=== PATIENT | female | born 1930 | race Caucasian/White ===

== ENCOUNTER 2017-09-04 15:46 | Emergency (ER) | payer OTHER ==
[2011-06-30 11:14] VITALS: BP 177/73
--- OUTSIDE RECORDS SUMMARY | 2017-09-04 15:50 | XMS REPORT | Clinical Summary ---
:1930 Author Organization [facility] Address [address] [place] [address] Care Team Providers Name Role Phone Tara Castro MD Primary Care Provider Allergies No Known Allergies Current Medications Prescription Sig. Disp. Refills Start Date End Date Status ALPRAZolam (XANAX) 0.25 Take 0.25 mg by 1 01/09/2016 Active MG tablet mouth as needed. Take the morning of surgery amitriptyline (ELAVIL) 50 Take 50 mg by mouth 0 01/16/2016 Active MG tablet every evening. famotidine (PEPCID) 20 MG Take 20 mg by mouth 5 01/21/2016 Active tablet every morning. gabapentin (NEURONTIN) TAKE ONE CAPSULE BY 5 01/21/2016 Active 300 MG capsule MOUTH 3 TIMES A DAY NEEDED FOR PAIN- usually takes it in the morning gemfibrozil (LOPID) 600 Take 600 mg by 5 01/21/2016 Active MG tablet mouth 2 (two) times a day. levothyroxine (SYNTHROID, Take 100 mcg by 1 11/21/2015 Active LEVOTHROID) 100 MCG mouth nightly. tablet zolpidem (AMBIEN) 10 mg Take 10 mg by mouth 3 01/22/2016 Active tablet nightly. Takes 1/2 tablet of the 10mg metoprolol tartrate Take 50 mg by mouth Active (LOPRESSOR) 50 MG tablet 2 (two) times a day. Take the morning of surgery warfarin (COUMADIN) 1 MG Take 5 tablets (5 02/25/2016 Active tablet mg total) by mouth daily. Active Problems Problem Noted Date Osteoarthritis of right hip 02/21/2016 Family History Medical History Relation Name Comments Stroke Sister Relation Name Status Comments Brother Father of old age Mother of old age Sister Social History Tobacco Use Types Packs/Day Years Used Date Never Smoker Smokeless Tobacco: Never Used Alcohol Use Drinks/Week oz/Week Comments No Sex Assigned at Date Recorded Not on file Last Filed Vital Signs Not on file Plan of Treatment Health Maintenance Due Date Last Done Comments SHINGRIX VACCINE (#1) 1982 ZOSTER VACCINE 1992 PNEUMOCOCCAL POLYSACCHARIDE VACCINE AGE 65 AND OVER 1997 PNEUMOCOCCAL-13 1997 INFLUENZA VACCINE 10/21/2017 Implants Implanted Type Area Budget Director Device Expiration Model / Identifier Date Serial / Lot Screw Bone Canc 6.5x30mm - [id number] Hip Joint Right: DEPUY ORTHO [id number] / Implanted: Qty: 1 on 02/21/2016 by Holly Ferguson MD Implants Hip / Screw Bone Canc Dome 6.5x25mm Ltxf [place] - [id number] Hip Joint Right: DEPUY ORTHO [id number] / Implanted: Qty: 1 on 02/21/2016 by Holly Ferguson MD Implants Hip / Shell Actblr Sector Series W/ Gripton 54mm [place] - [id number] Hip Joint Right: [facility] 12/20/2025 [id number] / Implanted: Qty: 1 on 02/21/2016 by Holly Ferguson MD Implants Hip ORTHO- KNEES / [id number] Liner Actblr Neut Altra Linked Pe [id number] +4 Altrx - [id number] Hip Joint Right: DEPUY 06/20/2020 [id number] / Implanted: Qty: 1 on 02/21/2016 by Holly Ferguson MD Implants Hip ORTHO- KNEES / [id number] Stem Fml Bone Presrvtn Std Ofst Sz 6 107mm Tri-Lock - [id number] Hip Joint Right: [facility] 10/20/2024 [id number] / Implanted: Qty: 1 on 02/21/2016 by Holly Ferguson MD Implants Hip ORTHO- KNEES / [id number] [place] Fracture System Biolox Delta Ceramic Femoral Heads Size 36 +5.0 Mm Articul/Lamont 03/05 Taper Ceramic Femoral Heads - [id number] IPM IMPLANT Right: [facility] 11/20/2020 [id number] / Implanted: Qty: 1 on 02/21/2016 by Holly Ferguson MD DEVICES Hip ORTHOPAEDICS, [employer] [id number] Results Not on fileafter 09/03/2016 Insurance Payer Benefit Plan / Group Subscriber ID Type Phone Address MEDICARE MEDICARE PART A AND B xxxxxxxxxx Medicare [place], [place] AETNA AETNA HMO,POS,EPO, MC/EC xxxxxxxxxx HMO Home: [address] [phone] [address]
--- NOTE | 2017-09-04 16:33 | ER ---
Nurse's Notes [facility] Name: Shilpa Samaniego Age: 87 yrs Sex: Female : 1930 Arrival Date: 09/04/2017 Time: 15:49 Bed Waiting Private MD: Brant Daley E Diagnosis: ED Course: 09/04 15:49 Patient arrived in ED. kr2 15:53 Brant Daley MD is Private Physician. sb2 16:32 Eliezer Henson MD is Attending Physician. aa5 Administered Medications: No medications were administered Outcome: 16:32 Patient left the ED. aa5 Signatures: Faiza Field RN RN aa5 Rianna Godoy RN RN kr2 Zoey Alvarado sb2
== END 2017-09-04 16:32 | disposition left against medical advice (07) ==
LOC: ER 15:46
DX: Z53.21 Procedure and treatment not carried out due to patient leaving prior to being seen by health care provider (principal)

== ENCOUNTER 2017-09-05 09:40 | Emergency (ER) | payer OTHER ==
--- OUTSIDE RECORDS SUMMARY | 2017-09-05 09:43 | XMS REPORT | Clinical Summary ---
:1930 Author Organization [facility] Address [address] [place] [address] Care Team Providers Name Role Phone Tara [...] INFLUENZA VACCINE 10/21/2017 Implants Implanted Type Area Prop Attendant Device Expiration Model / Identifier Date Serial / Lot Screw Bone Canc 6.5x30mm - [id number] Hip Joint Right: DEPUY ORTHO [id number] / Implanted: Qty: 1 on 02/21/2016 by Holly Ferguson MD Implants Hip / Screw Bone Canc Dome 6.5x25mm Ltxf [place] - [id number] Hip Joint Right: DEPUY ORTHO [id number] / Implanted: Qty: 1 on 02/21/2016 by Holly Ferguson MD Implants Hip / Shell Actblr Sector Series W/ Gripton 54mm [place] - [id number] Hip Joint Right: [facility] 12/20/2025 [id number] / Implanted: Qty: 1 on 02/21/2016 by Holly Ferguson MD Implants Hip ORTHO- KNEES / [id number] Liner Actblr Neut Altra Linked Pe [id number] +4 Altrx - [id number] Hip Joint Right: DEPUY 06/20/2020 [id number] / Implanted: Qty: 1 on 02/21/2016 by Holly Ferguson MD Implants Hip ORTHO- KNEES / [id number] Stem Fml Bone Presrvtn Std Ofst Sz 6 107mm Tri-Lock - [id number] Hip Joint Right: [facility] 10/20/2024 [id number] / Implanted: Qty: 1 on 02/21/2016 by Holly Ferguson MD Implants Hip ORTHO- KNEES / [id number] [place] Fracture System Biolox Delta Ceramic Femoral Heads Size 36 +5.0 Mm Articul/Lamont 03/05 Taper Ceramic Femoral Heads - [id number] IPM IMPLANT Right: [facility] 11/20/2020 [id number] / Implanted: Qty: 1 on 02/21/2016 by Holly Ferguson MD [employer]ICES Hip ORTHOPAEDICS, [employer] [id number] Results Not on fileafter 09/04/2016 Insurance Payer Benefit Plan / Group Subscriber ID Type Phone Address MEDICARE MEDICARE PART A AND B xxxxxxxxxx Medicare [place], [place] AETNA AETNA HMO,POS,EPO, MC/EC xxxxxxxxxx HMO Home: [address] [phone] [address]
--- NOTE | 2017-09-05 11:10 | RAD REPORT ---
EXAM DESCRIPTION: Lenora Batista (2 Views)09/05/2017 10:44 am CLINICAL HISTORY: Chest pain COMPARISON: July 2016 FINDINGS: The lungs appear clear of acute infiltrate. The heart is normal size. Pacemaker leads are in place IMPRESSION: No acute abnormalities displayed
--- NOTE | 2017-09-05 11:23 | EDPHYS ---
Physician Documentation [facility] Name: Shilpa Samaniego Age: 87 yrs Sex: Female : 1930 Arrival Date: 09/05/2017 Time: 09:41 Bed 14 Private MD: Brant Daley E ED Physician Berto King HPI: 09/05 12:00 This 87 yrs old Female presents to ER via Ambulatory with complaints of Back pm1 pain. 12:00 Details of fall: The patient fell from an upright position, while standing. Onset: The pm1 symptoms/episode began/occurred 4 day(s) ago. Associated injuries: The patient sustained Bruises to right side of back. Severity of symptoms: in the emergency department the symptoms are unchanged. 12:00 The patient has not recently seen a physician. Patient was walking to the toilet and pm1 her hand slipped on the counter top as she leaning on it. Patient fell on the right side of her back. Patient reports that she hit her right rib area on the toilet. Patient is not short of breath but complains of pain to right side of her back with taking in a deep breath. Patient without headache, head injury, neck pain, or LOC. Historical: - Allergies: 10:12 Augmentin; sv 10:12 NSAIDS; sv - Home Meds: 10:12 Lasix 40 mg Oral tab [Active]; Eliquis oral oral [Active]; famotidine 20 mg Oral tab sv [Active]; Gemfibrozil 300 MG Oral [Active]; gabapentin 300 mg Oral cap [Active]; levothyroxine 100 mcg tab 1 tab once daily [Active]; amitriptyline 50 mg Oral tab 1 tab once daily [Active]; Ambien 5 mg Oral tab [Active]; - PMHx: 10:12 Anxiety; Atrial Fib; hiatal hernia; DVT; LLE; Hyperlipidemia; Hypertension; Pacemaker; sv Rheumatoid Arthritis; - PSHx: 10:12 Hysterectomy; Hernia repair; cataract; shoulder; hip; sv - Immunization history:: Adult Immunizations up to date. - Social history:: Smoking status: Patient/guardian denies using tobacco. - Ebola Screening: : No symptoms or risks identified at this time. ROS: 12:00 Constitutional: Negative for fever, chills, and weight loss, Eyes: Negative for injury, pm1 pain, redness, and discharge, ENT: Negative for injury, pain, and discharge, Neck: Negative for injury, pain, and swelling, Cardiovascular: Negative for chest pain, palpitations, and edema. 12:00 Abdomen/GI: Negative for abdominal pain, nausea, vomiting, diarrhea, and constipation. 12:00 MS/Extremity: Negative for injury and deformity. 12:00 Neuro: Negative for headache, weakness, numbness, tingling, and seizure. 12:00 Respiratory: Positive for Pain with deep inspiration to right side of back, Negative for cough, shortness of breath, sputum production. 12:00 Back: Positive for of the right subscapular area and right mid back, contusion and tenderness. 12:00 Skin: Positive for of the right subscapular area and right mid back, contusion . Exam: 12:00 Constitutional: This is a well developed, well nourished patient who is awake, alert, pm1 and in no acute distress. Head/Face: Normocephalic, atraumatic. Eyes: Pupils equal round and reactive to light, extra-ocular motions intact. Lids and lashes normal. Conjunctiva and sclera are non-icteric and not injected. Cornea within normal limits. Periorbital areas with no swelling, redness, or edema. ENT: Nares patent. No nasal discharge, no septal abnormalities noted. Tympanic membranes are normal and external auditory canals are clear. Oropharynx with no redness, swelling, or masses, exudates, or evidence of obstruction, uvula midline. Mucous membranes moist. Neck: Trachea midline, no thyromegaly or masses palpated, and no cervical lymphadenopathy. Supple, full range of motion without nuchal rigidity, or vertebral point tenderness. No Meningismus. Chest/axilla: Normal chest wall appearance and motion. Nontender with no deformity. No lesions are appreciated. Cardiovascular: Regular rate and rhythm with a normal S1 and S2. No gallops, murmurs, or rubs. Normal PMI, no JVD. No pulse deficits. Respiratory: Lungs have equal breath sounds bilaterally, clear to auscultation and percussion. No rales, rhonchi or wheezes noted. No increased work of breathing, no retractions or nasal flaring. Abdomen/GI: Soft, non-tender, with normal bowel sounds. No distension or tympany. No guarding or rebound. No evidence of tenderness throughout. 12:00 Back: ROM is intact, normal spinal alignment noted, vertebral tenderness, is not appreciated, contusion to right subscapular and right mid back. 12:00 Skin: injury, contusion(s), that are superficial, of the right mid back and right subscapular area. 12:00 Neuro: Orientation: is normal, Motor: is normal, moves all fours. Vital Signs: 10:12 BP 154 / 63; Pulse 87; Resp 18; Temp 97.9; Pulse Ox 99% ; Weight 81.65 kg; Height 5 ft. sv 10 in. (177.80 cm); Pain 8/10; 11:28 BP 150 / 62; Pulse 85; Resp 18; Pulse Ox 100% on R/A; hj 10:12 Body Mass Index 25.83 (81.65 kg, 177.80 cm) sv MDM: 10:29 Patient medically screened. pm1 11:19 Data reviewed: vital signs. Data interpreted: Pulse oximetry: on room air is 99 %. pm1 Interpretation: normal. Counseling: I had a detailed discussion with the patient and/or guardian regarding: the historical points, exam findings, and any diagnostic results supporting the discharge/admit diagnosis, radiology results. 11:19 ED course: Patient offered pain medications in the ER. Patient refused medications in pm1 ER because she drove here. Patient requested prescription to go home with. 09/05 10:17 Order name: Chest Pa And Lat (2 Views) XRAY; Complete Time: 11:11 sv 09/05 11:10 Order name: Urine Dipstick-Ancillary (obtain specimen); Complete Time: 11:10 em1 Administered Medications: No medications were administered Disposition: 19:01 Co-signature as Attending Physician, Berto King MD. Disposition: 09/05/17 11:22 Discharged to Home. Impression: Contusion of right back wall of thorax. - Condition is Stable. - Discharge Instructions: Rib Contusion. - Prescriptions for Tramadol 50 mg Oral Tablet - take 1 tablet by ORAL route every 8 hours as needed; 12 tablet. - Medication Reconciliation Form, Thank You Letter, Prescription Opioid Use form. - Follow up: Emergency Department; When: As needed; Reason: Worsening of condition. Follow up: Brant Daley MD; When: 2 - 3 days; Reason: Recheck today's complaints, Continuance of care, Re-evaluation by your physician. - Problem is new. - Symptoms have improved. - Notes: Use your incentive spirometer at home Signatures: Dispatcher [employer] EDInes Jung, RN RN Israel Parra em1 Pierce Crystal RN RN hj Jose Cruz Rainey, KLYSTROM TUBE TESTER KLYSTROM TUBE TESTER pm1 Berto King MD MD Corrections: (The following items were deleted from the chart) 11:28 11:22 09/05/2017 11:22 Discharged to Home. Impression: Contusion of right back wall of hj thorax. Condition is Stable. Forms are Medication Reconciliation Form, Thank You Letter, Antibiotic Education, Prescription Opioid Use. Follow up: Emergency Department; When: As needed; Reason: Worsening of condition. Follow up: Brant Daley; When: 2 - 3 days; Reason: Recheck today's complaints, Continuance of care, Re-evaluation by your physician. Problem is new. Symptoms have improved. pm1
--- NOTE | 2017-09-05 11:23 | ER ---
Nurse's Notes [facility] Name: Shilpa Samaniego Age: 87 yrs Sex: Female : 1930 Arrival Date: 09/05/2017 Time: 09:41 Bed 14 Private MD: Brant Daley E Diagnosis: Contusion of right back wall of thorax Presentation: 09/05 10:07 Presenting complaint: Patient states: s/p fall on 09/01/17 after getting dizzy and her sv back hit the toilet. Dyspnea with breathing. Transition of care: patient was not received from another setting of care. Onset of symptoms was September 01, 2017. 10:07 Method Of Arrival: Ambulatory sv 10:07 Acuity: LESA 3 sv 10:08 Risk Assessment: Do you want to hurt yourself or someone else? Patient reports no sv desire to harm self or others. Care prior to arrival: None. 10:45 Initial Sepsis Screen: Does the patient meet any 2 criteria? No. Patient's initial hj sepsis screen is negative. Does the patient have a suspected source of infection? No. Patient's initial sepsis screen is negative. Triage Assessment: 10:45 General: Appears in no apparent distress. uncomfortable, Behavior is calm, cooperative, hj appropriate for age. Respiratory: Reports shortness of breath Onset: The symptoms/episode began/occurred the patient has mild shortness of breath. Historical: - Allergies: 10:12 Augmentin; sv 10:12 NSAIDS; sv - Home Meds: 10:12 Lasix 40 mg Oral tab [Active]; Eliquis oral oral [Active]; famotidine 20 mg Oral tab sv [Active]; Gemfibrozil 300 MG Oral [Active]; gabapentin 300 mg Oral cap [Active]; levothyroxine 100 mcg tab 1 tab once daily [Active]; amitriptyline 50 mg Oral tab 1 tab once daily [Active]; Ambien 5 mg Oral tab [Active]; - PMHx: 10:12 Anxiety; Atrial Fib; hiatal hernia; DVT; LLE; Hyperlipidemia; Hypertension; Pacemaker; sv Rheumatoid Arthritis; - PSHx: 10:12 Hysterectomy; Hernia repair; cataract; shoulder; hip; sv - Immunization history:: Adult Immunizations up to date. - Social history:: Smoking status: Patient/guardian denies using tobacco. - Ebola Screening: : No symptoms or risks identified at this time. Screenin:44 Abuse screen: Denies threats or abuse. Denies injuries from another. Nutritional hj screening: No deficits noted. Tuberculosis screening: No symptoms or risk factors identified. Fall Risk None identified. Assessment: 10:44 Pain:. Cardiovascular: Rhythm is regular. Respiratory: Airway is patent Respiratory hj effort is even, unlabored, Breath sounds are clear. 10:44 General: Appears in no apparent distress. uncomfortable, Behavior is calm, cooperative, hj appropriate for age. Neuro: Level of Consciousness is awake, alert, obeys commands, Oriented to person, place, time, situation, Appropriate for age. GI: No signs and/or symptoms were reported involving the gastrointestinal system. : No signs and/or symptoms were reported regarding the genitourinary system. EENT: No signs and/or symptoms were reported regarding the EENT system. Derm: No signs and/or symptoms reported regarding the dermatologic system. Musculoskeletal: No signs and/or symptoms reported regarding the musculoskeletal system. 11:10 Reassessment: Patient and/or family updated on plan of care and expected duration. Pain hj level reassessed. Patient is alert, oriented x 3, equal unlabored respirations, skin warm/dry/pink. awaiting results;. Vital Signs: 10:12 BP 154 / 63; Pulse 87; Resp 18; Temp 97.9; Pulse Ox 99% ; Weight 81.65 kg; Height 5 ft. sv 10 in. (177.80 cm); Pain 8/10; 11:28 BP 150 / 62; Pulse 85; Resp 18; Pulse Ox 100% on R/A; hj 10:12 Body Mass Index 25.83 (81.65 kg, 177.80 cm) sv ED Course: 09:41 Patient arrived in ED. as 09:42 Brant Daley MD is Private Physician. as 10:09 Triage completed. sv 10:19 Jose Cruz Rainey NP is PHCP. pm1 10:19 Berto King MD is Attending Physician. pm1 10:23 Pierce Crystal RN is Primary Nurse. hj 10:42 X-ray completed. Patient tolerated procedure well. la2 10:42 Chest Pa And Lat (2 Views) XRAY In Process Unspecified. EDMS 10:45 Arm band placed on right wrist. hj 10:45 Patient has correct armband on for positive identification. Placed in gown. Bed in low hj position. Call light in reach. Side rails up X 1. 11:08 Warm blanket given. Pulse ox on. NIBP on. 5 11:08 Urine collected: clean catch specimen, clear. [facility] 11:22 Brant Daley MD is Referral Physician. pm1 11:27 No provider procedures requiring assistance completed. Patient did not have IV access hj during this emergency room visit. Administered Medications: No medications were administered Outcome: 11: Discharge ordered by . pm1 11:27 Discharged to home ambulatory, with family. 11: Condition: stable 11:27 Discharge instructions given to patient, Instructed on discharge instructions, follow up and referral plans. Demonstrated understanding of instructions, follow-up care, Prescriptions given X 1. 11:28 Patient left the ED. Signatures: Dispatcher [employer] EDInes Jung RN RN Noa Conde Henry, RN RN hj Marinas, Patrick, [employer]NER 1 Erin Conde [facility] Tori Almeida
[2017-09-05 12:15] VITALS: TEMP 97.9
[2017-09-05 12:17] VITALS: BP 150/62; O2SAT 100
== END 2017-09-05 11:28 | disposition home or self-care (01) ==
LOC: ER 09:40
DX: S20.221A Contusion of right back wall of thorax, initial encounter (principal); W18.39XA Other fall on same level, initial encounter; Y93.01 Activity, walking, marching and hiking; Y92.002 Bathroom of unspecified non-institutional (private) residence as the place of occurrence of the external cause; I10 Essential (primary) hypertension; I48.91 Unspecified atrial fibrillation; E78.5 Hyperlipidemia, unspecified; Z79.02 Long term (current) use of antithrombotics/antiplatelets; Z88.1 Allergy status to other antibiotic agents; Z88.6 Allergy status to analgesic agent; Z95.0 Presence of cardiac pacemaker; Z86.718 Personal history of other venous thrombosis and embolism
CPT/HCPCS: 71046; 99284

== ENCOUNTER 2017-10-14 13:03 | Emergency (ER) | payer OTHER ==
--- OUTSIDE RECORDS SUMMARY | 2017-10-14 13:05 | XMS REPORT | Clinical Summary ---
:1930 Author Organization [facility] Address [address] [place] [address] Care Team Providers Name Role Phone Tara [...] INFLUENZA VACCINE 10/21/2017 Implants Implanted Type Area Leases And Land Supervisor Device Expiration Model / Identifier Date Serial / Lot Screw Bone Canc 6.5x30mm - [id number] Hip Joint Right: DEPUY ORTHO [id number] / Implanted: Qty: 1 on 02/21/2016 by Holly Ferguson MD Implants Hip / Screw Bone Canc Dome 6.5x25mm Ltxf [place] - [id number] Hip Joint Right: DEPUY ORTHO [id number] / Implanted: Qty: 1 on 02/21/2016 by Holly Ferguson MD Implants Hip / Shell Actblr Sector Series W/ Gripton 54mm [place] - [id number] Hip Joint Right: [facility] 12/20/2025 [id number] / Implanted: Qty: 1 on 02/21/2016 by Holly Ferguson MD Implants Hip ORTHO- KNEES / [id number] Liner Actblr Neut Altra Linked Pe [id number] +4 Altrx - [id number] Hip Joint Right: DEPUY 06/20/2020 [id number] / Implanted: Qty: 1 on 02/21/2016 by Holly Ferguson MD Implants Hip ORTHO- KNEES / [id number] Stem Fml Bone Presrvtn Std Ofst Sz 6 107mm Tri-Lock - [id number] Hip Joint Right: [facility] 10/20/2024 [id number] / Implanted: Qty: 1 on 02/21/2016 by Holly Ferguson MD Implants Hip ORTHO- KNEES / [id number] [place] Fracture System Biolox Delta Ceramic Femoral Heads Size 36 +5.0 Mm Articul/Lamont 03/05 Taper Ceramic Femoral Heads - [id number] IMPLANT Right: [facility] 11/20/2020 [id number] 36 320 / Implanted: Qty: 1 on 02/21/2016 by Holly Ferguson MD DEVICES Hip ORTHOPAEDICS, / [id number] Results Not on fileafter 10/13/2016 Insurance Payer Benefit Plan / Group Subscriber ID Type Phone Address MEDICARE MEDICARE PART A AND B xxxxxxxxxx Medicare [place], [place] AETNA AETNA HMO,POS,EPO, MC/EC xxxxxxxxxx HMO Home: [address] [phone] [address]
[2017-10-14] MEDS ORDERED: ONDANSETRON 4 MG/2 ML VIAL ONE (13:39)
[2017-10-14 14:01] LABS: Protime INR 1.37
--- NOTE | 2017-10-14 14:05 | RAD REPORT ---
EXAM DESCRIPTION: RAD - Chest Single View - 10/14/2017 1:58 pm CLINICAL HISTORY: dizziness Chest pain. COMPARISON: Chest Pa And Lat (2 Views) dated 09/05/2017; Chest Pa And Lat (2 Views) dated 08/17/2016; Chest Single View dated 03/29/2016; Chest Single View dated 02/16/2016 FINDINGS: Portable technique limits examination quality. The lungs are grossly clear. The heart is normal in size. No displaced fractures.Dual lead pacer courtney ce in place. IMPRESSION: No acute intrathoracic process suspected.
[2017-10-14 14:15] LABS: ALT/SGPT 16 U/L (12-78); AST/SGOT 20 U/L (15-37); Albumin 3.9 g/dL (3.4-5.0); Alkaline Phosphatase 72 U/L (45-117); BUN Blood Urea Nitrogen 25 mg/dL (7-18); Bicarbonate 30 mmol/L (21-32); Bilirubin Direct < 0.1 mg/dL (0-0.2); Bilirubin Total 0.2 mg/dL (0.2-1.0); Glucose Level 144 mg/dL (74-106); NT PRO-BNP 376 pg/mL (<450); Potassium 3.8 mmol/L (3.5-5.1); Protein, Total 7.3 g/dL (6.4-8.2); Sodium Level 144 mmol/L (136-145)
--- NOTE | 2017-10-14 14:15 | EKG ---
Test Date: 2017-10-14 Test Time: 13:26:06 Cash Posting Representative: KASIA MEASUREMENT RESULTS: Intervals: Rate: 68 TN: QRSD: 84 QT: 428 QTc: 455 [place]: P: TN: QRS: 54 T: 49 INTERPRETIVE STATEMENTS: Electronic atrial pacemaker Compared to ECG 03/29/2016 20:48:08 Sinus rhythm no longer present Electronically Signed On 10-14-17 14:15:08 CDT by Ck Somers
[2017-10-14 14:23] LABS: Absolute Lymphocytes (CBC) 1.3 K/uL (0.7-4.9); Absolute Monocytes 0.4 K/uL (0.1-1.3); Absolute Neutrophil 3.4 K/uL (1.8-8.0); Basophils % 2.3 % (0-1.3); Hematocrit 30.1 % (36.0-45.0); Lymphocytes % 23.5 % (15.3-44.8); MCH 31.3 pg (27.0-35.0); MCV 93.2 fL (80-100); MPV 8.1 fL (7.6-11.3); Monocytes % 6.4 % (3.3-12.3); RBC Red Blood Cell Count 3.23 M/uL (3.86-4.86)
[2017-10-14] MEDS ORDERED: MECLIZINE HCL 12.5 MG TAB ONE (14:28)
[2017-10-14] MEDS ORDERED: DIAZEPAM 10 MG/2 ML INJ SYRINGE ONE ×2 (14:32→14:53)
[2017-10-14 14:57] LABS: Urine Blood NEGATIVE (NEG); Urine Glucose NEGATIVE (NEG); Urine Protein NEGATIVE (NEG); Urine Specific Gravity 1.015 (1.005-1.030)
--- NOTE | 2017-10-14 15:01 | RAD REPORT ---
EXAM DESCRIPTION: CT - Head Brain Wo Cont - 10/14/2017 2:48 pm CLINICAL HISTORY: DIZZINESS Visual disturbances, drowsiness. COMPARISON: Head Brain Wo Cont dated 03/29/2016; HEAD BRAIN W O CONTRAST dated 07/28/2014 TECHNIQUE: All CT scans are performed using dose optimization technique as appropriate and may inclu de automated exposure control or mA/KV adjustment according to patient size. FINDINGS: No intracranial hemorrhage, hydrocephalus or extra-axial fluid collection.Mild brain atrop hy is seen.No areas of brain edema or evidence of midline shift. The paranasal sinuses and mastoids are clear. The calvarium is intact. IMPRESSION: No acute intracranial abnormality.
--- NOTE | 2017-10-14 16:02 | ER ---
Nurse's Notes [facility] Name: Shilpa Samaniego Age: 87 yrs Sex: Female : 1930 Arrival Date: 10/14/2017 Time: 13:04 Bed 4 Private MD: Brant Daley E Diagnosis: Vertigo Presentation: 10/14 13:15 Presenting complaint: Patient states: c/o dizziness, blurry vision and nausea that sv started at 1000 today. c/o chest tightness. Transition of care: patient was not received from another setting of care. Onset of symptoms was October 14, 2017 at 10:00. Care prior to arrival: None. 13:15 Method Of Arrival: Wheelchair sv 13:15 Acuity: LESA 3 sv 13:46 Risk Assessment: Do you want to hurt yourself or someone else? Patient reports no ae1 desire to harm self or others. Initial Sepsis Screen: Does the patient meet any 2 criteria? No. Patient's initial sepsis screen is negative. Does the patient have a suspected source of infection? No. Patient's initial sepsis screen is negative. Triage Assessment: 13:46 General: Appears uncomfortable, Behavior is cooperative, anxious. Pain: Denies pain. ae1 EENT: No signs and/or symptoms were reported regarding the EENT system. Neuro: Level of Consciousness is awake, alert, obeys commands, Oriented to person, place, time, situation, Reports dizziness. Cardiovascular: Patient's skin is warm and dry. Respiratory: Airway is patent Respiratory effort is even, unlabored, Respiratory pattern is regular, symmetrical. GI: Reports nausea. : No signs and/or symptoms were reported regarding the genitourinary system. Derm: Skin is pale. Musculoskeletal: No signs and/or symptoms reported regarding the musculoskeletal system. Historical: - Allergies: 13:16 Augmentin; sv 13:16 NSAIDS; sv - Home Meds: 15:55 Ambien 5 mg Oral tab [Active]; amitriptyline 50 mg Oral tab 1 tab once daily [Active]; ae1 Eliquis Oral [Active]; famotidine 20 mg Oral tab [Active]; gabapentin 300 mg Oral cap [Active]; Gemfibrozil 300 MG Oral [Active]; Lasix 40 mg Oral tab [Active]; levothyroxine 100 mcg tab 1 tab once daily [Active]; - PMHx: 13:16 Anxiety; Atrial Fib; DVT; LLE; hiatal hernia; Hyperlipidemia; Hypertension; Pacemaker; sv Rheumatoid Arthritis; - PSHx: 13:16 Hysterectomy; Hernia repair; cataract; shoulder; hip; sv - Immunization history:: Adult Immunizations up to date. - Social history:: Smoking status: Patient/guardian denies using tobacco. - Ebola Screening: : No symptoms or risks identified at this time. Screenin:45 Abuse screen: Denies threats or abuse. Nutritional screening: No deficits noted. ae1 Tuberculosis screening: No symptoms or risk factors identified. 15:53 Fall Risk Fall in past 12 months (25 points). Secondary diagnosis (15 points) Chronic ae1 dizziness. . IV access (20 points). Ambulatory Aid- None/Bed Rest/Nurse Assist (0 pts). Gait- Normal/Bed Rest/Wheelchair (0 pts) Mental Status- Oriented to own ability (0 pts). Assessment: 15:56 Reassessment: Patient appears in no apparent distress at this time. Patient and/or ae1 family updated on plan of care and expected duration. Pain level reassessed. Patient states feeling better. Patient states symptoms have improved. Vital Signs: 13:16 BP 138 / 61; Pulse 64; Resp 18; Temp 97; Pulse Ox 97% ; Weight 86.18 kg; Height 5 ft. 9 sv in. (175.26 cm); 14:23 BP 127 / 61; Pulse 60; mb4 15:18 BP 109 / 95; Pulse 75; Resp 16; Pulse Ox 95% on 2 lpm NC; ae1 13:16 Body Mass Index 28.06 (86.18 kg, 175.26 cm) sv ED Course: 13:04 Patient arrived in ED. mr 13:04 Brant Dlaey MD is Private Physician. mr 13:15 Triage completed. sv 13:17 Arm band placed on left wrist. sv 13:18 Salvador Ventura PA is PHCP. jr8 13:18 Dio Cordon MD is Attending Physician. jr8 13:34 Eddi Carter, SABI is Primary Nurse. ae1 13:34 EKG done, reviewed by Dio Cordon MD. tc 13:45 Placed in gown. Bed in low position. Call light in reach. Side rails up X2. Adult w/ ae1 patient. monitor and storage bin tender on. Pulse ox on. NIBP on. Warm blanket given. 13:58 XRAY Chest (1 view) In Process Unspecified. EDMS 14:17 Radiology exam delayed due to patient needed to go to restroom. sj 14:22 Urine collected: clean catch specimen, clear. mb4 14:46 CT completed. Patient tolerated procedure well. Patient moved to CT via stretcher. Patient moved back from CT. 14:49 CT Head Brain wo Cont In Process Unspecified. EDMS 16:01 Rodney Stein MD is Referral Physician. jr8 16:01 Dustin Nunez MD is Referral Physician. jr8 16:22 No provider procedures requiring assistance completed. IV discontinued, intact, ae1 bleeding controlled, No redness/swelling at site. Pressure dressing applied. Administered Medications: 13:37 Drug: Zofran 4 mg Route: IVP; Site: right antecubital; ae1 15:56 Follow up: Response: Nausea is decreased ae1 14:35 Drug: Meclizine 25 mg Route: PO; ae1 15:56 Follow up: Response: Other; Dizziness decreased. ae1 14:35 Drug: Valium 2 mg Route: IVP; Site: right antecubital; ae1 15:57 Follow up: Response: Anxiety decreased ae1 Intake: Outcome: 16:01 Discharge ordered by . jr8 16:22 Discharged to home ambulatory, with family, with steady gait. ae1 16:22 Condition: stable 16:22 Discharge instructions given to patient, family, Instructed on discharge instructions, follow up and referral plans. medication usage, Demonstrated understanding of instructions, Prescriptions given X 3. 16:23 Patient left the ED. ae1 Signatures: Dispatcher [employer] EDOH Ines Vivas, RN RN Erin Dumont mr Hernadez, Christine Salvador Schmitt, PA PA jr8 Sunita Ferrari, assembly mechanic EKG Payton Torres Andrea, RN RN ae1 Paola Nicholson mb4 Corrections: (The following items were deleted from the chart) 13:17 13:15 Presenting complaint: Patient states: c/o dizziness, blurry vision and nausea sv that started at 1000 today. sv 14:55 13:50 Meclizine 25 mg PO ae1 ae1
--- NOTE | 2017-10-14 16:02 | EDPHYS ---
Physician Documentation [facility] Name: Shilpa Samaniego Age: 87 yrs Sex: Female : 1930 Arrival Date: 10/14/2017 Time: 13:04 Bed 4 Private MD: Brant Daley E ED Physician Dio Cordon HPI: 10/14 14:31 This 87 yrs old Female presents to ER via Wheelchair with complaints of jr8 Nausea, dizziness . 14:31 The patient presents with sense of spinning, vertigo. Onset: The symptoms/episode jr8 began/occurred acutely, today. Context: occurred at home, occurred while the patient was at rest. Modifying factors: The symptoms are alleviated by holding head still, lying down, the symptoms are aggravated by movement of head, changing position. Associated signs and symptoms: Pertinent positives: nausea, vomiting. Severity of symptoms: At their worst the symptoms were moderate in the emergency department the symptoms have improved. Patient's baseline: Neuro: alert and fully oriented, Motor: no deficits, Ambulation: walks without assistance, Speech: normal. The patient has experienced a previous episode. The patient has not recently seen a physician. 14:31 Patient stated that she has had dizziness before but never this long and to this extent jr8 . Historical: - Allergies: 13:16 Augmentin; sv 13:16 NSAIDS; sv - Home Meds: 15:55 Ambien 5 mg Oral tab [Active]; amitriptyline 50 mg Oral tab 1 tab once daily [Active]; ae1 Eliquis Oral [Active]; famotidine 20 mg Oral tab [Active]; gabapentin 300 mg Oral cap [Active]; Gemfibrozil 300 MG Oral [Active]; Lasix 40 mg Oral tab [Active]; levothyroxine 100 mcg tab 1 tab once daily [Active]; - PMHx: 13:16 Anxiety; Atrial Fib; DVT; LLE; hiatal hernia; Hyperlipidemia; Hypertension; Pacemaker; sv Rheumatoid Arthritis; - PSHx: 13:16 Hysterectomy; Hernia repair; cataract; shoulder; hip; sv - Immunization history:: Adult Immunizations up to date. - Social history:: Smoking status: Patient/guardian denies using tobacco. - Ebola Screening: : No symptoms or risks identified at this time. ROS: 14:31 Eyes: Negative for injury, pain, redness, and discharge, ENT: Negative for injury, jr8 pain, and discharge, Neck: Negative for injury, pain, and swelling, Cardiovascular: Negative for chest pain, palpitations, and edema, Respiratory: Negative for shortness of breath, cough, wheezing, and pleuritic chest pain, Back: Negative for injury and pain, MS/Extremity: Negative for injury and deformity, Skin: Negative for injury, rash, and discoloration. 14:31 Abdomen/GI: Positive for nausea and vomiting, Negative for abdominal pain, diarrhea, abdominal cramps, abdominal distension. 14:31 Neuro: Positive for dizziness, Negative for altered mental status, gait disturbance, headache, hearing loss, loss of consciousness, numbness, seizure activity, speech changes, syncope, near syncope, tingling, tinnitus, tremor, visual changes, weakness. Exam: 14:31 Eyes: Pupils equal round and reactive to light, extra-ocular motions intact. Lids and jr8 lashes normal. Conjunctiva and sclera are non-icteric and not injected. Cornea within normal limits. Periorbital areas with no swelling, redness, or edema. ENT: Nares patent. No nasal discharge, no septal abnormalities noted. Tympanic membranes are normal and external auditory canals are clear. Oropharynx with no redness, swelling, or masses, exudates, or evidence of obstruction, uvula midline. Mucous membranes moist. Neck: Trachea midline, no thyromegaly or masses palpated, and no cervical lymphadenopathy. Supple, full range of motion without nuchal rigidity, or vertebral point tenderness. No Meningismus. Cardiovascular: Regular rate and rhythm with a normal S1 and S2. No gallops, murmurs, or rubs. Normal PMI, no JVD. No pulse deficits. Respiratory: Lungs have equal breath sounds bilaterally, clear to auscultation and percussion. No rales, rhonchi or wheezes noted. No increased work of breathing, no retractions or nasal flaring. Abdomen/GI: Soft, non-tender, with normal bowel sounds. No distension or tympany. No guarding or rebound. No evidence of tenderness throughout. Back: No spinal tenderness. No costovertebral tenderness. Full range of motion. Skin: Warm, dry with normal turgor. Normal color with no rashes, no lesions, and no evidence of cellulitis. MS/ Extremity: Pulses equal, no cyanosis. Neurovascular intact. Full, normal range of motion. 14:31 Neuro: Orientation: to person, place \T\ time. Mentation: is normal, Memory: is normal, immediate memory is intact, recent memory is intact, remote memory is intact, Cranial nerves: CN I not tested, CN II- XII are normal as tested, visual dinero are intact. extraocular movements are intact, Facial palsy and sensory deficits are absent. no gross hearing deficit,. Rotary nystagmus in right eye. right lateral nystagmus, Speech is clear and appropriate. Tongue strength is normal, Cerebellar function: normal finger to nose testing, heel to samayoa testing is normal, Motor: moves all fours, strength is 5/5 in all extremities, Sensation: is normal. Vital Signs: 13:16 BP 138 / 61; Pulse 64; Resp 18; Temp 97; Pulse Ox 97% ; Weight 86.18 kg; Height 5 ft. 9 sv in. (175.26 cm); 14:23 BP 127 / 61; Pulse 60; mb4 15:18 BP 109 / 95; Pulse 75; Resp 16; Pulse Ox 95% on 2 lpm NC; ae1 13:16 Body Mass Index 28.06 (86.18 kg, 175.26 cm) sv MDM: 13:18 Patient medically screened. jr8 15:58 Data reviewed: vital signs, nurses notes, lab test result(s), EKG, radiologic studies, jr CT scan, and as a result, I will discharge patient. Data interpreted: Pulse oximetry: on room air is 95 %. Interpretation: normal. Counseling: I had a detailed discussion with the patient and/or guardian regarding: the historical points, exam findings, and any diagnostic results supporting the discharge/admit diagnosis, lab results, radiology results, the need for outpatient follow up, an ENT specialist, a neurologist, to return to the emergency department if symptoms worsen or persist or if there are any questions or concerns that arise at home. Response to treatment: the patient's symptoms have resolved after treatment. ED course: Patient has complete resolution of symptoms post treatment. Negative for central vertigo signs. Positive for peripheral vertigo signs. Negative CT. Patient on Eliquis. Less likely to be stroke. Recommend follow up. Patient has appointment Thursday. Will send home on meclizine and valium. If worse to come back . 10/14 13:32 Order name: Basic Metabolic Panel; Complete Time: 14:34 10/14 13:32 Order name: CBC with Diff; Complete Time: 14:10/14 13:32 Order name: LFT's; Complete Time: 14:10/14 13:32 Order name: Magnesium; Complete Time: 14:34 10/14 13:32 Order name: NT PRO-BNP; Complete Time: 14:34 10/14 13:32 Order name: PT-INR; Complete Time: 14:10/14 13:32 Order name: Troponin (emerg Dept Use Only); Complete Time: 14:10/14 13:32 Order name: XRAY Chest (1 view); Complete Time: 14:10/14 13:32 Order name: EKG; Complete Time: 13:32 10/14 13:32 Order name: CT Head Brain wo Cont; Complete Time: 15: 10/14 14:44 Order name: Urine Dipstick--Ancillary (enter results); Complete Time: 15: 10/14 13:32 Order name: Cardiac monitoring; Complete Time: 13:45 10/14 13:32 Order name: EKG - Nurse/Tech; Complete Time: 13:10/14 13:32 Order name: IV Saline Lock; Complete Time: 13:45 10/14 13:32 Order name: Labs collected and sent; Complete Time: 13:45 10/14 13:32 Order name: O2 Per Protocol; Complete Time: 13:45 10/14 13:32 Order name: O2 Sat Monitoring; Complete Time: 13:10/14 13:32 Order name: Urine Dipstick-Ancillary (obtain specimen); Complete Time: 14:23 Administered Medications: 13:37 Drug: Zofran 4 mg Route: IVP; Site: right antecubital; ae1 15:56 Follow up: Response: Nausea is decreased ae1 14:35 Drug: Meclizine 25 mg Route: PO; ae1 15:56 Follow up: Response: Other; Dizziness decreased. ae1 14:35 Drug: Valium 2 mg Route: IVP; Site: right antecubital; ae1 15:57 Follow up: Response: Anxiety decreased ae1 Disposition: 16:52 Co-signature as Attending Physician, Dio Cordon MD. rn Disposition: 10/14/17 16:01 Discharged to Home. Impression: Vertigo. - Condition is Stable. - Discharge Instructions: Benign Positional Vertigo, Vertigo. - Prescriptions for ondansetron 4 mg Oral tablet,disintegrating - take 1 tablet by ORAL route every 6 hours As needed; 12 tablet. Meclizine 25 mg Oral Tablet - take 1 tablet by ORAL route every 8 hours As needed; 30 tablet. Valium 2 mg Oral Tablet - take 1 tablet by ORAL route every 8 hours As needed; 20 tablet. - Medication Reconciliation Form, Thank You Letter, Antibiotic Education, Prescription Opioid Use form. - Follow up: Rodney Stein MD; When: 2 - 3 days; Reason: Recheck today's complaints, Continuance of care, Re-evaluation by your physician. Follow up: Dustin uNnez MD; When: 2 - 3 days; Reason: Recheck today's complaints, Continuance of care, Re-evaluation by your physician. - Problem is new. - Symptoms are resolved. Signatures: Dispatcher [employer] EDInes Jung RN RN sv Nieto, Roman, MD MD rn Roszak, Josh, PA PA jr8 Eddi Carter RN RN ae1 Corrections: (The following items were deleted from the chart) 16:23 16:01 10/14/2017 16:01 Discharged to Home. Impression: Vertigo. Condition is Stable. ae1 Forms are Medication Reconciliation Form, Thank You Letter, Antibiotic Education, Prescription Opioid Use. Follow up: Rodney Stein; When: 2 - 3 days; Reason: Recheck today's complaints, Continuance of care, Re-evaluation by your physician. Follow up: Dustin Nunez; When: 2 - 3 days; Reason: Recheck today's complaints, Continuance of care, Re-evaluation by your physician. Problem is new. Symptoms are resolved. jr8
[2017-10-14 16:35] VITALS: TEMP 97
[2017-10-14 16:37] VITALS: BP 109/95; O2SAT 95
== END 2017-10-14 16:23 | disposition home or self-care (01) ==
LOC: ER 13:03
DX: R42 Dizziness and giddiness (principal); R11.2 Nausea with vomiting, unspecified; I10 Essential (primary) hypertension; Z95.0 Presence of cardiac pacemaker; I48.91 Unspecified atrial fibrillation; Z79.01 Long term (current) use of anticoagulants; Z88.1 Allergy status to other antibiotic agents; Z88.6 Allergy status to analgesic agent; Z86.718 Personal history of other venous thrombosis and embolism
CPT/HCPCS: 36415; 70450; 71045; 80048; 80076; 81003; 83735; 83880; 84484; 85025; 85610; 93005; 96374; 96375; 99285; J2405; J3360

== ENCOUNTER 2019-01-31 12:01 | Observation (INO) | payer OTHER ==
--- OUTSIDE RECORDS SUMMARY | 2019-01-31 12:03 | XMS REPORT ---
:1930 [facility] Address [address] [place] [address] Dr. Shelley [address] [place] [id number] Care Team Providers Name Role Phone Unavailable Unavailable Unavailable Problems This patient has no known problems. Allergies, Adverse Reactions, Alerts This patient has no known allergies or adverse reactions. Medications This patient has no known medications.
[2019-01-31] MEDS ORDERED: NA CHLORIDE 0.9% 1,000 ML ONE (12:46)
[2019-01-31] MEDS ORDERED: PANTOPRAZOLE 40 MG INJ ONE (12:46)
[2019-01-31 12:53] LABS: Absolute Lymphocytes (CBC) 1.3 K/uL (0.7-4.9); Basophils % 0.6 % (0-1.3); Hematocrit 34.2 % (36.0-45.0); Lymphocytes % 18.5 % (15.3-44.8); MPV 8.3 fL (7.6-11.3); RBC Red Blood Cell Count 3.86 M/uL (3.86-4.86)
[2019-01-31 13:10] LABS: Albumin 3.7 g/dL (3.4-5.0); Bilirubin Direct 0.2 mg/dL (0-0.2); Bilirubin Total 0.7 mg/dL (0.2-1.0); Potassium 3.7 mmol/L (3.5-5.1); Protein, Total 7.9 g/dL (6.4-8.2)
[2019-01-31 13:26] LABS: Urine Blood TRACE (NEG); Urine Glucose NEGATIVE (NEG); Urine Protein NEGATIVE (NEG)
[2019-01-31 13:38] LABS: Urine Bacteria >50 /HPF (<20); Urine Culture Reflex Order REFLEXED; Urine RBC <5 /HPF (NONE SEEN)
--- NOTE | 2019-01-31 14:07 | ER ---
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 Pt reports nausea, denies vomiting, denies diarrhea. Denies abdominal pain. Pt also reports SOB. 12:10 Transition of care: patient was not received from another setting of care. Onset of aa5 symptoms was January 2019. Risk Assessment: Do you want to hurt yourself or someone else? Patient reports no desire to harm self or others. Initial Sepsis Screen: Does the patient meet any 2 criteria? No. Patient's initial sepsis screen is negative. Does the patient have a suspected source of infection? No. Patient's initial sepsis screen is negative. Care prior to arrival: None. 12:10 Acuity: LESA 3 aa5 12:10 Method Of Arrival: Ambulatory aa5 Historical: - Allergies: 12:12 Augmentin; aa5 12:12 NSAIDS; aa5 - Home Meds: 16:10 Ambien 5 mg Oral tab [Active]; amitriptyline 50 mg Oral tab 1 tab once daily [Active]; tw2 Eliquis Oral [Active]; famotidine 20 mg Oral tab [Active]; gabapentin 300 mg Oral cap [Active]; Gemfibrozil 300 MG Oral [Active]; Lasix 40 mg Oral tab [Active]; levothyroxine 100 mcg tab 1 tab once daily [Active]; - PMHx: 12:12 Anxiety; Atrial Fib; DVT; LLE; hiatal hernia; Hyperlipidemia; Hypertension; Pacemaker; aa5 Rheumatoid Arthritis; COPD; - PSHx: 12:12 Hysterectomy; Hernia repair; cataract; shoulder; hip; aa5 - Immunization history:: Adult Immunizations up to date. - Social history:: Smoking status: Patient/guardian denies using tobacco, Patient/guardian denies using alcohol, street drugs, The patient lives alone, with family. - Ebola Screening: : No symptoms or risks identified at this time. - Family history:: not pertinent. Screenin:27 Abuse screen: Denies threats or abuse. Denies injuries from another. Nutritional ca1 screening: No deficits noted. Tuberculosis screening: No symptoms or risk factors identified. Fall Risk IV access (20 points). Assessment: 12:27 General: Appears in no apparent distress. comfortable, Behavior is calm, cooperative, ca1 appropriate for age. Pain: Denies pain. Neuro: Level of Consciousness is awake, alert, obeys commands, Oriented to person, place, time, situation. Cardiovascular: Heart tones S1 S2 present Capillary refill < 3 seconds Patient's skin is warm and dry. Respiratory: Airway is patent Respiratory effort is even, unlabored, Respiratory pattern is regular, symmetrical, Breath sounds are clear bilaterally. GI: Abdomen is round non-distended, Bowel sounds present X 4 quads. Abd is soft and non tender X 4 quads. Reports rectal bleeding, since Thursday/ Rectal bleed is with clots and dark in color. GI: Reports nausea. : No deficits noted. No signs and/or symptoms were reported regarding the genitourinary system. EENT: No deficits noted. No signs and/or symptoms were reported regarding the EENT system. Derm: Skin is intact, is healthy with good turgor, Skin is pink, warm \T\ dry. Musculoskeletal: Circulation, motion, and sensation intact. Capillary refill < 3 seconds, Range of motion: intact in all extremities. 12:51 Reassessment: Pt ambulated to restroom. Pt c/o shortness of breath when back to room. ca1 Administered 02 at 2LPM. Pt reports feeling better at this time. 13:51 Reassessment: Patient appears in no apparent distress at this time. No changes from tw2 previously documented assessment. Patient and/or family updated on plan of care and expected duration. Pain level reassessed. 14:30 Reassessment: Patient appears in no apparent distress at this time. Patient is alert, ca1 oriented x 3, equal unlabored respirations, skin warm/dry/pink. 14:30 Reassessment: Dr. Coronel at bedside. ca1 15:15 Reassessment: Patient appears in no apparent distress at this time. Patient and/or ca1 family updated on plan of care and expected duration. Pain level reassessed. Patient is alert, oriented x 3, equal unlabored respirations, skin warm/dry/pink. Pending room assignment. 16:21 Reassessment: Patient appears in no apparent distress at this time. Patient is alert, ca1 oriented x 3, equal unlabored respirations, skin warm/dry/pink. Vital Signs: 12:13 BP 139 / 72; Pulse 73; Resp 16 S; Temp 98.4(O); Pulse Ox 96% on R/A; Pain 0/10; aa5 13:30 BP 122 / 64; Pulse 76; Resp 17; Pulse Ox 98% on R/A; tw2 13:50 BP 143 / 79; Pulse 74; Resp 17; Pulse Ox 100% on R/A; tw2 14:30 BP 140 / 83; Pulse 64; Resp 17 S; Pulse Ox 100% on R/A; ca1 15:16 BP 111 / 79; Pulse 72; Resp 17 S; Pulse Ox 100% on R/A; ca1 16:22 BP 153 / 80; Pulse 75; Resp 17 S; Pulse Ox 98% on 1 lpm NC; ca1 ED Course: 12:02 Patient arrived in ED. rg4 12:09 Arm band placed on Patient placed in an exam room, on a stretcher. aa5 12:12 Miranda De La Cruz, SABI is Primary Nurse. ca1 12:21 Kobi Mcnamara MD is Attending Physician. ma2 12:27 Patient has correct armband on for positive identification. Placed in gown. Bed in low ca1 position. Call light in reach. Side rails up X 1. security monitor on. Pulse ox on. NIBP on. Warm blanket given. 12:27 No provider procedures requiring assistance completed. Inserted saline lock: 20 gauge ca1 in right antecubital area, using aseptic technique. Blood collected. 12:28 Triage completed. aa5 12:47 Initial lab(s) drawn, by hi, sent to lab. ca1 14:06 Konrad Coronel DO is Hospitalizing Provider. ma2 16:09 Awaiting: unsuccessful attempt to call report at this time. tw2 16:10 Patient admitted, IV remains in place. tw2 Administered Medications: 12:48 Drug: NS 0.9% 1000 ml Route: IV; Rate: 1000 ml; Site: right antecubital; ca1 14:01 Follow up: Urine output 150 ml; Response: No adverse reaction; IV Status: Completed ca1 infusion; IV Intake: 1000ml 12:51 Drug: Pantoprazole 80 mg Route: IVP; Site: right antecubital; ca1 14:01 Follow up: Response: No adverse reaction ca1 Intake: 14:01 IV: 1000ml; Total: 1000ml. ca1 Output: 14:01 Urine: 150ml; Total: 150ml. ca1 Outcome: 14:06 Decision to Hospitalize by Provider. maReyna 16:22 Admitted to Tele accompanied by tech, via wheelchair, room 428, with chart, Report ca1 called to SABI Casanova 16:22 Condition: stable 16:22 Instructed on the need for admit. 16:34 Patient left the ED. ca1 Signatures: Faiza Field, RN RN aa5 Sakshi Hadley RN RN tw2 Chika Alvarado4 Kobi Mcnamara MD MD ma2 Miranda De La Cruz RN RN ca1
--- NOTE | 2019-01-31 14:07 | EDPHYS ---
Physician Documentation [facility] Name: Shilpa Samaniego Age: 88 yrs Sex: Female : 1930 Arrival Date: 01/31/2019 Time: 12:02 Bed 8 Private MD: ED Physician Kobi Mcnamara HPI: 01/31 14:01 This 88 yrs old Female presents to ER via Ambulatory with complaints of ma2 Rectal Bleeding. 14:01 The patient presents to the emergency department with bleeding from the rectum/anus. ma2 Onset: The symptoms/episode began/occurred gradually, 3 day(s) ago. Context: the patient has no known special context relating to the rectal area complaint(s). Associate signs and symptoms: Pertinent positives: lower GI bleeding, Pertinent negatives: abdominal pain, constipation, diarrhea, dysuria, fever, vomiting. The patient has not experienced similar symptoms in the past. Historical: - Allergies: 12:12 Augmentin; aa5 12:12 NSAIDS; aa5 - Home Meds: 16:10 Ambien 5 mg Oral tab [Active]; amitriptyline 50 mg Oral tab 1 tab once daily [Active]; tw2 Eliquis Oral [Active]; famotidine 20 mg Oral tab [Active]; gabapentin 300 mg Oral cap [Active]; Gemfibrozil 300 MG Oral [Active]; Lasix 40 mg Oral tab [Active]; levothyroxine 100 mcg tab 1 tab once daily [Active]; - PMHx: 12:12 Anxiety; Atrial Fib; DVT; LLE; hiatal hernia; Hyperlipidemia; Hypertension; Pacemaker; aa5 Rheumatoid Arthritis; COPD; - PSHx: 12:12 Hysterectomy; Hernia repair; cataract; shoulder; hip; aa5 - Immunization history:: Adult Immunizations up to date. - Social history:: Smoking status: Patient/guardian denies using tobacco, Patient/guardian denies using alcohol, street drugs, The patient lives alone, with family. - Ebola Screening: : No symptoms or risks identified at this time. - Family history:: not pertinent. ROS: 14:01 Constitutional: Negative for fever, chills, and weight loss. ma2 14:01 All other systems are negative. Exam: 14:01 Constitutional: This is a well developed, well nourished patient who is awake, alert, ma2 and in no acute distress. ENT: Nares patent. No nasal discharge, no septal abnormalities noted. Tympanic membranes are normal and external auditory canals are clear. Oropharynx with no redness, swelling, or masses, exudates, or evidence of obstruction, uvula midline. Mucous membranes moist. Neck: Trachea midline, no thyromegaly or masses palpated, and no cervical lymphadenopathy. Supple, full range of motion without nuchal rigidity, or vertebral point tenderness. No Meningismus. Chest/axilla: Normal chest wall appearance and motion. Nontender with no deformity. No lesions are appreciated. Cardiovascular: Regular rate and rhythm with a normal S1 and S2. No gallops, murmurs, or rubs. Normal PMI, no JVD. No pulse deficits. Respiratory: Lungs have equal breath sounds bilaterally, clear to auscultation and percussion. No rales, rhonchi or wheezes noted. No increased work of breathing, no retractions or nasal flaring. Abdomen/GI: Soft, non-tender, with normal bowel sounds. No distension or tympany. No guarding or rebound. No evidence of tenderness throughout. rectal exam shows external hemorroid that is not bleeding no gross blood Skin: Warm, dry with normal turgor. Normal color with no rashes, no lesions, and no evidence of cellulitis. MS/ Extremity: Pulses equal, no cyanosis. Neurovascular intact. Full, normal range of motion. Neuro: Awake and alert, GCS 15, oriented to person, place, time, and situation. Cranial nerves II-XII grossly intact. Motor strength 5/5 in all extremities. Sensory grossly intact. Cerebellar exam normal. Normal gait. Vital Signs: 12:13 BP 139 / 72; Pulse 73; Resp 16 S; Temp 98.4(O); Pulse Ox 96% on R/A; Pain 0/10; aa5 13:30 BP 122 / 64; Pulse 76; Resp 17; Pulse Ox 98% on R/A; tw2 13:50 BP 143 / 79; Pulse 74; Resp 17; Pulse Ox 100% on R/A; tw2 14:30 BP 140 / 83; Pulse 64; Resp 17 S; Pulse Ox 100% on R/A; ca1 15:16 BP 111 / 79; Pulse 72; Resp 17 S; Pulse Ox 100% on R/A; ca1 16:22 BP 153 / 80; Pulse 75; Resp 17 S; Pulse Ox 98% on 1 lpm NC; ca1 MDM: 12:21 Patient medically screened. fl2 14:01 Differential diagnosis: hemorrhoids, lower vs upper gi bleeding. Data reviewed: vital ma2 signs, nurses notes. Counseling: I had a detailed discussion with the patient and/or guardian regarding: the historical points, exam findings, and any diagnostic results supporting the discharge/admit diagnosis, the presence of at least one elevated blood pressure reading (>120/80) during this emergency department visit, the need for further work-up and treatment in the hospital. Response to treatment: the patient's symptoms have mildly improved after treatment. ED course: i called and discussed with dr. Ronal obando baking assistant, and dr. real . 01/31 12:36 Order name: BMP; Complete Time: 13:12 fl2 01/31 12:36 Order name: CBC with Diff; Complete Time: 13:12 [facility] 01/31 12:36 Order name: Creatinine for Radiology; Complete Time: 13:12 fl2 01/31 12:36 Order name: Hepatic Function; Complete Time: 13:12 fl2 01/31 12:36 Order name: Lipase; Complete Time: 13:12 fl2 01/31 12:58 Order name: Urine Microscopic Only ca1 01/31 12:36 Order name: IV Saline Lock; Complete Time: 12:43 fl2 01/31 12:36 Order name: Labs collected and sent; Complete Time: 12:43 [facility] 01/31 12:36 Order name: NPO; Complete Time: 12:43 [facility] 01/31 13:03 Order name: Urine Dipstick--Ancillary (enter results) bd 01/31 13:41 Order name: Urine Culture EDMS Administered Medications: 12:48 Drug: NS 0.9% 1000 ml Route: IV; Rate: 1000 ml; Site: right antecubital; ca1 14:01 Follow up: Urine output 150 ml; Response: No adverse reaction; IV Status: Completed ca1 infusion; IV Intake: 1000ml 12:51 Drug: Pantoprazole 80 mg Route: IVP; Site: right antecubital; ca1 14:01 Follow up: Response: No adverse reaction ca1 Disposition: 01/31/19 14:06 Hospitalization ordered by Konrad Real for Inpatient Admission. Preliminary diagnosis is Chronic or unspecified gastric ulcer with hemorrhage. - Bed requested for Telemetry/MedSurg (Inpatient). - Status is Inpatient Admission. ca1 - Condition is Stable. - Problem is new. - Symptoms are unchanged. UTI on Admission? No Signatures: Dispatcher [employer] EDMS Yolanda Fernandez Faiza Sidhu, RN RN aa5 Sakshi Hadley RN RN tw2 Kobi Mcnamara MD MD fl2 Miranda De La Cruz RN RN ca1 Corrections: (The following items were deleted from the chart) 15:56 14:06 Hospitalization Ordered by Konrad Real DO for Inpatient Admission. Preliminary bd diagnosis is Chronic or unspecified gastric ulcer with hemorrhage. Bed requested for Telemetry/MedSurg (Inpatient). Status is Inpatient Admission. Condition is Stable. Problem is new. Symptoms are unchanged. UTI on Admission? No. ma2 16:34 15:56 01/31/2019 14:06 Hospitalization Ordered by Konrad Real DO for Inpatient ca1 Admission. Preliminary diagnosis is Chronic or unspecified gastric ulcer with hemorrhage. Bed requested for Telemetry/MedSurg (Inpatient). Status is Inpatient Admission. Condition is Stable. Problem is new. Symptoms are unchanged. UTI on Admission? No. bd
[2019-01-31] MEDS ORDERED: ACETAMINOPHEN 500 MG TAB PO PRN (16:22)
[2019-01-31] MEDS ORDERED: D5 0.45 NS 1,000 ML IV SCH (16:22)
[2019-01-31] MEDS ORDERED: ONDANSETRON 4 MG/2 ML VIAL IV PRN (16:22)
[2019-01-31] MEDS ORDERED: ACETAMINOPHEN 650MG/RECT SUPP PR PRN (16:22)
[2019-01-31] MEDS ORDERED: AMITRIPTYLINE 25 MG TAB PO PRN (16:22)
[2019-01-31] MEDS ORDERED: LORAZEPAM 0.5 MG TABLET PO PRN (16:22)
[2019-01-31 16:47] VITALS: BMI 25.8
[2019-01-31] MEDS ORDERED: POTASSIUM CL SA 10 MEQ TAB PO ONE (16:59)
[2019-01-31] MEDS ORDERED: HYDRALAZINE HCL 20 MG/ML VIAL IV PRN (17:26)
[2019-01-31 17:27] LABS: Hematocrit 34.5 % (36.0-45.0)
--- NOTE | 2019-01-31 17:32 | P.HP ---
Certification for Inpatient Patient admitted to: Observation With expected LOS: <2 Midnights Patient will require the following post-hospital care: None Practitioner: I am a practitioner with admitting privileges, knowledge of patient current condition, hospital course, and medical plan of care. Services: Services provided to patient in accordance with Admission requirements found in Title 42 Section 412.3 of the Code of Federal Regulations Patient History Date of Service: 01/31/19 Primary Care Provider: Dr. Daley; Cardiology-Dr. Somers; GI-Dr. Rolon/Fransisco Reason for admission: Rectal bleeding History of Present Illness: 88-year-old female presented to the emergency room with rectal bleeding. Patient with history of GERD, atrial fibrillation on chronic anti coagulation therapy, hypertension, hypothyroidism, and chronic renal disease. Patient reported rectal bleeding over the past 3 days with melena. Patient denied any significant coughing or vomiting of blood. This all started on Thursday. Today she noted some blood clots coming from her rectum. She did report some shortness of breath last week. She denies any fever, chills. She denies any use of nonsteroidal anti-inflammatories. Patient came to the ER for further evaluation. In the ER patient evaluated. Initial lab shows a hemoglobin 11.5. Previous hemoglobin around 10 in 2018. White count 7.2, sodium 142, potassium 3.7, BUN of 19, creatinine 1.23 with a GFR 40. Glucose 107. Urinalysis showed some bacteria. She was admitted for further evaluation and treatment. When I saw the patient in the ER, she did not appear in any distress. No active rectal bleeding noted at this time. Patient reports a history of peptic ulcer in the past. Case actually discuss with GI who has seen the patient. Patient had EGD in 2018. No ulcers were noted at that time. Patient has a history of a BM. It was recommended that she get a colonoscopy but the patient declined. It was also noted that the patient likely would require pill camera and small- bowel follow-through it appears the patient has not had this done. Patient is taking chronic anti coagulation therapy-Eliquis for atrial fibrillation. Patient also takes Protonix. Patient is taking chronic antibiotics for recurrent UTI given by gynecology. Allergies amoxicillin [From Augmentin] Allergy (Verified 09/28/17 12:54) Unknown clavulanic acid [From Augmentin] Allergy (Verified 09/28/17 12:54) Unknown NSAIDS Allergy (Mild, Uncoded 01/31/19 17:11) Unknown Home medications list reviewed: Yes Home Medications: Amitriptyline [Elavil*] 50 mg PO BEDTIME 08/18/15 Levothyroxine [Synthroid*] 100 mcg PO BEDTIME 08/18/15 Metoprolol Tartrate [Lopressor*] 50 mg PO BID 08/18/15 Apixaban [Eliquis] 5 mg PO BID 02/16/16 Gabapentin 300 mg PO DAILY 02/16/16 Gemfibrozil 300 mg PO BID 02/16/16 Zolpidem Tartrate 5 mg PO BEDTIME 02/16/16 L.acidoph,Paracasei, B.lactis [Probiotic] 1 tab PO DAILY 01/31/19 Nitrofurantoin Macrocrystal [Nitrofurantoin] 100 mg PO DAILY 01/31/19 Pantoprazole [Protonix Tab*] 40 mg PO DAILY 01/31/19 - Past Medical/Surgical History Has patient received pneumonia vaccine in the past: Yes Diabetic: No -: HTN -: Hypothyroidism -: Chronic pain -: GERD with hiatal hernia -: Anxiety -: Atrial fibrillation on chronic anti coagulation therapy -: Hypothyroidism -: Insomnia -: Right Rotator surgery -: Hysterectomy -: Pacemaker -: hernia repair -: Bilateral knee surgery Psychosocial/ Personal History: Patient is a . She currently lives by herself. - Family History Sister -: Cancer Notes: Pt had another sister who had hx of CVA([place]) Brother -: Heart disease - Social History Smoking Status: Never smoker Alcohol use: No CD- Drugs: No Caffeine use: No Place of Residence: Home Review of Systems General: Weakness, As per HPI Eyes: Unremarkable ENT: Unremarkable Respiratory: Shortness of Breath, As per HPI Cardiovascular: Unremarkable Gastrointestinal: Melena, Hematochezia, As per HPI Genitourinary: As per HPI Musculoskeletal: Unremarkable Integumentary: Unremarkable Neurological: Unremarkable Lymphatics: Unremarkable Physical Examination - Vital Signs Temperature: 98.3 F Blood Pressure: 186/84 Pulse: 78 Respirations: 18 Pulse Ox (%): 97 - Physical Exam General: Alert, In no apparent distress, Oriented x3, Cooperative HEENT: Atraumatic, Normocephalic, Mucous membr. moist/pink Neck: Supple, No Thyromegaly Respiratory: Clear to auscultation bilaterally, Normal air movement Cardiovascular: Normal pulses, Regular rate/rhythm Gastrointestinal: Normal bowel sounds, Soft and benign, Non-distended, No ascites, No tenderness, No masses, No rebound, No guarding Musculoskeletal: No contractures, No erythema, No tenderness, No warmth Integumentary: No tenderness/swelling, No erythema, No warmth, No cyanosis Neurological: Normal speech, Normal strength at 5/5 x4 extr, Normal tone, Normal affect - Studies Laboratory Data (last 24 hrs) 01/31/19 12:39: Creatinine 1.23 01/31/19 12:39: WBC 7.2, Hgb 11.5 L, Hct 34.2 L, Plt Count 286 01/31/19 12:39: Sodium 142, Potassium 3.7, BUN 19 H, Creatinine 1.26, Glucose 107 H, Total Bilirubin 0.7, AST 17, ALT 22, Alkaline Phosphatase 105, Lipase 56 L Assessment and Plan - Plan Impression: Rectal bleeding, melena suspect upper versus lower GI bleed with history of AVM GERD with hiatal hernia Hypertension Atrial fibrillation on chronic anti coagulation therapy Hypothyroidism Anxiety Chronic pain Acute on chronic renal disease stage III Plan: Rectal bleeding, melena suspect upper versus lower GI bleed with history of AVM : Patient will be admitted for further evaluation and treatment. Patient currently stable at this time. Will continue to monitor for rectal bleeding. Will start IV Protonix drip. Will also start antibacterial medication-Flagyl. Case discussed with GI. Will continue to monitor hemoglobin closely. Will monitor serial hemoglobin and hematocrit. If hemoglobin drops significantly patient may require blood transfusion. Will maintain hemoglobin above 7.5. Will check iron and B12 studies. Patient with history of AVM. Will continue with clear liquids at this time. Will hold chronic anti coagulation therapy- Eliquis. Patient may require EGD as early as tomorrow. This may also be done as an outpatient if hemoglobin is stable. Will order small-bowel follow- through to further evaluate. GI reports patient will require GI pill camera as an outpatient to further evaluate. If the patient remains through Thursday GI will consider EGD at that time. Will start low-dose IV fluids. Will monitor closely. I will turn the service over to Dr. Ferguson tomorrow. I will go over the plan of care with her. Anticipate discharge as early as tomorrow or the next day considering clinical improvement and stability of hemoglobin.. GERD with hiatal hernia: Will start IV Protonix drip. Will continue to monitor closely. Hypertension: Restart home medication-metoprolol. Will provide IV medication as needed. Atrial fibrillation on chronic anti coagulation therapy: Will hold Eliquis at this time. Will consult cardiology for further recommendation. Eliquis may need to be held for the duration of this hospitalization and thereafter if hemoglobin continues to decline. Will monitor closely. Will check echocardiogram. Await further recommendations from cardiology. Will continue with rate control medication-metoprolol. Hypothyroidism: Continue with home medication levothyroxine 100 mcg daily Anxiety: Will provide medication for anxiety. Chronic pain: Will continue with gabapentin 300 mg 1 pill twice daily. Acute on chronic renal disease stage III: Will provide low-dose IV fluids. Will monitor and adjust appropriately. Electrolyte protocol in place. Discharge Plan: Home Plan to discharge in: 48 Hours - Advance Directives Does patient have a Living Will: Yes Does patient have a Durable POA for Healthcare: Yes - Code Status/Comfort Care Code Status Assessed: Yes (Patient is full code) Time Spent Managing Pts Care (In Minutes): 55
[2019-01-31] MEDS: METOPROLOL TAR 50 MG TAB PO SCH (17:46)
[2019-01-31] MEDS: METRONIDAZOLE 500mg IVPB 500 MG/100 ML BAG IV SCH (17:47)
[2019-01-31 18:04] LABS: Ferritin 42.5 ng/mL (8-388)
[2019-01-31] MEDS ORDERED: GABAPENTIN 300 MG CAP PO SCH (21:00)
[2019-01-31 21:21] LABS: Urine Appearance CLOUDY; Urine Bilirubin NEGATIVE (NEG); Urine Blood TRACE (NEG); Urine Color YELLOW; Urine Glucose NEGATIVE (NEG); Urine Protein NEGATIVE (NEG); Urine Urobilinogen 0.2 mg/dL (0.2-1.0)
[2019-01-31 21:28] LABS: Urine Microscopic Reflex ORDER UMIC
[2019-01-31 21:29] LABS: Urine Bacteria 20-50 /HPF (<20); Urine Culture Reflex Order REFLEXED; Urine Mucus 2+ /HPF (NONE SEEN)
[2019-01-31] MEDS: PANTOPRAZOLE INJ 80 MG in NA CHLORIDE 0.9% 250 ML IV SCH (21:31)
[2019-02-01] MEDS: METRONIDAZOLE 500mg IVPB 500 MG/100 ML BAG IV SCH (02:03)
[2019-02-01] MEDS: PANTOPRAZOLE INJ 80 MG in NA CHLORIDE 0.9% 250 ML IV SCH ×2 (02:22→06:02)
[2019-02-01 04:43] LABS: Basophils % 2.1 % (0-1.3); Hematocrit 31.3 % (36.0-45.0); Lymphocytes % 28.8 % (15.3-44.8); MPV 8.1 fL (7.6-11.3); RBC Red Blood Cell Count 3.53 M/uL (3.86-4.86)
[2019-02-01 04:54] LABS: Magnesium 1.6 mg/dL (1.8-2.4); Potassium 3.9 mmol/L (3.5-5.1)
[2019-02-01] MEDS: METOPROLOL TAR 50 MG TAB PO SCH (05:20)
[2019-02-01] MEDS ORDERED: MAGNESIUM SULFATE 1 gm IVPB 1 GM/100 ML BAG IV ONE (05:29)
[2019-02-01] MEDS ORDERED: LEVOTHYROXINE SOD 0.1 MG TAB PO SCH (06:30)
--- NOTE | 2019-02-01 08:28 | RAD REPORT ---
EXAM DESCRIPTION: RAD - Small Bowel Series - 02/01/2019 8:21 am CLINICAL HISTORY: GI bleed, history of AVM COMPARISON: None. FINDINGS: Lead Tank Mechanic film shows a nonspecific bowel gas pattern. No obstruction or free air. Numerous phl eboliths are seen in the pelvis. Moderate stool volume is seen in the ascending, transverse and desce nding portions of the colon. Moderate lower lumbar degenerative changes are present. Gastric size and mucosal fold pattern are normal. No delay in transit of contrast into the small bonny l. Mild prominence of the mucosa in the duodenum. This is potentially due to incomplete distension. J ejunum and ileum show normal mucosal fold pattern. No dilatation, mass or focal luminal narrowing see n. Terminal ileum has normal appearance. Transit time to the colon is normal at 40 minutes. IMPRESSION: Questionable mucosal edema of the duodenum. This is probably artifact of incomplete dist ention. This appearance is not uncommon on a small bowel examination. Jejunum and ileum show no focal abnormalities. Transit time to the colon is normal at 40 minutes.
[2019-02-01] MEDS ORDERED: POTASSIUM CL SA 10 MEQ TAB PO ONE (09:00)
[2019-02-01 10:16] VITALS: O2SAT 96
[2019-02-01] MEDS ORDERED: NITROFURAN MACRO 100 MG CAP PO SCH (12:00)
[2019-02-01 12:14] VITALS: BP 151/71; TEMP 98.6
--- NOTE | 2019-02-01 12:59 | ECHO ---
HEIGHT: 5 ft 10 in WEIGHT: 180 lb 0 oz DATE OF STUDY: 02/01/[address]: Konrad Coronel DO 2-DIMENSIONAL: YES M.MODE: YES DOPPLER: YES COLOR FLOW: YES TDS: NO PORTABLE: NO DEFINITY: NO BUBBLE STUDY: NO DIAGNOSIS: SHORTNESS OF BREATH, ATRIAL FIBRILLATION CARDIAC HISTORY: CATHERIZATION: NO SURGERY: NO PROSTHETIC VALVE: NO PACEMAKER: NO MEASUREMENTS (cm) DIASTOLIC (NORMALS) SYSTOLIC (NORMALS) IVSd 1.0 (0.6-1.2) LA Diam 3.5 (1.9-4.0) LVEF 62% LVIDd 4.5 (3.5-5.7) LVIDs 3.0 (2.0-3.5) %FS 33% LVPWd 1.0 (0.6-1.2) Ao Diam 2.7 (2.0-3.7) 2 DIMENSIONAL ASSESSMENT: RIGHT ATRIUM: NORMAL LEFT ATRIUM: NORMAL RIGHT VENTRICLE: NORMAL LEFT VENTRICLE: NORMAL TRICUSPID VALVE: NORMAL MITRAL VALVE: NORMAL PULMONIC VALVE: NORMAL AORTIC VALVE: SCLEROSIS PERICARDIAL EFFUSION: NONE AORTIC ROOT: NORMAL LEFT VENTRICULAR WALL MOTION: NORMAL DOPPLER/COLOR FLOW: MILD TRICUSPID REGURGITATION. RIGHT VENTRICULAR SYSTOLIC PRESSURE 60 mmHg. COMMENTS: MODERATE PULMONARY HYPERTENSION. RIGHT VENTRICULAR SYSTOLIC PRESSURE 60 mmHg. NORMAL LEFT VENTRICULAR SIZE AND FUNCTION. NO WALL MOTION ABNORMALITY. NO EFFUSION. NO THROMBUS. AORTIC SCLEROSIS. TECHNOLOGIST: Maryam MOORE
--- NOTE | 2019-02-01 15:17 | P.SSS ---
Patient History Date of Service: 02/01/19 Primary Care Provider: Dr. Daley; Cardiology-Dr. Somers; GI-Dr. Rolon/Fransisco Reason for admission: Rectal bleeding History of Present Illness: See HPI Allergies amoxicillin [From Augmentin] Allergy (Verified 09/28/17 12:54) Unknown clavulanic acid [From Augmentin] Allergy (Verified 09/28/17 12:54) Unknown NSAIDS Allergy (Mild, Uncoded 01/31/19 17:11) Unknown Home Medications: Amitriptyline [Elavil*] 50 mg PO BEDTIME 08/18/15 Levothyroxine [Synthroid*] 100 mcg PO BEDTIME 08/18/15 Metoprolol Tartrate [Lopressor*] 50 mg PO BID 08/18/15 Gabapentin 300 mg PO DAILY 02/16/16 Gemfibrozil 300 mg PO BID 02/16/16 Zolpidem Tartrate 5 mg PO BEDTIME 02/16/16 L.acidoph,Paracasei, B.lactis [Probiotic] 1 tab PO DAILY 01/31/19 Nitrofurantoin Macrocrystal [Nitrofurantoin] 100 mg PO DAILY 01/31/19 Pantoprazole [Protonix Tab*] 40 mg PO DAILY 01/31/19 Aspirin 81 mg PO DAILY #30 tab.chew 02/01/19 Pantoprazole [Protonix Tab] 40 mg PO DAILY #30 tab 02/01/19 - Past Medical/Surgical History Has patient received pneumonia vaccine in the past: Yes Diabetic: No -: HTN -: Hypothyroidism -: Chronic pain -: GERD with hiatal hernia -: Anxiety -: Atrial fibrillation on chronic anti coagulation therapy -: Hypothyroidism -: Insomnia -: Right Rotator surgery -: Hysterectomy -: Pacemaker -: hernia repair -: Bilateral knee surgery Psychosocial/ Personal History: Patient is a . She currently lives by herself. - Family History Sister -: Cancer Notes: Pt had another sister who had hx of CVA([place]) Brother -: Heart disease - Social History Smoking Status: Never smoker Alcohol use: No CD- Drugs: No Caffeine use: No Place of Residence: Home Review of Systems 10-point ROS is otherwise unremarkable Physical Examination - Vital Signs Temperature: 98.6 F Blood Pressure: 151/71 Pulse: 69 Respirations: 17 Pulse Ox (%): 96 - Physical Exam General: Alert, In no apparent distress HEENT: Atraumatic, PERRLA, Mucous membr. moist/pink, EOMI, Sclerae nonicteric Neck: Supple, 2+ carotid pulse no bruit, No LAD, Without JVD or thyroid abnormality Respiratory: Clear to auscultation bilaterally, Normal air movement Cardiovascular: Regular rate/rhythm, Normal S1 S2 Gastrointestinal: Normal bowel sounds, No tenderness Musculoskeletal: No tenderness Integumentary: No rashes Neurological: Normal gait, Normal speech, Normal strength at 5/5 x4 extr, Normal tone, Normal affect Lymphatics: No axilla or inguinal lymphadenopathy - Diagnosis (Problem(s)) (1) Rectal bleeding Status: Acute (2) Afib Status: Chronic Qualifiers: Atrial fibrillation type: paroxysmal Qualified Code(s): I48.0 - Paroxysmal atrial fibrillation (3) Anxiety Onset Date: 02/18/16 Status: Chronic (4) Hyperlipidemia Onset Date: 02/18/16 Status: Chronic Qualifiers: Hyperlipidemia type: mixed hyperlipidemia Qualified Code(s): E78.2 - Mixed hyperlipidemia (5) Hypertension Onset Date: 02/18/16 Status: Chronic Qualifiers: Hypertension type: essential hypertension Qualified Code(s): I10 - Essential (primary) hypertension Treatment Summary: Overall during the hospital stay patient remained stable Patient was initially admitted to the hospital for melanotic stool for past 3 days. Initial hemoglobin on admission was 11.5. Patient was monitored here in the hospital and hemoglobin remained stable. GI was consulted in the hospital and recommended patient be started on IV Protonix initially. And monitor for any further melanotic stool. Patient does have a history of AVM which is most likely the source along with patient taking anti coagulation. Cardiology was consulted to help with changing the anti coagulation given the acute GI bleeding. Cardiology recommended patient be switched on aspirin rather than Eliquis for her atrial fibrillation. Patient was to follow up with GI outpatient for further EGD and colonoscopy if hemoglobin stayed stable while here in the hospital stay includes a stable while here in hospice patient did not have any further melanotic stools and thus was discharged home under stable condition was given prescription for aspirin and Protonix and was asked to follow up with GI doctor in about 1-2 days post discharge. Patient demonstrate understanding and thus was discharged home under stable condition. - Disposition Disposition: ROUTINE DISCHARGE Condition: GOOD Diet: Regular Activity: Ad carolina
--- NOTE | 2019-02-01 20:34 | CON ---
Date of Consultation: 02/01/[address] Coronel on 01/31/2019. Reason For Consultation: Upper GI bleed and use of Eliquis. History Of Present Illness: Ms. Samaniego is 88-year-old, has a history of chronic atrial fibrillation , pacemaker therapy, rheumatoid arthritis, COPD, chronic atrial fibrillation, DVT, hypertension, dysl ipidemia, and gastroesophageal reflux disease. Came in with rectal bleed, Eliquis has been held. He moglobin is 10.1, magnesium was 1.6; otherwise, all her workup have been negative. No cardiac sympto ms reported. Allergies: SHE IS ALLERGIC TO AUGMENTIN AND NONSTEROIDAL ANTI-INFLAMMATORY AGENTS. Medications: At home include Elavil, Eliquis, Protonix, metoprolol, Synthroid, Lopid, and Neurontin. Review of Systems: Noncontributory. Social History: Noncontributory. Family History: Noncontributory. Physical Examination: Vital Signs: Stable. Atrial fibrillation, rate of 78. HEENT: Negative. Neck: Supple, no bruit. Chest: Clear. Cardiac: Atrial fibrillation. Abdomen: Benign. Extremities: Revealed no clubbing, cyanosis, or edema. Diagnostic Data: As listed earlier. Impression And Plan: Ms. Samaniego is an 88-year-old. She has chronic atrial fibrillation, asymptomat ic. Echocardiogram that was done today is fairly unremarkable with normal ejection fraction. Aortic sclerosis, normal left atrial size. No thrombus. I am comfortable with her being on aspirin instea d of Eliquis. GI workup may be indicated. Her other problems include history of pacemaker, DVT, hyp ertension, dyslipidemia, and gastroesophageal reflux disease. All of those are stable. We will see her in the office after she goes home in the next week or 2. MANUELITO/LUCRECIA Voice ID: [id number] Report ID: [id number]
== END 2019-02-01 12:14 | disposition home or self-care (01) ==
LOC: ER 12:01 → ERHOLD 15:02 → 4TH 16:24
PROVIDERS: ADMIT Family Medicine; ATTEND Family Medicine
DX: K62.5 Hemorrhage of anus and rectum (principal); I48.20 Chronic atrial fibrillation, unspecified; F41.9 Anxiety disorder, unspecified; E78.5 Hyperlipidemia, unspecified; I10 Essential (primary) hypertension; E03.9 Hypothyroidism, unspecified; K21.9 Gastro-esophageal reflux disease without esophagitis; Z79.01 Long term (current) use of anticoagulants; Z95.0 Presence of cardiac pacemaker; Z88.0 Allergy status to penicillin
CPT/HCPCS: 96361; 93306; 87088; 85025 ×2; 87086; 80048 ×2; 36415; 83735; 80076; 87077; 87186; 85018; 85014; 82728; 82607; 83690; 83540; 84466; 74250; 96374; 99285; C9113; J3475; J7799; J7030 ×2; G0378 ×3; 81003; 81015

== ENCOUNTER 2019-08-21 16:50 | Emergency (ER) | payer OTHER ==
--- OUTSIDE RECORDS SUMMARY | 2019-08-21 16:52 | XMS REPORT | Clinical Summary ---
:1930 Author Organization [facility] Address [address] [place] [address] Care Team Providers Name Role Phone Amor Castro MD Primary Care Provider Allergies No Known Allergies Medications Medication Sig Dispensed Refills Start Date End Date Status ALPRAZolam (XANAX) 0.25 Take 0.25 mg by 1 01/09/2016 Active MG tablet mouth as needed. Take the morning of surgery amitriptyline (ELAVIL) Take 50 mg by 0 01/16/2016 Active 50 MG tablet mouth every evening. famotidine (PEPCID) 20 Take 20 mg by 5 01/21/2016 Active MG tablet mouth every morning. gabapentin (NEURONTIN) TAKE ONE CAPSULE 5 01/21/2016 Active 300 MG capsule BY MOUTH 3 TIMES A DAY NEEDED FOR PAIN- usually takes it in the morning gemfibrozil (LOPID) 600 Take 600 mg by 5 01/21/2016 Active MG tablet mouth 2 (two) times a day. levothyroxine Take 100 mcg by 1 11/21/2015 Active (SYNTHROID, LEVOTHROID) mouth nightly. 100 MCG tablet zolpidem (AMBIEN) 10 mg Take 10 mg by 3 01/22/2016 Active tablet mouth nightly. Takes 1/2 tablet of the 10mg metoprolol tartrate Take 50 mg by 0 Active (LOPRESSOR) 50 MG mouth 2 (two) tablet times a day. Take the morning of surgery warfarin (COUMADIN) 1 Take 5 tablets (5 0 02/25/2016 Active MG tablet mg total) by mouth daily. Active [...] Assigned at Date Recorded Not on file Job Start Date Occupation Industry Not on file Not on file Not on file Travel History Travel Start Travel End No recent travel history available. 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 Device Shelf Model / Identifier Expiration Serial / Lot Date Screw Bone Canc 6.5x30mm - [id number] Hip Joint Right: DEPUY ORTHO [id number] / Implanted: Qty: 1 on 02/21/2016 by Holly Ferguson MD at [facility] Implants Hip / Screw Bone Canc Dome 6.5x25mm Ltxf [place] - [id number] Hip Join t Right: DEPUY ORTHO [id number] / Implanted: Qty: 1 on 02/21/2016 by Holly Ferguson MD at [facility] Implants Hip / Shell Actblr Sector Series W/ Gripton 54mm [place] - [id number] Hip Joint Right: DEPUY 12/20/2025 [id number] / Implanted: Qty: 1 on 02/21/2016 by Holly Ferguson MD at [facility] Implants Hip ORTHO-KNEES / [id number] Liner Actblr Neut Altra Linked Pe [id number] +4 Altrx - [id number] H ip Joint Right: DEPUY 06/20/2020 [id number] / Implanted: Qty: 1 on 02/21/2016 by Holly Ferguson MD at [facility] Implants Hip ORTHO-KNEES / [id number] Stem Fml Bone Presrvtn Std Ofst Sz 6 107mm Tri-Lock - [id number] Hip Joint Right: DEPUY 10/20/2024 [id number] / Implanted: Qty: 1 on 02/21/2016 by Holly Ferguson MD at [facility] Implants Hip ORTHO-KNEES / [id number] [place] Fracture System Biolox Delta Ceram ic Femoral Heads Size 36 +5.0 Mm Articul/Lamont 03/05 Taper Ceramic Femoral Heads - [id number] IPM IMPLANT Ri ght: DEPUY 11/20/2020 [id number] / Implanted: Qty: 1 on 02/21/2016 by Holly Ferguson MD at [facility] [employer] Hip [employer]THOP[id number] Results Not on fileafter 08/20/2018 Insurance Payer Benefit Plan / Subscriber ID Effective Dates Phone Addre ss Type Group MEDICARE MEDICARE PART A xxxxxxxxxx 1997-Present [place] B AETNA AETNA xxxxxxxxxx 2012-Present [place] HMO,POS,EPO, MC/EC Advance Directives For more information, please contact: [phone] Type Date Recorded 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
--- OUTSIDE RECORDS SUMMARY | 2019-08-21 16:53 | XMS REPORT | Continuity of Care Document ---
:1930 Author Organization [employer] Care Team Providers Name Role Phone [employer] Unavailable Un available Problems Problem Status Onset Classification Date Comments Sour e Date Reported Discharge 09/12/2015 [facility] Diagnosis: Lower 6 Med ical extremity pain, Cent er right BLOOD CLOT THIGH Active [address] [facility] Atrial Active Problem 01/26/2019 Medica l fibrillation Group,M H (disorder) [facility] Blood clot Active Problem 09/12/2015 [facility] (morphologic Medical abnormality) [place] Medications Medication Details Route Status Patient Ordering Order Source Instructions Provider Date Estradiol 0.1 1 gm, TOP, Active MH MG/ML Vaginal Bedtime, 019 Medical Cream [Estrace] use 3 Group times a week, # 1 tube, 5 Refill(s), Pharmacy: [id number] Estrogens, 1 appl, Active MH Conjugated (PRISON) VAG, Q-M 019 Medica l 0.625 MG/ML and Th, # Group Vaginal Cream 30 gm, 11 [Premarin] Refill(s), Pharmacy: [id number] levothyroxine 100 0 Active MH mcg (0.1 mg) oral Refill(s) 019 Medi roverto tablet Group nitrofurantoin 0 Active MH macrocrystals-mon Refill(s) 019 Medi roverto ohydrate 100 mg Group oral capsule (Macrobid) zolpidem 5 mg 0 Active MH oral tablet Refill(s) 019 Medical Group Metoprolol 0 Active MH Tartrate 50 mg Refill(s) 019 Medical oral tablet Group Furosemide 40 MG 0 Active MH Oral Tablet Refill(s) 019 Medical Group Amoxicillin 500 0 Active MH MG / Clavulanate Refill(s) 019 Medic al 125 MG Oral Group Tablet amitriptyline 25 0 Active MH mg oral tablet Refill(s) 019 Medical Group gabapentin 300 MG 0 Active Oral Capsule Refill(s) 019 Medical Group apixaban 5 MG 5 mg, PO, Active Oral Tablet Q12H, 0 019 Medical [Eliquis] Refill(s) Group Acetaminophen 325 1 tab, PO, Active [place] MG / Hydrocodone Q6H, # 20 016 Medic al Bitartrate 5 MG tab, 0 Center Oral Tablet Refill(s) [[place] 5/325] Acetaminophen 325 Notes: Inactive [place] / Hydrocodone (Same as: 016 Medic al Bitartrate 5 MG [place] Center Oral Tablet 325/5) Do not exceed 4gm/day of acetaminop hen. Allergies, Adverse Reactions, Alerts Substance Category Reaction Severity Reaction Status Date Comments S ource type Reported Augmentin Assertion Drug Active allergy Medical Group Immunizations No Data Provided for This Section Results No Data Provided for This Section Pathology Reports No Data Provided for This Section Diagnostic Reports No Data Provided for This Section Consultation Notes No Data Provided for This Section Discharge Summaries No Data Provided for This Section History and Physicals No Data Provided for This Section Vital Signs Vital Sign Value Date Comments Source Height 175.26 cm 12/22/2018 [facility] p Weight 86.364 12/22/2018 [facility] p BMI Calculated 28.12 12/22/2018 [facility] oup Heart Rate 88 09/09/2015 [facility] Systolic (mm Hg) 152 09/09/2015 [facility] Diastolic (mm Hg) 82 09/09/2015 [facility] Temperature Oral (F) 98.1 F 09/09/2015 [facility] Respitory Rate 16 09/09/2015 [facility] BMI Calculated 25.88 09/09/2015 [facility] Weight 81.818 09/09/2015 [facility] Height 177.8 cm 09/09/2015 [facility] Respitory Rate 16 09/09/2015 [facility] Heart Rate 99 09/09/2015 [facility] [place] Systolic (mm Hg) 148 09/09/2015 [facility] [place] Diastolic (mm Hg) 79 09/09/2015 [facility] Temperature Oral (F) 98.2 F 09/09/2015 [facility] Encounters Location Location Encounter Encounter Reason Attending ADM DC Stat us Source Details Type Number For Provider Date Date Visit [facility] [id number] Eli 09/08 09/08 M Chung Emma Rosalesann Emergency Reji /2015 [facility] Outpatient [id number] Rigoberto 12/15 Active [facility] Wagen Barry Outpatient [id number] [place] 12/22 Active [facility] Multi Ambulatory [id number] [place] 12/22 12/22 Specialty Pre-Reg Medica l [facility] Multi Outpatient [id number] [place] 12/22 12/23 Specialty Medical Clinic [facility] Outpatient [id number] NURSE 01/10 Active [facility] VISIT [facility] Outpatient [id number] [place] 01/10 Active [facility] Outpatient [id number] [place] 01/10 01/11 [facility] Time Share Outpatient [id number] [place] 01/24 Active [facility] Outpatient [id number] NURSE 01/24 Active [facility] VISIT [facility] Ambulatory [id number] [place] 01/24 01/24 [facility]rology [facility] Time Share [facility] Ambulatory [id number] NURSE 01/24 01/24 Urology Pre-Reg VISIT /2018 [facility] Time Share Procedures Procedure Code Date Perfomer Comments Source Complex [id number] 01/10/2019 Medical uroflowmetry (eg, Group calibrated [place] [id number] 01/10/2019 Medical post-voiding Group residual urine and/or bladder capacity by ultrasound, non-imaging Assessment and Plan No Data Provided for This Section Plan of Care No Data Provided for This Section Social History Social History Date Source Social History TypeResponse 12/22/2018 Medical Carlos Alberto nelson Smoking Status Former smoker; Exposure to Tobacco Smoke None; Cigarette Smoking Last 365 Days No; Reg Smoking Cessation Counseling No entered on: 12/22/18 Social History TypeResponse 09/09/2015 [facility] Smoking Status Former smoker; Exposure to Tobacco Smoke None; Cigarette Smoking Last 365 Days No; Reg Smoking Cessation Counseling No Family History No Data Provided for This Section Advance Directives No Data Provided for This Section Functional Status No Data Provided for This Section
--- OUTSIDE RECORDS SUMMARY | 2019-08-21 16:54 | XMS REPORT ---
:1930 Author Organization [facility] t Address [address] [place] [address] Care Team Providers Name Role Phone Gloria AWAD, Amor Primary Care Physician Doctor Unassigned, Name Attending Clinician Unavailable VISIT, [facility] Attending Clinician Unavailable Alex Hadley Attending Clinician Danilo Mendoza Attending Clinician Problems Condition Condition Condition Status Onset Resolution Last Treating Co mments Source Name Details Category Date Date Treatment Clinician Date Osteoarthr Osteoarthr Disease [facility] 2015[facility] 04-23 [facility] right hip right hip 00:00: st 00 BLOOD CLOT Diagnosis Active 2015-09-09 THIGH 09-08 14:53:00 [place] BLOOD 00:00: Medical CLOT THIGH 00 Center Active 09/09/2015 [facility] Atrial Problem Active 2019-01-26 fibrillati 22:20:48 [facility] roverto on Atrial Group, (disorder) fibrillati on [place] (disorder) Medica l Center Active Problem 01/26/2019 Medical Group,[facility] Blood clot Problem Active 2015-09-12 M H (morpholog 00:32:37 [place] Blood Medical abnormalit clot Center y) (morpholog ic abnormalit y) Active Problem 6 [facility] [place] [facility] Discharge Problem 2015-09-12 2015-09-12 Diagnosis: 09-08 00:32:37 [place]32:37 [place] 05:00: Medical extremity Discharge 00 Cent er pain, Diagnosis: right Lower extremity pain, right 09/09/2015 09/12/2015 [facility] Allergies, Adverse Reactions, Alerts Allergy Allergy Status Severity Reaction(s) Onset Inactive Treating Comm ents Source Name Type Date Date Clinician Eri Hwang Active Alexandre carrasco [facility] Family History Family Member Diagnosis Comments Start Date Stop Date Source Natural sister Stroke [facility] thodi Social History Social Habit Start Date Stop Date Quantity Comments Source Sex Assigned At [facility] ethodist Alcohol intake 2016-02-22 2016-02-[address] [facility] 00:00:00 non-drinker of alcohol (finding) Smoking Status Start Date Stop Date Source Never smoker [place] Method[facility] t Social History 2015-09-09 19:01:11 2015-09-09 19:01:11 [facility] Medications Ordered Filled Start Stop Current Ordering Indication Dosage Frequency Signature Comments Components Source Medication Medication Date Date Medication? Clinician (SIG) Name Name Estradiol 2018-03 Yes 1 gm, TOP, MH 0.1 MG/ML 0-04 Bedtime, Medica l Vaginal 16:17: use 3 Group Cream 00 times a [Estrace] week, # 1 tube, 5 Refill(s), Pharmacy: [id number] Estrogens, 2018-03 Yes 1 appl, MH Conjugated 0-02 VAG, Q-M Medic al (SHELTER) 0.625 14:52: and Th, # G roup MG/ML 00 30 gm, 11 Vaginal Refill(s), Cream Pharmacy: [Premarin] [id number] levothyroxi 2018-03 Yes 0 MH ne 100 mcg 0-02 Refill(s) Medi roverto (0.1 mg) 13:25: Group oral tablet 00 nitrofurant 2018-03 Yes 0 MH oin 0-02 Refill(s) Medical macrocrysta 13:25: Group ls-monohydr 00 ate 100 mg oral capsule (Macrobid) zolpidem 5 2018-03 Yes 0 MH mg oral 0-02 Refill(s) Medical tablet 13:25: Group 00 Metoprolol 2018-03 Yes 0 MH Tartrate 50 0-02 Refill(s) Med ical mg oral 13:25: Group tablet 00 Furosemide 2018-03 Yes 0 MH 40 MG Oral 0-02 Refill(s) Medi roverto Tablet 13:25: Group 00 Amoxicillin 2018-03 Yes 0 MH 500 MG / 0-02 Refill(s) Medica l Clavulanate 13:25: Group 125 MG Oral 00 Tablet amitriptyli 2018-03 Yes 0 MH ne 25 mg 0-02 Refill(s) Medica l oral tablet 13:25: Group 00 gabapentin 2018-03 Yes 0 MH 300 MG Oral 0-02 Refill(s) Med ical Capsule 13:25: Group 00 apixaban 5 2018-03 Yes 5 mg, PO, MH MG Oral 0-02 Q12H, 0 Medical Tablet 13:25: Refill(s) Group [Eliquis] 00 metoprolol 2015-03 Yes 50mg Q.5D Take 50 mg [place] tartrate 2-05 by mouth 2 Metho di (LOPRESSOR) 16:40: (two) st 50 MG 11 times a tablet day. Take the morning of surgery warfarin 2015-03 Yes 5mg QD Take 5 [place] (COUMADIN) 2-05 tablets (5 Met hodi 1 MG tablet 00:00: mg total) s t 00 by mouth daily. zolpidem 2015-03 Yes 10mg QD Take 10 mg Marilynn ston (AMBIEN) 10 1-01 by mouth Meth birgit mg tablet 00:00: nightly. st 00 Takes 1/2 tablet of the 10mg famotidine 2015-03 Yes 20mg QD Take 20 mg [place] (PEPCID) 20 0-31 by mouth Meth birgit MG tablet 00:00: every st 00 morning. gabapentin 2015-03 Yes TAKE ONE Marilynn ston (NEURONTIN) 0-31 CAPSULE BY [facility] 300 MG 00:00: MOUTH 3 st capsule 00 TIMES A DAY NEEDED FOR PAIN- usually takes it in the morning gemfibrozil 2015-03 Yes 600mg Q.5D Take 600 [place] (LOPID) 600 0-31 mg by Methodi MG tablet 00:00: mouth 2 st 00 (two) times a day. amitriptyli 2015-03 Yes 50mg QD Take 50 mg [place] ne (ELAVIL) 0-26 by mouth Meth birgit 50 MG 00:00: every st tablet 00 evening. ALPRAZolam 2015-03 Yes .25mg Take 0.25 [place] (XANAX) 0-19 mg by Methodi 0.25 MG 00:00: mouth as st tablet 00 needed. Take the morning of surgery levothyroxi Yes 100ug QD Take 100 [place] ne 8-31 mcg by Methodi (SYNTHROID, 00:00: mouth st LEVOTHROID) 00 nightly. 100 MCG tablet Acetaminoph Yes 1 tab, PO, MH en 325 MG / 19 Q6H, # 20 [place] as Hydrocodone 19:20: tab, 0 Medi roverto Bitartrate 00 Refill(s) Cent er 5 MG Oral Tablet [[place] 5/325] Acetaminoph No Notes: MH en 325 MG / -19 (Same as: [place] as Hydrocodone 18:29: [place] Medic al Bitartrate 00 325/5) Do Elida ter 5 MG Oral not exceed Tablet 4gm/day of acetaminop hen. Vital Signs Vital Name Observation Time Observation Value Comments Source Height 2018-12-22 13:22:00 175.26 cm Medic al Group Weight 2018-12-22 13:22:00 Medic al Group BMI Calculated 2018-12-22 13:22:00 Med ical Group Heart Rate 2015-09-09 20:21:00 [facility] Systolic (mm Hg) 2015-09-09 20:21:00 [facility] Diastolic (mm Hg) 2015-09-09 20:21:00 [facility] Temperature Oral (F) 2015-09-09 20:21:00 98.1 F [facility] Respitory Rate 2015-09-09 20:21:00 [facility] BMI Calculated 2015-09-09 17:44:00 [facility] Weight 2015-09-09 17:44:00 [facility] Height 2015-09-09 17:44:00 177.8 cm [facility] Respitory Rate 2015-09-09 17:44:00 [facility] Heart Rate 2015-09-09 17:44:00 [facility] Systolic (mm Hg) 2015-09-09 17:44:00 [facility] Diastolic (mm Hg) 2015-09-09 17:44:00 [facility] Temperature Oral (F) 2015-09-09 17:44:00 98.2 F [facility] Procedures Procedure Date / Time Performed Performing Clinician [facility] e Complex uroflowmetry (eg, 2019-01-10 17:20:00 Medical Group calibrated electronic equipment) Measurement of 2019-01-10 17:20:00 Medical G roup post-voiding residual urine and/or bladder capacity by ultrasound, non-imaging Plan of Care Planned Activity Planned Date Details Comments Source Future Scheduled 2019-10-22 INFLUENZA VACCINE [place] [facility] 00:00:00 [code = INFLUENZA VACCINE] Future Scheduled 1997 65+ PNEUMOCOCCAL [place] [facility] 00:00:00 VACCINE (1 of 2 - PCV13) [code = 65+ PNEUMOCOCCAL VACCINE (1 of 2 - PCV13)] Future Scheduled 1982 SHINGLES VACCINES (#1) [place] [facility] 00:00:00 [code = SHINGLES VACCINES (#1)] Encounters Start End Encounter Admission Attending Care Care Encounter Source Date/Time Date/Time Type Type Clinicians Facility Department ID 2019-08-16 2019-08-16 Orders Doctor BRUNO [id number] 00:00:00 00:00:00 Only Unassigned, VAZQUEZ [id number] [place] [facility] [id number] 2019-01-24 2019-01-24 Ambulatory [facility] [id number] MH 16:00:00 16:00:00 Pre-Reg Urology 05 [facility] Time Share 2019-01-24 2019-01-24 Ambulatory [facility] [id number] MH 15:40:00 15:40:00 Pre-Reg Urology 04 [facility] Time Share 2019-01-24 2019-01-24 Outpatient [facility] [id number] Memoria 10:00:00 10:00:00 05 danilo Hernandez 2019-01-24 2019-01-24 Outpatient VISIT, [facility] MG [id number] 10:00:00 10:00:00 NURSE ARTUR 2019-01-24 2019-01-24 Outpatient [facility] [id number] Memoria 09:40:00 09:40:00 04 danilo Hernandez 2019-01-24 2019-01-24 Outpatient Leonie, [facility] [id number] 09:40:00 09:40:00 [place] S 04 2019-01-10 2019-01-11 Outpatient [facility] [id number] MH 15:00:00 04:59:59 Urology 02 [facility] Time Share 2019-01-10 2019-01-10 Outpatient KELBY HadleyMG [facility] [id number] 10:00:00 23:59:59 [place] S 2019-01-10 2019-01-10 Outpatient [facility] [id number] Memoria 10:00:00 10:00:00 03 danilo Hernandez 2019-01-10 2019-01-10 Outpatient [facility] [id number] Memoria 10:00:00 10:00:00 02 danilo Hernandez 2018-12-22 2018-12-23 Outpatient [facility] Multi [id number] MH 14:45:00 04:59:59 Specialty 01 [facility] 2018-12-22 2018-12-22 Outpatient KELBY HadleyMG [facility] [id number] 09:45:00 23:59:59 [place] Johnson 2018-12-22 2018-12-22 Ambulatory [facility] Multi [id number] MH 14:00:00 14:00:00 Pre-Reg Specialty 00 [facility] 2018-12-22 2018-12-22 Outpatient [facility] [id number] Memoria 09:45:00 09:45:00 01 danilo Hernandez 2018-12-22 2018-12-22 Outpatient KELBY HadleyMG [facility] [id number] 09:00:00 09:00:00 [place] 2018-12-15 2018-12-15 Outpatient [facility] [id number] Memoria 09:00:00 09:00:00 00 danilo Hernandez 2015-09-09 2015-09-09 EC [facility] [id number] MH 17:38:00 20:23:00 Emergency [place] 00 [facility] 2015-09-09 2015-09-09 Outpatient Reji [facility] [id number] 12:38:00 15:23:00 Eli Bueno Results This patient has no known results.
--- OUTSIDE RECORDS SUMMARY | 2019-08-21 16:54 | XMS REPORT | Summary of Care ---
:1930 Author Organization [facility] - Health Address [address] [place] [address] Care Team Providers Name Role Phone Brant Daley Primary Care Provider Encounter Details Date Type Department Care Team Description 08/16/2019 Orders Only [facility] Doctor Unassigned, No [address] [facility] [place] [address] [address] [place] [address] Allergies Active Allergy Reactions Severity Noted Date Comments Amoxicillin Hives 02/15/2019 Levofloxacin Unknown - See comments 02/15/2019 Muscl e issues Sulfa (Sulfonamide Hives 02/21/2019 Antibiotics) documented as of this encounter (statuses as of 08/17/2019) Medications Medication Sig Dispensed Refills Start Date End Date Status apixaban (ELIQUIS) 5 Take 10 mg by 0 Active mg tablet mouth 2 (two) times daily. metoprolol succinate Take 50 mg by 0 Active XL 50 mg 24 hr tablet mouth daily. gabapentin 300 mg Take 300 mg by 0 Active capsule mouth 3 (three) times daily. zolpidem 5 mg tablet Take 5 mg by mouth 0 Active at bedtime as needed for Insomnia. Levothyroxine 100 mcg Take by mouth. 0 Active capsule amitriptyline 25 mg Take 25 mg by 0 Active tablet mouth at bedtime. pantoprazole 40 mg EC Take 40 mg by 0 Active tablet mouth daily. azithromycin 250 mg Take 250 mg by 0 Active tablet mouth daily. Take 500 mg day 1, then 250 mg days 2 to 5. albuterol (VENTOLIN Inhale 2 Puffs 0 Active HFA) 90 mcg/actuation every 6 (six) inhaler hours as needed for Wheezing or Shortness of Breath. benzonatate 100 mg Take 100 mg by 0 Active capsule mouth. clindamycin 300 mg Take 300 mg by 0 Active capsule mouth 4 (four) times daily. gemfibrozil 600 mg Take 600 mg by 0 Active tablet mouth 2 (two) times daily before breakfast and dinner. triamcinolone 0.025 % Apply to area(s) 0 Active ointment 2 (two) times daily. mupirocin 2 % Apply to area(s) 22 g 0 02/08/2019 Active ointmentIndications: 3 (three) times Vaginal atrophy daily. Estradiol (VAGIFEM) 10 Apply 1 to the 24 tablet 4 03/09/2019 Active mcg tabletIndications: vagina every Urinary tract Thursday and infection without in the hematuria, site evening. unspecified, Vaginal atrophy documented as of this encounter (statuses as of 08/17/2019) Active Problems No known active problemsdocumented as of this encounter (statuses as of 08/17/2019) Social History Tobacco Use Types Packs/Day Years Used Date Never Smoker Smokeless Tobacco: Never Used Alcohol Use Drinks/Week oz/Week Comments Never Alcohol Habits Answer Date Recorded How often do you have a drink containing alcohol? Never 02/08/2019 How many drinks containing alcohol do you have on a typical Not asked day when you are drinking? How often do you have six or more drinks on one occasion? No t asked Sex Assigned at Date Recorded Not on file Job Start Date Occupation Industry Not on file Not on file Not on file Travel History Travel Start Travel End No recent travel history available. documented as of this encounter Last Filed Vital Signs Not on filedocumented in this encounter Plan of Treatment Date Type Specialty Care Team Description 08/25/2019 Office Visit [place] [address] [place] [address] [id number] Health Maintenance Due Date Last Done Comments DTaP,Tdap,and Td Vaccines (1 - Tdap) 1943 Zoster Recombinant Vaccine (SHINGRIX) (1 of 2) 1982 Medicare Wellness Visit 1997 Osteoporosis Screening 1997 PNEUMOCOCCAL VACCINES 65+ (1 of 2 - PCV13) 1997 INFLUENZA VACCINE (Season Ended) 2019 documented as of this encounter Procedures Procedure Name Priority Date/Time Associated Diagnosis Comme nts REFERRAL- Routine 08/16/2019 12:01 AM CDT REQUEST/RESPONSE documented in this encounter Results Not on filedocumented in this encounter Insurance Payer Benefit Plan / Subscriber ID Effective Dates Phone Addre ss Type Group MEDICARE MEDICARE PART A xxxxxxxxxxx 1997-Aleisha [phone] & [address] t [id number] [place] [phone] A[employer]NA AETNA INDEMNITY [id number] 2013-Aleisha Indsabinoty t documented as of this encounter
[2019-08-21 18:12] LABS: Urine Blood 2+ (NEG); Urine Glucose TRACE (NEG); Urine Protein 2+ (NEG); Urine Specific Gravity 1.015 (1.005-1.030)
[2019-08-21 18:19] LABS: Urine Bacteria 20-50 /HPF (<20); Urine Culture Reflex Order REFLEXED
--- NOTE | 2019-08-21 18:53 | RAD REPORT ---
EXAM DESCRIPTION: Danie Griffiths Left08/21/2019 6:27 pm CLINICAL HISTORY: Left leg pain status post injury FINDINGS: No fracture is seen
--- NOTE | 2019-08-21 18:54 | RAD REPORT ---
EXAM DESCRIPTION: Lenora Single View08/21/2019 6:27 pm CLINICAL HISTORY: sob COMPARISON: August 16, 2019 FINDINGS: The lungs appear clear of acute infiltrate. The heart is mildly enlarged. Pacemaker leads in place IMPRESSION: No acute abnormalities displayed
[2019-08-21 19:04] LABS: Protime INR 1.76
[2019-08-21 19:13] LABS: Absolute Lymphocytes (CBC) 1.4 K/uL (0.7-4.9); Basophils % 1.3 % (0-1.3); Hematocrit 37.3 % (36.0-45.0); Lymphocytes % 15.4 % (15.3-44.8); MPV 8.1 fL (7.6-11.3); RBC Red Blood Cell Count 4.18 M/uL (3.86-4.86)
[2019-08-21 19:37] LABS: Magnesium 1.8 mg/dL (1.8-2.4); Potassium 4.3 mmol/L (3.5-5.1)
--- NOTE | 2019-08-21 20:06 | RAD REPORT ---
EXAM DESCRIPTION: USExtrem Venous W Compress Bil08/21/2019 7:48 pm CLINICAL HISTORY: Bilateral leg swelling COMPARISON: 2017 FINDINGS: The common femoral, superficial femoral, popliteal and posterior tibial veins bilaterally are compressible and demonstrate augmentation. Doppler demonstrates good flow. IMPRESSION: No evidence of deep venous thrombosis involving either lower extremity.
[2019-08-21] MEDS ORDERED: CEFTRIAXONE/SWI 1gm 1 GM/10 ML SYR ONE (20:16)
[2019-08-21 21:17] VITALS: TEMP 97.1
[2019-08-21 21:18] VITALS: O2SAT 99
[2019-08-21 21:20] VITALS: BP 118/76
--- NOTE | 2019-08-22 19:19 | ER ---
Nurse's Notes [facility] Name: Shilpa Samaniego Age: 89 yrs Sex: Female : 1930 Arrival Date: 08/21/2019 Time: 16:51 Bed 13 Private MD: Brant Daley E Diagnosis: Pain in left lower leg;Urinary tract infection, site not specified Presentation: 08/20 17:08 Chief complaint: Patient states: L ankle swelling swelling since 2 weeks. R ankle ankle ca1 and leg swelling since last night. Reports pain on both lower legs worst at night. Denies fever. Coronavirus screen: Proceed with normal triage. Patient denies a cough. Patient denies shortness of breath or difficulty breathing. Patient denies measured and/or subjective temperature greater than 100.4F prior to today's visit. Patient denies travel on a cruise ship or to a country the [facility] currently lists as an affected area. Patient denies contact with known and/or suspected case of COVID-19. Ebola Screen: Patient negative for fever greater than or equal to 101.5 degrees Fahrenheit, and additional compatible Ebola Virus Disease symptoms Patient denies exposure to infectious person. Patient denies travel to an Ebola-affected area in the 21 days before illness onset. No symptoms or risks identified at this time. Initial Sepsis Screen: Does the patient meet any 2 criteria? No. Patient's initial sepsis screen is negative. Does the patient have a suspected source of infection? No. Patient's initial sepsis screen is negative. Risk Assessment: Do you want to hurt yourself or someone else? Patient reports no desire to harm self or others. Onset of symptoms was August 21, 2019. 17:08 Method Of Arrival: Wheelchair ca1 17:08 Acuity: LESA 3 ca1 Triage Assessment: 19:06 General: Behavior is calm, cooperative. General: Appears in no apparent distress. ls4 comfortable. Neuro: No deficits noted. Cardiovascular: Capillary refill < 3 seconds Patient's skin is warm and dry. Edema is 2+ to left foot, right ankle and right foot. Respiratory: Airway is patent Respiratory effort is even, unlabored, Respiratory pattern is regular. GI: No deficits noted. No signs and/or symptoms were reported involving the gastrointestinal system. : No deficits noted. No signs and/or symptoms were reported regarding the genitourinary system. Historical: - Allergies: 17:15 Augmentin; ca1 17:15 NSAIDS; ca1 17:15 Sulfa (Sulfonamide Antibiotics); ca1 17:15 Levofloxacin; ca1 - Home Meds: 17:15 Eliquis Oral [Active]; metoprolol tartrate 50 mg Oral tab [Active]; gabapentin 300 mg ca1 Oral cap [Active]; pantoprazole 40 mg oral TbEC [Active]; levothyroxine 100 mcg tab 1 tab once daily [Active]; amitriptyline 25 mg Oral tab [Active]; zolpidem 5 mg Oral tab 1 tab once daily [Active]; amitriptyline 50 mg Oral tab 1 tab once daily [Active]; Lasix 40 mg Oral tab [Active]; - PMHx: 17:15 Anxiety; Atrial Fib; COPD; DVT; LLE; hiatal hernia; Hyperlipidemia; Hypertension; ca1 Pacemaker; Rheumatoid Arthritis; - PSHx: 17:15 Hysterectomy; Hernia repair; cataract; shoulder; hip; ca1 - Immunization history:: Adult Immunizations up to date. - Social history:: Smoking status: Patient denies any tobacco usage or history of. Screenin:21 Abuse screen: Denies threats or abuse. Denies injuries from another. Nutritional ls4 screening: No deficits noted. Tuberculosis screening: No symptoms or risk factors identified. Fall Risk None identified. Assessment: 18:15 General: Appears in no apparent distress. uncomfortable. Pain: Denies pain. Neuro: No ls4 deficits noted. Cardiovascular: Edema is 1+ to left foot and right foot. Respiratory: Airway is patent Respiratory effort is even, unlabored. GI: No deficits noted. No signs and/or symptoms were reported involving the gastrointestinal system. : No deficits noted. No signs and/or symptoms were reported regarding the genitourinary system. Derm: Skin is intact, Skin is dry, Skin is normal, Skin temperature is warm. Musculoskeletal: No deficits noted. No signs and/or symptoms reported regarding the musculoskeletal system. 20:09 Reassessment: Patient appears in no apparent distress at this time. Patient and/or ls4 family updated on plan of care and expected duration. Pain level reassessed. Patient is alert, oriented x 3, equal unlabored respirations, skin warm/dry/pink. pt refused lasix. states she already took her own, and does not want more before bed. Vital Signs: 17:08 BP 154 / 71; Pulse 77; Resp 18 S; Temp 97.1(TE); Pulse Ox 97% on R/A; Weight 86.18 kg ca1 (R); Height 5 ft. 10 in. (177.80 cm) (R); Pain 5/10; 18:00 BP 146 / 77; Pulse 70; Resp 18; Pulse Ox 99% on R/A; Pain 0/10; ls4 19:02 BP 118 / 76; Pulse 72; Resp 14; Pulse Ox 99% on R/A; Pain 0/10; ls4 20:00 BP 112 / 70; Pulse 71; Resp 16; Temp 97.2(O); Pulse Ox 99% on R/A; Pain 0/10; ls4 17:08 Body Mass Index 27.26 (86.18 kg, 177.80 cm) ca1 ED Course: 16:51 Patient arrived in ED. ag5 16:52 Brant Daley MD is Private Physician. ag5 17:11 Triage completed. ca1 17:15 Arm band placed on right wrist. ca1 17:17 Deep Arthur PA is PHCP. cp 17:17 Eliezer Henson MD is Attending Physician. cp 17:25 Sylvia Lea, SABI is Primary Nurse. ls4 18:06 Urine Microscopic Only Sent. mh5 18:07 Patient has correct armband on for positive identification. Placed in gown. Bed in low mh5 position. Call light in reach. Side rails up X 1. Warm blanket given. color television console monitor on. Pulse ox on. NIBP on. 18:27 XRAY Tib Fib LEFT In Process Unspecified. EDMS 18:27 XRAY Chest (1 view) In Process Unspecified. EDMS 18:50 No apparent distress. ls4 18:50 No provider procedures requiring assistance completed. Inserted saline lock: 18 gauge ls4 in right antecubital area, using aseptic technique. Blood collected. 18:50 Initial lab(s) drawn, by me, sent to lab. Urine collected: clean catch specimen, clear. ls4 19:38 US Extremity Venous W Compression Pedro Sent. ls4 19:49 US Extremity Venous W Compression Pedro In Process Unspecified. EDMS 19:49 Ultrasound completed. Patient tolerated well. Notified [employer]ENTICE/PA page. sg3 20:15 IV discontinued, intact, bleeding controlled, No redness/swelling at site. Pressure ls4 dressing applied. Administered Medications: 20:06 Drug: Rocephin - (cefTRIAXone) 1 grams Route: IVPB; Infused Over: 10 mins; Site: right ls4 antecubital; 20:16 Follow up: Response: No adverse reaction; IV Status: Completed infusion; IV Intake: [id number] 08/21 01:26 Not Given (Patient Refused): Lasix 20 mg IVP once ls4 Intake: 08/20 20:16 IV: 10ml; Total: 10ml. ls4 Outcome: 20:14 Discharge ordered by MD. cp 21:05 Patient left the ED. rr5 21:05 Discharged to home ambulatory. ls4 21:05 Condition: good 21:05 Discharge instructions given to patient, family, Instructed on discharge instructions, follow up and referral plans. medication usage, safety practices, Demonstrated understanding of instructions, follow-up care, medications, discharge delayed, pt awaiting ride. Signatures: Dispatcher [employer] EDMS Deep Arthur PA PA cp Martinez, Maria 5 Ileana Deras 3 Sylvia Lae RN RN ls4 Kosta Evans RN RN rr5 Miranda De La Cruz RN RN ca1 Neno, Alfonso ag5 Corrections: (The following items were deleted from the chart) 17:11 17:08 Chief complaint: Patient states: L ankle swelling swelling since 2 weeks. R ankle ca1 ankle and leg swelling since last night. Reports pain on both lower legs. Denies fever ca1
--- NOTE | 2019-08-22 19:19 | EDPHYS ---
Physician Documentation [facility] Name: Shilpa Samaniego Age: 89 yrs Sex: Female : 1930 Arrival Date: 08/21/2019 Time: 16:51 Bed 13 Private MD: Brant Daley E ED Physician Eliezer Henson HPI: 08/20 18:05 This 89 yrs old Female presents to ER via Wheelchair with complaints of Leg cp Swelling, Ankle Swelling. 18:05 The patient presents with pain, that is acute, swelling, tenderness. cp 18:05 The complaints affect the left samayoa. Onset: The symptoms/episode began/occurred 2 cp week(s) ago. Associated signs and symptoms: Pertinent negatives fever, weakness, injury, chest pain, shortness of breath. Treatment prior to arrival includes: no previous treatment. Severity of symptoms: in the emergency department the symptoms are actually worse, mildly, patient reports swelling of right lower leg since last night. Historical: - Allergies: 17:15 Augmentin; ca1 17:15 NSAIDS; ca1 17:15 Sulfa (Sulfonamide Antibiotics); ca1 17:15 Levofloxacin; ca1 - Home Meds: 17:15 Eliquis Oral [Active]; metoprolol tartrate 50 mg Oral tab [Active]; gabapentin 300 mg ca1 Oral cap [Active]; pantoprazole 40 mg oral TbEC [Active]; levothyroxine 100 mcg tab 1 tab once daily [Active]; amitriptyline 25 mg Oral tab [Active]; zolpidem 5 mg Oral tab 1 tab once daily [Active]; amitriptyline 50 mg Oral tab 1 tab once daily [Active]; Lasix 40 mg Oral tab [Active]; - PMHx: 17:15 Anxiety; Atrial Fib; COPD; DVT; LLE; hiatal hernia; Hyperlipidemia; Hypertension; ca1 Pacemaker; Rheumatoid Arthritis; - PSHx: 17:15 Hysterectomy; Hernia repair; cataract; shoulder; hip; ca1 - Immunization history:: Adult Immunizations up to date. - Social history:: Smoking status: Patient denies any tobacco usage or history of. ROS: 18:10 Eyes: Negative for injury, pain, redness, and discharge. cp 18:10 Constitutional: Negative for body aches, chills, fever, poor PO intake. 18:10 ENT: Negative for ear pain, sore throat, difficulty swallowing, difficulty handling secretions. 18:10 Cardiovascular: Negative for chest pain, palpitations. 18:10 Respiratory: Negative for cough, shortness of breath, wheezing. 18:10 Abdomen/GI: Negative for abdominal pain, nausea, vomiting, and diarrhea. 18:10 MS/extremity: Positive for pain, swelling, tenderness, of the left samayoa, Negative for injury or acute deformity, decreased range of motion, paresthesias. 18:10 Skin: Negative for rash. 18:10 Neuro: Negative for altered mental status, headache, weakness. 18:10 All other systems are negative. Exam: 18:15 Constitutional: The patient appears in no acute distress, alert, awake, cp non-diaphoretic, non-toxic, well developed, well nourished. 18:15 Head/Face: Normocephalic, atraumatic. cp 18:15 Eyes: Periorbital structures: appear normal, Conjunctiva: normal, no exudate, no injection, Lids and lashes: appear normal, bilaterally. 18:15 ENT: External ear(s): are unremarkable, Nose: is normal, Mouth: is normal, Posterior pharynx: is normal, airway is patent. 18:15 Chest/axilla: Inspection: normal, Palpation: is normal, no crepitus, no tenderness. 18:15 Cardiovascular: Rate: normal, Rhythm: regular, Edema: ankle edema, that is mild, JVD: is not appreciated. 18:15 Respiratory: the patient does not display signs of respiratory distress, Respirations: normal, no use of accessory muscles, no retractions, labored breathing, is not present, Breath sounds: are clear throughout, no decreased breath sounds. 18:15 Abdomen/GI: Exam negative for discomfort, distension, guarding, Inspection: abdomen appears normal. 18:15 Back: pain, is absent, ROM is normal. 18:15 Musculoskeletal/extremity: Pulses: noted to be 2+ in the right dorsalis pedis artery and left dorsalis pedis artery, DVT Exam: no erythema, no increased warmth, pain, that is moderate, of the left leg, swelling, that is mild, of the left leg, tenderness, that is moderate, of the left leg, positive Homans' sign noted on exam. 18:15 Skin: cellulitis, is not appreciated, no rash present. 18:40 ECG was reviewed by the Attending Physician. cp Vital Signs: 17:08 BP 154 / 71; Pulse 77; Resp 18 S; Temp 97.1(TE); Pulse Ox 97% on R/A; Weight 86.18 kg ca1 (R); Height 5 ft. 10 in. (177.80 cm) (R); Pain 5/10; 18:00 BP 146 / 77; Pulse 70; Resp 18; Pulse Ox 99% on R/A; Pain 0/10; ls4 19:02 BP 118 / 76; Pulse 72; Resp 14; Pulse Ox 99% on R/A; Pain 0/10; ls4 20:00 BP 112 / 70; Pulse 71; Resp 16; Temp 97.2(O); Pulse Ox 99% on R/A; Pain 0/10; ls4 17:08 Body Mass Index 27.26 (86.18 kg, 177.80 cm) ca1 MDM: 17:27 Patient medically screened. cp 18:30 Differential diagnosis: closed fracture, contusion, dvt. cp 20:13 Data reviewed: vital signs, nurses notes, lab test result(s), EKG, radiologic studies, cp plain films, ultrasound. 20:13 Test interpretation: by ED physician or midlevel provider: xrays of left lower leg cp negative for fracture. Counseling: I had a detailed discussion with the patient and/or guardian regarding: the historical points, exam findings, and any diagnostic results supporting the discharge/admit diagnosis, lab results, radiology results, the need for outpatient follow up, a family practitioner, to return to the emergency department if symptoms worsen or persist or if there are any questions or concerns that arise at home. Response to treatment: the patient's symptoms have mildly improved after treatment, and as a result, I will discharge patient. ED course: VSS. US negative for DVT and xrays negative. Will discharge to home for continued monitoring. 08/20 17:57 Order name: Urine Microscopic Only; Complete Time: 18:22 cp 08/20 18:22 Interpretation: Normal except: UWBC >50; URBC 10-20; UBACT 20-50. cp 08/20 18:03 Order name: Magnesium; Complete Time: 20:02 cp 08/20 18:03 Order name: Basic Metabolic Panel; Complete Time: 20:02 cp 08/20 20:02 Interpretation: Normal except: GLUC 111; BUN 20; GFR 50. 08/20 18:03 Order name: CBC with Diff; Complete Time: 20:02 08/20 20:02 Interpretation: Normal except: HGB 11.9; MCHC 31.9. 08/20 18:03 Order name: NT PRO-BNP; Complete Time: 20:02 08/20 20:02 Interpretation: Abnormal: NT PRO-BNP 2706. 08/20 18:03 Order name: PT-INR; Complete Time: 20:02 08/20 18:03 Order name: US Extremity Venous W Compression Pedro; Complete Time: 20:12 08/20 20:12 Interpretation: Report reviewed. 08/20 18:03 Order name: EKG; Complete Time: 18:05 08/20 18:03 Order name: XRAY Tib Fib LEFT; Complete Time: 20:02 08/20 18:03 Order name: XRAY Chest (1 view); Complete Time: 20:02 08/20 18:07 Order name: Urine Dipstick--Ancillary (enter results); Complete Time: 18:22 08/20 20:03 Interpretation: Normal except: UBLD 2+; UPROT 2+; U NIT POSITIVE; UESTR 3+. 08/20 18:20 Order name: Urine Culture [facility] 08/20 17:57 Order name: Urine Dipstick-Ancillary (obtain specimen); Complete Time: 18:06 08/20 18:03 Order name: Cardiac monitoring; Complete Time: 18:06 08/20 18:03 Order name: EKG - Nurse/Tech; Complete Time: 18:06 08/20 18:03 Order name: IV Saline Lock; Complete Time: 19:38 08/20 18:03 Order name: Labs collected and sent; Complete Time: 19:38 08/20 18:03 Order name: O2 Per Protocol; Complete Time: 19:38 08/20 18:03 Order name: O2 Sat Monitoring; Complete Time: 19:38 cp EC:40 Rate is 84 beats/min. Rhythm is regular, Paced. QRS interval is normal. QT interval is cp normal. Interpreted by me. Reviewed by me. Administered Medications: 20:06 Drug: Rocephin - (cefTRIAXone) 1 grams Route: IVPB; Infused Over: 10 mins; Site: right ls4 antecubital; 20:16 Follow up: Response: No adverse reaction; IV Status: Completed infusion; IV Intake: [id number] 08/21 01:26 Not Given (Patient Refused): Lasix 20 mg IVP once ls4 Disposition: 15:16 Co-signature as Attending Physician, Eliezer Henson MD I agree with the assessment and kdr plan of care. Disposition: 08/21/19 20:14 Discharged to Home. Impression: Pain in left lower leg, Urinary tract infection, site not specified. - Condition is Stable. - Discharge Instructions: Musculoskeletal Pain, Urinary Tract Infection, Adult, Varicose Veins. - Prescriptions for cefpodoxime 200 mg Oral Tablet - take 1 tablet by ORAL route every 12 hours for 10 days with food; 20 tablet. - Medication Reconciliation Form, Thank You Letter, Antibiotic Education, Prescription Opioid Use form. - Follow up: Private Physician; When: 2 - 3 days; Reason: Recheck today's complaints. - Problem is an ongoing problem. - Symptoms have improved. Signatures: Dispatcher [employer] EDEliezer Haynes MD MD kdr Deep Arthur PA PA cp Sylvia Lea RN RN ls4 Kosta Evans RN RN rr5 Miranda De La Cruz RN RN ca1 Corrections: (The following items were deleted from the chart) 08/20 20:38 20:14 08/21/2019 20:14 Discharged to Home. Impression: Pain in left lower leg. cp Condition is Stable. Forms are Medication Reconciliation Form, Thank You Letter, Antibiotic Education, Prescription Opioid Use. Follow up: Private Physician; When: 2 - 3 days; Reason: Recheck today's complaints. Problem is an ongoing problem. Symptoms have improved. cp 21:05 20:38 08/21/2019 20:14 Discharged to Home. Impression: Pain in left lower leg; Urinary rr5 tract infection, site not specified. Condition is Stable. Discharge Instructions: Musculoskeletal Pain, Varicose Veins. Forms are Medication Reconciliation Form, Thank You Letter, Antibiotic Education, Prescription Opioid Use. Follow up: Private Physician; When: 2 - 3 days; Reason: Recheck today's complaints. Problem is an ongoing problem. Symptoms have improved. cp 08/21 20:32 20:29 MS/extremity: Positive for pain, swelling, tenderness, of the left samayoa, Negative cp for injury or acute deformity, decreased range of motion, paresthesias, cp 20:32 20:29 Cardiovascular: Negative for chest pain, palpitations, cp cp 20:32 20:29 Respiratory: Negative for cough, shortness of breath, wheezing, cp cp 20:32 20:29 Abdomen/GI: Negative for abdominal pain, nausea, vomiting, and diarrhea, cp cp 20:32 20:29 Constitutional: Negative for body aches, chills, fever, poor PO intake, cp cp 20:32 20:29 Eyes: Negative for injury, pain, redness, and discharge, cp cp 20:32 20:29 ENT: Negative for ear pain, sore throat, difficulty swallowing, difficulty cp handling secretions, cp 20:32 20:29 Neuro: Negative for altered mental status, headache, weakness, cp cp 20:32 20:29 Skin: Negative for rash, cp cp 20:32 20:29 All other systems are negative, cp cp
== END 2019-08-21 21:05 | disposition home or self-care (01) ==
LOC: ER 16:50
DX: N39.0 Urinary tract infection, site not specified (principal); I10 Essential (primary) hypertension; E78.5 Hyperlipidemia, unspecified; I48.91 Unspecified atrial fibrillation; F41.9 Anxiety disorder, unspecified; Z79.01 Long term (current) use of anticoagulants; Z86.718 Personal history of other venous thrombosis and embolism; Z95.0 Presence of cardiac pacemaker
CPT/HCPCS: 93005; 87088; 85025; 87086; 80048; 36415; 83735; 85610; 83880; 71045; 73590; 93970; 96374; 99284; J0696; 81003; 81015

== ENCOUNTER 2019-11-27 01:19 | Emergency (ER) | payer OTHER ==
--- OUTSIDE RECORDS SUMMARY | 2019-11-27 01:21 | XMS REPORT | Continuity of Care Document ---
:1930 Author Organization [facility] t Address [address] [place] [address] Care Team Providers Name Role Phone Gloria AWAD, Amor Primary Care Physician Laina AWAD Attending Clinician VISIT, UATS Attending Clinician Unavailable Alex Hadley Attending Clinician Elias Mendoza Attending Clinician Problems Condition Condition Condition Status Onset Resolution Last Treating Co mments Source Name Details Category Date Date Treatment Clinician Date Osteoarthr Osteoarthr Disease Active 2015-03 [facility] of 04-23 Methodi right hip right hip 00:00: st 00 BLOOD CLOT Diagnosis Active 2015-09-09 Memoria THIGH 09-08 14:53:00 l BLOOD 00:00: David CLOT THIGH 00 Active 09/09/2015 [facility] Atrial Problem Active 2019-01-26 Memor ia fibrillati 22:20:48 l on Atrial David (disorder) fibrillati on (disorder) Active Problem 01/26/2019 [facility] Blood clot Problem Active 2015-09-12 M emma (morpholog 00:32:37 l ic Blood David abnormalit clot y) (morpholog ic abnormalit y) Active Problem 6 [facility] Discharge Problem 2015-09-12 2015-09-12 Memoria Diagnosis: 09-08 00:32:37 00:32:37 l Lower 05:00: David extremity Discharge 00 pain, Diagnosis: right Lower extremity pain, right 09/09/2015 09/12/2015 [facility] Allergies, Adverse Reactions, Alerts Allergy Allergy Status Severity Reaction(s) Onset Inactive Treating Comm ents Source Name Type Date Date Clinician Jessei Jessei Active Memori a n n l [place] Family History Family Member Diagnosis Comments Start Date Stop Date Source Natural sister Stroke [facility] thodist Social History Social Habit Start Date Stop Date Quantity Comments Source Sex Assigned At [facility] ethodist Alcohol intake 2016-02-22 2016-02-22 Current [facility] thodist 00:00:00 00:00:00 non-drinker of alcohol (finding) Smoking Status Start Date Stop Date Source Never smoker [place] [facility] Social History 2015-09-09 19:01:11 2015-09-09 19:01:11 [facility] Medications Ordered Filled Start Stop Current Ordering Indication Dosage Frequency Signature Comments Components Source Medication Medication Date Date Medication? Clinician (SIG) Name Name Estradiol 2018-03 Yes 1 gm, TOP, Me moria 0.1 MG/ML 0-04 Bedtime, l Vaginal 16:17: use 3 David Cream 00 times a [Estrace] week, # 1 tube, 5 Refill(s), Pharmacy: [id number] Estrogens, 2018-03 Yes 1 appl, Bj starla Conjugated 0-02 VAG, Q-M l (SNF) 0.625 14:52: and Th, # H ermann MG/ML 00 30 gm, 11 Vaginal Refill(s), Cream Pharmacy: [Premarin] [facility] #[id number] levothyroxi 2018-03 Yes 0 Memori a ne 100 mcg 0-02 Refill(s) l (0.1 mg) 13:25: [place] oral tablet 00 nitrofurant 2018-03 Yes 0 Memori a oin 0-02 Refill(s) l macrocrysta 13:25: [place] n ls-monohydr 00 ate 100 mg oral capsule (Macrobid) zolpidem 5 2018-03 Yes 0 Memoria mg oral 0-02 Refill(s) l tablet 13:25: [place] 00 Metoprolol 2018-03 Yes 0 Memoria Tartrate 50 0-02 Refill(s) l mg oral 13:25: [place] tablet 00 Furosemide 2018-03 Yes 0 Memoria 40 MG Oral 0-02 Refill(s) l Tablet 13:25: [place] 00 Amoxicillin 2018-03 Yes 0 Memori a 500 MG / 0-02 Refill(s) l Clavulanate 13:25: [place] n 125 MG Oral 00 Tablet amitriptyli 2018-03 Yes 0 Memori a ne 25 mg 0-02 Refill(s) l oral tablet 13:25: [place] n 00 gabapentin 2018-03 Yes 0 Memoria 300 MG Oral 0-02 Refill(s) l Capsule 13:25: David 00 apixaban 5 2018-03 Yes 5 mg, PO, Me moria MG Oral 0-02 Q12H, 0 l Tablet 13:25: Refill(s) [place] n [Eliquis] 00 metoprolol 2015-03 Yes 50mg Q.5D [...] ONE Marilynn ston (NEURONTIN) 0-31 CAPSULE BY Fl thodi 300 MG 00:00: MOUTH 3 st capsule [...] MCG tablet Acetaminoph Yes 1 tab, PO, Memoria en 325 MG / 09-08 Q6H, # 20 l Hydrocodone 19:20: tab, 0 Herm payal Bitartrate 00 Refill(s) 5 MG Oral Tablet [Casa 5/325] Acetaminoph No Notes: Bj starla en 325 MG / 09-08 (Same as: l Hydrocodone 18:29: Casa Myriam nn Bitartrate 00 325/5) Do 5 MG Oral not exceed Tablet 4gm/day of acetaminop hen. Vital Signs Vital Name Observation Time Observation Value Comments Source Height 2018-12-22 13:22:00 175.26 cm [facility] Weight 2018-12-22 13:22:00 [facility] [place] BMI Calculated 2018-12-22 13:22:00 Memori al [place] Heart Rate 2015-09-09 20:21:00 [facility] Systolic (mm Hg) 2015-09-09 20:21:00 Bj rial David Diastolic (mm Hg) 2015-09-09 20:21:00 Mem orial [place] Temperature Oral (F) 2015-09-09 20:21:00 98.1 F [facility] Respitory Rate 2015-09-09 20:21:00 Memori al [place] BMI Calculated 2015-09-09 17:44:00 Memori al [place] Weight 2015-09-09 17:44:00 [facility] Height 2015-09-09 17:44:00 177.8 cm [facility] Respitory Rate 2015-09-09 17:44:00 Memori al [facility] Heart Rate 2015-09-09 17:44:00 [facility] [place] Systolic (mm Hg) 2015-09-09 17:44:00 Bj rial [place] Diastolic (mm Hg) 2015-09-09 17:44:00 Mem orial [place] Temperature Oral (F) 2015-09-09 17:44:00 98.2 F [facility] [place] Procedures Procedure Date / Time Performed Performing Clinician Alexx e Complex uroflowmetry (eg, 2019-01-10 17:20:00 Fl blaine Hernandez calibrated electronic equipment) Measurement of 2019-01-10 17:20:00 Brittany farooq post-voiding residual urine and/or bladder capacity by ultrasound, non-imaging Plan of Care Planned Activity Planned Date Details Comments Source Future Scheduled 2019-12-22 INFLUENZA VACCINE [place] [facility] 00:00:00 [code = INFLUENZA VACCINE] Future Scheduled 1997 65+ PNEUMOCOCCAL [place] [facility] 00:00:00 VACCINE (1 of 2 - PCV13) [code = 65+ PNEUMOCOCCAL VACCINE (1 of 2 - PCV13)] Future Scheduled 1982 SHINGLES VACCINES (#1) [place] [facility] 00:00:00 [code = SHINGLES VACCINES (#1)] Encounters Start End Encounter Admission Attending Care Care Encounter Source Date/Time Date/Time Type Type Clinicians Facility Department ID 2019-10-21 2019-11-01 [facility] [id number] 10:06:35 12:32:49 Visit Liliam Rutherford [id number] Thuy [id number] Professio [id number] 2019-01-24 2019-01-24 Outpatient VISIT, [facility] [id number] 10:00:00 10:00:00 NURSE ARTUR 05 2019-01-24 2019-01-24 Outpatient Leonie [facility] [id number] 09:40:00 09:40:00 Nato S 2019-01-10 2019-01-10 Outpatient Leonie [facility] [id number] 10:00:00 23:59:59 Nato S 2018-12-22 2018-12-22 Outpatient Leonie [facility] [id number] 09:45:00 23:59:59 Nato S 2018-12-22 2018-12-22 Outpatient Leonie [facility] [id number] 09:00:00 09:00:00 Nato S 00 2015-09-09 2015-09-09 Outpatient NOMI Mendoza [facility] [id number] 12:38:00 15:23:00 Eli Griffin 00 Results This patient has no known results.
--- OUTSIDE RECORDS SUMMARY | 2019-11-27 01:21 | XMS REPORT | Clinical Summary ---
:1930 Author Organization [facility] Address [address] [place] [address] Care Team Providers Name Role Phone Amor [...] of 2 - PCV13) 1997 INFLUENZA VACCINE 12/22/2019 Implants Implanted Type Area Mycologist Device Shelf Model / Identifier Expiration Serial / Lot Date Screw Bone Canc 6.5x30mm - [id number] Hip Joint Right: DEPUY ORTHO [id number] / Implanted: Qty: 1 on 02/21/2016 by Holly Ferguson MD at [facility] Implants Hip / Screw Bone Canc Dome 6.5x25mm Ltxf Redig - [id number] Hip Join t Right: DEPUY ORTHO [id number] / Implanted: Qty: 1 on 02/21/2016 by Holly Ferguson MD at [facility] Implants Hip / Shell Actblr Sector Series W/ Gripton 54mm Redig - [id number] Hip Joint Right: DEPUY 12/20/2025 [id number] / Implanted: Qty: 1 on 02/21/2016 by Holly Ferguson MD at [facility] Implants Hip ORTHO-KNEES / [id number] Liner Actblr Neut Altra Linked Pe [id number] Altrx - [id number] H ip Joint Right: DEPUY 06/20/2020 [id number] / Implanted: Qty: 1 on 02/21/2016 by Holly Ferguson MD at [facility] Implants Hip ORTHO-KNEES / [id number] Stem Fml Bone Presrvtn Std Ofst Sz 6 107mm Tri-Lock - [id number] Hip Joint Right: DEPUY 10/20/2024 [id number] / Implanted: Qty: 1 on 02/21/2016 by Holly Ferguson MD at [facility] Implants Hip ORTHO-KNEES / [id number] [place] Fracture System Biolox Delta Ceram ic Femoral Heads Size 36 +5.0 Mm Articul/Lamont 03/05 Taper Ceramic Femoral Heads - [id number] IPM IMPLANT Ri ght: DEPUY 11/20/2020 [id number] / Implanted: Qty: 1 on 02/21/2016 by Holly Ferguson MD at [facility] [employer] Hip [id number] Results Not on fileafter 11/26/2018 Insurance Payer Benefit Plan / Subscriber ID Effective Dates Phone Addre ss Type Group MEDICARE MEDICARE PART A xxxxxxxxxx 1997-Present [place] B AETNA AETNA xxxxxxxxxx 2012-Present [place] HMO,POS,EPO, MC/EC Advance Directives For more information, please contact: [phone] Type Date 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
--- OUTSIDE RECORDS SUMMARY | 2019-11-27 01:21 | XMS REPORT | Continuity of Care Document ---
:1930 Author Organization [employer] Care Team Providers Name Role Phone [employer] Unavailable Un available Problems Problem Status Onset Classification Date Comments Sour e Date Reported Discharge 09/12/2015 [facility] Diagnosis: Lower 6 Med ical extremity pain, Cent er right BLOOD CLOT THIGH Active [address] Atrial Active Problem 01/26/2019 Medica l fibrillation Group,M H (disorder) [facility] Blood clot Active Problem 09/12/2015 [facility] (morphologic Medical abnormality) Needles Medications Medication Details Route Status Patient Ordering Order Source Instructions Provider Date Estradiol 0.1 1 gm, TOP, Active MH MG/ML Vaginal Bedtime, 019 Medical Cream [Estrace] use 3 Group times a week, # 1 tube, 5 Refill(s), Pharmacy: [facility] #[id number] Estrogens, 1 appl, Active MH Conjugated (DETENTION) VAG, Q-M 019 Medica l 0.625 MG/ML and Th, # Group Vaginal Cream 30 gm, 11 [Premarin] Refill(s), Pharmacy: [facility] #[id number] levothyroxine 100 0 Active MH mcg [...] MG tab, 0 Center Oral Tablet Refill(s) [[place] 5/325] Acetaminophen 325 Notes: Inactive [place] / Hydrocodone (Same as: 016 Medic al Bitartrate 5 MG [place] [facility] Oral Tablet 325/5) Do not exceed [...] Medical Grou p BMI Calculated 28.12 12/22/2018 [facility] oup Heart Rate 88 09/09/2015 [facility] Systolic (mm Hg) 152 09/09/2015 [facility] Diastolic (mm Hg) 82 09/09/2015 [facility] Temperature Oral (F) 98.1 F 09/09/2015 [facility] Respitory Rate 16 09/09/2015 [facility] BMI Calculated 25.88 09/09/2015 [facility] Weight 81.818 09/09/2015 [facility] Height 177.8 cm 09/09/2015 [facility] Respitory Rate 16 09/09/2015 [facility] Heart Rate 99 09/09/2015 [facility] l Needles Systolic (mm Hg) 148 09/09/2015 [facility] Diastolic (mm Hg) 79 09/09/2015 [facility] Temperature Oral (F) 98.2 F 09/09/2015 [facility] Encounters Location Location Encounter Encounter Reason Attending ADM DC Stat us Source Details Type Number For Provider Date Date Visit [facility] [id number] Eli 09/08 09/08 M Chung Emma Rosalesann Emergency Reji /2015 [facility] Outpatient [id number] Rigoberto 12/15 Active [facility] Wagen Aladdin Outpatient [id number] Nato 12/22 Active [facility] Aladdin [facility] Multi Ambulatory [id number] Nato 12/22 12/22 Specialty Pre-Reg Medica l [facility] Multi Outpatient [id number] Nato 12/22 12/23 [facility]ty [facility] Outpatient [id number] NURSE 01/10 Active [facility] VISIT Aladdin Outpatient [id number] Nato 01/10 Active [facility] Aladdin [facility] Outpatient [id number] Nato 01/10 01/11 [facility] Time Share Outpatient [id number] Nato 01/24 Active [facility] Aladdin Outpatient [id number] NURSE 01/24 Active [facility] VISIT [facility] Ambulatory [id number] Nato 01/24 01/24 [facility]rology [facility] Time Share [facility] Ambulatory [id number] NURSE 01/24 01/24 Urology Pre-Reg VISIT /2018 [facility] Time Share Procedures Procedure Code Date Perfomer Comments Source Complex [id number] 01/10/2019 Medical uroflowmetry (eg, Group [place] [id number] 01/10/2019 Medical post-voiding Group residual urine and/or [...] entered on: 12/22/18 Social History TypeResponse 09/09/2015 [facility] Smoking Status Former smoker; Exposure to Tobacco Smoke None; Cigarette Smoking Last 365 Days No; Reg Smoking Cessation Counseling No Family History No Data Provided for This Section Advance Directives No Data Provided for This Section Functional Status No Data Provided for This Section
--- OUTSIDE RECORDS SUMMARY | 2019-11-27 01:22 | XMS REPORT | Summary of Care ---
:1930 Author Organization [facility] Address [address] [place] [id number] Care Team Providers Name Role Phone Brant Daley Primary Care Provider Reason for Visit Reason Comments Wound left leg LEG SWELLING Encounter Details Date Type Department Care Team Description 10/21/[address] [facility] Vascular Liliam Marina S ymptomatic reticular Surgery- Sangeeta AWAD veins (Primary Dx) [address] [id number] [place], [place] [phone] [address] [phone] Allergies Active Allergy Reactions Severity Noted Date Comments Amoxicillin Hives 02/15/2019 Levofloxacin Unknown - See comments 02/15/2019 Muscl e issues Sulfa (Sulfonamide Hives 02/21/2019 Antibiotics) documented as of this encounter (statuses as of 11/01/2019) Medications Medication Sig Dispensed Refills Start Date [...] as of this encounter (statuses as of 11/01/2019) Active Problems No known active problemsdocumented as of this encounter (statuses as of 11/01/2019) Social History Tobacco Use Types Packs/Day Years [...] Assigned at Date Recorded Not on file COVID-19 Exposure Response Date Recorded In the last month, have you been in contact with No / Unsure 10/21/2019 11:40 AM CDT someone who was confirmed or suspected to have Coronavirus / COVID-19? 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 Berg then personally examined the patient on 10/21/2019. I agree with the note as detailed by Dr. Berg. I actively participated in the decision-making process regarding the assessment and plan of care. Please see the resident's note for additional details. Liliam Marina MD, [facility] Vascular Surgery Glenroy agarwal MD - 10/21/2019 10:30 AM CDTVASCULAR SURGERY CLINIC NOTE Progress Note Date of Service: 10/21/2019 Visit type: follow up HISTORY OF PRESENT ILLNESS: Ms. Samaniego is a 89 year old year old female patient who has a history of reticular and varicose veins and chronic venous insufficiency. She has one superficial reticular vein along the samayoa, near the foot that bled. She was able to stop the bleed with pressure and over the counter agents. It has since stopped bleeding. She has had increased swelling in her legs since she was informed to stop her diuretics because of increased cramping she was getting when she started spiranolactone. She normally takes lasix which she says she has taken for 15 years. We informed her to get in contact with her health program manager because her diuretic medication will help with the swelling as well and until she gets in contact with her doctors to take her medication as she did before the 2 weeks. Pt denies roverto pain, fever, chills, n/v, chest pain, SOB. No lightheadedness, no dizziness. REVIEW OF SYSTEMS: Constitutional: negative per HPI Neuro: negative per HPI HEENT: negative per HPI CV: negative per HPI Resp: negative per HPI GI: negative per HPI : negative per HPI MSK: negative per HPI Skin: negative per HPI Endo: negative per HPI Physical Exam: BP (!) 153/86 (BP Location: Left arm, Patient Position: Sitting, BP CUFF SIZE: Adult Large) | Pulse71 | Temp 36.6 C (97.8 F) (Temporal Artery) | Resp 18 | Wt 192 lb 12.8 oz (87.5 kg) | BMI 27.66 kg/m Constitutional: no acute distress, alert and oriented x3 Respiratory: breathing unlabored on room air Cardio: RRR Abdomen: soft, symmetrical, non-distended Sensory Function: within normal limits Neuro: NFD Extremities/MSK: small scab over L samayoa, non-pitting edema bilaterally, Skin: reticular veins bilaterally Psych/Affect:affect, insight and judgment appropriate Assessment/Plan Shilpa Samaniego is a 89 year old female with HPI as above. She was counseled that this may open up ifshe accidentally injures it but it should never cause her major problems. We recommended that she cover it with a band-aid daily or a light dressing to help avoid any accidental trauma and informed herof the procedure she can receive from dermatology to decrease the reticular veins. She can continue to wear the compression stockings to help with the swelling. She will return as needed to clinic. - RTC PRN Glenroy Berg MD PGY-1, Vascular Surgery 10/21/2019 Sunita Mena - 10/21/2019 10:30 AM Stanton Samaniego is a 89 year old female comes to clinic independent in ambulation for wound on left leg. Pt comes accompanied by family member . Pt in NAD w/ pain reported 0/10. Pt preferred language is Romanian. Pt. denies fall in last 12 months. Allergies and medications reviewed and updated. [facility]/pharmacy #[id number] - [place], [place] - [address] AT [facility] [email or web address] [place] Sunita Cardenas 10/21/2019 11:42 AM documented in this encounter Plan of Treatment Health Maintenance Due Date Last Done Comments DTaP,Tdap,and Td Vaccines (1 - Tdap) 1949 Zoster Recombinant Vaccine (SHINGRIX) (1 of 2) 1982 Medicare Wellness Visit 1997 Osteoporosis Screening 1997 PNEUMOCOCCAL VACCINES 65+ (1 of 1 - PPSV23) 1997 INFLUENZA VACCINE (#1) 2019 Depression Screening 10/20/2020 10/21/2019 documented as of this encounter Results Not on filedocumented in this encounter Visit Diagnoses Diagnosis Symptomatic reticular veins - Primary Varicose veins of lower extremities with other complications documented in this encounter Insurance Payer Benefit Plan / Subscriber ID Effective Dates Phone Addre ss Type Group MEDICARE MEDICARE PART A [id number] 1997-Aleisha [phone] & [address] [id number] [place] [phone] AETNA AETNA INDEMNITY [id number] 2013-Aleisha garcia documented as of this encounter"
--- NOTE | 2019-11-27 01:48 | ER ---
Nurse's Notes [facility] Name: Shilpa Samaniego Age: 89 yrs Sex: Female : 1930 Arrival Date: 11/27/2019 Time: 01:20 Bed 15 Private MD: Brant Daley E Diagnosis: Cellulitis of left lower limb Presentation: 11/26 01:43 Chief complaint: Patient states: Wound to left lower leg from 1 week ago after hitting lp1 leg on door; States taking Clindamycin 300 mg TID and bactroban ointment to site; some swelling to wound site; States having upcoming wound care appt on Thursday. Coronavirus screen: Client denies travel out of the [place] in the last 14 days. At this time, the client does not indicate any symptoms associated with coronavirus-19. Ebola Screen: No symptoms or risks identified at this time. Initial Sepsis Screen: Does the patient meet any 2 criteria? No. Patient's initial sepsis screen is negative. Does the patient have a suspected source of infection? No. Patient's initial sepsis screen is negative. Risk Assessment: Do you want to hurt yourself or someone else? Patient reports no desire to harm self or others. Onset of symptoms was November 27, 2019. 01:43 Method Of Arrival: Wheelchair lp1 01:43 Acuity: LESA 4 lp1 Historical: - Allergies: 01:49 Sulfa (Sulfonamide Antibiotics); lp1 01:49 Levofloxacin; lp1 01:49 Augmentin; lp1 01:49 NSAIDS; lp1 01:49 Cefpodoxime; lp1 01:49 Ciprofloxacin; lp1 01:49 Cefuroxime; lp1 01:49 PENICILLINS; lp1 - Home Meds: 01:49 Eliquis 5 mg oral tab 2 times per day [Active]; metoprolol tartrate 50 mg Oral tab 2 lp1 times per day [Active]; gabapentin 300 mg Oral cap nightly [Active]; pantoprazole 40 mg Oral TbEC once daily [Active]; levothyroxine 100 mcg tab 1 tab once daily [Active]; amitriptyline 25 mg Oral tab nightly [Active]; zolpidem 5 mg Oral tab 1 tab nightly [Active]; Lasix 40 mg Oral tab once daily [Active]; - PMHx: 01:49 Anxiety; Atrial Fib; COPD; DVT; LLE; hiatal hernia; Hyperlipidemia; Hypertension; lp1 Pacemaker; Rheumatoid Arthritis; - PSHx: 01:49 Hysterectomy; Hernia repair; cataracts; shoulder surgery; hip replacement; lp1 - Immunization history:: Adult Immunizations up to date. - Social history:: Smoking status: Patient denies any tobacco usage or history of. Screenin:51 Abuse screen: Denies threats or abuse. Denies injuries from another. Nutritional lp1 screening: No deficits noted. Tuberculosis screening: No symptoms or risk factors identified. Fall Risk None identified. Assessment: 01:49 General: Appears in no apparent distress. Behavior is calm, cooperative. Pain: lp1 Complains of pain in left samayoa. Neuro: No deficits noted. Cardiovascular: No deficits noted. Respiratory: No deficits noted. GI: No deficits noted. : No deficits noted. No signs and/or symptoms were reported regarding the genitourinary system. EENT: No signs and/or symptoms were reported regarding the EENT system. Derm: Skin is pink, warm \T\ dry. Wound noted left samayoa Wound is black to bed of wound, slight redness around site. Musculoskeletal: No deficits noted. Vital Signs: 01:43 BP 158 / 84; Pulse 90; Resp 18; Temp 98.7(TE); Pulse Ox 97% on R/A; Weight 81.65 kg (R);lp1 ED Course: 01:20 Patient arrived in ED. am2 01:20 Brant Daley MD is Private Physician. am2 01:27 Dre Hardy MD is Attending Physician. tw4 01:42 Brooklynn Richards, SABI is Primary Nurse. lp1 01:45 Triage completed. lp1 01:45 Arm band placed on right wrist. lp1 01:46 Brant Daley MD is Referral Physician. tw4 01:49 No provider procedures requiring assistance completed. Patient did not have IV access lp1 during this emergency room visit. Wound care: to abrasion, located on left samayoa was dressed with non-adherent pad and DILLON Wrap. 01:51 Patient has correct armband on for positive identification. lp1 Administered Medications: No medications were administered Outcome: 01:47 Discharge ordered by . tw4 01:53 Discharged to home ambulatory. lp1 01:53 Condition: good 01:53 Discharge instructions given to patient, Instructed on discharge instructions, follow up and referral plans. wound care, Demonstrated understanding of instructions, follow-up care, wound care. 01:53 Patient left the ED. lp1 Signatures: Brooklynn Richards RN RN lp1 June Hall am2 Dre Hardy MD MD tw4
--- NOTE | 2019-11-28 01:56 | EDPHYS ---
Physician Documentation [facility] Name: Shilpa Samaniego Age: 89 yrs Sex: Female : 1930 Arrival Date: 11/27/2019 Time: :20 Bed 15 Private MD: Brnat Daley E ED Physician Dre Hardy HPI: 11/26 01:52 This 89 yrs old Female presents to ER via Wheelchair with complaints of Skin tw4 Sore(s). 01:52 The patient presents with cellulitis of the left samayoa. Description: The affected area tw4 is moderate sized, erythematous. Onset: The symptoms/episode began/occurred 1 week(s) ago. Possible cause(s): unknown. Associated signs and symptoms: The patient has no apparent associated signs or symptoms. Severity of symptoms: At their worst the symptoms were moderate, in the emergency department the symptoms are unchanged. The patient has not experienced similar symptoms in the past. Historical: - Allergies: 01:49 Sulfa (Sulfonamide Antibiotics); lp1 01:49 Levofloxacin; lp1 01:49 Augmentin; lp1 01:49 NSAIDS; lp1 01:49 Cefpodoxime; lp1 01:49 Ciprofloxacin; lp1 01:49 Cefuroxime; lp1 01:49 PENICILLINS; lp1 - Home Meds: 01:49 Eliquis 5 mg oral tab 2 times per day [Active]; metoprolol tartrate 50 mg Oral tab 2 lp1 times per day [Active]; gabapentin 300 mg Oral cap nightly [Active]; pantoprazole 40 mg Oral TbEC once daily [Active]; levothyroxine 100 mcg tab 1 tab once daily [Active]; amitriptyline 25 mg Oral tab nightly [Active]; zolpidem 5 mg Oral tab 1 tab nightly [Active]; Lasix 40 mg Oral tab once daily [Active]; - PMHx: 01:49 Anxiety; Atrial Fib; COPD; DVT; LLE; hiatal hernia; Hyperlipidemia; Hypertension; lp1 Pacemaker; Rheumatoid Arthritis; - PSHx: 01:49 Hysterectomy; Hernia repair; cataracts; shoulder surgery; hip replacement; lp1 - Immunization history:: Adult Immunizations up to date. - Social history:: Smoking status: Patient denies any tobacco usage or history of. ROS: 01:52 Constitutional: Negative for fever, chills, and weight loss, Eyes: Negative for injury, tw4 pain, redness, and discharge, Cardiovascular: Negative for chest pain, palpitations, and edema, Respiratory: Negative for shortness of breath, cough, wheezing, and pleuritic chest pain, Abdomen/GI: Negative for abdominal pain, nausea, vomiting, diarrhea, and constipation, MS/Extremity: Negative for injury and deformity. 01:52 Skin: Positive for cellulitis, ecchymosis, erythema, Negative for abrasions, abscesses, avulsion, hematoma, puncture, rash, swelling. Exam: 01:52 Constitutional: This is a well developed, well nourished patient who is awake, alert, tw4 and in no acute distress. Head/Face: Normocephalic, atraumatic. Chest/axilla: Normal chest wall appearance and motion. Nontender with no deformity. No lesions are appreciated. Cardiovascular: Regular rate and rhythm with a normal S1 and S2. No gallops, murmurs, or rubs. Normal PMI, no JVD. No pulse deficits. Respiratory: Lungs have equal breath sounds bilaterally, clear to auscultation and percussion. No rales, rhonchi or wheezes noted. No increased work of breathing, no retractions or nasal flaring. Abdomen/GI: Soft, non-tender, with normal bowel sounds. No distension or tympany. No guarding or rebound. No evidence of tenderness throughout. Back: No spinal tenderness. No costovertebral tenderness. Full range of motion. Neuro: Awake and alert, GCS 15, oriented to person, place, time, and situation. Cranial nerves II-XII grossly intact. Motor strength 5/5 in all extremities. Sensory grossly intact. Cerebellar exam normal. Normal gait. Vital Signs: 01:43 BP 158 / 84; Pulse 90; Resp 18; Temp 98.7(TE); Pulse Ox 97% on R/A; Weight 81.65 kg (R);lp1 MDM: 01:27 Patient medically screened. tw4 Administered Medications: No medications were administered Disposition: 11/27/19 01:47 Discharged to Home. Impression: Cellulitis of left lower limb. - Condition is Stable. - Discharge Instructions: Cellulitis, Adult. - Medication Reconciliation Form, Thank You Letter, Antibiotic Education, Prescription Opioid Use form. - Follow up: Brant Daley MD; When: Upon discharge from the Emergency Department; Reason: Recheck today's complaints, Continuance of care, Re-evaluation by your physician. - Problem is an ongoing problem. - Symptoms are unchanged. Signatures: Brooklynn Richards RN RN lp1 Dre Hardy MD MD tw4 Corrections: (The following items were deleted from the chart) 01:53 01:47 11/27/2019 01:47 Discharged to Home. Impression: Cellulitis of left lower limb. lp1 Condition is Stable. Forms are Medication Reconciliation Form, Thank You Letter, Antibiotic Education, Prescription Opioid Use. Follow up: Brant Daley; When: Upon discharge from the Emergency Department; Reason: Recheck today's complaints, Continuance of care, Re-evaluation by your physician. Problem is an ongoing problem. Symptoms are unchanged. tw4
[2019-11-28 08:19] VITALS: BP 158/84; TEMP 98.7; O2SAT 97
== END 2019-11-27 01:53 | disposition home or self-care (01) ==
LOC: ER 01:19
DX: L03.116 Cellulitis of left lower limb (principal); I10 Essential (primary) hypertension; E78.5 Hyperlipidemia, unspecified; J44.9 Chronic obstructive pulmonary disease, unspecified; I48.91 Unspecified atrial fibrillation; Z95.0 Presence of cardiac pacemaker; Z86.718 Personal history of other venous thrombosis and embolism; Z79.01 Long term (current) use of anticoagulants; Z88.0 Allergy status to penicillin; Z88.1 Allergy status to other antibiotic agents; Z88.3 Allergy status to other anti-infective agents; Z88.6 Allergy status to analgesic agent; Z88.8 Allergy status to other drugs, medicaments and biological substances
CPT/HCPCS: 99283

== ENCOUNTER 2019-11-29 22:53 | Emergency (ER) | payer OTHER ==
--- OUTSIDE RECORDS SUMMARY | 2019-11-29 22:55 | XMS REPORT | Clinical Summary ---
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 Device Shelf Model / Identifier Expiration Serial / Lot Date Screw Bone Canc 6.5x30mm - [id number] Hip Joint Right: DEPUY ORTHO [id number] / Implanted: Qty: 1 on 02/21/2016 by Holly Ferguson MD at [facility] Implants Hip / Screw Bone Canc Dome 6.5x25mm Ltxf [place] - [id number] Hip Join t Right: DEPUY ORTHO [id number] / Implanted: Qty: 1 on 02/21/2016 by Holly Ferguson MD at [facility] Implants Hip / Shell Actblr Sector Series W/ Gripton 54mm [place] - [id number] Hip Joint Right: DEPUY 12/20/2025 [id number] / Implanted: Qty: 1 on 02/21/2016 by Holly Ferguson MD at [facility] Implants Hip ORTHO-KNEES / [id number] Liner Actblr Neut Altra Linked Pe [id number] +4 Altrx - [id number] H ip Joint Right: DEPUY 06/20/2020 [id number] / Implanted: Qty: 1 on 02/21/2016 by Holly Ferguson MD at [facility] Implants Hip ORTHO-KNEES / [id number] Stem Fml Bone Presrvtn Std Ofst Sz 6 107mm Tri-Lock - [id number] Hip Joint Right: DEPUY 10/20/2024 [id number] / Implanted: Qty: 1 on 02/21/2016 by Holly Ferguson MD at [facility] Implants Hip ORTHO-KNEES / [id number] [place] Fracture System Biolox Delta Ceram ic Femoral Heads Size 36 +5.0 Mm Articul/Lamont 03/05 Taper Ceramic Femoral Heads - [id number] IPM IMPLANT Ri ght: DEPUY 11/20/2020 [id number] / Implanted: Qty: 1 on 02/21/2016 by Holly Ferguson MD at [facility] DEVICES Hip ORTHOP[employer]ED[id number] Results Not on fileafter 11/28/2018 Insurance Payer Benefit Plan / Subscriber ID Effective Dates Phone Addre ss Type Group MEDICARE MEDICARE PART A xxxxxxxxxx 1997-Present [place] AND B AETNA AETNA xxxxxxxxxx 2012-Present [place] HMO,POS,EPO, MC/EC Advance Directives For more information, please contact: [phone] Type Date 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
--- OUTSIDE RECORDS SUMMARY | 2019-11-29 22:56 | XMS REPORT | Continuity of Care Document ---
:1930 Author Organization [employer] Care Team Providers Name Role Phone [employer] Unavailable Un available Problems Problem Status Onset Classification Date Comments Sour e Date Reported Discharge 09/12/2015 [facility] Diagnosis: Lower 6 Med ical extremity pain, Cent er right BLOOD CLOT THIGH Active [address] Center Atrial Active Problem 01/26/2019 Medica l fibrillation Group,M H (disorder) [facility] Blood clot Active Problem 09/12/2015 [facility] (morphologic Medical abnormality) [place] Medications Medication Details Route Status Patient Ordering Order Source Instructions Provider Date Estradiol 0.1 1 gm, TOP, Active MH MG/ML Vaginal Bedtime, 019 Medical Cream [Estrace] use 3 Group times a week, # 1 tube, 5 Refill(s), Pharmacy: [id number] Estrogens, 1 appl, Active MH Conjugated (MCC) VAG, Q-M 019 Medica l 0.625 MG/ML and Th, # Group Vaginal Cream 30 gm, 11 [Premarin] Refill(s), Pharmacy: [id number] levothyroxine 100 0 Active MH mcg [...] MG tab, 0 Center Oral Tablet Refill(s) [[place] 5/325] Acetaminophen 325 Notes: Inactive [place] MG / Hydrocodone (Same as: 016 Medic al Bitartrate 5 MG [place] Center Oral Tablet 325/5) Do not exceed [...] Medical Grou p BMI Calculated 28.12 12/22/2018 [facility] oup Heart Rate 88 09/09/2015 [facility] Center Systolic (mm Hg) 152 09/09/2015 [facility] Center Diastolic (mm Hg) 82 09/09/2015 [facility] Temperature Oral (F) 98.1 F 09/09/2015 [facility] Respitory Rate 16 09/09/2015 [facility] BMI Calculated 25.88 09/09/2015 [facility] Weight 81.818 09/09/2015 [facility] Height 177.8 cm 09/09/2015 [facility] Respitory Rate 16 09/09/2015 [facility] Heart Rate 99 09/09/2015 [facility] l [place] Systolic (mm Hg) 148 09/09/2015 [facility] [place] Diastolic (mm Hg) 79 09/09/2015 [facility] Temperature Oral (F) 98.2 F 09/09/2015 [facility] Encounters Location Location Encounter Encounter Reason Attending ADM DC Stat us Source Details Type Number For Provider Date Date Visit [facility] [id number] Eli 09/08 09/08 M Chung Emma Rosalesann Emergency Reji /2015 [facility] Outpatient [id number] Rigoberto 12/15 Active [facility] [place] Outpatient [id number] [place] 12/22 Active [facility] [place] [facility] Multi Ambulatory [id number] [place] 12/22 12/22 Specialty Pre-Reg Medica l [facility] Multi Outpatient [id number] [place] 12/22 12/23 [facility] Outpatient [id number] NURSE 01/10 Active [facility] [place] [id number] [place] 01/10 Active [facility] [place] [facility] Outpatient [id number] [place] 01/10 01/11 [facility] Time Share Outpatient [id number] [place] 01/24 Active [facility] [place] Outpatient [id number] NURSE 01/24 Active [facility] VISIT [facility] Ambulatory [id number] [place] 01/24 01/24 [facility] Time Share [facility] Ambulatory [id number] NURSE 01/24 01/24 Urology Pre-Reg VISIT /2018 [facility] Time Share Procedures Procedure Code Date Perfomer Comments Source Complex [id number] 01/10/2019 Medical uroflowmetry (eg, Group calibrated [place] [id number] 01/10/2019 Medical post-voiding Group residual urine and/or [...] entered on: 12/22/18 Social History TypeResponse 09/09/2015 [facility] Smoking Status Former smoker; Exposure to Tobacco Smoke None; Cigarette Smoking Last 365 Days No; Reg Smoking Cessation Counseling No Family History No Data Provided for This Section Advance Directives No Data Provided for This Section Functional Status No Data Provided for This Section
--- OUTSIDE RECORDS SUMMARY | 2019-11-29 22:56 | XMS REPORT | Continuity of Care Document ---
:1930 Author Organization [facility] t Address [address] [place] [address] Care Team Providers Name Role Phone Gloria AWAD, Amor Primary Care Physician Laina AWAD Attending Clinician VISIT, [facility] Attending Clinician Unavailable Alex Hadley Attending Clinician Elias Mendoza Attending Clinician Problems Condition Condition Condition Status Onset Resolution Last Treating Co mments Source Name Details Category Date Date Treatment Clinician Date Osteoarthr Osteoarthr Disease Active 2015-03 H [facility] itis of itis of 04-23 Method[facility] right hip right hip 00:00: st 00 BLOOD CLOT Diagnosis Active 2015-09-09 Memoria THIGH 09-08 14:53:00 l BLOOD 00:00: David CLOT THIGH 00 Active 09/09/2015 [facility] Atrial Problem Active 2019-01-26 Memor ia fibrillati 22:20:48 l on Atrial David (disorder) fibrillati on (disorder) Active Problem 01/26/2019 [facility] Blood clot Problem Active 2015-09-12 M emma (morpholog 00:32:37 l ic Blood David abnormalit clot y) (morpholog ic abnormalit y) Active Problem 6 [facility] Discharge Problem 2015-09-12 2015-09-12 Memoria Diagnosis: 09-08 00:32:37 00:32:37 l Lower 05:00: David extremity Discharge 00 pain, Diagnosis: right Lower extremity pain, right 09/09/2015 09/12/2015 [facility] Allergies, Adverse Reactions, Alerts Allergy Allergy Status Severity Reaction(s) Onset Inactive Treating Comm ents Source Name Type Date Date Clinician Jessei Jessei Active [facility] n n [facility] [place] Family History Family Member Diagnosis Comments Start Date Stop Date Source Natural sister Stroke [facility] [place] thodist Social History Social Habit Start Date Stop Date Quantity Comments Source Sex Assigned At [facility] ethodist Alcohol intake 2016-02-22 2016-02-[address] [facility] [place] thodist 00:00:00 00:00:00 non-drinker of alcohol (finding) Smoking Status Start Date Stop Date Source Never smoker [facility] t Social History 2015-09-09 19:01:11 2015-09-09 19:01:11 [facility] Medications Ordered Filled Start Stop Current Ordering Indication Dosage Frequency Signature Comments Components Source Medication Medication Date Date Medication? Clinician (SIG) Name Name Estradiol 2018-03 Yes 1 gm, TOP, Me moria 0.1 MG/ML 0-04 Bedtime, l Vaginal 16:17: use 3 David Cream 00 times a [Estrace] week, # 1 tube, 5 Refill(s), Pharmacy: [id number] Estrogens, 2018-03 Yes 1 appl, Bj starla Conjugated 0-02 VAG, Q-M l (DETENTION) 0.625 14:52: and Th, # H ermann MG/ML 00 30 gm, 11 Vaginal Refill(s), Cream Pharmacy: [Premarin] [id number] levothyroxi 2018-03 Yes 0 Memori a ne 100 mcg 0-02 Refill(s) l (0.1 mg) 13:25: [place] oral tablet 00 nitrofurant 2018-03 Yes 0 Memori a oin 0-02 Refill(s) l macrocrysta 13:25: [place] n ls-monohydr 00 ate 100 mg oral capsule (Macrobid) zolpidem 5 2018-03 Yes 0 Memoria mg oral 0-02 Refill(s) l tablet 13:25: [place] 00 Metoprolol 2018-03 Yes 0 Memoria Tartrate 50 0-02 Refill(s) l mg oral 13:25: [place] tablet 00 Furosemide 2018-03 Yes 0 Memoria 40 MG Oral 0-02 Refill(s) l Tablet 13:25: [place] 00 Amoxicillin 2018-03 Yes 0 Memori a [...] ONE Marilynn ston (NEURONTIN) 0-31 CAPSULE BY Mn thodi 300 MG 00:00: MOUTH 3 st [...] Bitartrate 00 Refill(s) 5 MG Oral Tablet [[place] 5/325] Acetaminoph No Notes: Bj starla en 325 MG / 09-08 (Same as: l Hydrocodone 18:29: [place] Myriam nn Bitartrate 00 325/5) Do 5 MG Oral not exceed Tablet 4gm/day of acetaminop hen. Vital Signs Vital Name Observation Time Observation Value Comments Source Height 2018-12-22 13:22:00 175.26 cm [facility] Weight 2018-12-22 13:22:00 [facility] [place] BMI Calculated 2018-12-22 13:22:00 [facility] [place] Heart Rate 2015-09-09 20:21:00 [facility] [place] Systolic (mm Hg) 2015-09-09 20:21:00 Bj rial [place] Diastolic (mm Hg) 2015-09-09 20:21:00 Mem orial [place] Temperature Oral (F) 2015-09-09 20:21:00 98.1 F [facility] [place] Respitory Rate 2015-09-09 20:21:00 Memori al [place] BMI Calculated 2015-09-09 17:44:00 [facility] [place] Weight 2015-09-09 17:44:00 [facility] [place] Height 2015-09-09 17:44:00 177.8 cm [facility] [place] Respitory Rate 2015-09-09 17:44:00 Memori al [place] Heart Rate 2015-09-09 17:44:00 [facility] [place] Systolic (mm Hg) 2015-09-09 17:44:00 Bj rial [place] Diastolic (mm Hg) 2015-09-09 17:44:00 Mem orial [place] Temperature Oral (F) 2015-09-09 17:44:00 98.2 F [facility] [place] Procedures Procedure Date / Time Performed Performing Clinician Alexx e Complex uroflowmetry (eg, 2019-01-10 17:20:00 Mn blaine Hernandez calibrated electronic equipment) Measurement of 2019-01-10 17:20:00 Brittany farooq post-voiding residual urine and/or bladder capacity by ultrasound, non-imaging Plan of Care Planned Activity Planned Date Details Comments Source Future Scheduled 2019-12-22 INFLUENZA VACCINE [place] [facility] 00:00:00 [code = INFLUENZA VACCINE] Future Scheduled 1995 65+ PNEUMOCOCCAL [place] [facility] 00:00:00 VACCINE (1 of 2 - PCV13) [code = 65+ PNEUMOCOCCAL VACCINE (1 of 2 - PCV13)] Future Scheduled 1982 SHINGLES VACCINES (#1) [place] [facility] 00:00:00 [code = SHINGLES VACCINES (#1)] Encounters Start End Encounter Admission Attending Care Care Encounter Source Date/Time Date/Time Type Type Clinicians Facility Department ID 2019-10-21 2019-11-01 [facility] [id number] 10:06:35 12:32:49 Visit Liliam Rutherford [id number] Thuy [id number] Professio [id number] [address] 2019-01-24 2019-01-24 Outpatient VISIT, [facility] [id number] 10:00:00 10:00:00 NURSE ARTUR 05 2019-01-24 2019-01-24 Outpatient Leonie [facility] [id number] 09:40:00 09:40:00 [place] 2019-01-10 2019-01-10 Outpatient Leonie [facility] [id number] 10:00:00 23:59:59 [place] 2018-12-22 2018-12-22 Outpatient Leonie [facility] [id number] 09:45:00 23:59:59 [place] 2018-12-22 2018-12-22 Outpatient Leonie [facility] [id number] 09:00:00 09:00:00 [place] 00 2015-09-09 2015-09-09 Outpatient NOMI Mendoza [facility] [id number] 12:38:00 15:23:00 Eli Griffin 00 Results This patient has no known results.
--- NOTE | 2019-11-29 23:22 | EDPHYS ---
Physician Documentation [facility] Name: Shilpa Samaniego Age: 89 yrs Sex: Female : 1930 Arrival Date: 11/29/2019 Time: 22:56 Bed 6 Private MD: ED Physician Carlos A Russo HPI: 11/28 23:19 This 89 yrs old Female presents to ER via Wheelchair with complaints of Leg kb Pain. 23:19 The patient has not experienced similar symptoms in the past. The patient has been kb recently seen at the [facility] Emergency Department. 23:20 The patient presents with cellulitis of the lateral aspect of left calf. Description: kb erythematous, swollen. Onset: The symptoms/episode began/occurred 2 week(s) ago. Possible cause(s): hit leg on car door 2 weeks ago. Associated signs and symptoms: Pertinent positives: erythema, swelling, Pertinent negatives: discharge, drainage, foreign body sensation, fever, headache, nausea, shortness of breath, vomiting. Modifying factors: the symptoms are alleviated by nothing, the symptoms are aggravated by nothing. Severity of symptoms: At their worst the symptoms were moderate, in the emergency department the symptoms are unchanged. Pt reports cellulitis of leg that she is taking clindamycin for. Came in to have it looked at to make sure it is still looking ok. Has an appt with wound center tomorrow. . Historical: - Allergies: 23:05 Augmentin; rr5 23:05 Cefpodoxime; rr5 23:05 Cefuroxime; rr5 23:05 Ciprofloxacin; rr5 23:05 Levofloxacin; rr5 23:05 NSAIDS; rr5 23:05 PENICILLINS; rr5 23:05 Sulfa (Sulfonamide Antibiotics); rr5 23:05 Demerol; rr5 - Home Meds: 23:06 amitriptyline 25 mg Oral tab nightly [Active]; Eliquis 5 mg Oral tab 2 times per day rr5 [Active]; gabapentin 300 mg Oral cap nightly [Active]; Lasix 40 mg Oral tab once daily [Active]; levothyroxine 100 mcg tab 1 tab once daily [Active]; pantoprazole 40 mg Oral TbEC once daily [Active]; metoprolol tartrate 50 mg Oral tab 2 times per day [Active]; zolpidem 5 mg Oral tab 1 tab nightly [Active]; - PMHx: 23:05 Anxiety; Atrial Fib; COPD; DVT; LLE; hiatal hernia; Hyperlipidemia; Hypertension; rr5 Pacemaker; Rheumatoid Arthritis; - Immunization history:: Adult Immunizations up to date. - Social history:: Smoking status: unknown. ROS: 23:15 Constitutional: Negative for fever, chills, and weight loss, Cardiovascular: Negative kb for chest pain, palpitations, and edema, Respiratory: Negative for shortness of breath, cough, wheezing, and pleuritic chest pain, Abdomen/GI: Negative for abdominal pain, nausea, vomiting, diarrhea, and constipation, Back: Negative for injury and pain, MS/Extremity: Negative for injury and deformity, Neuro: Negative for headache, weakness, numbness, tingling, and seizure. 23:15 Skin: Positive for cellulitis, erythema, of the lateral aspect of left calf. Exam: 23:15 Constitutional: This is a well developed, well nourished patient who is awake, alert, kb and in no acute distress. Head/Face: Normocephalic, atraumatic. Chest/axilla: Normal chest wall appearance and motion. Nontender with no deformity. No lesions are appreciated. Cardiovascular: Regular rate and rhythm with a normal S1 and S2. No gallops, murmurs, or rubs. Normal PMI, no JVD. No pulse deficits. Respiratory: Lungs have equal breath sounds bilaterally, clear to auscultation and percussion. No rales, rhonchi or wheezes noted. No increased work of breathing, no retractions or nasal flaring. Abdomen/GI: Soft, non-tender, with normal bowel sounds. No distension or tympany. No guarding or rebound. No evidence of tenderness throughout. MS/ Extremity: Pulses equal, no cyanosis. Neurovascular intact. Full, normal range of motion. Neuro: Awake and alert, GCS 15, oriented to person, place, time, and situation. Cranial nerves II-XII grossly intact. Motor strength 5/5 in all extremities. Sensory grossly intact. Cerebellar exam normal. Normal gait. 23:15 Skin: cellulitis, that is moderate, on the lateral aspect of left calf. Vital Signs: 23:05 BP 123 / 90; Pulse 61; Resp 19; Temp 97.7; Pulse Ox 99% ; Weight 81.65 kg; Height 5 ft. rr5 10 in. (177.80 cm); Pain 0/10; 23:05 Body Mass Index 25.83 (81.65 kg, 177.80 cm) rr5 MDM: 23:03 Patient medically screened. 23:15 Data reviewed: vital signs, nurses notes. Data interpreted: Pulse oximetry: on room air kb is 100 %. Interpretation: normal. Counseling: I had a detailed discussion with the patient and/or guardian regarding: the historical points, exam findings, and any diagnostic results supporting the discharge/admit diagnosis, the need for outpatient follow up, a family practitioner, to return to the emergency department if symptoms worsen or persist or if there are any questions or concerns that arise at home. ED course: Pt has appt with the wound center at 1300 tomorrow. Administered Medications: No medications were administered Disposition: 11/29 03:01 Co-signature as Attending Physician, Carlos A Russo MD. [email or web address] Disposition: 11/29/19 23:22 Discharged to Home. Impression: Cellulitis of left lower limb. - Condition is Stable. - Discharge Instructions: Cellulitis, Adult, [id number]. - Medication Reconciliation Form, Thank You Letter, Antibiotic Education, Prescription Opioid Use form. - Follow up: Emergency Department; When: As needed; Reason: Worsening of condition. Follow up: Private Physician; When: 2 - 3 days; Reason: Recheck today's complaints, Continuance of care, Re-evaluation by your physician. Signatures: Kell Chavez FNP-C FNP-Kosta Howell RN RN 5 Carlos A Russo MD MD 7 Corrections: (The following items were deleted from the chart) 11/28 23:32 23:22 11/29/2019 23:22 Discharged to Home. Impression: Cellulitis of left lower limb. rr5 Condition is Stable. Forms are Medication Reconciliation Form, Thank You Letter, Antibiotic Education, Prescription Opioid Use. Follow up: Emergency Department; When: As needed; Reason: Worsening of condition. Follow up: Private Physician; When: 2 - 3 days; Reason: Recheck today's complaints, Continuance of care, Re-evaluation by your physician. kb
--- NOTE | 2019-11-29 23:22 | ER ---
Nurse's Notes [facility] Name: Shilpa Samaniego Age: 89 yrs Sex: Female : 1930 Arrival Date: 11/29/2019 Time: 22:56 Bed 6 Private MD: Diagnosis: Cellulitis of left lower limb Presentation: 11/28 23:05 Chief complaint: Patient states: I just want my wound to be check. came here last rr5 Thursday, went to urgent care prescribe clindamycin (antibiotic) and have my appointment to wound care center tomorrow 1PM. 23:05 Coronavirus screen: Client denies travel out of the [place] in the last 14 days. At this rr5 time, the client does not indicate any symptoms associated with coronavirus-19. Ebola Screen: Patient negative for fever greater than or equal to 101.5 degrees Fahrenheit, and additional compatible Ebola Virus Disease symptoms Patient denies exposure to infectious person. Patient denies travel to an Ebola-affected area in the 21 days before illness onset. Initial Sepsis Screen: Does the patient meet any 2 criteria? No. Patient's initial sepsis screen is negative. Does the patient have a suspected source of infection? Yes: Skin breakdown/wound. Risk Assessment: Do you want to hurt yourself or someone else? Patient reports no desire to harm self or others. Onset of symptoms was November 18, 2019. 23:05 Method Of Arrival: Wheelchair rr5 23:05 Acuity: LESA 5 rr5 Historical: - Allergies: 23:05 Augmentin; rr5 23:05 Cefpodoxime; rr5 23:05 Cefuroxime; rr5 23:05 Ciprofloxacin; rr5 23:05 Levofloxacin; rr5 23:05 NSAIDS; rr5 23:05 PENICILLINS; rr5 23:05 Sulfa (Sulfonamide Antibiotics); rr5 23:05 Demerol; rr5 - Home Meds: 23:06 amitriptyline 25 mg Oral tab nightly [Active]; Eliquis 5 mg Oral tab 2 times per day rr5 [Active]; gabapentin 300 mg Oral cap nightly [Active]; Lasix 40 mg Oral tab once daily [Active]; levothyroxine 100 mcg tab 1 tab once daily [Active]; pantoprazole 40 mg Oral TbEC once daily [Active]; metoprolol tartrate 50 mg Oral tab 2 times per day [Active]; zolpidem 5 mg Oral tab 1 tab nightly [Active]; - PMHx: 23:05 Anxiety; Atrial Fib; COPD; DVT; LLE; hiatal hernia; Hyperlipidemia; Hypertension; rr5 Pacemaker; Rheumatoid Arthritis; - Immunization history:: Adult Immunizations up to date. - Social history:: Smoking status: unknown. Screenin:05 Abuse screen: Denies threats or abuse. Denies injuries from another. Nutritional rr5 screening: No deficits noted. Tuberculosis screening: No symptoms or risk factors identified. Fall Risk Fall in past 12 months (25 points). Total Garcia Fall Scale indicates Low Risk Score (25-44 pts). Fall prevention measures have been instituted. Side Rails Up X 2 Placed close to Nursing Station Frequent Obs/Assesments occuring As available Patient and Family Educated on Fall Prevention Program and strategies. Assessment: 23:05 General: Appears in no apparent distress. comfortable, Behavior is calm, cooperative, rr5 appropriate for age. Pain: Denies pain. Neuro: Level of Consciousness is awake, alert, obeys commands, Oriented to person, place, time, situation. Cardiovascular: Capillary refill < 3 seconds Patient's skin is warm and dry. Respiratory: Airway is patent Respiratory effort is even, unlabored, Respiratory pattern is regular, symmetrical. GI: No signs and/or symptoms were reported involving the gastrointestinal system. : No signs and/or symptoms were reported regarding the genitourinary system. EENT: No signs and/or symptoms were reported regarding the EENT system. Derm: Wound noted left samayoa Wound is mild redness around the opened wound not warm to touch. Musculoskeletal: Circulation, motion, and sensation intact. Capillary refill < 3 seconds. 23:27 Reassessment: Patient appears in no apparent distress at this time. Patient is alert, rr5 oriented x 3, equal unlabored respirations, skin warm/dry/pink. discharge instruction given and explained without complaints made Patient states feeling better. Patient states symptoms have improved. Vital Signs: 23:05 BP 123 / 90; Pulse 61; Resp 19; Temp 97.7; Pulse Ox 99% ; Weight 81.65 kg; Height 5 ft. rr5 10 in. (177.80 cm); Pain 0/10; 23:05 Body Mass Index 25.83 (81.65 kg, 177.80 cm) rr5 ED Course: 22:56 Patient arrived in ED. cf2 22:58 Kosta Evans, RN is Primary Nurse. rr5 22:59 Kell Chavez FNP-C is [facility]. kb 22:59 Carlos A Russo MD is Attending Physician. kb 23:05 Patient has correct armband on for positive identification. Bed in low position. rr5 23:06 Arm band placed on right wrist. rr5 23:15 Triage completed. rr5 23:25 Wound care: to cellulitis located on left samayoa was cleaned with Hibiclens, irrigated rr5 with normal saline, dressed with Neosporin, 4X4s, Patient tolerated well. 23:30 No provider procedures requiring assistance completed. rr5 23:30 Patient did not have IV access during this emergency room visit. rr5 Administered Medications: No medications were administered Outcome: 23:22 Discharge ordered by MD. kb 23:31 Discharged to home via wheelchair. rr5 23:31 Condition: stable 23:31 Discharge instructions given to patient, Instructed on discharge instructions, follow up and referral plans. Demonstrated understanding of instructions, follow-up care. 23:32 Patient left the ED. rr5 Signatures: Kell Chavez FNP-C LEVELER-Ckb Kosta Evans, RN RN rr5 Steve López cf2
[2019-11-30 00:49] VITALS: BP 123/90; TEMP 97.7; O2SAT 99
== END 2019-11-29 23:32 | disposition home or self-care (01) ==
LOC: ER 22:53
DX: L03.116 Cellulitis of left lower limb (principal); I10 Essential (primary) hypertension; E78.5 Hyperlipidemia, unspecified; Z95.0 Presence of cardiac pacemaker; F41.9 Anxiety disorder, unspecified; J44.9 Chronic obstructive pulmonary disease, unspecified; I48.91 Unspecified atrial fibrillation; Z79.01 Long term (current) use of anticoagulants; Z88.0 Allergy status to penicillin; Z88.1 Allergy status to other antibiotic agents; Z88.2 Allergy status to sulfonamides; Z88.5 Allergy status to narcotic agent; Z88.6 Allergy status to analgesic agent; Z88.8 Allergy status to other drugs, medicaments and biological substances
CPT/HCPCS: 99283

== ENCOUNTER 2020-01-30 17:02 | Observation (INO) | payer OTHER ==
--- OUTSIDE RECORDS SUMMARY | 2020-01-30 17:04 | XMS REPORT | Continuity of Care Document ---
:1930 Author Organization [facility] t Address [address] [place] [address] Care Team Providers Name Role Phone Gloria AWAD, Amor Primary Care Physician Enmanuel Tellez Attending Clinician Doctor Unassigned, Name Attending Clinician Unavailable Laina AWAD Attending Clinician VISIT, [facility] Attending Clinician Unavailable Alex Hadley Attending Clinician Elias Mendoza Attending Clinician Problems Condition Condition Condition Status Onset Resolution Last Treating Co mments Source Name Details Category Date Date Treatment Clinician Date Osteoarthr Osteoarthr Disease Active 2015-03 [place] [facility] 04-23 [facility] right hip right hip 00:00: st 00 BLOOD CLOT Diagnosis Active 2015-09-09 Memoria THIGH 09-08 14:53:00 l BLOOD 00:00: Amber CLOT THIGH 00 Active 09/09/2015 [facility] Atrial Problem Active 2019-01-26 Memor ia fibrillati 22:20:48 l on Atrial David (disorder) fibrillati on (disorder) Active Problem 01/26/2019 [facility] Blood clot Problem Active 2015-09-12 M emma (morpholog 00:32:37 l ic Blood Amber abnormalit clot y) (morpholog ic abnormalit y) Active Problem 6 [facility] Discharge Problem 2015-09-12 2015-09-12 Memoria Diagnosis: 09-08 00:32:37 00:32:37 l Lower 05:00: Amber extremity Discharge 00 pain, Diagnosis: right Lower extremity pain, right 09/09/2015 09/12/2015 [facility] Allergies, Adverse Reactions, Alerts Allergy Allergy Status Severity Reaction(s) Onset Inactive Treating Comm ents Source Name Type Date Date Clinician Augmenti Augmenti Active Memori a n n l Amber Family History Family Member Diagnosis Comments Start Date Stop Date Source Natural sister Stroke [facility] thodist Social History Social Habit Start Date Stop Date Quantity Comments Source Sex Assigned At [facility] ethodist Tobacco use and 2016-02-22 2016-02-22 Never used [facility] ethodist exposure 00:00:00 00:00:00 Alcohol intake 2016-02-22 2016-02-22 Current [facility] thodist 00:00:00 00:00:00 non-drinker of alcohol (finding) Smoking Status Start Date Stop Date Source Never smoker [place] Method[facility] t Social History 2015-09-09 19:01:11 2015-09-09 19:01:11 [facility] Medications Ordered Filled Start Stop Current Ordering Indication Dosage Frequency Signature Comments Components Source Medication Medication Date Date Medication? Clinician (SIG) Name Name Estradiol 2018-03 Yes 1 gm, TOP, Me moria 0.1 MG/ML 0-04 Bedtime, l Vaginal 16:17: use 3 David Cream 00 times a [Estrace] week, # 1 tube, 5 Refill(s), Pharmacy: [facility] #[id number] Estrogens, 2018-03 Yes 1 appl, Bj starla Conjugated 0-02 VAG, Q-M l (JAIL) 0.625 14:52: and Th, # H ermann MG/ML 00 30 gm, 11 Vaginal Refill(s), Cream Pharmacy: [Premarin] [facility] #[id number] levothyroxi 2018-03 Yes 0 Memori a ne 100 mcg 0-02 Refill(s) l (0.1 mg) 13:25: Amber oral tablet 00 nitrofurant 2018-03 Yes 0 Memori a oin 0-02 Refill(s) l macrocrysta 13:25: [place] n ls-monohydr 00 ate 100 mg oral capsule (Macrobid) zolpidem 5 2018-03 Yes 0 Memoria mg oral 0-02 Refill(s) l tablet 13:25: Amber 00 Metoprolol 2018-03 Yes 0 Memoria Tartrate 50 0-02 Refill(s) l mg oral 13:25: Amber tablet 00 Furosemide 2018-03 Yes 0 Memoria 40 MG Oral 0-02 Refill(s) l Tablet 13:25: Amber 00 Amoxicillin 2018-03 Yes 0 Memori a [...] ONE Marilynn ston (NEURONTIN) 0-31 CAPSULE BY Me thodi 300 MG 00:00: MOUTH 3 st [...] Bitartrate 00 Refill(s) 5 MG Oral Tablet [[place] 5/325] Acetaminoph No Notes: Bj starla en 325 MG / 09-08 (Same as: l Hydrocodone 18:29: [place] Myriam nn Bitartrate 00 325/5) Do 5 MG Oral not exceed Tablet 4gm/day of acetaminop hen. Vital Signs Vital Name Observation Time Observation Value Comments Source Height 2018-12-22 13:22:00 175.26 cm [facility] David Weight 2018-12-22 13:22:00 [facility] BMI Calculated 2018-12-22 13:22:00 Memori al Amber Heart Rate 2015-09-09 20:21:00 [facility] Amber Systolic (mm Hg) 2015-09-09 20:21:00 Bj rial Amber Diastolic (mm Hg) 2015-09-09 20:21:00 Mem orial Amber Temperature Oral (F) 2015-09-09 20:21:00 98.1 F [facility] David Respitory Rate 2015-09-09 20:21:00 Memori al David BMI Calculated 2015-09-09 17:44:00 Memori al Amber Weight 2015-09-09 17:44:00 [facility] David Height 2015-09-09 17:44:00 177.8 cm [facility] David Respitory Rate 2015-09-09 17:44:00 Memori al Amber Heart Rate 2015-09-09 17:44:00 [facility] David Systolic (mm Hg) 2015-09-09 17:44:00 Bj ozuna Amber Diastolic (mm Hg) 2015-09-09 17:44:00 Mem orialexei David Temperature Oral (F) 2015-09-09 17:44:00 98.2 F Brittany Hernandez Procedures Procedure Date / Time Performed Performing Clinician [facility] e Complex uroflowmetry (eg, 2019-01-10 17:20:00 Dc blaine Hernandez calibrated electronic equipment) Measurement of 2019-01-10 17:20:00 Brittany farooq post-voiding residual urine and/or bladder capacity by ultrasound, non-imaging Plan of Care Planned Activity Planned Date Details Comments Source Future Scheduled 2019-10-22 INFLUENZA VACCINE [place] [facility] 00:00:00 [code = INFLUENZA VACCINE] Future Scheduled 1997 65+ PNEUMOCOCCAL [place] [facility] 00:00:00 VACCINE (1 of 1 - PPSV23) [code = 65+ PNEUMOCOCCAL VACCINE (1 of 1 - PPSV23)] Future Scheduled 1982 SHINGLES VACCINES (#1) H [facility] 00:00:00 [code = SHINGLES VACCINES (#1)] Encounters Start End Encounter Admission Attending Care Care Encounter Source Date/Time Date/Time Type Type Clinicians Facility Department ID 2019-12-10 2019-12-10 Emergency [facility] [id number] 12:56:00 14:28:00 Tim Rutherford [id number] [place] [id number] [place] [id number] 2019-12-10 2019-12-10 Orders Doctor CARR [id number] 00:00:00 00:00:00 Only Unassigned, VAZQUEZ [id number] [place] [facility] [id number] 2019-10-21 2019-11-01 Office [facility] [id number] 10:06:35 12:32:49 Visit Liliam Rutherford [id number] [place] [id number] [place] [id number] [address] 2019-01-24 2019-01-24 Outpatient VISIT, [facility] [id number] 10:00:00 10:00:00 NURSE ARTUR 05 2019-01-24 2019-01-24 Outpatient Leonie, [facility] [id number] 09:40:00 09:40:00 Nato Johnson 2019-01-10 2019-01-10 Outpatient Leonie, [facility] [id number] 10:00:00 23:59:59 Nato S 2018-12-22 2018-12-22 Outpatient Leonie, [facility] [id number] 09:45:00 23:59:59 Nato S 2018-12-22 2018-12-22 Outpatient Leonie, [facility] [id number] 09:00:00 09:00:00 Nato Johnson 2015-09-09 2015-09-09 Outpatient Reji [facility] [id number] 12:38:00 15:23:00 Eli Griffin 00 Results This patient has no known results.
--- OUTSIDE RECORDS SUMMARY | 2020-01-30 17:04 | XMS REPORT | Continuity of Care Document ---
:1930 Author Organization [employer] Care Team Providers Name Role Phone [employer] Unavailable Un available Problems Problem Status Onset Classification Date Comments Sour e Date Reported Discharge 09/12/2015 [facility] Diagnosis: Lower 6 Med ical extremity pain, Cent er right BLOOD CLOT THIGH Active [address] Center Atrial Active Problem 01/26/2019 Medica l fibrillation Group,M H (disorder) [facility] Blood clot Active Problem 09/12/2015 [facility] (morphologic Medical abnormality) [place] Medications Medication Details Route Status Patient Ordering Order Source Instructions Provider Date Estradiol 0.1 1 gm, TOP, Active MH MG/ML Vaginal Bedtime, 019 Medical Cream [Estrace] use 3 Group times a week, # 1 tube, 5 Refill(s), Pharmacy: [facility] #[id number] Estrogens, 1 appl, Active MH Conjugated (GROUP HOME) VAG, Q-M 019 Medica l 0.625 MG/ML and Th, # Group Vaginal Cream 30 gm, 11 [Premarin] Refill(s), Pharmacy: [facility] #[id number] levothyroxine 100 0 Active MH mcg [...] MG tab, 0 Center Oral Tablet Refill(s) [[place] 5/325] Acetaminophen 325 Notes: Inactive [place] MG / Hydrocodone (Same as: 016 Medic al Bitartrate 5 MG [place] Center Oral Tablet 325/5) Do not exceed [...] Grou p BMI Calculated 28.12 12/22/2018 [facility] oup Heart Rate 88 09/09/2015 [facility] Center Systolic (mm Hg) 152 09/09/2015 [facility] Center Diastolic (mm Hg) 82 09/09/2015 [facility] Temperature Oral (F) 98.1 F 09/09/2015 [facility] Respitory Rate 16 09/09/2015 [facility] BMI Calculated 25.88 09/09/2015 [facility] Weight 81.818 09/09/2015 [facility] Height 177.8 cm 09/09/2015 [facility] Respitory Rate 16 09/09/2015 [facility] Heart Rate 99 09/09/2015 [facility] [place] Systolic (mm Hg) 148 09/09/2015 [facility] [place] Diastolic (mm Hg) 79 09/09/2015 [facility] Temperature Oral (F) 98.2 F 09/09/2015 [facility] Encounters Location Location Encounter Encounter Reason Attending ADM DC Stat us Source Details Type Number For Provider Date Date Visit [facility] [id number] Eli 09/08 09/08 M Chung Emma Rosalesann Emergency [place] /2015 [facility] Outpatient [id number] Rigoberto 12/15 Active [facility] [place] Outpatient [id number] Nato 12/22 Active [facility] [place] [facility] Multi Ambulatory [id number] Nato 12/22 12/22 Specialty Pre-Reg Medica l [facility] Outpatient [id number] Nato 12/22 12/23 Specialty [facility] Outpatient [id number] NURSE 01/10 Active [facility] VISIT [place] Outpatient [id number] Nato 01/10 Active [facility] [place] [facility] Outpatient [id number] Nato 01/10 01/11 [facility] Time Share Outpatient [id number] [place] 01/24 Active [facility] [place] Outpatient [id number] NURSE 01/24 Active [facility] VISIT [facility] Ambulatory [id number] Nato 01/24 01/24 [facility]rology [facility] Time Share [facility] Ambulatory [id number] NURSE 01/24 01/24 Urology Pre-Reg VISIT /2018 [facility] Time Share Procedures Procedure Code Date Perfomer Comments Source Complex [id number] 01/10/2019 Medical uroflowmetry (eg, Group calibrated [place] [address] 01/10/2019 Medical post-voiding Group residual urine and/or [...] entered on: 12/22/18 Social History TypeResponse 09/09/2015 [facility] Smoking Status Former smoker; Exposure to Tobacco Smoke None; Cigarette Smoking Last 365 Days No; Reg Smoking Cessation Counseling No Family History No Data Provided for This Section Advance Directives No Data Provided for This Section Functional Status No Data Provided for This Section
--- OUTSIDE RECORDS SUMMARY | 2020-01-30 17:04 | XMS REPORT | Clinical Summary ---
:1930 Author Organization [facility] Address [address] [place] [address] Care Team Providers Name Role Phone Amor Castro MD Primary Care Provider Allergies No Known Active Allergies Medications Medication Sig Dispensed Refills Start [...] Noted Date Osteoarthritis of right hip 02/21/2016 Surgical History Surgery Date Site/Laterality Comments SHOULDER SURGERY Right orif right shou lder TONSILLECTOMY CATARACT EXTRACTION W/ INTRAOCULAR LENS IMPLANT, BILATERAL HYSTERECTOMY INGUINAL HERNIA REPAIR Bilateral ARTHROPLASTY, HIP, TOTAL 02/21/2016 Hip/Right Procedu re: ANTERIOR TOTAL HIP ARTHROPLASTY ; Surgeon: Holly edmondson MD; Location: [facility] OP C 19 OR; Service: Orthope dics; Laterality: Righ t; Medical devices from this surgery are in t he Implants section. Medical History Medical History Date Comments Hyperlipidemia Hypothyroidism Anxiety Claustrophobia Acid reflux under control Hiatal hernia Exercises 3 to 4 times per week used to walk- 40min- no sob/no chest pain; unable to clim b stairs due to hip pain; no exercis e for 5 months Anesthesia nphap/nfhap Deep vein thrombosis (HCC) 08/20/2015 right leg- sp ontaneous-started on Eliquis Hypertension Arthritis osteoarthritis hip Atrial fibrillation (HCC) 2012 was on xarelto since 2014-pacemaker placement; switched to eliquis 07/2015 Pacemaker 2014 checked with machine every night-seen by EP (Dr. Somers ) UTI (urinary tract infection) currently taking abx started 02/02/16 Blood clot associated with vein wall inflammation Family History Medical History Relation Name Comments [...] (#1) 1982 65+ PNEUMOCOCCAL VACCINE (1 of 1 - PPSV23) 1997 INFLUENZA VACCINE 10/22/2019 Implants Implanted Type Area Director Of Donor Relations Device Shelf Model / Identifier Expiration Serial / Lot Date Screw Bone Canc 6.5x30mm - [id number] Hip Joint Right: DEPUY ORTHO [id number] / Implanted: Qty: 1 on 02/21/2016 by Holly Ferguson MD at [facility] Implants Hip / Screw Bone Canc Dome 6.5x25mm Ltxf [place] - [id number] Hip Join t Right: DEPUY ORTHO [id number] / Implanted: Qty: 1 on 02/21/2016 by Holly Ferguson MD at [facility] Implants Hip / Shell Actblr Sector Series W/ Gripton 54mm [place] - [id number] Hip Joint Right: DEPUY 12/20/2025 [id number] / Implanted: Qty: 1 on 02/21/2016 by Holly Ferguson MD at [facility] Implants Hip ORTHO-KNEES / [id number] Liner Actblr Neut Altra Linked Pe [id number] Altrx - [id number] H ip Joint Right: DEPUY 06/20/2020 [id number] / Implanted: Qty: 1 on 02/21/2016 by Holly Ferguson MD at [facility] Implants Hip ORTHO-KNEES / [id number] Stem Fml Bone Presrvtn Std Ofst Sz 6 107mm Tri-Lock - [id number] Hip Joint Right: DEPUY 10/20/2024 [id number] / Implanted: Qty: 1 on 02/21/2016 by Holly Ferguson MD at [facility] Implants Hip ORTHO-KNEES / [id number] Aurora Fracture System Biolox Delta Ceram ic Femoral Heads Size 36 +5.0 Mm Articul/Lamont 03/05 Taper Ceramic Femoral Heads - [id number] IPM IMPLANT Ri ght: DEPUY 11/20/2020 [id number] / Implanted: Qty: 1 on 02/21/2016 by Holly Ferguson MD at [facility] DEVICES Hip ORTHOPAEDICS, / [id number] Results Not on fileafter 01/29/2019 Insurance Payer Benefit Plan / Subscriber ID Effective Dates Phone Addre ss Type Group MEDICARE MEDICARE PART A [id number] 1997-Present [place], [place] Medicare AND B AETNA AETNA [id number] 2012-Present [place] HMO,POS,EPO, MC/EC Advance Directives For more information, please contact: [phone] Type Date Recorded 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
[2020-01-30 18:54] LABS: Protime INR 1.27
[2020-01-30 19:00] LABS: Absolute Lymphocytes (CBC) 1.9 K/uL (0.7-4.9); Basophils % 1.1 % (0-1.3); Hematocrit 37.3 % (36.0-45.0); MPV 8.3 fL (7.6-11.3); RBC Red Blood Cell Count 4.22 M/uL (3.86-4.86)
[2020-01-30 19:25] LABS: Urine Blood TRACE (NEG); Urine Glucose NEGATIVE (NEG); Urine Protein NEGATIVE (NEG); Urine pH 5.5 (5.0-7.0)
[2020-01-30 19:25] LABS: Urine Bacteria 20-50 /HPF (<20); Urine Culture Reflex Order REFLEXED; Urine Mucus 1+ /HPF (NONE SEEN)
[2020-01-30 19:28] LABS: ALT/SGPT 22 U/L (12-78); AST/SGOT 25 U/L (15-37); Albumin 3.8 g/dL (3.4-5.0); Alkaline Phosphatase 96 U/L (45-117); BUN Blood Urea Nitrogen 22 mg/dL (7-18); Bicarbonate 30 mmol/L (21-32); Bilirubin Direct < 0.1 mg/dL (0-0.2); Bilirubin Total 0.5 mg/dL (0.2-1.0); Glucose Level 105 mg/dL (74-106); Magnesium 1.7 mg/dL (1.8-2.4); NT PRO-BNP 891 pg/mL (<450); Potassium 3.8 mmol/L (3.5-5.1); Protein, Total 7.9 g/dL (6.4-8.2); Sodium Level 137 mmol/L (136-145); Troponin (Emerg Dept Use Only) < 0.02 ng/mL (0.0-0.045)
--- NOTE | 2020-01-30 19:44 | RAD REPORT ---
EXAM DESCRIPTION: RAD - Chest Single View - 01/30/2020 6:57 pm CLINICAL HISTORY: SOB COMPARISON: Portable July 2019 TECHNIQUE: AP portable chest image was obtained 01/30/2020 6:57 pm . FINDINGS: No focal mass or consolidation. Central vasculature is prominent but not clearly different from the prior study. Pacemaker is in place. Heart and vasculature are normal. No measurable pleural effusion and no pneumothorax. No acute bony abnormality seen. No acute aortic findings suspected. IMPRESSION: No acute cardiopulmonary process. Chest is not significantly different from comparison.
--- NOTE | 2020-01-30 19:48 | RAD REPORT ---
EXAM DESCRIPTION: US - Extrem Venous W Compress Pedro - 01/30/2020 7:36 pm CLINICAL HISTORY: SWELLING COMPARISON: None. TECHNIQUE: Real-time sonographic evaluation of the bilateral lower extremity common femoral, superfi cial femoral, popliteal and posterior tibial veins was performed. FINDINGS: Normal compressibility, flow augmentation, phasic flow and spontaneous flow are identified in the left and right lower extremity common femoral, superficial femoral, popliteal and posterior t ibial veins. No intraluminal filling defects seen. IMPRESSION: No DVT in either lower extremity.
[2020-01-30] MEDS ORDERED: NITROFURAN MACRO 100 MG CAP PO ONE (21:06)
[2020-01-30] MEDS ORDERED: LORazepam 2 MG/ML VIAL ONE (21:18)
--- NOTE | 2020-01-30 22:27 | ER ---
Nurse's Notes [facility] Name: Shilpa Samaniego Age: 89 yrs Sex: Female : 1930 Arrival Date: 01/30/2020 Time: 17:03 Bed 17 Private MD: Diagnosis: Pulmonary embolism without acute cor pulmonale Presentation: 01/29 17:50 Chief complaint: Patient's son or daughter states: Son: She got some blood tests done ca1 and RANDALL Jaimes says she needs to come to the ER to get a test called Lung VQ scan. Reports SOB x several months. Kidney infections, ulcer on L leg with visits at wound healing. Coronavirus screen: Client denies travel out of the [place] in the last 14 days. At this time, the client does not indicate any symptoms associated with coronavirus-19. Ebola Screen: Patient negative for fever greater than or equal to 101.5 degrees Fahrenheit, and additional compatible Ebola Virus Disease symptoms Patient denies exposure to infectious person. Patient denies travel to an Ebola-affected area in the 21 days before illness onset. No symptoms or risks identified at this time. Initial Sepsis Screen: Does the patient meet any 2 criteria? No. Patient's initial sepsis screen is negative. Does the patient have a suspected source of infection? No. Patient's initial sepsis screen is negative. Risk Assessment: Do you want to hurt yourself or someone else? Patient reports no desire to harm self or others. Onset of symptoms was January 30, 2020. 17:50 Method Of Arrival: Wheelchair ca1 17:50 Acuity: LESA 3 ca1 Historical: - Allergies: 17:57 Augmentin; ca1 17:57 Cefpodoxime; ca1 17:57 Cefuroxime; ca1 17:57 Ciprofloxacin; ca1 17:57 Demerol; ca1 17:57 Levofloxacin; ca1 17:57 NSAIDS; ca1 17:57 PENICILLINS; ca1 17:57 Sulfa (Sulfonamide Antibiotics); ca1 - Home Meds: 17:57 amitriptyline 25 mg Oral tab nightly [Active]; Eliquis 5 mg Oral tab 2 times per day ca1 [Active]; gabapentin 300 mg Oral cap nightly [Active]; Lasix 40 mg Oral tab once daily [Active]; levothyroxine 100 mcg tab 1 tab once daily [Active]; metoprolol tartrate 50 mg Oral tab 2 times per day [Active]; pantoprazole 40 mg Oral TbEC once daily [Active]; zolpidem 5 mg Oral tab 1 tab nightly [Active]; - PMHx: 17:57 Anxiety; Atrial Fib; COPD; DVT; LLE; hiatal hernia; Hyperlipidemia; Hypertension; ca1 Pacemaker; Rheumatoid Arthritis; - Immunization history:: Adult Immunizations up to date, Pneumococcal vaccine is up to date, Flu vaccine is up to date. - Social history:: Smoking status: Patient denies any tobacco usage or history of. Screenin:13 Abuse screen: Denies threats or abuse. Nutritional screening: No deficits noted. jd3 Tuberculosis screening: No symptoms or risk factors identified. Fall Risk Ambulatory Aid- None/Bed Rest/Nurse Assist (0 pts). Gait- Normal/Bed Rest/Wheelchair (0 pts) Mental Status- Oriented to own ability (0 pts). Total Garcia Fall Scale indicates No Risk (0-24 pts). Assessment: 18:12 General: Appears in no apparent distress. uncomfortable, Behavior is calm, cooperative, jd3 appropriate for age. Pain: Complains of pain in chest and left leg Quality of pain is described as aching. Neuro: Level of Consciousness is awake, alert, obeys commands, Oriented to person, place, time, situation. Cardiovascular: Reports shortness of breath, Capillary refill < 3 seconds Patient's skin is warm and dry. Respiratory: Reports shortness of breath at rest Airway is patent Respiratory effort is even, unlabored, Respiratory pattern is regular, symmetrical, Denies cough. GI: No signs and/or symptoms were reported involving the gastrointestinal system. : No signs and/or symptoms were reported regarding the genitourinary system. EENT: No signs and/or symptoms were reported regarding the EENT system. Derm: Skin is intact, Skin is dry, Skin is normal, Skin temperature is warm. Musculoskeletal: Circulation, motion, and sensation intact. Range of motion: intact in all extremities, Swelling present in right leg and left leg. 19:36 Reassessment: Patient appears in no apparent distress at this time. No changes from jd3 previously documented assessment. Patient and/or family updated on plan of care and expected duration. Pain level reassessed. Patient is alert, oriented x 3, equal unlabored respirations, skin warm/dry/pink. 20:30 Reassessment: Patient appears in no apparent distress at this time. Patient is alert, rr5 oriented x 3, equal unlabored respirations, skin warm/dry/pink. 21:00 Reassessment: patient asked for anti anxiety going to CT PE procedure, ED provider rr5 aware with order made and carried out. Vital Signs: 17:50 BP 144 / 61; Pulse 70; Resp 16 S; Temp 97.1(TE); Pulse Ox 98% on R/A; Weight 83.91 kg ca1 (R); Height 5 ft. 10 in. (177.80 cm) (R); Pain 0/10; 18:14 BP 127 / 58; Pulse 72; Resp 17 S; Pulse Ox 99% on R/A; jd3 19:36 BP 134 / 56; Pulse 65; Resp 17 S; Pulse Ox 98% on R/A; jd3 21:00 BP 141 / 75; Pulse 69; Resp 19; Pulse Ox 99% ; rr5 22:00 BP 143 / 72; Pulse 63; Resp 17; Pulse Ox 98% ; rr5 23:00 BP 159 / 85; Pulse 60; Resp 17; Pulse Ox 98% ; rr5 23:38 BP 155 / 67; Pulse 65; Resp 18; Temp 96.9; Pulse Ox 99% ; rr5 17:50 Body Mass Index 26.54 (83.91 kg, 177.80 cm) ca1 ED Course: 17:03 Patient arrived in ED. as 17:55 Triage completed. ca1 17:57 Arm band placed on right wrist. ca1 18:10 Urine collected: clean catch specimen, clear, prince colored. 3 18:12 David Cespedes, RN is Primary Nurse. jd3 18:13 Patient has correct armband on for positive identification. Bed in low position. Call jd3 light in reach. Side rails up X2. Adult w/ patient. court monitor on. Pulse ox on. NIBP on. 18:15 Initial lab(s) drawn, by me, held in ED. Inserted saline lock: 20 gauge in right jp3 antecubital area, using aseptic technique. Blood collected. Patient maintains SpO2 saturation greater than 95% on room air. 18:17 Deep Arthur PA is PHCP. cp 18:17 Eliezer Henson MD is Attending Physician. cp 18:57 XRAY Chest (1 view) In Process Unspecified. EDMS 19:36 US Extremity Venous W Compression Pedro In Process Unspecified. EDMS 21:28 CT Chest For PE Angio In Process Unspecified. EDMS 22:26 Prince Saul MD is Hospitalizing Provider. cp 23:40 No provider procedures requiring assistance completed. Patient admitted, IV remains in rr5 place. intact, No redness/swelling at site. 23:43 covid. rr5 Administered Medications: 21:02 Drug: Macrobid 100 mg Route: PO; rr5 22:00 Follow up: Response: No adverse reaction rr5 21:08 Drug: Ativan 0.5 mg Route: IVP; Site: right antecubital; rr5 22:00 Follow up: Response: No adverse reaction rr5 22:34 Drug: Lovenox 1 mg/kg Route: Sub-Q; Site: right lower abdomen; rr5 23:30 Follow up: Response: No adverse reaction rr5 Outcome: 22:26 Decision to Hospitalize by Provider. cp 23:40 Admitted to Med/surg accompanied by tech, room 222, with chart, Report called to wade rr5 23:40 Condition: stable 23:40 Instructed on the need for admit. 23:48 Patient left the ED. rr5 Signatures: Dispatcher [employer] Noa King Corey, PA PA cp David Cespedes RN RN Josef Bloom jp3 Kosta Evans RN RN rr5 Miranda De La Cruz RN RN ca1 Corrections: (The following items were deleted from the chart) 18:15 18:14 BP 127 / 48; Pulse 72bpm; Resp 17bpm; Spontaneous; Pulse Ox 99% RA; jd3 jd3 18:24 18:15 Initial lab(s) drawn, by me, sent to lab. irasema jp3
--- NOTE | 2020-01-30 22:27 | EDPHYS ---
Physician Documentation [facility] Name: Shilpa Samaniego Age: 89 yrs Sex: Female : 1930 Arrival Date: 01/30/2020 Time: 17:03 Bed 17 Private MD: ED Physician Eliezer Henson HPI: 01/29 18:45 This 89 yrs old Female presents to ER via Wheelchair with complaints of r/o cp blood clot sent by pcp. 18:45 The patient has shortness of breath with light activity. cp 18:45 Onset: The symptoms/episode began/occurred gradually, and became worse 2 week(s) ago. cp Duration: The symptoms are continuous, and are steadily getting worse. Associated signs and symptoms: Pertinent negatives: chest pain, non-productive cough, productive cough, diaphoresis, fever, vomiting. Severity of symptoms: in the emergency department the symptoms are unchanged despite home interventions. Patient reports history of right leg DVT approximately 4 years ago. Takes Eliquis 5 mg twice daily. Reports seen at office of pcp today and referred to ED for evaluation due to abnormal blood test that showed concern for possible pulmonary embolism. Historical: - Allergies: 17:57 Augmentin; ca1 17:57 Cefpodoxime; ca1 17:57 Cefuroxime; ca1 17:57 Ciprofloxacin; ca1 17:57 Demerol; ca1 17:57 Levofloxacin; ca1 17:57 NSAIDS; ca1 17:57 PENICILLINS; ca1 17:57 Sulfa (Sulfonamide Antibiotics); ca1 - Home Meds: 17:57 amitriptyline 25 mg Oral tab nightly [Active]; Eliquis 5 mg Oral tab 2 times per day ca1 [Active]; gabapentin 300 mg Oral cap nightly [Active]; Lasix 40 mg Oral tab once daily [Active]; levothyroxine 100 mcg tab 1 tab once daily [Active]; metoprolol tartrate 50 mg Oral tab 2 times per day [Active]; pantoprazole 40 mg Oral TbEC once daily [Active]; zolpidem 5 mg Oral tab 1 tab nightly [Active]; - PMHx: 17:57 Anxiety; Atrial Fib; COPD; DVT; LLE; hiatal hernia; Hyperlipidemia; Hypertension; ca1 Pacemaker; Rheumatoid Arthritis; - Immunization history:: Adult Immunizations up to date, Pneumococcal vaccine is up to date, Flu vaccine is up to date. - Social history:: Smoking status: Patient denies any tobacco usage or history of. ROS: 18:50 Constitutional: Negative for body aches, chills, fever, poor PO intake. cp 18:50 Cardiovascular: Positive for edema, Negative for chest pain, palpitations. cp 18:50 Respiratory: Positive for orthopnea, shortness of breath, at rest. Negative for cough, wheezing. 18:50 Abdomen/GI: Negative for abdominal pain, nausea, vomiting, and diarrhea. cp 18:50 Back: Negative for radiated pain. 18:50 Neuro: Negative for altered mental status, dizziness, headache, syncope, weakness. 18:50 All other systems are negative. Exam: 18:52 ECG was reviewed by the Attending Physician. cp 18:55 Constitutional: The patient appears in no acute distress, alert, awake, cp non-diaphoretic, non-toxic, well developed, well nourished. 18:55 Head/Face: Normocephalic, atraumatic. cp 18:55 Eyes: Periorbital structures: appear normal, Conjunctiva: normal, no exudate, no injection, Sclera: no appreciated abnormality, Lids and lashes: appear normal, bilaterally. 18:55 ENT: External ear(s): are unremarkable, Nose: is normal, Mouth: Lips: moist, Oral mucosa: moist, Posterior pharynx: Airway: no evidence of obstruction, patent. 18:55 Chest/axilla: Inspection: normal, Palpation: crepitus, is not appreciated, tenderness, is not appreciated. 18:55 Cardiovascular: Rate: normal, Rhythm: regular, Edema: ankle edema, that is mild, JVD: is not appreciated. 18:55 Respiratory: the patient does not display signs of respiratory distress, Respirations: normal, no use of accessory muscles, no retractions, no tachypnea, labored breathing, is not present, Breath sounds: are clear throughout, no decreased breath sounds, no stridor, no wheezing. 18:55 Abdomen/GI: Inspection: abdomen appears normal, Palpation: abdomen is soft and non-tender, in all quadrants. 18:55 Back: pain, is absent, ROM is normal. 18:55 Neuro: Orientation: to person, place \T\ time. Mentation: is normal, Motor: moves all fours, strength is normal. Vital Signs: 17:50 BP 144 / 61; Pulse 70; Resp 16 S; Temp 97.1(TE); Pulse Ox 98% on R/A; Weight 83.91 kg ca1 (R); Height 5 ft. 10 in. (177.80 cm) (R); Pain 0/10; 18:14 BP 127 / 58; Pulse 72; Resp 17 S; Pulse Ox 99% on R/A; jd3 19:36 BP 134 / 56; Pulse 65; Resp 17 S; Pulse Ox 98% on R/A; jd3 21:00 BP 141 / 75; Pulse 69; Resp 19; Pulse Ox 99% ; rr5 22:00 BP 143 / 72; Pulse 63; Resp 17; Pulse Ox 98% ; rr5 23:00 BP 159 / 85; Pulse 60; Resp 17; Pulse Ox 98% ; rr5 23:38 BP 155 / 67; Pulse 65; Resp 18; Temp 96.9; Pulse Ox 99% ; rr5 17:50 Body Mass Index 26.54 (83.91 kg, 177.80 cm) ca1 MDM: 18:28 Patient medically screened. cp 19:00 Differential diagnosis: CHF exacerbation, Myocardial Infarction pneumonia, Pneumothorax cp pulmonary edema, Pulmonary Embolism Unstable Angina. 22:25 Physician consultation: Prince Kg AWAD was called at 22:25, was contacted at 22:25, cp regarding admission, to the telemetry unit. patient's condition. 22:25 Data reviewed: vital signs, nurses notes, lab test result(s), EKG, radiologic studies, cp CT scan, plain films, and as a result, I will admit patient. 22:25 Test interpretation: by ED physician or midlevel provider: ECG. 01/29 18:29 Order name: Basic Metabolic Panel; Complete Time: 19:39 01/29 19:40 Interpretation: Normal except: BUN 22; CRE 1.47; GFR 34. 01/29 18:29 Order name: CBC with Diff; Complete Time: 19:39 01/29 18:29 Order name: LFT's; Complete Time: 19:39 01/29 18:29 Order name: Magnesium; Complete Time: 19:39 01/29 18:29 Order name: NT PRO-BNP; Complete Time: 19:39 01/29 18:29 Order name: PT-INR; Complete Time: 19:39 cp 01/29 18:29 Order name: Troponin (emerg Dept Use Only); Complete Time: 19:39 cp 01/29 18:29 Order name: XRAY Chest (1 view); Complete Time: 19:57 cp 01/29 18:29 Order name: Urine Microscopic Only; Complete Time: 19:39 cp 01/29 19:40 Interpretation: Normal except: UWBC 10-20; URBC 5-10; UBACT 20-50. cp 01/29 18:29 Order name: US Extremity Venous W Compression Pedro; Complete Time: 19:57 cp 01/29 19:01 Order name: Urine Dipstick--Ancillary (enter results); Complete Time: 19:39 tt3 01/29 19:27 Order name: Urine Culture EDMS 01/29 20:40 Order name: CT Chest For PE Angio cp 01/29 23:26 Order name: COVID-19 rr5 01/29 18:29 Order name: EKG; Complete Time: 18:30 cp 01/29 18:29 Order name: Cardiac monitoring; Complete Time: 18:46 cp 01/29 18:29 Order name: EKG - Nurse/Tech; Complete Time: 18:46 cp 01/29 18:29 Order name: IV Saline Lock; Complete Time: 18:33 cp 01/29 18:29 Order name: Labs collected and sent; Complete Time: 18:33 cp 01/29 18:29 Order name: O2 Per Protocol; Complete Time: 18:33 cp 01/29 18:29 Order name: O2 Sat Monitoring; Complete Time: 18:33 cp 01/29 18:29 Order name: Urine Dipstick-Ancillary (obtain specimen); Complete Time: 19:03 cp EC:52 Rate is 72 beats/min. Rhythm is regular. MI interval is normal. QRS interval is normal. cp QT interval is normal. T waves are Inverted in lead aVR. Interpreted by me. Reviewed by me. Administered Medications: 21:02 Drug: Macrobid 100 mg Route: PO; rr5 22:00 Follow up: Response: No adverse reaction rr5 21:08 Drug: Ativan 0.5 mg Route: IVP; Site: right antecubital; rr5 22:00 Follow up: Response: No adverse reaction rr5 22:34 Drug: Lovenox 1 mg/kg Route: Sub-Q; Site: right lower abdomen; rr5 23:30 Follow up: Response: No adverse reaction rr5 Disposition: 22:45 Chart complete. 01/30 06:49 Co-signature as Attending Physician, Eliezer Henson MD I agree with the assessment and kdr plan of care. Disposition: 01/30/20 22:26 Hospitalization ordered by Prince Kg for Inpatient Admission. Preliminary diagnosis is Pulmonary embolism without acute cor pulmonale. - Bed requested for Telemetry/MedSurg (Inpatient). - Status is Inpatient Admission. rr5 - Condition is Stable. - Problem is new. - Symptoms have improved. Signatures: Dispatcher [employer] EDMS Eliezer Henson MD MD [facility] Valarie Nava RN RN tl1 Deep Arthur PA PA cp Roque, Raymond RN RN rr5 Miranda De La Cruz RN RN ca1 Corrections: (The following items were deleted from the chart) 01/29 23:10 22:26 Hospitalization Ordered by Prince Kg AWAD for Inpatient Admission. Preliminary tl1 diagnosis is Pulmonary embolism without acute cor pulmonale. Bed requested for Telemetry/MedSurg (Inpatient). Status is Inpatient Admission. Condition is Stable. Problem is new. Symptoms have improved. 23:48 23:10 01/30/2020 22:26 Hospitalization Ordered by Prince Kg AWAD for Inpatient rr5 Admission. Preliminary diagnosis is Pulmonary embolism without acute cor pulmonale. Bed requested for Telemetry/MedSurg (Inpatient). Status is Inpatient Admission. Condition is Stable. Problem is new. Symptoms have improved. tl1
[2020-01-30] MEDS ORDERED: ENOXAPARIN 80 MG/0.8 ML SQ ONE (22:41)
--- NOTE | 2020-01-30 23:22 | P.HP ---
Certification for Inpatient Patient admitted to: Inpatient With expected LOS: >2 Midnights Practitioner: I am a practitioner with admitting privileges, knowledge of patient current condition, hospital course, and medical plan of care. Services: Services provided to patient in accordance with Admission requirements found in Title 42 Section 412.3 of the Code of Federal Regulations Patient History Date of Service: 01/30/20 Reason for admission: Shortness of breath History of Present Illness: Patient is a 89-year-old female with a past medical history of hypertension, hyperlipidemia, atrial fibrillation status post pacemaker placement, right lower extremity DVT. She has been on apixaban and compliant at this for the past 4 years. Present to the ER accompanied by her son complaining of progressively worsening shortness of breath. Her symptoms did been ongoing for the past 2 months but sees yearly progress over the past week. This has limited her activity level. Associated symptoms include bilateral chest pain. She denies any fever. Denies any cough. Patient is also complaining of dysuria. Workup in the ER revealed that he had bilateral lower lobe and multi focal PE mild clot burden. Allergies amoxicillin [From Augmentin] Allergy (Verified 09/28/17 12:54) Unknown clavulanic acid [From Augmentin] Allergy (Verified 09/28/17 12:54) Unknown NSAIDS Allergy (Mild, Uncoded 01/31/19 17:11) Unknown Home Medications: Amitriptyline [Elavil*] 50 mg PO BEDTIME 08/18/15 Levothyroxine [Synthroid*] 100 mcg PO BEDTIME 08/18/15 Metoprolol Tartrate [Lopressor*] 50 mg PO BID 08/18/15 Gabapentin 300 mg PO DAILY 02/16/16 Gemfibrozil 300 mg PO BID 02/16/16 Zolpidem Tartrate 5 mg PO BEDTIME 02/16/16 L.acidoph,Paracasei, B.lactis [Probiotic] 1 tab PO DAILY 01/31/19 Nitrofurantoin Macrocrystal [Nitrofurantoin] 100 mg PO DAILY 01/31/19 Pantoprazole [Protonix Tab*] 40 mg PO DAILY 01/31/19 Aspirin 81 mg PO DAILY #30 tab.chew 02/01/19 Pantoprazole [Protonix Tab] 40 mg PO DAILY #30 tab 02/01/19 - Past Medical/Surgical History Diabetic: No -: HTN -: Hypothyroidism -: Chronic pain -: GERD with hiatal hernia -: Anxiety -: Atrial fibrillation on chronic anti coagulation therapy -: Hypothyroidism -: Insomnia -: Right Rotator surgery -: Hysterectomy -: Pacemaker -: hernia repair -: Bilateral knee surgery Psychosocial/ Personal History: Patient is a . She currently lives by herself. - Family History Sister -: Cancer Notes: Pt had another sister who had hx of CVA([place]) Brother -: Heart disease - Social History Alcohol use: No CD- Drugs: No Caffeine use: No Physical Examination - Physical Exam General: Mild distress HEENT: Atraumatic, Normocephalic, EOMI Neck: Supple Respiratory: Clear to auscultation bilaterally, Normal air movement Cardiovascular: Normal pulses, Regular rate/rhythm, Normal S1 S2, Other (left sided pacemaker), Edema Gastrointestinal: Normal bowel sounds, Soft and benign, Non-distended, No tenderness Musculoskeletal: Swelling, Erythema, Tenderness, Warmth, Other (LLE inflamed from knee down) Neurological: Normal speech, Sensation intact, Normal affect - Studies Laboratory Data (last 24 hrs) 01/30/20 18:15: PT 14.9 H, INR 1.27 01/30/20 18:15: WBC 9.6, Hgb 12.2, Hct 37.3, Plt Count 240 01/30/20 18:15: Sodium 137, Potassium 3.8, BUN 22 H, Creatinine 1.47 H, Glucose 105, Magnesium 1.7 L, Total Bilirubin 0.5, AST 25, ALT 22, Alkaline Phosphatase 96 Assessment and Plan - Problems (Diagnosis) (1) Bilateral pulmonary embolism Current Visit: Yes Status: Acute (2) UTI (urinary tract infection) Current Visit: Yes Status: Acute (3) Hypothyroidism Onset Date: 02/18/16 Current Visit: No Status: Acute (4) Neuropathy Current Visit: No Status: Acute (5) Pacemaker Current Visit: No Status: Acute (6) Paroxysmal atrial fibrillation Onset Date: 02/18/16 Current Visit: No Status: Acute (7) Hyperlipidemia Onset Date: 02/18/16 Current Visit: No Status: Chronic Qualifiers: Hyperlipidemia type: mixed hyperlipidemia Qualified Code(s): E78.2 - Mixed hyperlipidemia (8) Hypertension Onset Date: 02/18/16 Current Visit: No Status: Chronic Qualifiers: Hypertension type: essential hypertension Qualified Code(s): I10 - Essential (primary) hypertension - Advance Directives Does patient have a Living Will: Yes Does patient have a Durable POA for Healthcare: Yes Physician Review Additional Text: Assessment 89 year old female with a known PMH of HTN, Atrial fibrillation s/p PCM placement, DVT and chronically on eliquis who presents to the ER complaining of shortness of breath. Found to have acute bilateral and multifocal PE in the lower lobes. She is not hypoxic Acute PE UTI Atrial fibrillation Pacemaker placement HTN Hypothyroidism PLAN: Admit inpatient with telemetry Start patient on weigh-based lovenox injections, 1mg/kg q 12 hours Medication reconciliation to assess drug-drug interaction and reduced efficacy of apixaban in prevent VTE Consulted Dr. Thomas to discuss long-term systemic anticoagulation Will also order a 2-D Echo to assess RV given clot burden Ceftriaxone for UTI Follow up urine cultures Resume home dose
[2020-01-31] MEDS ORDERED: CEFTRIAXONE 1 GM/NS 50 ML 1 GM/50 ML BAG IV SCH (00:11)
[2020-01-31] MEDS ORDERED: CEFTRIAXONE/SWI 1gm 1 GM/10 ML SYR IV SCH (01:00)
[2020-01-31 01:40] VITALS: O2SAT 97
[2020-01-31] MEDS ORDERED: AZTREONAM 1 GM/VIAL IV SCH (02:00)
[2020-01-31] MEDS ORDERED: AZTREONAM 1 GM/VIAL ONE ×2 (02:51→03:14)
[2020-01-31] MEDS ORDERED: WATER FOR INJ,STERILE 10 ML IV ONE (03:00)
[2020-01-31 03:22] VITALS: BMI 27.3
[2020-01-31] MEDS ORDERED: NA CHLORIDE 0.9% 50 ML ONE (03:22)
[2020-01-31] MEDS ORDERED: NA CHLORIDE 0.9% 250 ML ONE (03:28)
[2020-01-31] MEDS ORDERED: AZTREONAM 1 GM/VIAL IV ONE (04:00)
[2020-01-31] MEDS ORDERED: NA CHLORIDE 0.9% 50 ML IV ONE (04:00)
[2020-01-31] MEDS ORDERED: PANTOPRAZOLE 40MG TABLET PO SCH (06:30)
[2020-01-31] MEDS ORDERED: FUROSEMIDE 40 MG TABLET PO SCH (09:00)
[2020-01-31] MEDS ORDERED: LACTOBACILLUS/ACIDOPHILUS TAB PO SCH (09:00)
[2020-01-31] MEDS ORDERED: GABAPENTIN 300 MG CAP PO SCH (09:00)
[2020-01-31] MEDS ORDERED: MONTELUKAST 10 MG TAB PO SCH (09:00)
[2020-01-31] MEDS ORDERED: METOPROLOL TAR 50 MG TAB PO SCH (09:00)
[2020-01-31] MEDS ORDERED: AZTREONAM 1 GM in NA CHLORIDE 0.9% 50 ML IV SCH (09:00)
[2020-01-31] MEDS ORDERED: SPIRONOLACTONE 25 MG TABLET PO SCH (09:07)
[2020-01-31] MEDS ORDERED: ARFORMOTEROL TARTRATE 15 MCG/2 ML VIAL.NEB NEB SCH (09:10)
[2020-01-31] MEDS ORDERED: METHYLPREDNISOLONE 40 MG INJ IV SCH (09:10)
[2020-01-31] MEDS ORDERED: APIXABAN 2.5 MG TABLET PO SCH ×2 (10:00→21:00)
--- NOTE | 2020-01-31 11:01 | RAD REPORT ---
EXAM DESCRIPTION: ADDENDUM #1 ADDENDUM: THIS REPORT CONTAINS FINDINGS THAT MAY BE CRITICAL TO PATIENT'S CARE: The findings were verbally discussed via telephone conference with Deep MCKINNEY by Dr. Chavira on 03/31/2019 10:09 PM MLT. The results were acknowledged and understood. Electronically signed by: Jonathan Chavira DO 01/30/2020 10:09 PM MLT End of Addendum EXAM DESCRIPTION: CT Angiography Chest With Intravenous Contrast CLINICAL HISTORY: The patient is 89 years old and is Female; SOB TECHNIQUE: Axial computed tomographic angiography images of the chest with intravenous contrast. T his CT exam was performed using one or more of the following dose reduction techniques: automated e xposure control, adjustment of the mA and/or kV according to patient size, and/or use of iterative re construction technique. MIP reconstructed images were created and reviewed. Oblique reformatted images were created and reviewed. DLP: 450 mGy*cm COMPARISON: Chest radiograph of the same day. FINDINGS: PULMONARY ARTERIES: Unremarkable. No pulmonary embolism. AORTA: No acute findings. No thoracic aortic aneurysm. LUNGS: Multifocal filling defects in the subsegmental branches of the left lower lobe and lingula. Similar appearing finding within the distal right lower lobe branches. Mild interlobular septal thickening. No focal consolidation. PLEURAL SPACE: Unremarkable. No significant effusion. No pneumothorax. HEART: See below. BONES/JOINTS: Diffuse osteopenia. Multilevel changes. 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 No acute fracture. No dislocation. SOFT TISSUES: Unremarkable. LYMPH NODES: Unremarkable. No enlarged lymph nodes. TUBES, LINES AND DEVICES: Left chest pacemaker. Cardiomegaly. Reflux of contrast in the IVC and hep atic veins. IMPRESSION: 1. Multifocal bilateral pulmonary emboli involving the distal lower lobe branches. Mil d clot burden. No right heart strain. 2. Left chest pacemaker. Cardiomegaly. Reflux of contrast in the IVC and hepatic veins. Electronically signed by: Jonathan Chavira DO 01/30/2020 9:52 PM MLT Due to temporary technical issues with the PACS/Fluency reporting system, reports are being signed by the in house radiologists without review as a courtesy to insure prompt reporting. The interpreting radiologist is fully responsible for the content of the report.
--- NOTE | 2020-01-31 12:05 | EKG ---
Test Date: 2020-01-30 Test Time: 18:41:58 Hose Suspender Cutter: JILLIAN MEASUREMENT RESULTS: Intervals: Rate: 72 FL: 194 QRSD: 88 QT: 394 QTc: 431 [place]: P: 83 FL: 194 QRS: 49 T: 22 INTERPRETIVE STATEMENTS: Normal sinus rhythm Normal ECG Compared to ECG 08/21/2019 18:31:31 Atrial fibrillation no longer present Ventricular premature complex(es) no longer present Electronically Signed On 01-31-20 12:03:13 SPINDLE PLUMBER by Ángel Jane
--- NOTE | 2020-01-31 12:08 | P.CNS ---
Date of Consult: 01/31/20 Reason for Consult: Shortness of breath pulmonary emboli Chief Complaint: Shortness of breath History of Present Illness: Patient is 89 years of age has had acute on chronic dyspnea she has been dyspneic for a long time with dyspnea on mild exertion I did see her my office in October for shortness of breath thought she may have had diastolic dysfunction prescribed some spironolactone and any inhaler patient did not follow up with me a gain he has had some been injections done recently this CT scan shows distal peripheral emboli no evidence of DVT the also had mild pulmonary hypertension patient has been taking her Eliquis final signs satisfactory denies any cough is never smoked. Pulmonary function test done in October showed mild obstructive pattern patient also has mild renal insufficiency Allergies amoxicillin [From Augmentin] Allergy (Verified 01/31/20 01:02) Itching/Hives/Rash cefpodoxime Allergy (Verified 01/31/20 01:02) Itching/Hives/Rash cefuroxime Allergy (Verified 01/31/20 01:02) Itching/Hives/Rash ciprofloxacin Allergy (Verified 01/31/20 01:02) Itching/Hives/Rash clavulanic acid [From Augmentin] Allergy (Verified 01/31/20 01:02) Itching/Hives/Rash levofloxacin Allergy (Verified 01/31/20 01:02) Itching/Hives/Rash Penicillins Allergy (Verified 01/31/20 01:02) Itching/Hives/Rash sulfamethizole Adverse Reaction (Verified 01/31/20 01:02) Itching/Hives/Rash NSAIDS Allergy (Mild, Uncoded 01/31/19 17:11) Unknown Home Medications: Amitriptyline [Elavil*] 25 mg PO BEDTIME 08/18/15 Levothyroxine [Synthroid*] 100 mcg PO BEDTIME 08/18/15 Metoprolol Tartrate [Lopressor*] 50 mg PO BID 08/18/15 Gabapentin 300 mg PO DAILY 02/16/16 Zolpidem Tartrate 5 mg PO BEDTIME 02/16/16 Pantoprazole [Protonix Tab*] 40 mg PO DAILY 01/31/19 Apixaban [Eliquis] 5 mg PO BID 01/31/20 Furosemide 40 mg PO DAILY 01/31/20 L.acidoph,Paracasei, B.lactis [Probiotic] 1 each PO DAILY 01/31/20 Montelukast [Singulair] 10 mg PO DAILY 01/31/20 - Past Medical/Surgical History Diabetic: No -: HTN -: Hypothyroidism -: Chronic pain -: GERD with hiatal hernia -: Anxiety -: Atrial fibrillation on chronic anti coagulation therapy -: Hypothyroidism -: Insomnia -: Right leg DVT -: Right Rotator surgery -: Hysterectomy -: Pacemaker -: hernia repair -: Bilateral knee surgery Psychosocial/ Personal History: Patient is a . She currently lives by herself. - Family History Sister Medical History: Cancer Notes: Pt had another sister who had hx of CVA([place]) Brother Medical History: Heart disease - Social History Smoking Status: Unknown if ever smoked Alcohol use: No CD- Drugs: No Caffeine use: No Review of Systems 10-point ROS is otherwise unremarkable General: Weakness Respiratory: Shortness of Breath Cardiovascular: Edema Physical Examination Temp Pulse Resp BP Pulse Ox 97.1 F 60 18 144/61 H 96 01/31/20 08:00 01/31/20 09:39 01/31/20 08:00 01/31/20 09:39 01/31/20 08:00 General: Alert, Oriented x3 HEENT: Atraumatic Neck: Supple Respiratory: Crackles/rales (Crackles bilaterally) Cardiovascular: Edema (Left leg greater than right) Gastrointestinal: Normal bowel sounds, Soft and benign Integumentary: No rashes, No breakdown Laboratory Data (last 24 hrs) 01/30/20 18:15: PT 14.9 H, INR 1.27 01/30/20 18:15: WBC 9.6, Hgb 12.2, Hct 37.3, Plt Count 240 01/30/20 18:15: Sodium 137, Potassium 3.8, BUN 22 H, Creatinine 1.47 H, Glucose 105, Magnesium 1.7 L, Total Bilirubin 0.5, AST 25, ALT 22, Alkaline Phosphatase 96 - Problems (1) Pulmonary emboli Current Visit: Yes Status: Acute Plan: Patient is 89 years of age admitted with acute on chronic dyspnea she has mild obstructive pattern has been taking Eliquis has distal peripheral emboli. Previous echo shown mild pulmonary hypertension with normal left ventricular function there is no evidence of any DVT he has had recent med work done on her legs for her vein patient has chronic renal insufficiency chest x-rays otherwise clear she has a pacemaker in place I recommend continue with Eliquis 5 mg twice a day at some spironolactone to the Lasix treatment also had then inhaler example Advair or Symbicort follow-up with me in 2 weeks patient's BNP is mildly elevated Qualifiers: Acute cor pulmonale presence: unspecified
--- NOTE | 2020-01-31 14:36 | P.DS ---
Admission Date: 01/30/20 Discharge Date: 01/31/20 Primary Care Provider: Mary Jane Flores [employer] [facility] [employer]; Cardiology-Dr. Jane; Pulmonary-Dr. Hernandez Disposition: ROUTINE DISCHARGE Discharge Condition: GOOD Reason for Admission: Shortness of breath Consultations: Cardiology-Dr. Jane Pulmonary-Dr. Hernandez Hematology-Dr. Michele Procedures: CT Scan: COMPARISON: Chest radiograph of the same day. FINDINGS: PULMONARY ARTERIES: Unremarkable. No pulmonary embolism. AORTA: No acute findings. No thoracic aortic aneurysm. LUNGS: Multifocal filling defects in the subsegmental branches of the left lower lobe and lingula. Similar appearing finding within the distal right lower lobe branches. Mild interlobular septal thickening. No focal consolidation. PLEURAL SPACE: Unremarkable. No significant effusion. No pneumothorax. HEART: See below. BONES/JOINTS: Diffuse osteopenia. Multilevel changes. 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 No acute fracture. No dislocation. SOFT TISSUES: Unremarkable. LYMPH NODES: Unremarkable. No enlarged lymph nodes. TUBES, LINES AND DEVICES: Left chest pacemaker. Cardiomegaly. Reflux of contrast in the IVC and hepatic veins. IMPRESSION: 1. Multifocal bilateral pulmonary emboli involving the distal lower lobe branches. Mild clot burden. No right heart strain. 2. Left chest pacemaker. Cardiomegaly. Reflux of contrast in the IVC and hepatic veins. Venous Doppler: FINDINGS: Normal compressibility, flow augmentation, phasic flow and spontaneous flow are identified in the left and right lower extremity common femoral, superficial femoral, popliteal and posterior tibial veins. No int raluminal filling defects seen. IMPRESSION: No DVT in either lower extremity. Medical Problem List: Dyspnea secondary to multifocal pulmonary emboli involving the distal lower lobe branches with component of chronic diastolic CHF History of atrial fibrillation with pacemaker on chronic anti coagulation therapy Hypertension Venous insufficiency History of recurrent UTI Brief History of Present Illness: 89-year-old female with multiple medical problems presented to the emergency room with increasing shortness of breath. It is been present for several weeks. His worse with exertion. She came to the ER for further evaluation. Initial CT scan showed pulmonary embolism. Patient reports having recent venous ablation therapy last week. Patient on chronic anti coagulation therapy due to AFib. Hospital Course: Patient presented with shortness of breath secondary to multiple pulmonary emboli involving the distal lower lobe of branches. CT scan revealed no heart strain or significant clot burden. Patient previously on anti coagulation therapy due to history of atrial fibrillation. Patient with history of DVT in the past. Venous Doppler showed no DVT at this time. Case was discussed in detail with pulmonology, cardiology and Hematology. Pulmonology felt there may been some component of chronic diastolic CHF. Patient also reported having venous ablation done to the lower extremity last week. Patient has been compliant with her Eliquis. Hematology evaluated the patient. Hematology spoke with the patient in detail. Drug interactions were reviewed. Patient was not wanting to change her medication at this time. Anti factor XA will be obtained to evaluate the efficacy of Eliquis. Due to no significant clot burden/distal pulmonary emboli, Pulmonology and Cardiology recommend to continue Eliquis 5 mg 1 pill twice daily. Hematology recommends to follow up with them within 1 week to follow up on the Antifactor XA. At that visit hematology will determine if the patient needs to be changed to a different medication. This was addressed in detail with the patient. She understands this. At this time she will continue with Eliquis 5 mg 1 pill twice daily. There was some consideration of having Aldactone to her regimen but patient reports she did not like this medication the past. Therefore at discharge will continue with Lasix 40 mg daily. She will continue with a 1500 cc per day fluid restriction and low-salt diet. Patient may need to increase Lasix if with increasing edema to the lower extremity. She will need to monitor her weight daily for any fluctuations in her weight. Pulmonology also desires the patient to start Breo 1 puff daily. She will get samples of this from has office. Recommend follow up with cardiology and pulmonology within 1-2 weeks to follow up this hospitalization and continue her care. Patient with hypertension, atrial fibrillation with pacemaker. At discharge patient will continue with occur medication of metoprolol 50 mg 1 pill twice daily. Patient with hypothyroidism. At discharge she will continue with levothyroxine 100 mcg daily. Patient with GERD. At discharge she will continue with Protonix 40 mg daily. Patient with chronic venous insufficiency to the lower extremity. Will recommend to hold off on any procedures in the near future. This may increased clot burden. Patient with history of recurrent UTI. UTI prevention address in detail. Patient afebrile. CBC unremarkable. Culture was obtained but this was a clean- catch. This is not a reliable source. Patient without significant problems at this time. UA shows some bacteria likely asymptomatic bacteriuria. This can be followed up as an outpatient. Please note patient was given prescription for Macrodantin as an outpatient to start. There is no interaction with Eliquis. She may continue with this medication. Vital Signs/Physical Exam: Temp Pulse Resp BP Pulse Ox 97.0 F 68 19 141/68 H 96 01/31/20 12:00 01/31/20 12:00 01/31/20 12:00 01/31/20 12:00 01/31/20 12:00 General: Alert, In no apparent distress, Oriented x3, Cooperative HEENT: Atraumatic Neck: Supple Respiratory: Clear to auscultation bilaterally, Normal air movement Cardiovascular: Normal pulses, Regular rate/rhythm Gastrointestinal: Normal bowel sounds, No ascites, No tenderness, No masses, No rebound, No guarding Musculoskeletal: No erythema, No tenderness, No warmth Integumentary: No erythema, No warmth, No cyanosis, Other (No significant swelling to the lower extremity. Venous insufficiency noted.) Neurological: Normal speech, Normal strength at 5/5 x4 extr, Normal tone, Normal affect Laboratory Data at Discharge: WBC 9.6 K/uL (4.3-10.9) 01/30/20 18:15 Hgb 12.2 g/dL (12.0-15.0) 01/30/20 18:15 Hct 37.3 % (36.0-45.0) 01/30/20 18:15 Plt Count 240 K/uL (152-406) 01/30/20 18:15 PT 14.9 SECONDS (9.5-12.5) H 01/30/20 18:15 INR 1.27 01/30/20 18:15 Sodium 137 mmol/L (136-145) 01/30/20 18:15 Potassium 3.8 mmol/L (3.5-5.1) 01/30/20 18:15 BUN 22 mg/dL (7-18) H 01/30/20 18:15 Creatinine 1.47 mg/dL (0.55-1.3) H 01/30/20 18:15 Glucose 105 mg/dL (74-106) 01/30/20 18:15 Magnesium 1.7 mg/dL (1.8-2.4) L 01/30/20 18:15 Total Bilirubin 0.5 mg/dL (0.2-1.0) 01/30/20 18:15 AST 25 U/L (15-37) 01/30/20 18:15 ALT 22 U/L (12-78) 01/30/20 18:15 Alkaline Phosphatase 96 U/L (45-117) 01/30/20 18:15 Home Medications: Amitriptyline [Elavil*] 25 mg PO BEDTIME 08/18/15 Levothyroxine [Synthroid*] 100 mcg PO BEDTIME 08/18/15 Metoprolol Tartrate [Lopressor*] 50 mg PO BID 08/18/15 Gabapentin 300 mg PO DAILY 02/16/16 Zolpidem Tartrate 5 mg PO BEDTIME 02/16/16 Pantoprazole [Protonix Tab*] 40 mg PO DAILY 01/31/19 Apixaban [Eliquis] 5 mg PO BID 01/31/20 Furosemide 40 mg PO DAILY 01/31/20 L.acidoph,Paracasei, B.lactis [Probiotic] 1 each PO DAILY 01/31/20 Montelukast [Singulair*] 10 mg PO DAILY 01/31/20 Patient Discharge Instructions: 1. Recommend follow up with PCP in 1 week to follow up this hospitalization. 2. Patient presented with shortness of breath secondary to multiple pulmonary emboli involving the distal lower lobe of branches. CT scan revealed no heart strain or significant clot burden. Patient previously on anti coagulation therapy due to history of atrial fibrillation. Patient with history of DVT in the past. Venous Doppler showed no DVT at this time. Case was discussed in detail with pulmonology, cardiology and Hematology. Pulmonology felt there may been some component of chronic diastolic CHF. Patient also reported having venous ablation done to the lower extremity last week. Patient has been compliant with her Eliquis. Hematology evaluated the patient. Hematology spoke with the patient in detail. Drug interactions were reviewed. Patient was not wanting to change her medication at this time. Anti factor XA will be obtained to evaluate the efficacy of Eliquis. Due to no significant clot burden/distal pulmonary emboli, Pulmonology and Cardiology recommend to continue Eliquis 5 mg 1 pill twice daily. Hematology recommends to follow up with them within 1 week to follow up on the Antifactor XA. At that visit hematology will determine if the patient needs to be changed to a different medication. This was addressed in detail with the patient. She understands this. At this time she will continue with Eliquis 5 mg 1 pill twice daily. There was some consideration of having Aldactone to her regimen but patient reports she did not like this medication the past. Therefore at discharge will continue with Lasix 40 mg daily. She will continue with a 1500 cc per day fluid restriction and low-salt diet. Patient may need to increase Lasix if with increasing edema to the lower extremity. She will need to monitor her weight daily for any fluctuations in her weight. Pulmonology also desires the patient to start Breo 1 puff daily. She will get samples of this from has office. Recommend follow up with cardiology and pulmonology within 1-2 weeks to follow up this hospitalization and continue her care. 3. Patient with hypertension, atrial fibrillation with pacemaker. At discharge patient will continue with occur medication of metoprolol 50 mg 1 pill twice daily. 4. Patient with hypothyroidism. At discharge she will continue with levothyroxine 100 mcg daily. 5. Patient with GERD. At discharge she will continue with Protonix 40 mg daily. 6. Patient with chronic venous insufficiency to the lower extremity. Will recommend to hold off on any procedures in the near future. This may increased clot burden. 7. Patient with history of recurrent UTI. UTI prevention address in detail. Patient afebrile. CBC unremarkable. Culture was obtained but this was a clean-catch. This is not a reliable source. Patient without significant problems at this time. UA shows some bacteria likely asymptomatic bacteriuria. This can be followed up as an outpatient. Please note patient was given prescription for Macrodantin as an outpatient to start. There is no interaction with Eliquis. She may continue with this medication. Diet: AHA Activity: Fall precautions Followup: Bubba Hernandez MD [ACTIVE - CAN ADMIT] - 1 Week Ángel Jane MD [ACTIVE - CAN ADMIT] - 1 Week Rona Flores NP [Primary Care Provider] - Time spent managing pt's care (in minutes): 55
[2020-01-31 17:55] VITALS: BP 138/60; TEMP 97.1
--- NOTE | 2020-01-31 20:37 | P.CNS ---
Date of Consult: 01/31/20 (Hematology) REASON FOR CONSULTATION: PE HPI: 89-year-old woman with multiple medical problems presented to the emergency room with increasing shortness of breath on exertion. CT scan showed multifocal bilateral pulmonary emboli involving the distal lower lobe branches with mild clot burden. No right heart strain. No DVT. Patient reports having recent venous ablation therapy last week. She was discharged post ablation with lower extremity compression dressing. She does not report any immobility nor had to stop anticoagulation. Vouches compliance with eliquis 5mg bid. Recent antibiotic use with nitrofurantoin for bladder infection. Symptomatically she feels improved just with management of diastolic heart failure with diuretics and also has been started on Breo inhalers by Pulmonology. Denies Sob, chest pains, bleeding or excessive bruising. She has been on anticoagulation for Afib for many years. H/o DVT in 2016 when on xarelto and she was briefly on lovenox at that time. She was seen by my partner, Dr Thomas and was placed on eliquis 5mg bid since 2015. A 14 ROS was done and pertinent points as in HPI PMH/PSH: HTN, Hypothyroidsm, A fib s/p PPM, GERD. recurrent UTI SH: Denies smoking, alcohol intake or drugs. Home Medications: Amitriptyline [Elavil*] 25 mg PO BEDTIME 08/18/15 Levothyroxine [Synthroid*] 100 mcg PO BEDTIME 08/18/15 Metoprolol Tartrate [Lopressor*] 50 mg PO BID 08/18/15 Gabapentin 300 mg PO DAILY 02/16/16 Zolpidem Tartrate 5 mg PO BEDTIME 02/16/16 Pantoprazole [Protonix Tab*] 40 mg PO DAILY 01/31/19 Apixaban [Eliquis] 5 mg PO BID 01/31/20 Furosemide 40 mg PO DAILY 01/31/20 L.acidoph,Paracasei, B.lactis [Probiotic] 1 each PO DAILY 01/31/20 Montelukast [Singulair*] 10 mg PO DAILY 01/31/20 Physical examination: Temp Pulse Resp BP Pulse Ox 97.0 F 68 19 141/68 H 96 01/31/20 12:00 01/31/20 12:00 01/31/20 12:00 01/31/20 12:00 01/31/20 12:00 General: Alert, In no apparent distress, Oriented x3, Cooperative, son by bedside HEENT: Atraumatic, no pallor or icterus, MMM Neck: Supple Respiratory: Clear to auscultation bilaterally, Normal air movement Cardiovascular: Normal pulses, Regular rate/rhythm Gastrointestinal: Normal bowel sounds, No ascites, No tenderness, No masses, No rebound, No guarding Musculoskeletal: No erythema, No tenderness, No warmth Ext: chronic lower extremity edema+ with erythema and non healing ulcer on the tibiial samayoa. Neurological: Normal speech, Normal strength at 5/5 x4 extr, Normal tone, Normal affect Laboratory Data at Discharge: WBC 9.6 K/uL (4.3-10.9) 01/30/20 18:15 Hgb 12.2 g/dL (12.0-15.0) 01/30/20 18:15 Hct 37.3 % (36.0-45.0) 01/30/20 18:15 Plt Count 240 K/uL (152-406) 01/30/20 18:15 PT 14.9 SECONDS (9.5-12.5) H 01/30/20 18:15 INR 1.27 01/30/20 18:15 Sodium 137 mmol/L (136-145) 01/30/20 18:15 Potassium 3.8 mmol/L (3.5-5.1) 01/30/20 18:15 BUN 22 mg/dL (7-18) H 01/30/20 18:15 Creatinine 1.47 mg/dL (0.55-1.3) H 01/30/20 18:15 Glucose 105 mg/dL (74-106) 01/30/20 18:15 Magnesium 1.7 mg/dL (1.8-2.4) L 01/30/20 18:15 Total Bilirubin 0.5 mg/dL (0.2-1.0) 01/30/20 18:15 AST 25 U/L (15-37) 01/30/20 18:15 ALT 22 U/L (12-78) 01/30/20 18:15 Alkaline Phosphatase 96 U/L (45-117) 01/30/20 18:15 Assessment/ Recommendations: 89 yr old woman with PMH od DVT and chronic lower extremity venous insufficiency presents with shortness of breath on exertion. She was noted to have b/l multifocal PE in the distal lower lobe branches. No DVT. Patient has been on eliquis 5mg bid since 2016 1. Pulmonary embolism: She has remained compliant on eliquis and question was whether this is eliquis failure. PE seems provoked likely triggered post venous ablation procedure. Clinically improved with management of DHF alone. > Given mild clot burden, I would recommend c/w eliquis 5mg bid for now and monitor. Will however check anti factor XA assay to check eliquis efficacy. In the event this is optimal, she can just c/w eliquis alone. > Alternate options of anticoagulation will be dabigatran, lovenox or fondapurinox. She does not wish to make any changes for now and will like to follow up with us as outpatient. > I have advised her to seek immediate medical attention should there be any new s/s of SOB, chest pain or change in baseline status. > Avoid any further lower extremity vein procedures or any surgeries for atleast 3 months. > Medicines reconciliation was done and no drug interactions identified with eliquis. 2. Afib/ DHF: Follow up with cardiology for optimization.
[2020-01-31] MEDS ORDERED: LEVOTHYROXINE SOD 0.1 MG TAB PO SCH (21:00)
[2020-01-31] MEDS ORDERED: AMITRIPTYLINE 25 MG TAB PO SCH (21:00)
[2020-01-31] MEDS ORDERED: ENOXAPARIN 100 MG/ML SYR SQ SCH (21:00)
[2020-01-31] MEDS ORDERED: ZOLPIDEM TARTRATE 5 MG TABLET PO SCH (21:00)
--- NOTE | 2020-02-01 07:35 | ECHO ---
HEIGHT: 5 ft 10 in WEIGHT: 190 lb 9.6 oz DATE OF STUDY: 02/10/[address]: Prince Choco Saul MD 2-DIMENSIONAL: YES M.MODE: YES DOPPLER: YES COLOR FLOW: YES TDS: PORTABLE: DEFINITY: BUBBLE STUDY: DIAGNOSIS: PULMONARY EMBOLISM CARDIAC HISTORY: CATHERIZATION: NO SURGERY: NO PROSTHETIC VALVE: NO PACEMAKER: YES MEASUREMENTS (cm) DIASTOLIC (NORMALS) SYSTOLIC (NORMALS) IVSd 1.0 (0.6-1.2) LA Diam 4.0 (1.9-4.0) LVEF 65% LVIDd 4.6 (3.5-5.7) LVIDs 2.9 (2.0-3.5) %FS 36% LVPWd 1.2 (0.6-1.2) Ao Diam 2.7 (2.0-3.7) 2 DIMENSIONAL ASSESSMENT: RIGHT ATRIUM: NORMAL LEFT ATRIUM: NORMAL RIGHT VENTRICLE: NORMAL LEFT VENTRICLE: NORMAL TRICUSPID VALVE: NORMAL MITRAL VALVE: NORMAL PULMONIC VALVE: NORMAL AORTIC VALVE: NORMAL PERICARDIAL EFFUSION: NONE AORTIC ROOT: NORMAL LEFT VENTRICULAR WALL MOTION: NORMAL DOPPLER/COLOR FLOW: MILD TRICUSPID REGURGITATION COMMENTS: NORMAL LEFT VENTRICULAR SIZE AND FUNCTION. MILD TRICUSPID REGURGITATION. NORMAL RIGHT VENTRICULAR SYSTOLIC PRESSURE. NO WALL MOTION ABNORMALITY. NO EFFUSION. TECHNOLOGIST: BENNIE MOORE
[2020-02-01] MEDS ORDERED: ENOXAPARIN 100 MG/ML SYR SQ SCH (09:00)
--- NOTE | 2020-02-02 09:07 | PN ---
Date of Progress Note: 02/01/2020 History Of Present Illness: Ms. Samaniego was admitted to Dr. Coronel for pulmonary embolus, on Eliquis . She has a history of congestive heart failure, hypertension, hypothyroidism, COPD, dyslipidemia an d DVT. She had recently had some work on her pain because of venous stasis on the left leg and came in with peripheral pulmonary emboli, on Eliquis. The case had been discussed with Dr. Hernandez and w thalia had elected to continue the Eliquis mostly because of the pulmonary embolus being in the periphery and because she had recent vein procedure, which can explain her pulmonary embolus. Nevertheless, an echocardiogram was ordered to rule out pulmonary hypertension, which showed perfectly normal ejectio n fraction, no diastolic dysfunction, no wall motion abnormalities with normal right ventricular syst olic pressure. Continue present regimen. I will sign off her case for now. We will see her as an o utpatient as she is a patient of mine. MANUELITO/LUCRECIA Voice ID: [id number] Report ID: [id number]
== END 2020-01-31 18:06 | disposition home health service (06) ==
LOC: ER 17:02 → INTOOBSV 22:28 → ERHOLD 22:28 → 2ND 23:39
PROVIDERS: ADMIT Internal Medicine; ATTEND Family Medicine
DX: I26.99 Other pulmonary embolism without acute cor pulmonale (principal); Z20.828 Contact with and (suspected) exposure to other viral communicable diseases; Z79.01 Long term (current) use of anticoagulants; I11.0 Hypertensive heart disease with heart failure; I50.32 Chronic diastolic (congestive) heart failure; E03.9 Hypothyroidism, unspecified; J44.9 Chronic obstructive pulmonary disease, unspecified; E78.5 Hyperlipidemia, unspecified; Z86.718 Personal history of other venous thrombosis and embolism; Z95.0 Presence of cardiac pacemaker; K21.9 Gastro-esophageal reflux disease without esophagitis; I48.0 Paroxysmal atrial fibrillation; I87.2 Venous insufficiency (chronic) (peripheral); G89.29 Other chronic pain; K44.9 Diaphragmatic hernia without obstruction or gangrene; F41.9 Anxiety disorder, unspecified; G47.00 Insomnia, unspecified; N39.0 Urinary tract infection, site not specified; G62.9 Polyneuropathy, unspecified
CPT/HCPCS: 36415; 71045; 71275; 80048; 80076; 81003; 81015; 83735; 83880; 84484; 85025; 85610; 87077; 87086; 87088; 87186; 93005; 93306; 93970; 94640; 96372; 96374; 99285; G0378; J0696; J2920; J7050; J7605; Q9967; U0003

== ENCOUNTER 2020-02-04 16:21 | Emergency (ER) | payer OTHER ==
--- OUTSIDE RECORDS SUMMARY | 2020-02-04 16:23 | XMS REPORT | Continuity of Care Document ---
:1930 Author Organization [employer] Care Team Providers Name Role Phone [employer] Unavailable Un available Problems Problem Status Onset Classification Date Comments Sour e Date Reported Discharge 09/12/2015 [facility] Diagnosis: Lower 6 Med ical extremity pain, Cent er right BLOOD CLOT THIGH Active [address] [facility] Atrial Active Problem 01/26/2019 Medica l fibrillation Group,M H (disorder) [facility] Blood clot Active Problem 09/12/2015 [facility] (morphologic Medical abnormality) [place] Medications Medication Details Route Status Patient Ordering Order Source Instructions Provider Date Estradiol 0.1 1 gm, TOP, Active MH MG/ML Vaginal Bedtime, 019 Medical Cream [Estrace] use 3 Group times a week, # 1 tube, 5 Refill(s), Pharmacy: [facility] #[id number] Estrogens, 1 appl, Active MH Conjugated (PRISON) VAG, Q-M 019 Medica l 0.625 MG/ML and Th, # Group Vaginal Cream 30 gm, 11 [Premarin] Refill(s), Pharmacy: [facility] #[id number] levothyroxine 100 0 Active MH mcg [...] MG tab, 0 Center Oral Tablet Refill(s) [[place] 5/325] Acetaminophen 325 Notes: Inactive [place] MG / Hydrocodone (Same as: 016 Medic al Bitartrate 5 MG [place] [facility] Oral Tablet 325/5) Do not exceed [...] Medical Grou p BMI Calculated 28.12 12/22/2018 [facility] oup Heart Rate 88 09/09/2015 [facility] Center Systolic (mm Hg) 152 09/09/2015 [facility] Center Diastolic (mm Hg) 82 09/09/2015 [facility] Temperature Oral (F) 98.1 F 09/09/2015 [facility] Respitory Rate 16 09/09/[address] [facility] BMI Calculated 25.88 09/09/[address] [facility] Weight 81.818 09/09/2015 [facility] Height 177.8 cm 09/09/2015 [facility] Respitory Rate 16 09/09/[address] [facility] Heart Rate 99 09/09/2015 [facility] [place] Systolic (mm Hg) 148 09/09/2015 [facility] [place] Diastolic (mm Hg) 79 09/09/2015 [facility] Temperature Oral (F) 98.2 F 09/09/2015 [facility] Encounters Location Location Encounter Encounter Reason Attending ADM DC Stat us Source Details Type Number For Provider Date Date Visit [facility] [id number] Eli 09/08 09/08 M Chung Emma Rosalesann Emergency Reji /2015 [facility] Outpatient [id number] Rigoberto 12/15 Active [facility] [place] Outpatient [id number] [place] 12/22 [facility] [place] [facility] Multi Ambulatory [id number] N[place] 12/22 12/22 Specialty Pre-Reg Medica l [facility] Outpatient [id number] [place] 12/22 12/23 [facility] Outpatient [id number] NURSE 01/10 Active [facility] [place] Outpatient [id number] [place] 01/10 Active [facility] [place] [facility] Outpatient [id number] [place] 01/10 01/11 [facility] Time Share Outpatient [id number] [place] 01/24 Active [facility] [place] Outpatient [id number] NURSE 01/24 Active [facility] VISIT [facility] Ambulatory [id number] [place] 01/24 01/24 [facility] Time [facility] Ambulatory [id number] NURSE 01/24 01/24 Urology Pre-Reg VISIT /2018 [facility] Time Share Procedures Procedure Code Date Perfomer Comments Source Complex [id number] 01/10/2019 Medical uroflowmetry (eg, Group calibrated [place] [id number] 01/10/2019 Medical post-voiding Group residual urine and/or [...] entered on: 12/22/18 Social History TypeResponse 09/09/2015 [facility] Smoking Status Former smoker; Exposure to Tobacco Smoke None; Cigarette Smoking Last 365 Days No; Reg Smoking Cessation Counseling No Family History No Data Provided for This Section Advance Directives No Data Provided for This Section Functional Status No Data Provided for This Section
--- OUTSIDE RECORDS SUMMARY | 2020-02-04 16:23 | XMS REPORT | Clinical Summary ---
:1930 Author Organization [place] [facility] [place] Address [address] [place] [address] Care Team Providers Name Role Phone Amor [...] ARTHROPLASTY ; Surgeon: Holly edmondson MD; Location: [facility] OR; Service: Orthope dics; [...] INFLUENZA VACCINE 10/22/2019 Implants Implanted Type Area Slip Seat Coverer Device Shelf Model / Identifier Expiration Serial / Lot Date Screw Bone Canc 6.5x30mm - [id number] Hip Joint Right: DEPUY ORTHO [id number] / Implanted: Qty: 1 on 02/21/2016 by Holly Ferguson MD at [facility] Implants Hip / Screw Bone Canc Dome 6.5x25mm Ltxf [place] - [id number] Hip Join t Right: DEPUY ORTHO [id number] / Implanted: Qty: 1 on 02/21/2016 by Holly Ferguson MD at [facility] Implants Hip / Shell Actblr Sector Series W/ Gripton 54mm [place] - [id number] Hip Joint Right: DEPUY 12/20/2025 [id number] / Implanted: Qty: 1 on 02/21/2016 by Holly Ferguson MD at [facility] Implants Hip ORTHO-KNEES / [id number] Liner Actblr Neut Altra Linked Pe [id number] +4 Altrx - [id number] H ip Joint Right: DEPUY 06/20/2020 [id number] / Implanted: Qty: 1 on 02/21/2016 by Holly Ferguson MD at [facility] Implants Hip ORTHO-KNEES / [id number] Stem Fml Bone Presrvtn Std Ofst Sz 6 107mm Tri-Lock - [id number] Hip Joint Right: DEPUY 10/20/2024 [id number] / Implanted: Qty: 1 on 02/21/2016 by Holly Ferguson MD at [facility] Implants Hip ORTHO-KNEES / [id number] [place] Fracture System Biolox Delta Ceram ic Femoral Heads Size 36 +5.0 Mm Articul/Lamont 03/05 Taper Ceramic Femoral Heads - [id number] IPM IMPLANT Ri ght: DEPUY 11/20/2020 [id number] / Implanted: Qty: 1 on 02/21/2016 by Holly Ferguson MD at [facility] DEVICES Hip ORTHOP[employer]ED[employer] [id number] Results Not on fileafter 02/03/2019 Insurance Payer Benefit Plan / Subscriber ID Effective Dates Phone Addre ss Type Group MEDICARE MEDICARE PART A [id number] 1997-Present [place], [place] Medicare AND B AETNA AETNA [id number] 2012-Present [place] HMO,POS,EPO, MC/EC Advance Directives For more information, please contact: [phone] Type Date Recorded Patient Pulmonary Specialist Explanati on Advance Directives, Living Will and Medical Power of Slab Puller Advance Directives, 12/16/2019 2:23 AM Living Will and Medical Power of Slab Puller
--- OUTSIDE RECORDS SUMMARY | 2020-02-04 16:24 | XMS REPORT | Continuity of Care Document ---
:1930 Author Organization [facility] t Address [address] [place] [address] Care Team Providers Name Role Phone Gloria [...] Memoria THIGH 09-08 14:53:00 l BLOOD 00:00: [place] CLOT THIGH 00 Active 09/09/2015 [facility] Atrial Problem Active 2019-01-26 Memor ia fibrillati 22:20:48 l on Atrial David (disorder) fibrillati on (disorder) Active Problem 01/26/2019 [facility] Blood clot Problem Active 2015-09-12 M emma (morpholog 00:32:37 l ic Blood David abnormalit clot y) (morpholog ic abnormalit y) Active Problem 6 [facility] Discharge Problem 2015-09-12 2015-09-12 Memoria Diagnosis: 09-08 00:32:37 00:32:37 l Lower 05:00: [place] extremity Discharge 00 pain, Diagnosis: right Lower extremity pain, right 09/09/2015 09/12/2015 [facility] Allergies, Adverse Reactions, Alerts Allergy Allergy Status Severity Reaction(s) Onset Inactive Treating Comm ents Source Name Type Date Date Clinician Augmenti Augmenti Active Memori a n n l David Family History Family Member Diagnosis Comments Start Date Stop Date Source Natural sister Stroke [facility] thodist Social History Social Habit Start Date Stop Date Quantity Comments Source Sex Assigned At [facility] ethodist Tobacco use and 2016-02-22 2016-02-22 Never used [facility] ethodist exposure 00:00:00 00:00:00 Alcohol intake 2016-02-22 2016-02-22 Current [facility] thodist 00:00:00 00:00:00 non-drinker of alcohol (finding) Smoking Status Start Date Stop Date Source Never smoker [place] [facility] Social History 2015-09-09 19:01:11 2015-09-09 19:01:11 [facility] Medications Ordered Filled Start Stop Current Ordering Indication Dosage Frequency Signature Comments Components Source Medication Medication Date Date Medication? Clinician (SIG) Name Name Estradiol 2018-03 Yes 1 gm, TOP, Me moria 0.1 MG/ML 0-04 Bedtime, l Vaginal 16:17: use 3 David Cream 00 times a [Estrace] week, # 1 tube, 5 Refill(s), Pharmacy: [id number] Estrogens, 2018-03 Yes 1 appl, Bj starla Conjugated 0-02 VAG, Q-M l ([facility]) 0.625 14:52: and Th, # H ermann MG/ML 00 30 gm, 11 Vaginal Refill(s), Cream Pharmacy: [Premarin] [id number] levothyroxi 2018-03 Yes 0 Memori a ne 100 mcg 0-02 Refill(s) l (0.1 mg) 13:25: David oral tablet 00 nitrofurant 2018-03 Yes 0 Memori a oin 0-02 Refill(s) l macrocrysta 13:25: [place] n ls-monohydr 00 ate 100 mg oral capsule (Macrobid) zolpidem 5 2018-03 Yes 0 Memoria mg oral 0-02 Refill(s) l tablet 13:25: [place] 00 Metoprolol 2018-03 Yes 0 Memoria Tartrate 50 0-02 Refill(s) l mg oral 13:25: [place] tablet 00 Furosemide 2018-03 Yes 0 Memoria 40 MG Oral 0-02 Refill(s) l Tablet 13:25: [place] 00 Amoxicillin 2018-03 Yes 0 Memori a [...] Bitartrate 00 Refill(s) 5 MG Oral Tablet [[place] 5/325] Acetaminoph No Notes: Bj starla en 325 MG / 09-08 (Same as: l Hydrocodone 18:29: [place] Myriam nn Bitartrate 00 325/5) Do 5 MG Oral not exceed Tablet 4gm/day of acetaminop hen. Vital Signs Vital Name Observation Time Observation Value Comments Source Height 2018-12-22 13:22:00 175.26 cm [facility] David Weight 2018-12-22 13:22:00 [facility] [place] BMI Calculated 2018-12-22 13:22:00 Memori al [place] Heart Rate 2015-09-09 20:21:00 [facility] [place] Systolic (mm Hg) 2015-09-09 20:21:00 Bj rial David Diastolic (mm Hg) 2015-09-09 20:21:00 Mem orial [place] Temperature Oral (F) 2015-09-09 20:21:00 98.1 F [facility] Respitory Rate 2015-09-09 20:21:00 Memori al David BMI Calculated 2015-09-09 17:44:00 Memori al David Weight 2015-09-09 17:44:00 [facility] Height 2015-09-09 17:44:00 177.8 cm [facility] [place] Respitory Rate 2015-09-09 17:44:00 Memori al David Heart Rate 2015-09-09 17:44:00 [facility] [place] Systolic (mm Hg) 2015-09-09 17:44:00 Bj ozuna David Diastolic (mm Hg) 2015-09-09 17:44:00 Mem orialexei David Temperature Oral (F) 2015-09-09 17:44:00 98.2 F Brittany Hernandez Procedures Procedure Date / Time Performed Performing Clinician [facility] e Complex uroflowmetry (eg, 2019-01-10 17:20:00 Ga blaine Hernandez calibrated electronic equipment) Measurement of 2019-01-10 17:20:00 Brittany farooq post-voiding residual urine and/or bladder capacity by ultrasound, non-imaging Plan of Care Planned Activity Planned Date Details Comments Source Future Scheduled 2019-10-22 INFLUENZA VACCINE [place] [facility] 00:00:00 [code = INFLUENZA VACCINE] Future Scheduled 1997 65+ PNEUMOCOCCAL [place] [facility] 00:00:00 VACCINE (1 of 1 - PPSV23) [code = 65+ PNEUMOCOCCAL VACCINE (1 of 1 - PPSV23)] Future Scheduled 1982 SHINGLES VACCINES (#1) [place] [facility] 00:00:00 [code = SHINGLES VACCINES (#1)] Encounters Start End Encounter Admission Attending Care Care Encounter Source Date/Time Date/Time Type Type Clinicians Facility Department ID 2019-12-10 2019-12-10 Emergency [facility] [id number] 12:56:00 14:28:00 Tim Rutherford [id number] [place] [id number] [place] [id number] 2019-12-10 2019-12-10 Orders Doctor CARR [id number] 00:00:00 00:00:00 Only Unassigned, VAZQUEZ [id number] [place] [facility] [id number] 2019-10-21 2019-11-01 Office [facility] [id number] 10:06:35 12:32:49 Visit Liliam Rutherford [id number] [place] [id number] [place] [id number] [address] 2019-01-24 2019-01-24 Outpatient VISIT, [facility] [id number] 10:00:00 10:00:00 NURSE ARTUR 05 2019-01-24 2019-01-24 Outpatient Leonie, [facility] [id number] 09:40:00 09:40:00 Nato Johnson 2019-01-10 2019-01-10 Outpatient Leonie, [facility] [id number] 10:00:00 23:59:59 Nato S 2018-12-22 2018-12-22 Outpatient Leonie, [facility] [id number] 09:45:00 23:59:59 Nato S 2018-12-22 2018-12-22 Outpatient Leonie, [facility] [id number] 09:00:00 09:00:00 Nato Johnson 2015-09-09 2015-09-09 Outpatient Reji [facility] [id number] 12:38:00 15:23:00 Eli Griffin 00 Results This patient has no known results.
[2020-02-04 17:37] LABS: Protime INR 1.35
[2020-02-04 17:39] LABS: Absolute Lymphocytes (CBC) 1.8 K/uL (0.7-4.9); Basophils % 1.1 % (0-1.3); Hematocrit 38.7 % (36.0-45.0); Lymphocytes % 22.2 % (15.3-44.8); MPV 8.3 fL (7.6-11.3)
[2020-02-04 17:52] LABS: ALT/SGPT 21 U/L (12-78); AST/SGOT 21 U/L (15-37); Albumin 3.6 g/dL (3.4-5.0); Alkaline Phosphatase 88 U/L (45-117); BUN Blood Urea Nitrogen 30 mg/dL (7-18); Bicarbonate 33 mmol/L (21-32); Bilirubin Direct < 0.1 mg/dL (0-0.2); Bilirubin Total 0.3 mg/dL (0.2-1.0); Glucose Level 128 mg/dL (74-106); Magnesium 1.7 mg/dL (1.8-2.4); NT PRO-BNP 652 pg/mL (<450); Potassium 3.8 mmol/L (3.5-5.1); Protein, Total 7.9 g/dL (6.4-8.2); Sodium Level 142 mmol/L (136-145); Troponin (Emerg Dept Use Only) < 0.02 ng/mL (0.0-0.045)
[2020-02-04] MEDS ORDERED: DIAZEPAM 2 MG TABLET ONE (18:08)
--- NOTE | 2020-02-04 19:01 | RAD REPORT ---
EXAM DESCRIPTION: CT - Chest For Pe Angio - 02/04/2020 6:45 pm CLINICAL HISTORY: Shortness of breath COMPARISON: January 30, 2020 TECHNIQUE: Dynamically enhanced axial 3 mm thick images of the chest were obtained during administra tion of <100> mL Isovue 370 IV contrast. Coronal and oblique reconstruction images were generated and reviewed. Exam utilizes a protocol for optimal evaluation of pulmonary arterial tree. Maximum intensity projections 3D imaging was utilized All CT scans are performed using dose optimization technique as appropriate and may include automated exposure control or mA/KV adjustment according to patient size. FINDINGS: A pulmonary embolus is not seen. A thoracic aortic aneurysm is not noted. A pleural effusion is not seen. A pericardial effusion is not seen. A lung consolidation is not present. IMPRESSION: Negative for a pulmonary embolism.
--- NOTE | 2020-02-04 19:02 | RAD REPORT ---
EXAM DESCRIPTION: Lenora Single View02/04/2020 5:18 pm CLINICAL HISTORY: Shortness breath COMPARISON: January 26, 2020 FINDINGS: The lungs appear clear of acute infiltrate. The heart is normal size. Pacemaker leads are place IMPRESSION: No acute abnormalities displayed
[2020-02-04] MEDS ORDERED: FUROSEMIDE 20 MG/ 2ML VIAL ONE (19:23)
[2020-02-04 20:11] LABS: Urine Blood TRACE (NEG); Urine Glucose NEGATIVE (NEG); Urine Protein NEGATIVE (NEG); Urine Specific Gravity 1.015 (1.005-1.030)
--- NOTE | 2020-02-04 20:12 | EDPHYS ---
Physician Documentation [facility] Name: Shilpa Samaniego Age: 89 yrs Sex: Female : 1930 Arrival Date: 02/04/2020 Time: 16:22 Bed 14 Private MD: Brant Daley E ED Physician Dio Cordon HPI: 02/03 17:10 This 89 yrs old Female presents to ER via Wheelchair with complaints of cp Breathing Difficulty. 17:10 The patient has shortness of breath at rest. cp 17:10 Onset: The symptoms/episode began/occurred today. Duration: The symptoms are continuous.cp 17:10 Associated signs and symptoms: Pertinent positives: pain and tingling right arm, cp Pertinent negatives: chest pain, productive cough, diaphoresis, fever, vomiting. Severity of symptoms: in the emergency department the symptoms are unchanged despite home interventions. Historical: - Allergies: 16:35 Augmentin; jd3 16:35 Cefpodoxime; jd3 16:35 Cefuroxime; jd3 16:35 Ciprofloxacin; jd3 16:35 Demerol; jd3 16:35 Levofloxacin; jd3 16:35 NSAIDS; jd3 16:35 PENICILLINS; jd3 16:35 Sulfa (Sulfonamide Antibiotics); jd3 - PMHx: 16:35 Hypertension; Rheumatoid Arthritis; Hyperlipidemia; hiatal hernia; DVT; LLE; COPD; jd3 Atrial Fib; Anxiety; Pacemaker; - Immunization history:: Adult Immunizations up to date. - Social history:: Smoking status: Patient denies any tobacco usage or history of. ROS: 17:10 Constitutional: Negative for body aches, chills, fever, poor PO intake. cp 17:10 Eyes: Negative for injury, pain, redness, and discharge. cp 17:10 ENT: Negative for ear pain, sore throat, difficulty swallowing, difficulty handling secretions. 17:10 Cardiovascular: Negative for chest pain, palpitations. 17:10 Respiratory: Positive for shortness of breath, at rest. Negative for cough, wheezing. 17:10 Abdomen/GI: Negative for abdominal pain, nausea, vomiting, and diarrhea. 17:10 Back: Positive for pain at rest, of the mid back area. 17:10 Neuro: Negative for altered mental status, headache, numbness, syncope, weakness. Exam: 17:10 ECG was reviewed by the Attending Physician. cp 17:15 Constitutional: The patient appears in no acute distress, alert, awake, cp non-diaphoretic, non-toxic, well developed, well nourished. 17:15 Head/Face: Normocephalic, atraumatic. cp 17:15 Eyes: Periorbital structures: appear normal, Conjunctiva: normal, no exudate, no injection, Sclera: no appreciated abnormality, Lids and lashes: appear normal, bilaterally. 17:15 ENT: External ear(s): are unremarkable, Nose: is normal, Mouth: Lips: moist, Oral mucosa: pink and intact, moist, Posterior pharynx: Airway: no evidence of obstruction, patent. 17:15 Neck: ROM/movement: is normal, is supple, without pain, no range of motions limitations. 17:15 Chest/axilla: Inspection: normal, Palpation: is normal, no crepitus, no tenderness. 17:15 Cardiovascular: Rate: normal, Rhythm: regular, Edema: ankle edema, that is mild, JVD: is not appreciated. 17:15 Respiratory: the patient does not display signs of respiratory distress, Respirations: labored breathing, is not present, intercostal retractions, are absent, shallow respirations, that is mild, Breath sounds: are clear throughout, no decreased breath sounds, no stridor, no wheezing. 17:15 Abdomen/GI: Inspection: abdomen appears normal, Palpation: abdomen is soft and non-tender, in all quadrants. 17:15 Back: pain, that is mild, of the mid back area, ROM is normal. 17:15 Skin: no rash present. 17:15 Neuro: Orientation: to person, place \T\ time. Mentation: is normal, Cerebellar function: is grossly normal, Motor: moves all fours, strength is normal, Sensation: no obvious gross deficits. Vital Signs: 16:35 Pulse 85; Resp 26 S; Temp 97.4(TE); Pulse Ox 97% on R/A; Weight 86.18 kg (R); Height 5 jd3 ft. 10 in. (177.80 cm) (R); Pain 8/10; 16:50 BP 132 / 72; ca1 17:00 BP 153 / 68; Pulse 76; Resp 16 S; Pulse Ox 100% on 2 lpm NC; ca1 17:30 BP 136 / 69; Pulse 81; Resp 16 S; Pulse Ox 99% on 2 lpm NC; ca1 18:00 BP 119 / 61; Pulse 80; Resp 16 S; Pulse Ox 100% on R/A; ca1 19:00 BP 116 / 93; Pulse 78; Resp 16 S; Pulse Ox 99% on R/A; ca1 20:00 BP 145 / 59; Pulse 72; Resp 19 S; Pulse Ox 100% on R/A; ca1 16:35 Body Mass Index 27.26 (86.18 kg, 177.80 cm) jd3 MDM: 16:53 Patient medically screened. cp 17:45 Differential diagnosis: CHF exacerbation, Chronic Obstructive Pulmonary Disease cp Myocardial Infarction pneumonia, Pneumothorax pulmonary edema, Pulmonary Embolism Unstable Angina. 20:11 Data reviewed: vital signs, nurses notes, lab test result(s), EKG, radiologic studies, cp CT scan, plain films. 20:11 Test interpretation: by ED physician or midlevel provider: ECG. Counseling: I had a cp detailed discussion with the patient and/or guardian regarding: the historical points, exam findings, and any diagnostic results supporting the discharge/admit diagnosis, lab results, radiology results, the need for outpatient follow up, an leak patcher, to return to the emergency department if symptoms worsen or persist or if there are any questions or concerns that arise at home. Response to treatment: the patient's symptoms have markedly improved after treatment. ED course: VSS. Patient reports symptoms improved. CT chest negative for PE today. No signs of respiratory distress. Will discharge to home for continued monitoring. 02/03 17:06 Order name: Basic Metabolic Panel; Complete Time: 17:53 02/03 18:35 Interpretation: Normal except: CO2 33; GLUC 128; BUN 30; CRE 1.48; GFR 33. 02/03 17:06 Order name: CBC with Diff; Complete Time: 17:53 02/03 18:35 Interpretation: Reviewed. 02/03 17:06 Order name: LFT's; Complete Time: 17:53 02/03 17:06 Order name: Magnesium; Complete Time: 17:53 02/03 17:06 Order name: NT PRO-BNP; Complete Time: 17:53 02/03 17:06 Order name: PT-INR; Complete Time: 17:53 02/03 17:06 Order name: Troponin (emerg Dept Use Only); Complete Time: 17:53 02/03 17:06 Order name: XRAY Chest (1 view); Complete Time: 19:05 02/03 17:06 Order name: EKG; Complete Time: 17:07 02/03 17:06 Order name: Urine Microscopic Only; Complete Time: 20:23 02/03 17:08 Order name: CT Chest For PE Angio: histery of PE, increasing SOB today; Complete Time: cp 19:05 02/03 19:07 Interpretation: Report reviewed. 02/03 20:05 Order name: Urine Dipstick--Ancillary (enter results); Complete Time: 20:23 ds4 02/03 20:23 Interpretation: Normal except: UBLD TRACE. 02/03 17:06 Order name: Cardiac monitoring; Complete Time: 17:28 02/03 17:06 Order name: EKG - Nurse/Tech; Complete Time: 17:29 02/03 17:06 Order name: IV Saline Lock; Complete Time: 17:29 02/03 17:06 Order name: Labs collected and sent; Complete Time: 17:29 02/03 17:06 Order name: O2 Per Protocol; Complete Time: 17:29 02/03 17:06 Order name: O2 Sat Monitoring; Complete Time: 17:29 02/03 17:06 Order name: Urine Dipstick-Ancillary (obtain specimen); Complete Time: 20:04 cp EC:10 Rate is 82 beats/min. Rhythm is regular. AL interval is normal. QRS interval is normal. cp QT interval is normal. T waves are Inverted in lead aVR. Interpreted by me. Reviewed by me. Administered Medications: 17:58 Drug: Valium 2 mg Route: PO; ca1 20:00 Follow up: Response: No adverse reaction; Marked relief of symptoms ca1 19:31 Drug: Lasix 20 mg Route: IVP; Site: right antecubital; ca1 20:00 Follow up: Response: No adverse reaction ca1 Disposition: 02/04 07:06 Co-signature as Attending Physician, Dio Cordon MD. rn Disposition: 02/04/20 20:12 Discharged to Home. Impression: Shortness of breath. - Condition is Stable. - Discharge Instructions: Shortness of Breath, Aspirin and Your Heart. - Medication Reconciliation Form, Thank You Letter, Antibiotic Education, Prescription Opioid Use form. - Follow up: Private Physician; When: 2 - 3 days; Reason: Recheck today's complaints. - Problem is new. - Symptoms have improved. Signatures: Dispatcher [employer] EDDio Shaffer MD MD rn Deep Arthur PA PA cp Davies, Jonathon, RN RN jd3 Miranda De La Cruz RN RN ca1 Corrections: (The following items were deleted from the chart) 02/03 20:34 20:12 02/04/2020 20:12 Discharged to Home. Impression: Shortness of breath. Condition ca1 is Stable. Forms are Medication Reconciliation Form, Thank You Letter, Antibiotic Education, Prescription Opioid Use. Follow up: Private Physician; When: 2 - 3 days; Reason: Recheck today's complaints. Problem is new. Symptoms have improved. cp
--- NOTE | 2020-02-04 20:12 | ER ---
Nurse's Notes [facility] Name: Shilpa Samaniego Age: 89 yrs Sex: Female : 1930 Arrival Date: 02/04/2020 Time: 16:22 Bed 14 Private MD: Brant Daley E Diagnosis: Shortness of breath Presentation: 02/03 16:33 Chief complaint: Patient states: "I am having shortness of breath and back pain. I just jd3 was hospitalized for a blood clot in my lung.". Coronavirus screen: At this time, the client does not indicate any symptoms associated with coronavirus-19. Ebola Screen: Patient negative for fever greater than or equal to 101.5 degrees Fahrenheit, and additional compatible Ebola Virus Disease symptoms. Initial Sepsis Screen: Does the patient meet any 2 criteria? No. Patient's initial sepsis screen is negative. Does the patient have a suspected source of infection? No. Patient's initial sepsis screen is negative. Risk Assessment: Do you want to hurt yourself or someone else? Patient reports no desire to harm self or others. Onset of symptoms was February 04, 2020. 16:33 Method Of Arrival: Wheelchair jd3 16:33 Acuity: LESA 3 jd3 Historical: - Allergies: 16:35 Augmentin; jd3 16:35 Cefpodoxime; jd3 16:35 Cefuroxime; jd3 16:35 Ciprofloxacin; jd3 16:35 Demerol; jd3 16:35 Levofloxacin; jd3 16:35 NSAIDS; jd3 16:35 PENICILLINS; jd3 16:35 Sulfa (Sulfonamide Antibiotics); jd3 - PMHx: 16:35 Hypertension; Rheumatoid Arthritis; Hyperlipidemia; hiatal hernia; DVT; LLE; COPD; jd3 Atrial Fib; Anxiety; Pacemaker; - Immunization history:: Adult Immunizations up to date. - Social history:: Smoking status: Patient denies any tobacco usage or history of. Screenin:50 Abuse screen: Denies threats or abuse. Denies injuries from another. Nutritional ca1 screening: No deficits noted. Tuberculosis screening: No symptoms or risk factors identified. Fall Risk IV access (20 points). Assessment: 16:50 General: Appears in no apparent distress. uncomfortable, Behavior is calm, cooperative, ca1 appropriate for age. Pain: Complains of pain in left scapular area, right scapular area, left subscapular area, right subscapular area, left mid back and right mid back Pain currently is 8 out of 10 on a pain scale. Pain began at 1200 today. Neuro: Level of Consciousness is awake, alert, obeys commands, Oriented to person, place, time, situation, Appropriate for age. Cardiovascular: Rhythm is sinus rhythm. Respiratory: Reports shortness of breath at rest since 1200 today Airway is patent Respiratory effort is even, unlabored, Respiratory pattern is regular, tachypnea GI: Abdomen is round non-distended, Bowel sounds present X 4 quads. Abd is soft and non tender X 4 quads. : No signs and/or symptoms were reported regarding the genitourinary system. EENT: No signs and/or symptoms were reported regarding the EENT system. Derm: Skin is intact, is healthy with good turgor, Skin is pink, warm \\T\\ dry. Musculoskeletal: Circulation, motion, and sensation intact. Capillary refill < 3 seconds. 17:42 Reassessment: Patient appears in no apparent distress at this time. Patient and/or ca1 family updated on plan of care and expected duration. Pain level reassessed. Patient is alert, oriented x 3, equal unlabored respirations, skin warm/dry/pink. 18:30 Reassessment: Patient appears in no apparent distress at this time. Patient and/or ca1 family updated on plan of care and expected duration. Pain level reassessed. Patient is alert, oriented x 3, equal unlabored respirations, skin warm/dry/pink. 18:38 Reassessment: Pt to CT at this time. ca1 19:30 Reassessment: Patient appears in no apparent distress at this time. Patient and/or ca1 family updated on plan of care and expected duration. Pain level reassessed. Patient is alert, oriented x 3, equal unlabored respirations, skin warm/dry/pink. 20:33 Reassessment: Patient appears in no apparent distress at this time. Patient is alert, ca1 oriented x 3, equal unlabored respirations, skin warm/dry/pink. Vital Signs: 16:35 Pulse 85; Resp 26 S; Temp 97.4(TE); Pulse Ox 97% on R/A; Weight 86.18 kg (R); Height 5 jd3 ft. 10 in. (177.80 cm) (R); Pain 8/10; 16:50 BP 132 / 72; ca1 17:00 BP 153 / 68; Pulse 76; Resp 16 S; Pulse Ox 100% on 2 lpm NC; ca1 17:30 BP 136 / 69; Pulse 81; Resp 16 S; Pulse Ox 99% on 2 lpm NC; ca1 18:00 BP 119 / 61; Pulse 80; Resp 16 S; Pulse Ox 100% on R/A; ca1 19:00 BP 116 / 93; Pulse 78; Resp 16 S; Pulse Ox 99% on R/A; ca1 20:00 BP 145 / 59; Pulse 72; Resp 19 S; Pulse Ox 100% on R/A; ca1 16:35 Body Mass Index 27.26 (86.18 kg, 177.80 cm) jd3 ED Course: 16:22 Patient arrived in ED. ag5 16:22 Brant Daley MD is Private Physician. ag5 16:34 Triage completed. jd3 16:37 Arm band placed on. jd3 16:43 Miranda De La Cruz, SABI is Primary Nurse. ca1 16:50 Patient has correct armband on for positive identification. Placed in gown. Bed in low ca1 position. Call light in reach. Side rails up X2. quality assurance monitor body on. Pulse ox on. NIBP on. Warm blanket given. Head of bed elevated. 16:52 Deep Arthur PA is PHCP. cp 16:52 Dio Cordon MD is Attending Physician. cp 16:57 Initial lab(s) drawn, by me, held in ED. Inserted saline lock: 20 gauge in right ca1 antecubital area, using aseptic technique. Blood collected. 17:18 XRAY Chest (1 view) In Process Unspecified. EDMS 18:45 CT Chest For PE Angio: histery of PE, increasing SOB today In Process Unspecified. EDMS 20:04 Urine Microscopic Only Sent. ds4 20:34 No provider procedures requiring assistance completed. IV discontinued, intact, ca1 bleeding controlled, No redness/swelling at site. Pressure dressing applied. Administered Medications: 17:58 Drug: Valium 2 mg Route: PO; ca1 20:00 Follow up: Response: No adverse reaction; Marked relief of symptoms ca1 19:31 Drug: Lasix 20 mg Route: IVP; Site: right antecubital; ca1 20:00 Follow up: Response: No adverse reaction ca1 Outcome: 20:12 Discharge ordered by . cp 20:34 Discharged to home ambulatory, with family. ca1 20:34 Condition: stable 20:34 Discharge instructions given to patient, Instructed on discharge instructions, follow up and referral plans. Demonstrated understanding of instructions, follow-up care. 20:34 Patient left the ED. ca1 Signatures: Dispatcher [employer] EDMS Shiv Meza ds4 Deep Arthur PA PA cp Davies, Jonathon, RN RN jd3 Miranda De La Cruz RN RN ca1 Alfonso Lazcano ag5 Corrections: (The following items were deleted from the chart) 16:58 16:57 Initial lab(s) drawn, by me, sent to lab. ca1 ca1
[2020-02-04 20:19] LABS: Urine Bacteria <20 /HPF (<20); Urine Culture Reflex Order NOT NEEDED; Urine RBC <5 /HPF (NONE SEEN)
[2020-02-04 23:06] VITALS: BP 145/59; O2SAT 100
[2020-02-04 23:23] VITALS: TEMP 97.8
--- NOTE | 2020-02-05 07:41 | EKG ---
Test Date: 2020-02-04 Test Time: 17:04:36 Senior Scheduler: SANGEETA MEASUREMENT RESULTS: Intervals: Rate: 82 DC: 172 QRSD: 80 QT: 380 QTc: 443 [place]: P: 90 DC: 172 QRS: 61 T: 48 INTERPRETIVE STATEMENTS: Normal sinus rhythm Normal ECG Compared to ECG 01/30/2020 18:41:58 No significant changes Electronically Signed On 02-05-20 07:40:31 ASTRONOMY TEACHER by Ángel Jane
== END 2020-02-04 20:34 | disposition home or self-care (01) ==
LOC: ER 16:21
DX: R06.02 Shortness of breath (principal); R20.2 Paresthesia of skin; I10 Essential (primary) hypertension; J44.9 Chronic obstructive pulmonary disease, unspecified; Z95.0 Presence of cardiac pacemaker; Z88.0 Allergy status to penicillin; Z88.1 Allergy status to other antibiotic agents; Z88.2 Allergy status to sulfonamides; Z88.6 Allergy status to analgesic agent; Z88.8 Allergy status to other drugs, medicaments and biological substances
CPT/HCPCS: 93005; 85025; 80048; 36415; 83735; 85610; 80076; 84484; 83880; 71275; 71045; 96374; 99284; Q9967; J1940; 81003; 81015

== ENCOUNTER 2020-02-26 15:47 | Emergency (ER) | payer OTHER ==
--- OUTSIDE RECORDS SUMMARY | 2020-02-26 15:49 | XMS REPORT | Continuity of Care Document ---
:1930 Author Organization [employer] Care Team Providers Name Role Phone [employer] Unavailable Un available Problems Problem Status Onset Classification Date Comments Sour e Date Reported Discharge 09/12/2015 [facility] Diagnosis: Lower 6 Med ical extremity pain, Cent er right BLOOD CLOT THIGH Active [address] Atrial Active Problem 01/26/2019 Medica l fibrillation Group,M H (disorder) [facility] Blood clot Active Problem 09/12/2015 [facility] (morphologic Medical abnormality) [place] Medications Medication Details Route Status Patient Ordering Order Source Instructions Provider Date Estradiol 0.1 1 gm, TOP, Active MH MG/ML Vaginal Bedtime, 019 Medical Cream [Estrace] use 3 Group times a week, # 1 tube, 5 Refill(s), Pharmacy: [id number] Estrogens, 1 appl, Active MH Conjugated (SKILLED NURSING) VAG, Q-M 019 Medica l 0.625 MG/ML and Th, # Group Vaginal Cream 30 gm, 11 [Premarin] Refill(s), Pharmacy: [facility] #[id number] levothyroxine 100 0 Active MH mcg [...] MG tab, 0 Center Oral Tablet Refill(s) [[place] 5/325] Acetaminophen 325 Notes: Inactive [place] MG / Hydrocodone (Same as: 016 Medic al Bitartrate 5 MG [place] Center Oral Tablet 325/5) Do not exceed [...] Medical Grou p BMI Calculated 28.12 12/22/2018 [facility] oup Heart Rate 88 09/09/2015 [facility] Center Systolic (mm Hg) 152 09/09/2015 [facility] Center Diastolic (mm Hg) 82 09/09/2015 [facility] Temperature Oral (F) 98.1 F 09/09/2015 [facility] Respitory Rate 16 09/09/2015 [facility] BMI Calculated 25.88 09/09/2015 [facility] Weight 81.818 09/09/2015 [facility] Height 177.8 cm 09/09/2015 [facility] Respitory Rate 16 09/09/2015 [facility] Heart Rate 99 09/09/2015 [facility] l [place] Systolic (mm Hg) 148 09/09/2015 [facility] [place] Diastolic (mm Hg) 79 09/09/2015 [facility] Temperature Oral (F) 98.2 F 09/09/2015 [facility] Encounters Location Location Encounter Encounter Reason Attending ADM DC Stat us Source Details Type Number For Provider Date Date Visit [facility] [id number] Eli 09/08 09/08 M Chung Emma Rosalesann Emergency [place] /2015 [facility] Outpatient [id number] Rigoberto 12/15 Active [facility] [place] [facility] [id number] [place] 12/22 Active [facility] [place] [facility] Multi Ambulatory [id number] [place] 12/22 12/22 Specialty Pre-Reg Medica l [facility] Multi Outpatient [id number] [place] 12/22 12/23 [facility] Outpatient [id number] NURSE 01/10 Active [facility] VISIT [place] [facility] [id number] [place] 01/10 Active [facility] [place] [facility] Outpatient [id number] [place] 01/10 01/11 [facility] Time Share Outpatient [id number] [place] 01/24 Active [facility] [place] Outpatient [id number] NURSE 01/24 Active [facility] VISIT [facility] Ambulatory [id number] [place] 01/24 01/24 [facility] Time Share [facility] Ambulatory [id number] NURSE 01/24 01/24 Urology Pre-Reg VISIT /2018 [facility] Time Share Procedures Procedure Code Date Perfomer Comments Source Complex [id number] 01/10/2019 Medical uroflowmetry (eg, Group calibrated [place] [id number] 01/10/2019 Medical post-voiding Group residual urine and/or [...] on: 12/22/18 Social History TypeResponse 09/09/2015 [facility] Smoking Status Former smoker; Exposure to Tobacco Smoke None; Cigarette Smoking Last 365 Days No; Reg Smoking Cessation Counseling No Family History No Data Provided for This Section Advance Directives No Data Provided for This Section Functional Status No Data Provided for This Section
--- OUTSIDE RECORDS SUMMARY | 2020-02-26 15:49 | XMS REPORT | Clinical Summary ---
:1930 Author Organization [facility] Address [address] [place] [address] Care Team Providers Name Role Phone Amor [...] ARTHROPLASTY ; Surgeon: Holly edmondson MD; Location: [facility] OP C 19 OR; Service: Orthope [...] INFLUENZA VACCINE 10/22/2019 Implants Implanted Type Area Special Procedures Nurse Device Shelf Model / Identifier Expiration Serial / Lot Date Screw Bone Canc 6.5x30mm - [id number] Hip Joint Right: DEPUY ORTHO [id number] / Implanted: Qty: 1 on 02/21/2016 by Holly Ferguson MD at [facility] Implants Hip / Screw Bone Canc Dome 6.5x25mm Ltxf [place] - [id number] Hip Join t Right: DEPUY ORTHO [id number] / Implanted: Qty: 1 on 02/21/2016 by Holly Ferguson MD at [facility] Implants Hip / Shell Actblr Sector Series W/ Gripton 54mm [place] - [id number] Hip Joint Right: DEPUY 12/20/2025 [id number] / Implanted: Qty: 1 on 02/21/2016 by Holly Ferguson MD at [facility] Implants Hip ORTHO-KNEES / [id number] Liner Actblr Neut Altra Linked Pe [id number] Altrx - [id number] H ip Joint Right: DEPUY 06/20/2020 [id number] / Implanted: Qty: 1 on 02/21/2016 by Holly Ferguson MD at [facility] Implants Hip ORTHO-KNEES / [id number] Stem Fml Bone Presrvtn Std Ofst Sz 6 107mm Tri-Lock - [id number] Hip Joint Right: DEPUY 10/20/2024 [id number] / Implanted: Qty: 1 on 02/21/2016 by Holly Ferguson MD at [facility] Implants Hip ORTHO-KNEES / [id number] [place] Fracture System Biolox Delta Ceram ic Femoral Heads Size 36 +5.0 Mm Articul/Lamont 03/05 Taper Ceramic Femoral Heads - [id number] IPM IMPLANT Ri ght: DEPUY 11/20/2020 [id number] / Implanted: Qty: 1 on 02/21/2016 by Holly Ferguson MD at [facility] DEVICES Hip ORTHOP[employer]ED[employer] / [id number] Results Not on fileafter 02/25/2019 Insurance Payer Benefit Plan / Subscriber ID Effective Dates Phone Addre ss Type Group MEDICARE MEDICARE PART A [id number] 1997-Present [place], [place] Medicare AND B AETNA AETNA [id number] 2012-Present [place] H[place],POS,EPO, MC/EC Advance Directives For more information, please contact: [phone] Type Date Recorded 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
--- OUTSIDE RECORDS SUMMARY | 2020-02-26 15:49 | XMS REPORT | Continuity of Care Document ---
:[address] [facility] t Address [address] [place] [address] Care Team Providers Name Role Phone Gloria [...] Memoria THIGH 09-08 14:53:00 l BLOOD 00:00: [place] CLOT THIGH 00 Active 09/09/2015 [facility] Atrial Problem Active 2019-01-26 Memor ia fibrillati 22:20:48 l on Atrial [place] (disorder) fibrillati on (disorder) Active Problem 01/26/2019 Medical Group,[facility] Blood clot Problem Active 2015-09-12 M emma (morpholog 00:32:37 l ic Blood [place] abnormalit clot y) (morpholog ic abnormalit y) Active Problem 6 [facility] Discharge Problem 2015-09-12 2015-09-12 Memoria Diagnosis: 09-08 00:32:37 00:32:37 l Lower 05:00: [place] extremity Discharge 00 pain, Diagnosis: right Lower extremity pain, right 09/09/2015 09/12/2015 [facility] Allergies, Adverse Reactions, Alerts Allergy Allergy Status Severity Reaction(s) Onset Inactive Treating Comm ents Source Name Type Date Date Clinician Augmenti Augmenti Active Memori a n n l [place] Family History Family Member Diagnosis Comments Start Date Stop Date Source Natural sister Stroke [facility] thodist Social History Social Habit Start Date Stop Date Quantity Comments Source Sex Assigned At [facility] ethodist Tobacco use and 2016-02-22 2016-02-22 Never used [facility] ethodist exposure 00:00:00 00:00:00 Alcohol intake 2016-02-22 2016-02-22 Current [facility] thodist 00:00:00 00:00:00 non-drinker of alcohol (finding) Smoking Status Start Date Stop Date Source Never smoker [place] [facility] t Social History 2015-09-09 19:01:11 2015-09-09 19:01:11 [facility] Medications Ordered Filled Start Stop Current Ordering Indication Dosage Frequency Signature Comments Components Source Medication Medication Date Date Medication? Clinician (SIG) Name Name Estradiol 2018-03 Yes 1 gm, TOP, Me moria 0.1 MG/ML 0-04 Bedtime, l Vaginal 16:17: use 3 [place] Cream 00 times a [Estrace] week, # 1 tube, 5 Refill(s), Pharmacy: [id number] Estrogens, 2018-03 Yes 1 appl, Bj starla Conjugated 0-02 VAG, Q-M l (ASSISTED) 0.625 14:52: and Th, # H ermann MG/ML 00 30 gm, 11 Vaginal Refill(s), Cream Pharmacy: [Premarin] [id number] levothyroxi 2018-03 Yes 0 Memori a ne 100 mcg 0-02 Refill(s) l (0.1 mg) 13:25: [place] oral tablet 00 nitrofurant 2018-03 Yes 0 Memori a oin 0-02 Refill(s) l macrocrysta 13:25: [place] n ls-monohydr 00 ate 100 mg oral capsule (Macrobid) zolpidem 5 2018-03 Yes 0 Memoria mg oral 0-02 Refill(s) l tablet 13:25: [place] 00 Metoprolol 2018-03 Yes 0 Memoria Tartrate 50 0-02 Refill(s) l mg oral 13:25: [place] tablet 00 Furosemide 2018-03 Yes 0 Memoria 40 MG Oral 0-02 Refill(s) l Tablet 13:25: [place] 00 Amoxicillin 2018-03 Yes 0 Memori a [...] Bitartrate 00 Refill(s) 5 MG Oral Tablet [[place] 5/325] Acetaminoph No Notes: Bj starla en 325 MG / 09-08 (Same as: l Hydrocodone 18:29: [place] Myriam nn Bitartrate 00 325/5) Do 5 MG Oral not exceed Tablet 4gm/day of acetaminop hen. Vital Signs Vital Name Observation Time Observation Value Comments Source Height 2018-12-22 13:22:00 175.26 cm [facility] [place] Weight 2018-12-22 13:22:00 [facility] BMI Calculated 2018-12-22 13:22:00 Memori al [place] Heart Rate 2015-09-09 20:21:00 [facility] [place] Systolic (mm Hg) 2015-09-09 20:21:00 Bj rial [place] Diastolic (mm Hg) 2015-09-09 20:21:00 Mem orial [place] Temperature Oral (F) 2015-09-09 20:21:00 98.1 F [facility] Respitory Rate 2015-09-09 20:21:00 Memori al [place] BMI Calculated 2015-09-09 17:44:00 Memori al [place] Weight 2015-09-09 17:44:00 [facility] [place] Height 2015-09-09 17:44:00 177.8 cm [facility] Respitory Rate 2015-09-09 17:44:00 Memori al [place] Heart Rate 2015-09-09 17:44:00 [facility] [place] Systolic (mm Hg) 2015-09-09 17:44:00 Bj ozuna [place] Diastolic (mm Hg) 2015-09-09 17:44:00 Mem orialexei [place] Temperature Oral (F) 2015-09-09 17:44:00 98.2 F Brittany Hernandez Procedures Procedure Date / Time Performed Performing Clinician [facility] e Complex uroflowmetry (eg, 2019-01-10 17:20:00 Ma blaine Hernandez calibrated electronic equipment) Measurement of 2019-01-10 17:20:00 Brittany farooq post-voiding residual urine and/or bladder capacity by ultrasound, non-imaging Plan of Care Planned Activity Planned Date Details Comments Source Future Scheduled 2019-10-22 INFLUENZA VACCINE [place] [facility] 00:00:00 [code = INFLUENZA VACCINE] Future Scheduled 1997 65+ PNEUMOCOCCAL [place] [facility] 00:00:00 VACCINE (1 of 1 - PPSV23) [code = 65+ PNEUMOCOCCAL VACCINE (1 of 1 - PPSV23)] Future Scheduled 1982 SHINGLES VACCINES (#1) [facility] 00:00:00 [code = SHINGLES VACCINES (#1)] Encounters Start End Encounter Admission Attending Care Care Encounter Source Date/Time Date/Time Type Type Clinicians Facility Department ID 2019-12-10 2019-12-10 Emergency [facility] [id number] 12:56:00 14:28:00 Tim Rutherford [id number] [place] [id number] [place] [id number] 2019-12-10 2019-12-10 Orders Doctor CARR [id number] 00:00:00 00:00:00 Only Unassigned, VAZQUEZ [id number] [place] [facility] [id number] 2019-10-21 2019-11-01 Office [facility] [id number] 10:06:35 12:32:49 Visit Liliam Rutherford [id number] [place] [id number] [place] [id number] [address] 2019-01-24 2019-01-24 Outpatient VISIT, [facility] [id number] 10:00:00 10:00:00 NURSE ARTUR 05 2019-01-24 2019-01-24 Outpatient Leonie, [facility] [id number] 09:40:00 09:40:00 Nato Johnson 2019-01-10 2019-01-10 Outpatient Leonie, [facility] [id number] 10:00:00 23:59:59 Nato S 2018-12-22 2018-12-22 Outpatient Leonie, [facility] [id number] 09:45:00 23:59:59 Nato S 2018-12-22 2018-12-22 Outpatient Leonie, [facility] [id number] 09:00:00 09:00:00 Nato Johnson 2015-09-09 2015-09-09 Outpatient Reji [facility] [id number] 12:38:00 15:23:00 Eli Griffin 00 Results This patient has no known results.
[2020-02-26] MEDS ORDERED: ONDANSETRON 4 MG/2 ML VIAL ONE (16:36)
[2020-02-26] MEDS ORDERED: MECLIZINE HCL 12.5 MG TAB ONE (16:36)
[2020-02-26] MEDS ORDERED: DIAZEPAM 10 MG/2 ML INJ SYRINGE ONE (16:36)
[2020-02-26] MEDS ORDERED: DIAZEPAM 2 MG TABLET ONE (16:37)
[2020-02-26] MEDS ORDERED: NA CHLORIDE 0.9% 500 ML ONE (16:37)
[2020-02-26 16:59] LABS: Absolute Lymphocytes (CBC) 1.3 K/uL (0.7-4.9); Basophils % 1.2 % (0-1.3); Hematocrit 37.2 % (36.0-45.0); Lymphocytes % 21.9 % (15.3-44.8); MPV 7.9 fL (7.6-11.3); RBC Red Blood Cell Count 4.23 M/uL (3.86-4.86)
--- NOTE | 2020-02-26 17:13 | RAD REPORT ---
EXAM DESCRIPTION: CT - Head Brain Wo Cont - 02/26/2020 5:04 pm CLINICAL HISTORY: DIZZINESS Headache, drowsiness COMPARISON: Head Brain Wo Cont dated 10/14/2017; Head Brain Wo Cont dated 03/29/2016 TECHNIQUE: All CT scans are performed using dose optimization technique as appropriate and may inclu de automated exposure control or mA/KV adjustment according to patient size. FINDINGS: No intracranial hemorrhage, hydrocephalus or extra-axial fluid collection.Mild generalized brain atrophy is present with mild periventricular and deep white matter chronic microvascular ische fern changes.No areas of brain edema or evidence of midline shift. The paranasal sinuses and mastoids are clear. The calvarium is intact. IMPRESSION: No acute intracranial abnormality.
--- NOTE | 2020-02-26 17:15 | RAD REPORT ---
EXAM DESCRIPTION: CT - Head angio - 02/26/2020 5:03 pm CLINICAL HISTORY: DIZZINESS Headache, drowsiness COMPARISON: Head Brain Wo Cont dated 02/26/2020; Head Brain Wo Cont dated 10/14/2017 TECHNIQUE: CT angiography of the head was performed with MIPs. All CT scans are performed using dose optimization technique as appropriate and may include automated exposure control or mA/KV adjustment according to patient size. FINDINGS: No evidence of aneurysm is detected. No flow-limiting stenosis or vascular malformation id entified. Antegrade flow is seen in the vertebral arteries. The vertebral arteries are codominant. The visualized dural venous sinuses are patent. IMPRESSION: No significant flow abnormality is detected.
--- NOTE | 2020-02-26 17:17 | RAD REPORT ---
EXAM DESCRIPTION: CT - Neck Angio - 02/26/2020 5:04 pm CLINICAL HISTORY: dizziness Headache, drowsiness COMPARISON: Head C Spine Mpr Wo Con dated 12/30/2016 TECHNIQUE: CT angiography of the neck vessels was performed with MIPs. All CT scans are performed using dose optimization technique as appropriate and may include automated exposure control or mA/KV adjustment according to patient size. FINDINGS: A left aortic arch is identified with normal three vessel configuration of the great vesse ls. No significant flow abnormality is seen of the common carotid bilaterally. No significant stenosis is identified involving the cervical segments of both internal carotid arteri es. Normal flow is seen within both vertebral arteries. Moderate lower cervical degenerative change. IMPRESSION: No significant flow abnormality of the neck vessels is identified.
[2020-02-26 17:18] LABS: BUN Blood Urea Nitrogen 28 mg/dL (7-18); Bicarbonate 32 mmol/L (21-32); Glucose Level 114 mg/dL (74-106); Potassium 4.1 mmol/L (3.5-5.1); Sodium Level 142 mmol/L (136-145); Troponin (Emerg Dept Use Only) < 0.02 ng/mL (0.0-0.045)
[2020-02-26 17:22] LABS: Protime INR 1.29
--- NOTE | 2020-02-26 18:01 | ER ---
Nurse's Notes [facility] Name: Shilpa Samaniego Age: 89 yrs Sex: Female : 1930 Arrival Date: 02/26/2020 Time: 15:48 Bed 5 Private MD: Brant Daley E Diagnosis: Vertigo Presentation: 02/25 15:51 Chief complaint: Patient states: I was just sitting in the chair, the phone ring, I ca1 went to get up but I couldn't get up. I had to crawl to get to the floor. I was very dizzy, and I was just sick when I moved my head. This happened 2.5 hrs ago. I was just dizzy and couldn't get up. It's so bad, I couldn't get up. I have vertigo. But I've never had this dizziness like this except before they put in my pacemaker 4 years ago. Coronavirus screen: Client denies travel out of the [place] in the last 14 days. At this time, the client does not indicate any symptoms associated with coronavirus-19. Ebola Screen: Patient negative for fever greater than or equal to 101.5 degrees Fahrenheit, and additional compatible Ebola Virus Disease symptoms Patient denies exposure to infectious person. Patient denies travel to an Ebola-affected area in the 21 days before illness onset. No symptoms or risks identified at this time. Initial Sepsis Screen: Does the patient meet any 2 criteria? No. Patient's initial sepsis screen is negative. Does the patient have a suspected source of infection? No. Patient's initial sepsis screen is negative. Risk Assessment: Do you want to hurt yourself or someone else? Patient reports no desire to harm self or others. Onset of symptoms was February 26, 2020. 15:51 Method Of Arrival: Wheelchair ca1 15:51 Acuity: LESA 3 ca1 16:17 No acute neurological deficit is noted. Pre-hospital glucose is not applicable to this ph patient. Historical: - Allergies: 16:02 Augmentin; ca1 16:02 Cefpodoxime; ca1 16:02 Cefuroxime; ca1 16:02 Ciprofloxacin; ca1 16:02 Demerol; ca1 16:02 Levofloxacin; ca1 16:02 NSAIDS; ca1 16:02 PENICILLINS; ca1 16:02 Sulfa (Sulfonamide Antibiotics); ca1 - PMHx: 16:02 Anxiety; Atrial Fib; COPD; DVT; LLE; hiatal hernia; Hyperlipidemia; Hypertension; ca1 Pacemaker; Rheumatoid Arthritis; - Immunization history:: Adult Immunizations up to date. - Social history:: Smoking status: Patient denies any tobacco usage or history of. - Family history:: not pertinent. - Hospitalizations: : No recent hospitalization is reported. Screenin:16 Abuse screen: Denies threats or abuse. Denies injuries from another. Nutritional ph screening: No deficits noted. Tuberculosis screening: No symptoms or risk factors identified. Fall Risk No fall in past 12 months (0 pts). No secondary diagnosis (0 pts). IV access (20 points). Ambulatory Aid- None/Bed Rest/Nurse Assist (0 pts). Gait- Weak (10 pts.). Mental Status- Oriented to own ability (0 pts). Total Garcia Fall Scale indicates Low Risk Score (25-44 pts). Fall prevention measures have been instituted. Side Rails Up X 2 Placed close to Nursing Station Frequent Obs/Assesments occuring Family Present and informed to notify staff if they need to leave bedside As available Patient and Family Educated on Fall Prevention Program and strategies. Assessment: 16:14 VAN Scoring: Arm Drift: Patients demonstrates NO arm weakness. Patient is VAN Negative. ph General: Appears in no apparent distress. uncomfortable, well groomed, Behavior is calm, cooperative, appropriate for age, Denies fever, feeling ill. Pain: Denies pain. Neuro: Level of Consciousness is awake, alert, obeys commands, Oriented to person, place, time, situation, Patient Admitting Representative are equal bilaterally Moves all extremities. Full function Speech is normal, Facial symmetry appears normal, Pupils are PERRLA, Intact Reports dizziness. Cardiovascular: Capillary refill < 3 seconds in bilateral fingers Patient's skin is warm and dry. Respiratory: Airway is patent Respiratory effort is even, unlabored, Respiratory pattern is regular, symmetrical. GI: Reports nausea, Patient currently denies abdominal pain, diarrhea, vomiting. : No signs and/or symptoms were reported regarding the genitourinary system. Derm: Skin is intact, Skin is pink, warm \T\ dry. Musculoskeletal: Circulation, motion, and sensation intact. Range of motion: intact in all extremities. 16:35 Patient has been NPO before screening. The patient is alert, and able to follow ph commands. The patient does not exhibit slurred or garbled speech. The patient is not exhibiting difficulty speaking. The patient does not exhibit difficulty understanding words. The patient is able to swallow own secretions with no drooling or need for suction. Patient tolerated one teaspoon of water. No drooling, immediate coughing, gurgling, or clearing of the throat was noted. The patient tolerated 90mL of water. No drooling, immediate coughing, gurgling, or clearing of the throat was noted. The patient passed the bedside swallow screening. Oral medications may be given as ordered. Contact Physician for further diet orders. Provider notified of bedside swallow screening results: Dio Cordon MD. 18:14 Reassessment: Patient appears in no apparent distress at this time. Patient and/or ph family updated on plan of care and expected duration. Pain level reassessed. Patient is alert, oriented x 3, equal unlabored respirations, skin warm/dry/pink. Pt d/c home w/ family Patient states feeling better. Patient states symptoms have improved. Vital Signs: 15:51 BP 143 / 56; Pulse 67; Resp 18 S; Temp 97(TE); Pulse Ox 97% on R/A; Weight 86.18 kg ca1 (R); Height 5 ft. 10 in. (177.80 cm) (R); Pain 0/10; 16:54 BP 166 / 63; Pulse 65; Resp 18; Pulse Ox 98% on R/A; ph 18:15 BP 152 / 70; Pulse 67; Resp 18; Temp 97.4; Pulse Ox 99% on R/A; ph 15:51 Body Mass Index 27.26 (86.18 kg, 177.80 cm) ca1 NIH Stroke Scale Scores: 16:14 NIHSS Score: 0 ph ED Course: 15:48 Patient arrived in ED. as 15:48 Brant Daley MD is Private Physician. as 15:56 Triage completed. ca1 16:02 Treva Merlos, SABI is Primary Nurse. ph 16:02 Arm band placed on right wrist. ca1 16:05 Dio Cordon MD is Attending Physician. rn 16:17 Patient has correct armband on for positive identification. Placed in gown. Bed in low ph position. Call light in reach. Side rails up X2. compliance monitor on. Pulse ox on. NIBP on. Door closed. Noise minimized. Warm blanket given. 16:53 Initial lab(s) drawn, by me, sent to lab. Missed attempt(s): 22 gauge in right ph antecubital area. Bleeding controlled, band aid applied, catheter tip intact. Inserted saline lock: 20 gauge in left antecubital area, using aseptic technique. Blood collected. 17:04 CT Head Angio In Process Unspecified. EDMS 17:04 CT Neck Angio In Process Unspecified. EDMS 17:04 CT Head Brain wo Cont In Process Unspecified. EDMS 18:00 Rodney Stein MD is Referral Physician. rn 18:15 No provider procedures requiring assistance completed. IV discontinued, intact, ph bleeding controlled, No redness/swelling at site. Pressure dressing applied. Administered Medications: 16:45 Drug: Valium 2 mg Route: PO; ph 18:17 Follow up: Response: No adverse reaction; Marked relief of symptoms ph 16:45 Drug: Meclizine 50 mg Route: PO; ph 18:17 Follow up: Response: No adverse reaction; Marked relief of symptoms ph 16:50 Drug: NS 0.9% 500 ml Route: IV; Rate: bolus; Site: left antecubital; ph 18:17 Follow up: Response: No adverse reaction; IV Status: Completed infusion ph 16:50 Drug: Zofran (Ondansetron) 4 mg Route: IVP; Site: left antecubital; ph 18:17 Follow up: Response: No adverse reaction ph 18:10 Drug: Zofran (Ondansetron) 4 mg Route: PO; ph 18:17 Follow up: Response: No adverse reaction ph Outcome: 18:01 Discharge ordered by . rn 18:15 Discharged to home via wheelchair, with family. ph 18:15 Condition: good 18:15 Discharge instructions given to patient, Instructed on discharge instructions, follow up and referral plans. medication usage, Demonstrated understanding of instructions, follow-up care, medications, Prescriptions given X 2. 18:18 Patient left the ED. ph NIH Stroke Scale - NIH Stroke Score Date: 02/26/2020 Time: 16:14 Total Score = 0 1a. Level of Consciousness (LOC) - 0(Alert) 1b. Level of Consciousness (LOC) (Year \T\ Age) - 0(Both) 1c. LOC Commands (Open \T\ Closes Eyes/Hogshead Builder) - 0(Both) 2. Best Gaze (Lateral Gaze Paresis) - 0(Normal) 3. Visual Field Loss - 0(No visual loss) 4. Facial Palsy - 0(Normal) 5a. Left Arm: Motor (10-second hold) - 0(No drift) 5b. Right Arm: Motor (10-second hold) - 0(No drift) 6a. Left Leg: Motor (5-second hold - always test supine) - 0(No drift) 6b. Right Leg: Motor (5-second hold - always test supine) - 0(No drift) 7. Limb Ataxia (finger/nose \T\ heel/samayoa - test with eyes open) - 0(Absent) 8. Sensory Loss (pinprick arms/legs/face) - 0(Normal) 9. Best Language: Aphasia (description/naming/reading) - 0(No aphasia) 10. Dysarthria (speech clarity - read or repeat words) - 0(Normal) 11. Extinction and Inattention (visual/tactile/auditory/spatial/personal) - 0(No abnormality) Initials: ph Signatures: Dispatcher [employer] Noa King Roman, MD MD rn Hall, Patricia, RN RN ph AcMiranda whalen RN RN ca1
--- NOTE | 2020-02-26 18:01 | EDPHYS ---
Physician Documentation [facility] Name: Shilpa Samaniego Age: 89 yrs Sex: Female : 1930 Arrival Date: 02/26/2020 Time: 15:48 Bed 5 Private MD: Brant Daley E ED Physician Dio Cordon HPI: 02/25 16:22 This 89 yrs old Female presents to ER via Wheelchair with complaints of rn Dizziness, Trouble Walking. 16:22 The patient presents with sense of spinning, vertigo. Onset: The symptoms/episode rn began/occurred 3 hour(s) ago. Modifying factors: The symptoms are alleviated by nothing, the symptoms are aggravated by movement of head, standing up. Associated signs and symptoms: Pertinent positives: nausea, vomiting, Pertinent negatives: abdominal pain, chest pain, combativeness, confusion, diaphoresis, focal weakness, head injury, headache, numbness, seizure, shortness of breath, syncope, tingling. Severity of symptoms: At their worst the symptoms were moderate in the emergency department the symptoms have improved. The patient has experienced similar episodes in the past. The patient has not recently seen a physician. Reports similar episodes in past, has had vertigo, but never this bad. [place] fine, but approx 3 hours prior to arrival stood up to answer phone, felt dizziness, room spinning, assoc with nausea. No focal weakness/blurred vision or vision changes/chest pain/sob/numbness/tingling/speech change. . Historical: - Allergies: 16:02 Augmentin; ca1 16:02 Cefpodoxime; ca1 16:02 Cefuroxime; ca1 16:02 Ciprofloxacin; ca1 16:02 Demerol; ca1 16:02 Levofloxacin; ca1 16:02 NSAIDS; ca1 16:02 PENICILLINS; ca1 16:02 Sulfa (Sulfonamide Antibiotics); ca1 - PMHx: 16:02 Anxiety; Atrial Fib; COPD; DVT; LLE; hiatal hernia; Hyperlipidemia; Hypertension; ca1 Pacemaker; Rheumatoid Arthritis; - Immunization history:: Adult Immunizations up to date. - Social history:: Smoking status: Patient denies any tobacco usage or history of. - Family history:: not pertinent. - Hospitalizations: : No recent hospitalization is reported. ROS: 16:22 Constitutional: Negative for fever, chills, and weight loss, Eyes: Negative for injury, rn pain, redness, and discharge, Neck: Negative for injury, pain, and swelling, Cardiovascular: Negative for chest pain, palpitations, and edema, Respiratory: Negative for shortness of breath, cough, wheezing, and pleuritic chest pain, Abdomen/GI: + nausea, neg for abd pain or vomiting Back: Negative for injury and pain, : Negative for injury, bleeding, discharge, and swelling, MS/Extremity: Negative for injury and deformity, Skin: Negative for injury, rash, and discoloration, Neuro: Negative for headache, weakness, numbness, tingling, and seizure. Exam: 16:22 Constitutional: This is a well developed, well nourished patient who is awake, alert, rn and in no acute distress. Head/Face: Normocephalic, atraumatic. Eyes: Pupils equal round and reactive to light, extra-ocular motions intact. Lids and lashes normal. Conjunctiva and sclera are non-icteric and not injected. Cornea within normal limits. Periorbital areas with no swelling, redness, or edema. ENT: MMM Neck: Trachea midline, no masses palpated, and no cervical lymphadenopathy. Supple, full range of motion without nuchal rigidity, or vertebral point tenderness. No Meningismus. Cardiovascular: Regular rate and rhythm. No pulse deficits. Respiratory: No increased work of breathing, no retractions or nasal flaring. Abdomen/GI: soft, non-tender Skin: Warm, dry MS/ Extremity: Pulses equal, no cyanosis. Neuro: Awake and alert, GCS 15, oriented to person, place, time, and situation. Cranial nerves II-XII grossly intact. Motor strength 5/5 in all extremities. Sensory grossly intact. Cerebellar exam normal. + reproducible symptoms with turning head to left> right 16:27 ECG was reviewed by the Attending Physician. rn Vital Signs: 15:51 BP 143 / 56; Pulse 67; Resp 18 S; Temp 97(TE); Pulse Ox 97% on R/A; Weight 86.18 kg ca1 (R); Height 5 ft. 10 in. (177.80 cm) (R); Pain 0/10; 16:54 BP 166 / 63; Pulse 65; Resp 18; Pulse Ox 98% on R/A; ph 18:15 BP 152 / 70; Pulse 67; Resp 18; Temp 97.4; Pulse Ox 99% on R/A; ph 15:51 Body Mass Index 27.26 (86.18 kg, 177.80 cm) ca1 NIH Stroke Scale Scores: 16:14 NIHSS Score: 0 ph MDM: 16:05 Patient medically screened. rn 17:27 ED course: No acute findings on CT head/CT angio. Pt feels better, likely worse case of rn vertigo compared to previous. Will let medicine work and attempt to get patient up, if feels better will dc home with prn meclizine and zofran with outpt neuro f/u. . 17:58 Differential diagnosis: hypovolemia, idiopathic dizziness, vertigo. Differential rn diagnosis: CVA, TIA. Data reviewed: vital signs, nurses notes. Data interpreted:. Counseling: I had a detailed discussion with the patient and/or guardian regarding: the historical points, exam findings, and any diagnostic results supporting the discharge/admit diagnosis, lab results, radiology results, the need for outpatient follow up, to return to the emergency department if symptoms worsen or persist or if there are any questions or concerns that arise at home. Response to treatment: the patient's symptoms have markedly improved after treatment, and as a result, I will discharge patient. Special discussion: I discussed with the patient/guardian in detail that at this point there is no indication for admission to the hospital. It is understood, however, that if the symptoms persist or worsen the patient needs to return immediately for re-evaluation. Based on the history and exam findings, there is no indication for further emergent testing or inpatient evaluation. I discussed with the patient/guardian the need to see the neurologist for further evaluation of the symptoms. ED course: Pt improved, able to ambulate without dizziness, will dc home with prn meclizine and zofran. . 02/25 16:16 Order name: Basic Metabolic Panel; Complete Time: 17:19 rn 02/25 16:16 Order name: CBC with Diff; Complete Time: 17:19 rn 02/25 16:16 Order name: Protime (+inr); Complete Time: 17:42 rn 02/25 16:16 Order name: Ptt, Activated; Complete Time: 17:42 rn 02/25 16:16 Order name: Troponin (emerg Dept Use Only); Complete Time: 17:19 rn 02/25 17:02 Order name: CREATININE WHOLE BLOOD; Complete Time: 17:19 EDMS 02/25 16:16 Order name: CT Head Brain wo Cont; Complete Time: 17:19 rn 02/25 16:16 Order name: CT Head Angio; Complete Time: 17:19 rn 02/25 16:16 Order name: CT Neck Angio; Complete Time: 17:19 rn 02/25 16:04 Order name: EKG; Complete Time: 16:05 ca1 02/25 16:04 Order name: EKG - Nurse/Tech; Complete Time: 16:04 ca1 02/25 16:16 Order name: Cardiac monitoring; Complete Time: 16:52 rn 02/25 16:16 Order name: IV Saline Lock; Complete Time: 16:53 rn 02/25 16:16 Order name: Labs collected and sent; Complete Time: 16:53 rn 02/25 16:16 Order name: NPO; Complete Time: 16:53 rn 02/25 16:16 Order name: O2 Per Protocol; Complete Time: 16:53 rn 02/25 16:16 Order name: O2 Sat Monitoring; Complete Time: 16:53 rn EC:27 Rate is 65 beats/min. Rhythm is regular. QRS [place] is Normal. MD interval is normal. QRS rn interval is normal. QT interval is normal. No Q waves. T waves are Normal. No ST changes noted. Clinical impression: Normal ECG. Interpreted by me. Reviewed by me. Administered Medications: 16:45 Drug: Valium 2 mg Route: PO; ph 18:17 Follow up: Response: No adverse reaction; Marked relief of symptoms ph 16:45 Drug: Meclizine 50 mg Route: PO; ph 18:17 Follow up: Response: No adverse reaction; Marked relief of symptoms ph 16:50 Drug: NS 0.9% 500 ml Route: IV; Rate: bolus; Site: left antecubital; ph 18:17 Follow up: Response: No adverse reaction; IV Status: Completed infusion ph 16:50 Drug: Zofran (Ondansetron) 4 mg Route: IVP; Site: left antecubital; ph 18:17 Follow up: Response: No adverse reaction ph 18:10 Drug: Zofran (Ondansetron) 4 mg Route: PO; ph 18:17 Follow up: Response: No adverse reaction ph Disposition: 02/26/20 18:01 Discharged to Home. Impression: Vertigo. - Condition is Stable. - Discharge Instructions: Vertigo. - Prescriptions for Zofran ODT 4 mg Oral tablet,disintegrating - place 1 tablet by TRANSLINGUAL route every 8 hours As needed; 20 tablet. Meclizine 25 mg Oral Tablet - take 1 tablet by ORAL route every 8 hours As needed; 30 tablet. - Medication Reconciliation Form, Thank You Letter, Antibiotic Education, Prescription Opioid Use form. - Follow up: Rodney Stein MD; When: As needed; Reason: Recheck today's complaints, Re-evaluation by your physician. - Problem is new. - Symptoms have improved. NIH Stroke Scale - NIH Stroke Score Date: 02/26/2020 Time: 16:14 Total Score = 0 1a. Level of Consciousness (LOC) - 0(Alert) 1b. Level of Consciousness (LOC) (Year \T\ Age) - 0(Both) 1c. LOC Commands (Open \T\ Closes Eyes/Floor Refinisher) - 0(Both) 2. Best Gaze (Lateral Gaze Paresis) - 0(Normal) 3. Visual Field Loss - 0(No visual loss) 4. Facial Palsy - 0(Normal) 5a. Left Arm: Motor (10-second hold) - 0(No drift) 5b. Right Arm: Motor (10-second hold) - 0(No drift) 6a. Left Leg: Motor (5-second hold - always test supine) - 0(No drift) 6b. Right Leg: Motor (5-second hold - always test supine) - 0(No drift) 7. Limb Ataxia (finger/nose \T\ heel/samayoa - test with eyes open) - 0(Absent) 8. Sensory Loss (pinprick arms/legs/face) - 0(Normal) 9. Best Language: Aphasia (description/naming/reading) - 0(No aphasia) 10. Dysarthria (speech clarity - read or repeat words) - 0(Normal) 11. Extinction and Inattention (visual/tactile/auditory/spatial/personal) - 0(No abnormality) Initials: ph Signatures: Dispatcher [employer] EDDio Shaffer MD MD rn Hall, Patricia, RN RN ph AcMiranda whalen RN RN ca1 Corrections: (The following items were deleted from the chart) 18:18 18:01 02/26/2020 18:01 Discharged to Home. Impression: Vertigo. Condition is ph Stable. Forms are Medication Reconciliation Form, Thank You Letter, Antibiotic Education, Prescription Opioid Use. Follow up: Rodney Stein; When: As needed; Reason: Recheck today's complaints, Re-evaluation by your physician. Problem is new. Symptoms have improved. rn
[2020-02-26] MEDS ORDERED: ONDANSETRON 4 MG (ODT) TAB ONE (18:21)
[2020-03-01 12:48] VITALS: BP 152/70; TEMP 97.4; O2SAT 99
== END 2020-02-26 18:18 | disposition home or self-care (01) ==
LOC: ER 15:47
DX: R42 Dizziness and giddiness (principal); R11.2 Nausea with vomiting, unspecified; I10 Essential (primary) hypertension; Z95.0 Presence of cardiac pacemaker; Z88.0 Allergy status to penicillin; Z88.1 Allergy status to other antibiotic agents; Z88.2 Allergy status to sulfonamides; Z88.3 Allergy status to other anti-infective agents; Z88.5 Allergy status to narcotic agent; Z88.6 Allergy status to analgesic agent
CPT/HCPCS: 93005; 85025; 80048; 36415; 85610; 82565; 85730; 84484; 70450; 70496; 70498; Q9967; J7040; J2405; 96361; 96374; 99284; J3360

== ENCOUNTER 2020-08-20 23:56 | Emergency (ER) | payer OTHER ==
--- OUTSIDE RECORDS SUMMARY | 2020-08-20 23:59 | XMS REPORT | Continuity of Care Document ---
:1930 Author Organization [facility] t Address [address] [place] [address] Care Team Providers Name Role Phone Gloria AWAD, Amor Primary Care Physician Alejo AWAD Attending Clinician Enmanuel Tellez Attending Clinician Doctor Unassigned, Name Attending Clinician Unavailable Laina AWAD Attending Clinician VISIT, UATS Attending Clinician Unavailable Alex Hadley Attending Clinician Elias Mendoza Attending Clinician Problems Condition Condition Condition Status Onset Resolution Last Treating Co mments Source Name Details Category Date Date Treatment Clinician Date Osteoarthr Osteoarthr Disease Active 2015-03 H [facility] itis of itis of 04-23 Methodi right hip right hip 00:00: st 00 BLOOD CLOT Diagnosis Active 2015-09-09 Memoria THIGH 09-08 14:53:00 l BLOOD 00:00: [place] CLOT THIGH 00 Active 09/09/2015 [facility] Atrial Problem Active 2019-01-26 Memor ia fibrillati 22:20:48 l on Atrial David (disorder) fibrillati on (disorder) Active Problem 01/26/2019 [facility] Blood clot Problem Active 2015-09-12 M emma (morpholog 00:32:37 l ic Blood David abnormalit clot y) (morpholog ic abnormalit y) Active Problem 6 [facility] History of Past Illness Condition Condition Condition Status Onset Resolution Last Treating Co mments Source Name Details Category Date Date Treatment Clinician Date Discharge Problem 2016-0 2015-09-12 2015-09-12 Memoria Diagnosis: 09-08 00:32:37 00:32:37 l Lower 05:00: [place] extremity Discharge 00 pain, Diagnosis: right Lower extremity pain, right 09/09/2015 09/12/2015 [facility] Allergies, Adverse Reactions, Alerts Allergy Allergy Status Severity Reaction(s) Onset Inactive Treating Comm ents Source Name Type Date Date Clinician Augmenti Augmenti Active Memori a n n l David Family History Family Member Diagnosis Comments Start Date Stop Date Source Natural sister Stroke [facility] thodist Social History Social Habit Start Date Stop Date Quantity Comments Source Tobacco use and 2016-02-22 2016-02-22 Never used [facility] ethodist exposure 00:00:00 00:00:00 Alcohol intake 2016-02-22 2016-02-22 Current [facility] thodist 00:00:00 00:00:00 non-drinker of alcohol (finding) Sex Ass[birth year] At [birth year] [facility] ethodist 00:00:00 00:00:00 Smoking Status Start Date Stop Date Source Social History 2018-12-22 13:24:14 2018-12-22 13:24:14 [facility] Never smoker [place] [facility] Medications Ordered Filled Start Stop Current Ordering Indication Dosage Frequency Signature Comments Components Source Medication Medication Date Date Medication? Clinician (SIG) Name Name Estradiol 2018-03 Yes 1 gm, TOP, Me moria 0.1 MG/ML 0-04 Bedtime, l Vaginal 16:17: use 3 [place] Cream 00 times a [Estrace] week, # 1 tube, 5 Refill(s), Pharmacy: [id number] Estrogens, 2018-03 Yes 1 appl, Bj starla Conjugated 0-02 VAG, Q-M l (DETENTION) 0.625 14:52: and Th, # H ermann MG/ML 00 30 gm, 11 Vaginal Refill(s), Cream Pharmacy: [Premarin] [id number] levothyroxi 2018-03 Yes 0 Memori a ne 100 mcg 0-02 Refill(s) l (0.1 mg) 13:25: [place] oral tablet 00 nitrofurant 2018-03 Yes 0 Memori a oin 0-02 Refill(s) l macrocrysta 13:25: [place] n ls-monohydr 00 ate 100 mg oral capsule (Macrobid) zolpidem 2018-03 Yes 0 Memoria mg oral 0-02 Refill(s) l tablet 13:25: [place] 00 Metoprolol 2018-03 Yes 0 Memoria Tartrate 50 0-02 Refill(s) l mg oral 13:25: [place] tablet 00 Furosemide 2018-03 Yes 0 Memoria 40 MG Oral 0-02 Refill(s) l Tablet 13:25: [place] 00 Amoxicillin 2018-03 Yes 0 Memori a 500 MG / 0-02 Refill(s) l Clavulanate 13:25: [place] n 125 MG Oral 00 Tablet amitriptyli 2018-03 Yes 0 Memori a ne 25 mg 0-02 Refill(s) l oral tablet 13:25: [place] n 00 gabapentin 2018-03 Yes 0 Memoria 300 MG Oral 0-02 Refill(s) l Capsule 13:25: [place] 00 apixaban 2018-03 Yes 5 mg, PO, Me moria [...] ONE Marilynn ston (NEURONTIN) 0-31 CAPSULE BY Va thodi 300 MG 00:00: MOUTH 3 st [...] tab, PO, Memoria en 325 MG / 19 Q6H, # 20 l Hydrocodone 19:20: tab, 0 Herm payal Bitartrate 00 Refill(s) 5 MG Oral Tablet [[place] 5/325] Acetaminoph No Notes: Bj starla en 325 MG / -19 (Same as: l Hydrocodone 18:29: [place] Myriam nn Bitartrate 00 325/5) Do 5 MG Oral not exceed Tablet 4gm/day of acetaminop hen. Vital Signs Vital Name Observation Time Observation Value Comments Source Height 2018-12-22 13:22:00 175.26 [facility] Weight 2018-12-22 13:22:00 [facility] [place] BMI Calculated 2018-12-22 13:22:00 Alexandre linda David Heart Rate 2015-09-09 20:21:00 [facility] David Systolic (mm Hg) 2015-09-09 20:21:00 Bj rial David Diastolic (mm Hg) 2015-09-09 20:21:00 [facility] orial [place] Temperature Oral (F) 2015-09-09 20:21:00 98.1 F [facility] [place] Respitory Rate 2015-09-09 20:21:00 Memjoselito al David BMI Calculated 2015-09-09 17:44:[facility] [place] Weight 2015-09-09 17:44:00 [facility] [place] Height 2015-09-09 17:44:00 177.8 cm [facility] David Respitory Rate 2015-09-09 17:44:00 Alexandre linda David Heart Rate 2015-09-09 17:44:00 [facility] [place] Systolic (mm Hg) 2015-09-09 17:44:00 Bj ozuna [place] Diastolic (mm Hg) 2015-09-09 17:44:00 Mem orialexei [place] Temperature Oral (F) 2015-09-09 17:44:00 98.2 F [facility] [place] Procedures Procedure Date / Time Performed Performing Clinician [facility] e Complex uroflowmetry (eg, 2019-01-10 17:20:00 Va morialexei Hernandez calibrated electronic equipment) Measurement of 2019-01-10 17:20:00 Brittany farooq post-voiding residual urine and/or bladder capacity by ultrasound, non-imaging Plan of Care Planned Activity Planned Date Details Comments Source Future Scheduled 2020-10-21 INFLUENZA VACCINE [place] [facility] 00:00:00 [code = INFLUENZA VACCINE] Future Scheduled 1997 65+ PNEUMOCOCCAL [place] [facility] 00:00:00 VACCINE (1 of 1 - PPSV23) [code = 65+ PNEUMOCOCCAL VACCINE (1 of 1 - PPSV23)] Future Scheduled 1982 SHINGLES VACCINES (#1) [place] [facility] 00:00:00 [code = SHINGLES VACCINES (#1)] Future Scheduled 1944 COVID-19 VACCINE (1) Marilynn [facility]abettye [facility] 00:00:00 [code = COVID-19 VACCINE (1)] Encounters Start End Encounter Admission Attending Care Care Encounter Source Date/Time Date/Time Type Type Clinicians Facility Department ID 2020-05-18 2020-05-18 Office BROOK Dhillon [id number] 08:52:49 09:07:49 Visit Ramyar AMBULATOR [id number] Y [id number] 2020-04-06 2020-04-06 Office BROOK Dhillon [id number] 07:22:23 16:13:31 Visit Ramyar AMBULATOR [id number] Y [id number] 2019-12-10 2019-12-10 Emergency Carrie [facility] [id number] 12:56:00 14:28:00 Tim Rutherford [id number] [place] [id number] [place] [id number] 2019-12-10 2019-12-10 Orders Doctor BRUNO [id number] 00:00:00 00:00:00 Only Unassigned, VAZQUEZ [id number] [place] [facility] [id number] 2019-10-21 2019-11-01 Office Laina [facility] [id number] 10:06:35 12:32:49 Visit Liliam Rutherford [id number] [place] [id number] [facility] [id number] [address] 2019-01-24 2019-01-24 Outpatient VISIT, [facility] [id number] 10:00:00 10:00:00 NURSE ARTUR 05 2019-01-24 2019-01-24 Outpatient Leonie [facility] [id number] 09:40:00 09:40:00 Nato Johnson 2019-01-10 2019-01-10 Outpatient Leonie [facility] [id number] 10:00:00 23:59:59 Nato Johnson 2018-12-22 2018-12-22 Outpatient Leonie [facility] [id number] 09:45:00 23:59:59 Nato Johnson 2018-12-22 2018-12-22 Outpatient Leonie [facility] [id number] 09:00:00 09:00:00 Nato S 00 2015-09-09 2015-09-09 Outpatient Reji [facility] [id number] 12:38:00 15:23:00 Eli Griffin 00 Results This patient has no known results.
[2020-08-21 01:13] LABS: Urine Blood Negative (Negative); Urine Glucose Negative (Negative); Urine Protein Negative (Negative); Urine Specific Gravity >=1.030 (1.005-1.030); Urine pH 5.5 (5.0-7.0)
[2020-08-21 01:18] LABS: Protime INR 1.23
[2020-08-21 01:19] LABS: Basophils % 1.4 % (0-1.3); Hematocrit 34.6 % (36.0-45.0); Lymphocytes % 27.3 % (15.3-44.8); MPV 8.2 fL (7.6-11.3); RBC Red Blood Cell Count 3.89 M/uL (3.86-4.86)
[2020-08-21 01:29] LABS: ALT/SGPT 20 U/L (12-78); AST/SGOT 17 U/L (15-37); Albumin 3.6 g/dL (3.4-5.0); Alkaline Phosphatase 119 U/L (45-117); BUN Blood Urea Nitrogen 34 mg/dL (7-18); Bicarbonate 31 mmol/L (21-32); Bilirubin Direct < 0.1 mg/dL (0-0.2); Bilirubin Total 0.2 mg/dL (0.2-1.0); Glucose Level 121 mg/dL (74-106); Magnesium 1.8 mg/dL (1.8-2.4); NT PRO-BNP 512 pg/mL (<450); Potassium 3.7 mmol/L (3.5-5.1); Protein, Total 7.8 g/dL (6.4-8.2); Sodium Level 142 mmol/L (136-145); Troponin (Emerg Dept Use Only) < 0.02 ng/mL (0.0-0.045)
[2020-08-21] MEDS ORDERED: ACETAMINOPHEN 500 MG TAB ONE (02:18)
--- NOTE | 2020-08-21 02:37 | ER ---
Nurse's Notes [facility] Name: Shilpa Samaniego Age: 89 yrs Sex: Female : 1930 Arrival Date: 08/21/2020 Time: 00:02 Bed 13 Private MD: Diagnosis: Low back pain Presentation: 08/21 00:19 Chief complaint: Patient states: she has been having back pain x 3 days she had similar bb pain last year and was dx with a PE. Coronavirus screen: At this time, the client does not indicate any symptoms associated with coronavirus-19. Ebola Screen: No symptoms or risks identified at this time. Initial Sepsis Screen: Does the patient meet any 2 criteria? No. Patient's initial sepsis screen is negative. Does the patient have a suspected source of infection? No. Patient's initial sepsis screen is negative. Risk Assessment: Do you want to hurt yourself or someone else? Patient reports no desire to harm self or others. Onset of symptoms was August 17, 2020. 00:19 Method Of Arrival: Wheelchair bb 00:19 Acuity: LESA 3 bb Historical: - Allergies: 00:26 Augmentin; bb 00:26 Cefpodoxime; bb 00:26 Cefuroxime; bb 00:26 Ciprofloxacin; bb 00:26 Demerol; bb 00:26 Levofloxacin; bb 00:26 NSAIDS; bb 00:26 PENICILLINS; bb 00:26 Sulfa (Sulfonamide Antibiotics); bb - Home Meds: 00:26 Eliquis 5 mg Oral tab 2 times per day [Active]; metoprolol tartrate 50 mg Oral tab 2 bb times per day [Active]; pantoprazole 40 mg Oral TbEC once daily [Active]; levothyroxine 100 mcg tab 1 tab once daily [Active]; Lasix 40 mg Oral tab once daily [Active]; montelukast 10 mg oral tab 1 tab once daily [Active]; gabapentin 300 mg Oral cap nightly [Active]; Breo Ellipta inhalation inhalation [Active]; nitrofurantoin macrocrystal 50 mg Oral cap 1 cap once daily [Active]; potassium chloride 20 mEq Oral TbER 1 tab once daily [Active]; - PMHx: 00:26 Anxiety; Atrial Fib; COPD; DVT; LLE; hiatal hernia; Hyperlipidemia; Hypertension; bb Pacemaker; Rheumatoid Arthritis; - PSHx: 00:26 Hysterectomy; hiatal hernia; cataract; Pacemaker; shoulder repair; hip replacement; bb sclerotherapy; - Immunization history:: Adult Immunizations up to date. - Social history:: Smoking status: unknown. Screenin:58 Abuse screen: Denies threats or abuse. Denies injuries from another. Nutritional 8 screening: No deficits noted. Tuberculosis screening: No symptoms or risk factors identified. Fall Risk IV access (20 points). Assessment: 00:57 General: Appears in no apparent distress. comfortable, Behavior is calm, cooperative, jm8 appropriate for age. Pain: Complains of pain in back Pain currently is 3 out of 10 on a pain scale. Quality of pain is described as aching, pulsating, Pain began 3 days ago Also complains of no other associated symptoms. Neuro: No deficits noted. Level of Consciousness is awake, alert, obeys commands, Oriented to person, place, time. Cardiovascular: No deficits noted. Cardiovascular: Rhythm is sinus rhythm. Respiratory: No deficits noted. Airway is patent Trachea midline Respiratory effort is even, unlabored, Respiratory pattern is regular, symmetrical. GI: No deficits noted. No signs and/or symptoms were reported involving the gastrointestinal system. : No deficits noted. No signs and/or symptoms were reported regarding the genitourinary system. EENT: No deficits noted. No signs and/or symptoms were reported regarding the EENT system. Derm: No deficits noted. No signs and/or symptoms reported regarding the dermatologic system. Musculoskeletal: Reports pain in back since 3 days ago. 02:37 Reassessment: Patient states she wants to leave at this time. informed. Patient to [facility] leave AMA. Vital Signs: 00:19 BP 127 / 63; Pulse 90; Resp 18 S; Temp 98.2(O); Pulse Ox 97% on R/A; Weight 86.18 kg bb (R); Height 5 ft. 10 in. (177.80 cm) (R); Pain 5/10; 02:11 BP 142 / 62; Pulse 68; Resp 16; Pulse Ox 96% on R/A; 8 00:19 Body Mass Index 27.26 (86.18 kg, 177.80 cm) ED Course: 00:02 Patient arrived in ED. cf2 00:07 Dre Hardy MD is Attending Physician. tw4 00:21 Triage completed. bb 00:26 Arm band placed on Patient placed in an exam room, on a stretcher, on pulse oximetry. bb 00:30 Inserted saline lock: 20 gauge in right antecubital area, using aseptic technique. jm8 00:59 Patient has correct armband on for positive identification. Bed in low position. Call jm8 light in reach. Side rails up X2. 01:05 XRAY Chest (1 view) In Process Unspecified. EDMS 02:38 No provider procedures requiring assistance completed. IV discontinued, intact. jm8 Administered Medications: No medications were administered Outcome: 02:38 Discharged to home ambulatory. jm8 02:38 Condition: good 02:38 Discharge instructions given to patient, Instructed on follow up and referral plans. Demonstrated understanding of follow-up care. 02:40 Patient left the ED. jm8 Signatures: Dispatcher [employer] EDJanie Farley, SABI RN Dre Griffin MD MD tw4 Steve López 2 Rogerio Mendieta, RN RN jm8
--- NOTE | 2020-08-21 02:37 | EDPHYS ---
Physician Documentation [facility] Name: Shilpa Samaniego Age: 89 yrs Sex: Female : 1930 Arrival Date: 08/21/2020 Time: 00:02 Bed 13 Private MD: ED Physician Dre Hardy HPI: 08/21 07:11 This 89 yrs old Female presents to ER via Wheelchair with complaints of Back tw4 Pain. 07:11 The patient presents with pain that is acute. The symptoms are located in the low back. tw4 Onset: The symptoms/episode began/occurred today. The pain does not radiate. Associated signs and symptoms: The patient has no apparent associated signs or symptoms. The problem was sustained from unknown cause. Modifying factors: The patient symptoms are alleviated by nothing, the patient symptoms are aggravated by any movement, movement. Severity of symptoms: At their worst the symptoms were mild, in the emergency department the symptoms are unchanged. The patient has experienced similar episodes in the past, a few times. Historical: - Allergies: 00:26 Augmentin; bb 00:26 Cefpodoxime; bb 00:26 Cefuroxime; bb 00:26 Ciprofloxacin; bb 00:26 Demerol; bb 00:26 Levofloxacin; bb 00:26 NSAIDS; bb 00:26 PENICILLINS; bb 00:26 Sulfa (Sulfonamide Antibiotics); bb - Home Meds: 00:26 Eliquis 5 mg Oral tab 2 times per day [Active]; metoprolol tartrate 50 mg Oral tab 2 bb times per day [Active]; pantoprazole 40 mg Oral TbEC once daily [Active]; levothyroxine 100 mcg tab 1 tab once daily [Active]; Lasix 40 mg Oral tab once daily [Active]; montelukast 10 mg oral tab 1 tab once daily [Active]; gabapentin 300 mg Oral cap nightly [Active]; Breo Ellipta inhalation inhalation [Active]; nitrofurantoin macrocrystal 50 mg Oral cap 1 cap once daily [Active]; potassium chloride 20 mEq Oral TbER 1 tab once daily [Active]; - PMHx: 00:26 Anxiety; Atrial Fib; COPD; DVT; LLE; hiatal hernia; Hyperlipidemia; Hypertension; bb Pacemaker; Rheumatoid Arthritis; - PSHx: 00:26 Hysterectomy; hiatal hernia; cataract; Pacemaker; shoulder repair; hip replacement; bb sclerotherapy; - Immunization history:: Adult Immunizations up to date. - Social history:: Smoking status: unknown. ROS: 07:11 Constitutional: Negative for fever, chills, and weight loss, Eyes: Negative for injury, tw4 pain, redness, and discharge, Cardiovascular: Negative for chest pain, palpitations, and edema, Respiratory: Negative for shortness of breath, cough, wheezing, and pleuritic chest pain, Abdomen/GI: Negative for abdominal pain, nausea, vomiting, diarrhea, and constipation, MS/Extremity: Negative for injury and deformity, Skin: Negative for injury, rash, and discoloration, Neuro: Negative for headache, weakness, numbness, tingling, and seizure. 07:11 Back: Positive for decreased range of motion, pain at rest, pain with movement. Exam: 07:11 Constitutional: This is a well developed, well nourished patient who is awake, alert, tw4 and in no acute distress. Head/Face: Normocephalic, atraumatic. Chest/axilla: Normal chest wall appearance and motion. Nontender with no deformity. No lesions are appreciated. Cardiovascular: Regular rate and rhythm with a normal S1 and S2. No gallops, murmurs, or rubs. Normal PMI, no JVD. No pulse deficits. Respiratory: Lungs have equal breath sounds bilaterally, clear to auscultation and percussion. No rales, rhonchi or wheezes noted. No increased work of breathing, no retractions or nasal flaring. Abdomen/GI: Soft, non-tender, with normal bowel sounds. No distension or tympany. No guarding or rebound. No evidence of tenderness throughout. Vital Signs: 00:19 BP 127 / 63; Pulse 90; Resp 18 S; Temp 98.2(O); Pulse Ox 97% on R/A; Weight 86.18 kg bb (R); Height 5 ft. 10 in. (177.80 cm) (R); Pain 5/10; 02:11 BP 142 / 62; Pulse 68; Resp 16; Pulse Ox 96% on R/A; jm8 00:19 Body Mass Index 27.26 (86.18 kg, 177.80 cm) MDM: 02:36 Patient medically screened. tw4 07:11 Data reviewed: vital signs, nurses notes. Data interpreted: Pulse oximetry: tw4 Interpretation: normal. Counseling: I had a detailed discussion with the patient and/or guardian regarding: the historical points, exam findings, and any diagnostic results supporting the discharge/admit diagnosis. Refusal of service: The patient/guardian displays adequate decision making capability and despite a detailed discussion of alternatives, benefits, risks, and consequences refuses: CT Scan, all lab tests. Special discussion:. 08/21 00:34 Order name: Basic Metabolic Panel; Complete Time: 02:28 08/21 00:34 Order name: CBC with Diff; Complete Time: 02:28 08/21 00:34 Order name: LFT's; Complete Time: 02:28 tw08/21 00:34 Order name: Magnesium; Complete Time: 02:28 08/21 00:34 Order name: NT PRO-BNP; Complete Time: 02:28 08/21 00:34 Order name: PT-INR; Complete Time: 02:28 tw08/21 00:34 Order name: Troponin (emerg Dept Use Only); Complete Time: 02:28 08/21 00:34 Order name: XRAY Chest (1 view) 08/21 00:34 Order name: EKG; Complete Time: 00:35 tw4 08/21 00:34 Order name: Cardiac monitoring; Complete Time: 00:57 08/21 00:34 Order name: EKG - Nurse/Tech; Complete Time: 00:57 tw08/21 00:34 Order name: D-Dimer; Complete Time: 02:28 tw4 08/21 01:12 Order name: Urine Dipstick-Ancillary; Complete Time: 02:28 EDAL 08/21 00:34 Order name: IV Saline Lock; Complete Time: 00:56 tw08/21 00:34 Order name: Labs collected and sent; Complete Time: 00:57 tw08/21 00:34 Order name: O2 Per Protocol; Complete Time: 00:57 08/21 00:34 Order name: O2 Sat Monitoring; Complete Time: 00:57 tw4 Administered Medications: No medications were administered Disposition: 08/21/20 02:36 Patient has left against medical advice. Impression: Low back pain. - Patients states they are going to Home. - Condition is Stable. Follow up: Private Physician; When: Upon discharge from the Emergency Department; Reason: Recheck today's complaints, Continuance of care, Re-evaluation by your physician. - Problem is new. - Symptoms have improved. Signatures: Dispatcher [employer] Janie Self, SABI RN Dre Griffin MD MD tw4 Rogerio Mendieta RN RN jm8 Corrections: (The following items were deleted from the chart) 02:40 02:36 08/21/2020 02:36 Patients has left against medical advice. Impression: Low back jm8 pain. Patient states they are going to Home. Condition is Stable. Follow up: Private Physician; When: Upon discharge from the Emergency Department; Reason: Recheck today's complaints, Continuance of care, Re-evaluation by your physician. Problem is new. Symptoms have improved. tw4
[2020-08-21 02:48] VITALS: TEMP 98.2
[2020-08-21 02:50] VITALS: BP 142/62; O2SAT 96
--- NOTE | 2020-08-21 07:42 | RAD REPORT ---
EXAM DESCRIPTION: Lenora Single View08/21/2020 1:04 am CLINICAL HISTORY: Back pain COMPARISON: 2019 FINDINGS: The lungs appear clear of acute infiltrate. The heart is mildly enlarged. Pacemaker leads are in place. IMPRESSION: No acute abnormalities displayed
--- NOTE | 2020-08-22 12:01 | EKG ---
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
== END 2020-08-21 02:40 | disposition left against medical advice (07) ==
LOC: ER 23:56
DX: M54.5 Low back pain (principal); Z53.29 Procedure and treatment not carried out because of patient's decision for other reasons; F41.9 Anxiety disorder, unspecified; I48.91 Unspecified atrial fibrillation; J44.9 Chronic obstructive pulmonary disease, unspecified; Z86.718 Personal history of other venous thrombosis and embolism; K44.9 Diaphragmatic hernia without obstruction or gangrene; E78.5 Hyperlipidemia, unspecified; I10 Essential (primary) hypertension; Z95.0 Presence of cardiac pacemaker; M06.9 Rheumatoid arthritis, unspecified; Z96.649 Presence of unspecified artificial hip joint; Z79.01 Long term (current) use of anticoagulants
CPT/HCPCS: 36415; 71045; 80048; 80076; 81003; 83735; 83880; 84484; 85025; 85379; 85610; 93005; 99284

== ENCOUNTER 2021-12-19 00:46 | Emergency (ER) | payer OTHER ==
--- OUTSIDE RECORDS SUMMARY | 2021-12-19 00:51 | XMS REPORT | Continuity of Care Document ---
:1930 Author Organization [facility] t Address [address] [place] [address] Care Team Providers Name Role Phone DRAGANISABELA Primary Care Physician Unavailable KATERINE SAMANO Attending Clinician Unavailable Katerine Hirsch Attending Clinician Liat Keene MD Attending Clinician LIAT KEENE Attending Clinician Unavailable Doctor Unassigned, Shirley Attending Clinician Unavailable Brenda Dhillon MD Attending Clinician Tim Tellez Attending Clinician Liliam Marina MD Attending Clinician VISIT, NURSE UABLAS Attending Clinician Unavailable Nato Hadley Attending Clinician Eli Mendoza Attending Clinician KATERINE SAMANO Admitting Clinician Unavailable Payers Payer Name Policy Type Policy Number Effective Date Expiration Date Alex mcmahon MEDICARE PART A [id number] 1997 \T\ B 00:00:00 [employer] INDEMNITY [id number] 2013 00:00:00 Problems Condition Condition Condition Status Onset Resolution Last Treating Co mments Source Name Details Category Date Date Treatment Clinician Date 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 2-26 Co llege apy of apy of 00:00: of varicose varicose 00 Medici n veins veins e Bleeding Bleeding Disease Active [facility] from from 04-10 Prue varicose varicose 00:00: of vein vein 00 Medicin e Chronic Chronic Disease Active [facility] atrial atrial 04-10 Prue fibrillati fibrillati 00:00: of on on 00 Medicin (HCCode) (HCCode) e 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 04-23 right hip right hip 00:00: [facility] 00 l BLOOD CLOT BLOOD Diagnosis Active 2015-09-09 [facility] THIGH CLOT THIGH 09-08 14:53:00 l Active 00:00: David 09/09/2015 00 [facility] No known No known Disease Unive rs active active ity of problems problems [facility] Atrial Atrial Problem Active 2019-01-26 Bj starla fibrillati fibrillati 22:20:48 l on on [place] (disorder) (disorder) Active Problem 01/26/2019 [facility] Blood clot Blood Problem Active 2015-09-12 M emoria (morpholog clot 00:32:37 l ic (morpholog [place] n abnormalit ic y) abnormalit y) Active Problem 09/12/2015 [facility] History of Past Illness Condition Condition Condition Status Onset Resolution Last Treating Co mments Source Name Details Category Date Date Treatment Clinician Date Discharge Discharge Problem 2015-09-12 2015-09-12 Memoria Diagnosis: Diagnosis: 09-08 00:32:37 00:32:37 l Lower Lower 05:00: [place] extremity extremity 00 pain, pain, right right 09/09/2015 09/12/2015 [facility] Allergies, Adverse Reactions, Alerts Allergy Allergy Status Severity Reaction(s) Onset Inactive Treating Comm ents Source Name Type Date Date Clinician Penicill Propensi Active Anaphylaxis U nivers in ty to 08-21 ity of adverse 00:00: [place] reaction 00 Medical s Branch PENICILL DRUG Active Anaphylaxis Uni vers IN INGREDI 08-21 ity of 00:00: [place] 00 Medical Branch Nsaids Propensi Active [facility] ty to 15 Prue adverse 00:00: of reaction 00 Medicin s to e drug Penicill Propensi Active [facility] ins ty to 15 College adverse 00:00: of reaction 00 Medicin s to e drug Amoclan Propensi Active [facility] ty to 15 College adverse 00:00: of reaction 00 Medicin s to e drug Cefpodox Propensi Active [facility] ricki ty to 04-06 College adverse 00:00: of reaction 00 Medicin s to e drug Ciproflo Propensi Active [facility] xacin ty to 04-06 College adverse 00:00: of reaction 00 Medicin s to e drug Demerol Propensi Active [facility] ty to 04-06 College adverse 00:00: of reaction 00 Medicin s to e drug Levoflox Propensi Active [facility] acin ty to 04-06 College adverse 00:00: of reaction 00 Medicin s to e drug Sulfa Propensi Active Hives 2018-03 Univers (Sulfona ty to 2-02 ity of mide adverse 00:00: [place] Antibiot reaction 00 Medica l ics) s Branch SULFA Drug Active Hives 2018-03 Univers (SULFONA Class 2-02 ity of MIDE 00:00: [place] ANTIBIOT 00 Medical ICS) Branch Sulfa Propensi Active Hives 2018- Univers (Sulfona ty to 2-02 ity of mide adverse 00:00: [place] Antibiot reaction 00 Medica l ics) s Branch Amoxicil Propensi Active Hives 2018-03 Univer s jordy ty to 04-17 ity of adverse 00:00: [place] reaction 00 Medical s Branch Levoflox Propensi Active Unknown - 2018-03 Muscle Uni vers acin ty to See comments 04-17 issues ity of adverse 00:00: [place] reaction 00 Medical s Branch AMOXICIL DRUG Active Hives 2018- Univers JORDY INGREDI 04-17 ity of 00:00: [place] 00 Medical Branch LEVOFLOX DRUG Active Unknown-Cmnt 2018-03 Un julienne ACIN INGREDI 04-17 ity of 00:00: [place] 00 Medical Branch Augmenti Augmenti Active Alexandre jameson n n danilo Hernandez Family History Family Member Diagnosis Comments Start Date Stop Date Source Natural brother [facility] Natural father [facility] mother [facility] sister Stroke [facility] Social History Social Habit Start Date Stop Date Quantity Comments Source History [facility] ge of Alcohol Std Medicine Drinks History [facility] of Alcohol Binge Medicine History [facility] University o f Alcohol Comment [place] Med ical [facility] Exposure to 2021-07-17 2021-07-27 Not sure [facility] SARS-CoV-2 00:00:00 15:04:00 [place] Medical (event) Branch Tobacco use and 2020-05-18 2020-05-18 Never used [facility] llege of exposure 00:00:00 00:00:00 Medicine History [facility] 2020-04-06 2020-04-06 1 [facility] ge of Alcohol Frequency 00:00:00 00:00:00 Medicin e Alcohol intake 2016-02-22 2016-02-22 [facility] 00:00:00 00:00:00 non-drinker of alcohol (finding) Sex [birth year] [facility] 00:00:00 00:00:00 Smoking Status Start Date Stop Date Source Never smoker [facility] Social History 2018-12-22 13:24:14 2018-12-22 13:24:14 [facility] Medications Ordered Filled Start Stop Current Ordering Indication Dosage Frequency Signature Comments Components Source Medication Medication Date Date Medication? Clinician (SIG) Name Name Nitrofurant Yes [id number] 100mg Take 1 Univers oin&Nit. 5-07 capsule by ity o f [place] 00:[place]: mouth 2 [place] 100 [place] 00 (two) Medical capsule times Branch daily. clindamycin 2021- No [id number] 300mg Take 1 Univers 300 mg 5-07 05-15 capsule by ity of capsule 00:00: 04:59 mouth 4 [place] 00 :00 (four) Medical times Branch daily for 7 days. triamcinolo 2021- No [id number] 80mg Univers ne 05-08 ity of acetonide 22:30: 21:18 Emma (KENALOG) 00 :00 Medical injection Branch 80 mg triamcinolo 2021- No [id number] 80mg 80 mg, Univers ne 05-08 Intra-concepción ity of acetonide 22:30: 21:18 Emma west (KENALOG) 00 :00 ONCE, 1 Medical injection dose, On Branch 80 mg 05/08/21 at 1630, Routine methocarbam 2020-0 Yes [id number] 500mg Take 1 Univers oL 6-01 tablet by ity of (ROBAXIN) 00:00: mouth [place] 500 mg 00 every 6 Medical tablet (six) Branch hours as needed for Pain (scale 7-10) (MUSCLE SPASM). acetaminoph 2020-0 Yes [id number] 1{tbl} Take 1 Un julienne en-codeine 6-01 tablet by ity of (TYLENOL-CO 00:00: mouth [place] DEINE #3) 00 every 6 Medical 300-30 mg (six) Branch tablet hours as needed for Pain (scale 7-10). Indication s: acute pain methocarbam 2020-0 Yes [id number] 500mg Take 1 Univers oL 6-01 tablet by ity of (ROBAXIN) 00:00: mouth [place] 500 mg 00 every 6 Medical tablet (six) Branch hours as needed for Pain (scale 7-10) (MUSCLE SPASM). acetaminoph 2020-0 Yes [id number] 1{tbl} Take 1 Un julienne en-codeine 6-01 tablet by ity of (TYLENOL-CO 00:00: mouth [place] DEINE #3) 00 every 6 Medical 300-30 mg (six) Branch tablet hours as needed for Pain (scale 7-10). Indication s: acute pain methocarbam 2020-0 Yes [id number] 500mg Take 1 Univers oL 6-01 tablet by ity of (ROBAXIN) 00:00: mouth [place] 500 mg 00 every 6 Medical tablet (six) Branch hours as needed for Pain (scale 7-10) (MUSCLE SPASM). acetaminoph 2020-0 Yes [id number] 1{tbl} Take 1 Un julienne en-codeine 6-01 tablet by ity of (TYLENOL-CO 00:00: mouth [place] DEINE #3) 00 every 6 Medical 300-30 mg (six) Branch tablet hours as needed for Pain (scale 7-10). Indication s: acute pain Apixaban 5 2020-0 Yes 5mg Take 5 mg [facility] MG TABS 1-15 by mouth. Prue 21:36: of 47 Medicin e metoprolol 0 Yes 50mg Take 50 mg B ayl[facility] (TOPROL-XL) 1-15 by mouth. Col lege 50 MG XL 21:36: of tablet 47 Medicin e pantoprazol Yes 40mg Take 40 mg Ad e 1-15 by mouth. Prue (PROTONIX) 21:36: of 40 MG 47 Medicin tablet e Apixaban 5 Yes 5mg Take 5 mg Ba [facility] MG TABS 1-15 by mouth. Prue 21:36: of 47 Medicin e metoprolol Yes 50mg Take 50 mg B [facility] (TOPROL-XL) 1-15 by mouth. Col lege 50 MG XL 21:36: of tablet 47 Medicin e pantoprazol Yes 40mg Take 40 mg [facility] e 1-15 by mouth. Prue (PROTONIX) 21:36: of 40 MG 47 Medicin tablet e nitrofurant Yes TAKE 1 [facility] oin 1-05 CAPSULE BY Prue (MACRODANTI 00:00: MOUTH AT of N) 50 MG 00 BEDTIME Medicin capsule WITH FOOD e OR MILK nitrofurant Yes TAKE 1 [facility] oin 1-05 CAPSULE BY Prue (MACRODANTI 00:00: MOUTH AT of N) 50 MG 00 BEDTIME Medicin capsule WITH FOOD e OR MILK ARNUITY 2019- Yes INHALE 1 [facility] ELLIPTA 100 2-22 PUFF EVERY Co llege MCG/ACT 00:00: 24 HOURS of AEPB 00 Medicin e ARNUITY 2019- Yes INHALE 1 Ad ELLIPTA 100 2-22 PUFF EVERY Co llege MCG/ACT 00:00: 24 HOURS of AEPB 00 Medicin e zolpidem 2019-03 Yes TAKE 1 Ad (AMBIEN) 5 2-21 TABLET BY Jose Alfredo ege MG tablet 00:00: MOUTH AT of 00 BEDTIME Medicin NEEDED e zolpidem 2019-03 Yes TAKE 1 Ad (AMBIEN) 5 2-21 TABLET BY Jose Alfredo ege MG tablet 00:00: MOUTH AT of 00 BEDTIME Medicin NEEDED e gabapentin 2019-03 Yes TAKE 1 [facility] (NEURONTIN) 2-14 CAPSULE BY Co llege 300 MG 00:00: MOUTH of capsule 00 TWICE A Medicin DAY e gabapentin 2019-03 Yes TAKE 1 [facility] (NEURONTIN) 2-14 CAPSULE BY Co llege 300 MG 00:00: MOUTH of capsule 00 TWICE A Medicin DAY e amitriptyli 2019-03 Yes TAKE 1 [facility] ne (ELAVIL) 1-18 TABLET BY Col lege 25 MG 00:00: MOUTH AT of tablet 00 BEDTIME Medicin ONCE A DAY e ORALLY 90 DAYS 90 amitriptyli 2019-03 Yes TAKE 1 [facility] ne (ELAVIL) 1-18 TABLET BY Col lege 25 MG 00:00: MOUTH AT of tablet 00 BEDTIME Medicin ONCE A DAY e ORALLY 90 DAYS 90 montelukast 2019-03 Yes TAKE 1 [facility] (SINGULAIR) 1-08 TABLET BY Col lege 10 MG 00:00: MOUTH of tablet 00 EVERY DAY Medicin e montelukast 2019-03 Yes TAKE 1 [facility] (SINGULAIR) 1-08 TABLET BY Col lege 10 MG 00:00: MOUTH of tablet 00 EVERY DAY Medicin e levothyroxi 2019-03 Yes TAKE 1 [facility] ne 0-27 TABLET BY Prue (SYNTHROID) 00:00: MOUTH of 100 MCG 00 EVERY DAY Medicin tablet e levothyroxi 2019-03 Yes TAKE 1 [facility] ne 0-27 TABLET BY Prue (SYNTHROID) 00:00: MOUTH of 100 MCG 00 EVERY DAY Medicin tablet e phenazopyri 2019-0 Yes [id number] 200mg Take 1 Univers dine 200 mg 9-19 tablet by ity of tablet 00:00: mouth 3 [place] 00 ([facility]) Medical times Branch daily. phenazopyri 2020-0 Yes [id number] 200mg Take 1 Univers dine 200 mg 9-19 tablet by ity of tablet 00:00: mouth 3 [place] 00 (three) Medical times Branch daily. phenazopyri 2020-0 Yes [id number] 200mg Take 1 Univers dine 200 mg 9-19 tablet by ity of tablet 00:00: mouth 3 [place] 00 (three) Medical times Branch daily. Estradiol 2018-03 Yes [id number] Apply 1 to Univers (VAGIFEM) 2-18 the vagina ity of 10 mcg 00:00: every [place] tablet 00 Thursday and Medical Branch in the evening. Estradiol 2018-03 Yes [id number] Apply 1 to Univers (VAGIFEM) 2-18 the vagina ity of 10 mcg 00:00: every [place] tablet 00 Thursday and Medical Branch in the evening. Estradiol 2018-03 Yes [id number] Apply 1 to Univers (VAGIFEM) 2-18 the vagina ity of 10 mcg 00:00: every [place] tablet 00 Thursday and Medical Branch in the evening. apixaban 2018-03 Yes 10mg Take 10 mg Uni vers (ELIQUIS) 5 1-19 by mouth 2 it y of mg tablet 14:37: (two) [place] [address] times Medical daily. Branch metoprolol 2018-03 Yes 50mg Take 50 mg U nivers succinate 1-19 by mouth ity of XL 50 mg 24 14:37: daily. [place] hr tablet 45 Medical Branch gabapentin 2018-03 Yes 300mg Take 300 Un julienne 300 mg 1-19 mg by ity of capsule 14:37: mouth 3 [place] 45 (three) Medical times Branch daily. zolpidem 5 2018-03 Yes 5mg Take 5 mg Un julienne mg tablet 1-19 by mouth ity of 14:37: at bedtime [place] [address] as needed Medical for Branch Insomnia. Levothyroxi 2018-03 Yes Take by Uni vers ne 100 mcg 1-19 mouth. ity of capsule 14:37: [place] [address] Medical Branch amitriptyli 2018-03 Yes 25mg Take 25 mg Univers ne 25 mg 1-19 by mouth ity of tablet 14:37: at [place] [address] bedtime. Medical Branch pantoprazol 2018-03 Yes 40mg Take 40 mg Univers e 40 mg EC 1-19 by mouth ity o f tablet 14:37: daily. [place] [address] Medical Branch azithromyci 2018-03 Yes 250mg Take 250 U nivers n 250 mg 1-19 mg by ity of tablet 14:37: mouth [place] [address] daily. Medical Take 500 Branch mg day 1, then 250 mg days 2 to 5. albuterol 2018-03 Yes 2{puff} Inhale 2 U nivers (VENTOLIN 1-19 Puffs ity of HFA) 90 14:37: every 6 [place] mcg/actuati 45 (six) Medical on inhaler hours as Branc h needed for Wheezing or Shortness of Breath. benzonatate 2018-03 Yes 100mg Take 100 U nivers 100 mg 1-19 mg by ity of capsule 14:37: mouth. [place] [address] Medical Branch clindamycin 2018-03 Yes 300mg Take 300 U nivers 300 mg 1-19 mg by ity of capsule 14:37: mouth 4 [place] 45 (four) Medical times Branch daily. gemfibrozil 2018-03 Yes 600mg Take 600 U nivers 600 mg 1-19 mg by ity of tablet 14:37: mouth 2 [place] [address] (two) Medical times Branch daily before breakfast and dinner. triamcinolo 2018-03 Yes Apply to Un julienne ne 0.025 % -19 area(s) 2 ity of ointment 14:37: (two) [place] [address] times Medical daily. Branch apixaban 2018-03 Yes 10mg Take 10 mg Uni vers (ELIQUIS) 5 1-19 by mouth 2 it y of mg tablet 14:37: (two) [place] [address] times Medical daily. Branch metoprolol 2018-03 Yes 50mg Take 50 mg U nivers succinate -19 by mouth ity of XL 50 mg 24 14:37: daily. [place] hr tablet 45 Medical Branch gabapentin 2018-03 Yes 300mg Take 300 Un julienne 300 mg 1-19 mg by ity of capsule 14:37: mouth 3 [place] [address] (three) Medical times Branch daily. zolpidem 5 2018-03 Yes 5mg Take 5 mg Un julienne mg tablet -19 by mouth ity of 14:37: at bedtime [place] [address] as needed Medical for Branch Insomnia. Levothyroxi 2018-03 Yes Take by Uni vers ne 100 mcg 1-19 mouth. ity of capsule 14:37: [place] [address] Medical Branch amitriptyli 2018-03 Yes 25mg Take 25 mg Univers ne 25 mg -19 by mouth ity of tablet 14:37: at [place] [address] bedtime. Medical Branch pantoprazol 2018-03 Yes 40mg Take 40 mg Univers e 40 mg EC 1-19 by mouth ity o f tablet 14:37: daily. [place] [address] Medical Branch azithromyci 2018-03 Yes 250mg Take 250 U nivers n 250 mg 1-19 mg by ity of tablet 14:37: mouth [place] [address] daily. Medical Take 500 Branch mg day 1, then 250 mg days 2 to 5. albuterol 2018-03 Yes 2{puff} Inhale 2 U nivers (VENTOLIN 1-19 Puffs ity of HFA) 90 14:37: every 6 [place] mcg/actuati 45 (six) Medical on inhaler hours as Branc h needed for Wheezing or Shortness of Breath. benzonatate 2018-03 Yes 100mg Take 100 U nivers 100 mg 1-19 mg by ity of capsule 14:37: mouth. [place] [address] Medical Branch clindamycin 2018-03 Yes 300mg Take 300 U nivers 300 mg 1-19 mg by ity of capsule 14:37: mouth 4 [place] [address] (four) Medical times Branch daily. gemfibrozil 2018-03 Yes 600mg Take 600 U nivers 600 mg 1-19 mg by ity of tablet 14:37: mouth 2 [place] [address] (two) Medical times Branch daily before breakfast and dinner. triamcinolo 2018-03 Yes Apply to Un julienne ne 0.025 % 19 area(s) 2 ity of ointment 14:37: (two) [place] [address] times Medical daily. Branch apixaban 2018-03 Yes 10mg Take 10 mg Uni vers (ELIQUIS) 5 -19 by mouth 2 it y of mg tablet 14:37: (two) [place] [address] times Medical daily. Branch metoprolol 2018-03 Yes 50mg Take 50 mg U nivers succinate -19 by mouth ity of XL 50 mg 24 14:37: [place]. [place] [address] Medical Branch gabapentin 2018-03 Yes 300mg Take 300 Un julienne 300 mg 1-19 mg by ity of capsule 14:37: mouth 3 [place] [address] (three) Medical times Branch daily. zolpidem 5 2018-03 Yes 5mg Take 5 mg Un julienne mg tablet -19 by mouth ity of 14:37: at bedtime [place] [address] as needed Medical for Branch Insomnia. Levothyroxi 2018-03 Yes Take by Uni vers ne 100 mcg -19 mouth. ity of capsule 14:37: [place] [address] Medical Branch amitriptyli 2018-03 Yes 25mg Take 25 mg Univers ne 25 mg -19 by mouth ity of tablet 14:37: at [place] [address] bedtime. Medical Branch pantoprazol 2018-03 Yes 40mg Take 40 mg Univers e 40 mg EC -19 by mouth ity o f tablet 14:37: daily. [place] [address] Medical Branch azithromyci 2018-03 Yes 250mg Take 250 U nivers n 250 mg 1-19 mg by ity of tablet 14:37: mouth [place] [address] daily. Medical Take 500 Branch mg day 1, then 250 mg days 2 to 5. albuterol 2018-03 Yes 2{puff} Inhale 2 U nivers (VENTOLIN 1-19 Puffs ity of HFA) 90 14:37: every 6 [place] mcg/actuati 45 (six) Medical on inhaler hours as Branc h needed for Wheezing or Shortness of Breath. benzonatate 2018-03 Yes 100mg Take 100 U nivers 100 mg 1-19 mg by ity of capsule 14:37: mouth. [place] 45 Medical Branch clindamycin 2018-03 Yes 300mg Take 300 U nivers 300 mg 1-19 mg by ity of capsule 14:37: mouth 4 [place] 45 (four) Medical times Branch daily. gemfibrozil 2018-03 Yes 600mg Take 600 U nivers 600 mg 1-19 mg by ity of tablet 14:37: mouth 2 [place] [address] (two) Medical times [place] daily before breakfast and dinner. triamcinolo 2018-03 Yes Apply to Un julienne ne 0.025 % 1-19 area(s) 2 ity of ointment 14:37: (two) [place] 45 times Medical daily. Branch mupirocin 2 2018-03 Yes [id number] Apply to Univers % ointment 1-19 area(s) 3 ity of 00:00: (three) [place] 00 times Medical daily. Branch mupirocin 2 2018-03 Yes [id number] Apply to Univers % ointment 1-19 area(s) 3 ity of 00:00: (three) [place] 00 times Medical daily. Branch mupirocin 2 2018-03 Yes [id number] Apply to Univers % ointment 1-19 area(s) 3 ity of 00:00: (three) [place] 00 times Medical daily. Branch Estradiol 2018-03 Yes 1 gm, TOP, Me moria 0.1 MG/ML 0-04 Bedtime, l Vaginal 16:17: use 3 [place] Cream 00 times a [Estrace] week, # 1 tube, 5 Refill(s), Pharmacy: [facility] cy #[id number] Estrogens, 2018- Yes 1 appl, Bj starla Conjugated 0-02 VAG, Q-M l (LONG-TERM) 0.625 14:52: and Th, # H ermann MG/ML 00 30 gm, 11 Vaginal Refill(s), Cream Pharmacy: [Premarin] [facility] #[id number] levothyroxi 2018-03 Yes 0 Memori a ne 100 mcg 0-02 Refill(s) l (0.1 mg) 13:25: [place] oral tablet 00 nitrofurant 2018-03 Yes 0 Memori a oin 0-02 Refill(s) l macrocrysta 13:25: [place] wen ls-monohydr 00 ate 100 mg oral capsule (Macrobid) zolpidem 2018-03 Yes 0 Memoria mg oral 0-02 Refill(s) l tablet 13:25: [place] 00 Metoprolol 2018-03 Yes 0 Memoria Tartrate 50 0-02 Refill(s) l mg oral 13:25: [place] tablet 00 Furosemide 2018-03 Yes 0 Memoria [...] Refill(s) l Capsule 13:25: [place] 00 apixaban 2018-03 Yes 5 mg, PO, Me moria MG Oral 0-02 Q12H, 0 l Tablet 13:25: Refill(s) [place] wen [Eliquis] 00 metoprolol 2015-03 Yes 50mg Q.5D Take 50 mg M ethodi tartrate 2-[address] (LOPRESSOR) 16:40: (two) Hospi ta 50 MG 11 times a l tablet day. Take the morning of surgery warfarin 2015-03 Yes 5mg QD Take 5 Methodi (COUMADIN) 2-05 tablets (5 st 1 MG tablet 00:00: mg total) H ospita 00 by mouth l daily. zolpidem 2015-03 Yes 10mg QD Take 10 mg Met hodi (AMBIEN) 10 1-[address] mg tablet 00:00: nightly. [facility]osp [facility] 00 Takes 1/2 l tablet of the 10mg famotidine 2015-03 Yes 20mg QD Take 20 mg M ethodi (PEPCID) 20 0-[address] MG tablet 00:00: every Hospita 00 morning. l gabapentin 2015-03 Yes TAKE ONE Met hodi (NEURONTIN) 0-[address] 300 MG 00:00: MOUTH 3 Hospita capsule 00 TIMES A l DAY NEEDED FOR PAIN- usually takes it in the morning gemfibrozil 2015-03 Yes 600mg Q.5D Take 600 M ethodi (LOPID) 600 0-[address] MG tablet 00:00: mouth 2 Hospi ta 00 (two) l times a day. amitriptyli 2015-03 Yes 50mg QD Take 50 mg Methodi ne (ELAVIL) 0-[address] 50 MG 00:00: every Hospita tablet 00 evening. l ALPRAZolam 2015-03 Yes .25mg Take 0.25 M ethodi (XANAX) 0-[address] 0.25 MG 00:00: mouth as Hospit a tablet 00 needed. l Take the morning of surgery levothyroxi Yes 100ug QD Take 100 M ethodi ne 8-[address] (SYNTHROID, 00:00: mouth Hospi ta LEVOTHROID) 00 nightly. l 100 MCG tablet Acetaminoph Yes 1 tab, PO, Memoria en 325 MG / 6-19 Q6H, # 20 l Hydrocodone 19:20: tab, 0 Herm payal Bitartrate 00 Refill(s) 5 MG Oral Tablet [Rienzi 5/325] Acetaminoph No Notes: Bj starla en 325 MG / 6-19 (Same as: l Hydrocodone 18:29: Rienzi Myriam nn Bitartrate 00 325/5) Do 5 MG Oral not exceed Tablet 4gm/day of acetaminop hen. Vital Signs Vital Name Observation Time Observation Value Comments Source Systolic blood 2021-07-27 20:02:00 156 mm[Hg] Nae groves [facility] Diastolic blood 2021-07-27 20:02:00 99 mm[Hg] Pj alfredo [facility] Heart rate 2021-07-27 20:02:00 89 /min [facility] Body temperature 2021-07-27 20:02:00 36.56 [place] [facility] [place] [facility] [place] Respiratory rate 2021-07-27 20:02:00 18 /min [facility] [place] [facility] Body height 2021-07-27 20:02:00 175.3 cm [facility] [place] [facility] Body weight 2021-07-27 20:02:00 86.183 kg [facility] [place] [facility] BMI 2021-07-27 20:02:00 28.06 kg/m2 [facility] [place] [facility] Oxygen saturation in 2021-07-27 20:02:00 96 /min University of Arterial blood by [facility] Pulse oximetry Branch Systolic blood 2021-05-08 19:56:00 156 mm[Hg] Univer sity of pressure [place] [facility] Diastolic blood 2021-05-08 19:56:00 59 mm[Hg] Unive rsity of [facility] [place] Heart rate 2021-05-08 19:55:00 71 /min [facility] [place] [facility] Body height 2021-05-08 19:55:00 177.8 cm [facility] [place] [facility] Body weight 2021-05-08 19:55:00 89.359 kg [facility] [place] [facility] BMI 2021-05-08 19:55:00 28.27 kg/m2 [facility] [place] [facility] Oxygen saturation in 2021-05-08 19:55:00 96 /min University of Arterial blood by [facility] [place] [facility] Pulse oximetry Branch Systolic blood 2020-05-18 15:26:00 143 mm[Hg] [facility] of pressure Medicine Diastolic blood 2020-05-18 15:26:00 59 mm[Hg] [facility] pressure Medicine Heart rate 2020-05-18 15:26:00 66 /min [facility] Body height 2020-05-18 15:26:00 177.8 cm [facility] Body weight 2020-05-18 15:26:00 86.183 kg [facility] BMI 2020-05-18 15:26:00 27.26 kg/m2 [facility] Systolic blood 2020-05-18 15:26:00 143 mm[Hg] [facility] of pressure Medicine Diastolic blood 2020-05-18 15:26:00 59 mm[Hg] [facility] of pressure Medicine Heart rate 2020-05-18 15:26:00 66 /min [facility] C ollege of Medicine Body height 2020-05-18 15:26:00 177.8 cm [facility] C ollege of Medicine Body weight 2020-05-18 15:26:00 86.183 kg [facility] BMI 2020-05-18 15:26:00 27.26 kg/m2 [facility] Systolic blood 2020-04-06 16:35:00 140 mm[Hg] [facility] of pressure Medicine Diastolic blood 2020-04-06 16:35:00 78 mm[Hg] [facility] of pressure Medicine Heart rate 2020-04-06 16:35:00 68 /min [facility] C ollege of Medicine Body height 2020-04-06 16:35:00 177.8 cm [facility] of Medicine Body weight 2020-04-06 16:35:00 86.183 kg [facility] BMI 2020-04-06 16:35:00 27.26 kg/m2 [facility] Systolic blood 2020-04-06 16:35:00 140 mm[Hg] [facility] of pressure Medicine Diastolic blood 2020-04-06 16:35:00 78 mm[Hg] [facility] of pressure Medicine Heart rate 2020-04-06 16:35:00 68 /min [facility] Body height 2020-04-06 16:35:00 177.8 cm [facility] Body weight 2020-04-06 16:35:00 86.183 kg [facility] BMI 2020-04-06 16:35:00 27.26 kg/m2 [facility] Height 2018-12-22 13:22:00 175.26 cm [facility] [place] Weight 2018-12-22 13:22:00 [facility] [place] BMI Calculated 2018-12-22 13:22:00 Alexandre Lew Heart Rate 2015-09-09 20:21:00 Brittany Hernandez Systolic (mm Hg) 2015-09-09 20:21:00 Bj rial [place] Diastolic (mm Hg) 2015-09-09 20:21:00 Mem orial [place] Temperature Oral (F) 2015-09-09 20:21:00 98.1 F [facility] [place] Respitory Rate 2015-09-09 20:21:00 Michellejoselito linda [place] BMI Calculated 2015-09-09 17:44:00 Michellejoselito Lintonann Weight 2015-09-09 17:44:00 [facility] [place] Height 2015-09-09 17:44:00 177.8 cm [facility] [place] Respitory Rate 2015-09-09 17:44:00 Memori alexei David Heart Rate 2015-09-09 17:44:00 [facility] Systolic (mm Hg) 2015-09-09 17:44:00 Bj ozuna David Diastolic (mm Hg) 2015-09-09 17:44:00 Mem orial David Temperature Oral (F) 2015-09-09 17:44:00 98.2 F [facility] David Procedures Procedure Date / Time Performing Clinician Source Performed DUPLEX VENOUS LEG LEFT - 2021-07-27 22:37:00 Katerine Samano [facility] BY VASCULAR LAB [facility] URINALYSIS 2021-07-27 20:56:00 Katerine Samano [facility] CONSENT/REFUSAL FOR 2021-07-27 19:58:58 Doctor Unassigned, No [facility] DIAGNOSIS AND TREATMENT [facility] PATIENT QUESTIONNAIRE 2021-04-17 06:01:00 Doctor Unassigned, No [facility] Name [facility] uroflowmetry 2019-01-10 17:20:00 Radha Hernandez (eg, calibrated electronic equipment) Measurement of 2019-01-10 17:20:00 Brittany farooq post-voiding residual urine and/or bladder capacity by ultrasound, non-imaging Plan of Care Planned Activity Planned Date Details Comments Source Future Scheduled 2021-11-20 HEPATITIS B VACCINES [facility] 08:06:21 (1 of 3 - 3-dose Hospital series) [code = HEPATITIS B VACCINES (1 of 3 - 3-dose series)] Future Scheduled 2021-11-20 COVID-[address] [facility] 08:06:21 (#1) [code = Hospital COVID-19 VACCINE (#1)] Future Scheduled 2021-11-20 SHINGLES VACCINES (1 [facility] 08:06:21 of 2) [code = Hospital SHINGLES VACCINES (1 of 2)] Future Scheduled 2021-11-20 65+ [address]OCO[address] [facility] 08:06:21 VACCINE (1 - PCV) Hospital [code = 65+ PNEUMOCOCCAL VACCINE (1 - PCV)] Future Scheduled 2021-11-20 INFLUENZA VACCINE [facility] 08:06:21 [code = INFLUENZA Hospital VACCINE] Future Scheduled COVID-19 Vaccine [facility] of Test Evaluation [code = Medicine COVID-19 Vaccine Evaluation] Future Scheduled TETANUS SHOT (ADULT) [facility] of Test [code = TETANUS SHOT Medicin e (ADULT)] Future Scheduled ZOSTER VACCINE (1 of [facility] of Test 2) [code = ZOSTER Medicine VACCINE (1 of 2)] Future Scheduled MEDICARE AWV [facility] Jose Alfredo ege of Test (Initial) [code = Medicine MEDICARE AWV (Initial)] Future Scheduled FALL SCREEN [code = [facility] of Test FALL SCREEN] Medicine Future Scheduled OSTEOPOROSIS [facility] e[facility] of Test SCREENING [code = Medicine OSTEOPOROSIS SCREENING] Future Scheduled PNEUMOVAX >=65 [facility] l[facility] of Test (PPSV23) [code = Medicine PNEUMOVAX >=65 (PPSV23)] Future Scheduled FLU VACCINE > 6 [facility] C ollege of Test MONTHS [code = FLU Medicine VACCINE > 6 MONTHS] Future Scheduled BMI FOLLOW UP PLAN [facility] of Test [code = BMI FOLLOW Medicine UP PLAN] Future Scheduled COMPRESSION STOCKING Ordered: [facility] of Test 15-20MM [code = 05/18/2020 Medicine NOCPT] Future Scheduled COVID-19 Vaccine [facility] of Test Evaluation [code = Medicine COVID-19 Vaccine Evaluation] Future Scheduled TETANUS SHOT (ADULT) [facility] of Test [code = TETANUS SHOT Medicin e (ADULT)] Future Scheduled ZOSTER VACCINE (1 of [facility] of Test 2) [code = ZOSTER Medicine VACCINE (1 of 2)] Future Scheduled MEDICARE AWV [facility] e[facility] of Test (Initial) [code = Medicine MEDICARE AWV (Initial)] Future Scheduled FALL SCREEN [code = [facility] of Test FALL SCREEN] Medicine Future Scheduled OSTEOPOROSIS [facility] e[facility] of Test SCREENING [code = Medicine OSTEOPOROSIS SCREENING] Future Scheduled FLU VACCINE > 6 [facility] C ollege of Test MONTHS [code = FLU Medicine VACCINE > 6 MONTHS] Future Scheduled BMI FOLLOW UP PLAN [facility] [code = BMI FOLLOW Medicine UP PLAN] Encounters Start End Encounter Admission Attending Care Care Encounter Source Date/Time Date/Time Type Type Clinicians Facility Department ID 2021-12-16 Outpatient [facility] [id number] Common 10:00:01 [facility] 2021-04-17 Outpatient [facility] [id number] Common 13:51:28 [id number] [facility] 2021-04-17 Outpatient [facility] [id number] Common 13:36:39 [id number] [facility] 2021-04-17 Outpatient [facility] [id number] Common 12:17:59 [id number] [facility] 2021-04-17 Outpatient [facility] [id number] Common 12:13:03 [id number] [facility] 2021-04-17 Outpatient [facility] [id number] Common 12:11:32 [id number] [facility] 2021-07-27 2021-07-27 Emergency X [facility] ERT [id number] Univers 15:12:00 18:41:00 KATERINE carvalhoy [facility] 2021-07-27 2021-07-27 Emergency [facility] [id number] Univers 15:12:00 18:41:00 Katerine [facility] [id number] ity [facility] 4.2.7.2.686 [place] [facility] [id number] [address] 2021-05-08 2021-05-08 [facility] [id number] Univers 14:45:00 14:52:24 [facility] [id number] it y of [place] 4.2.7.2.686 [place] as NICHO?BLEA [id number] [address] MEDICAL OFFICE BUILDING 2021-05-08 2021-05-08 [facility] [id number] Univers 14:45:00 14:52:24 LIAT ity of [facility] 2021-04-17 2021-04-17 Orders Doctor BRUNO [id number] Univers 00:00:00 00:00:00 Only Unassigned, VAZQUEZ [id number] ity of Shirley [facility] 4.2.7.2.686 [place] as [id number] [address] 2020-05-18 2020-05-18 Office BROOK Dhillon [id number] 08:52:49 09:07:49 Visit Ramyar AMBULATOR [id number] Y 0.2.7.2.686 [id number] [facility] 2020-05-18 2020-05-18 Office BROOK Dhillon 1.2.840.114 [id number] [facility] 08:52:49 09:07:49 Visit Ramyar AMBULATOR [id number] College Y 0.2.7.2.[id number] [facility] 825 e 2020-04-06 2020-04-06 Office Alejo BROOK [id number] 07:22:23 16:13:31 Visit Ramyar AMBULATOR [id number] Y 0.2.7.2.686 [id number] [facility] 2020-04-06 2020-04-06 Office BROOK Dhillon 1.2.840.114 [id number] [facility] 07:22:23 16:13:31 Visit Ramyar AMBULATOR 350.1.13.21 College Y 0.2.7.2.[id number] [facility] 825 e 2020-04-06 2020-04-06 Outpatient [facility] [id number] [facility] 07:22:11 16:11:44 Jareth 2019-12-10 2019-12-10 Emergency [facility] [id number] 12:56:00 14:28:00 Tim Rutherford 350.1.13.10 [place] 4.2.7.2.686 [place] [id number] [facility] 2019-12-10 2019-12-10 Orders Doctor BRUNO 1.2.840.114 [id number] 00:00:00 00:00:00 Only Unassigned, VAZQUEZ [id number] Shirley [facility] 4.2.7.2.686 [id number] 2019-10-21 2019-11-01 Office [facility] 1.2.840.114 [id number] 10:06:35 12:32:49 Visit Liliam Rutherford 350.1.13.10 [place] 4.2.7.2.686 Serge [id number] [address] 2019-01-24 2019-01-24 Ambulatory nullFlavo [facility] [id number] Memoria 16:00:00 16:00:00 Pre-Reg r Urology 05 danilo berger [facility] 2019-01-24 2019-01-24 Ambulatory nullFlavo [facility] [id number] Memoria 15:40:00 15:40:00 Pre-Reg r Urology 04 danilo berger Time Share 2019-01-24 2019-01-24 Outpatient [facility]IE [facility] [id number] Memoria 10:00:00 10:00:00 05 danilo Hernandez 2019-01-24 2019-01-24 Outpatient VISIT, [facility] [id number] 10:00:00 10:00:00 NURSE SIDDIQUI 05 2019-01-24 2019-01-24 Outpatient [facility]IE [facility] [id number] Memoria 09:40:00 09:40:00 04 danilo Hernandez 2019-01-24 2019-01-24 Outpatient Leonie [facility] [id number] 09:40:00 09:40:00 Nato S 2019-01-10 2019-01-11 Outpatient nullFlavo [facility] [id number] Memoria 15:00:00 04:59:59 r Urology 02 danilo berger Time Share 2019-01-10 2019-01-10 Outpatient Leonie, [facility] [id number] 10:00:00 23:59:59 Nato S 2019-01-10 2019-01-10 Outpatient MHIE MHIE [id number] Memoria 10:00:00 10:00:00 03 danilo Hernandez 2019-01-10 2019-01-10 Outpatient MHIE [facility] [id number] Memoria 10:00:00 10:00:00 02 danilo Hernandez 2018-12-22 2018-12-23 Outpatient nullFlavo MG Multi [id number] Memoria 14:45:00 04:59:59 r Specialty 01 l [facility] 2018-12-22 2018-12-22 Outpatient Leonie MG [id number] 09:45:00 23:59:59 Nato S 2018-12-22 2018-12-22 Ambulatory nullFlavo [facility] Multi [id number] Memoria 14:00:00 14:00:00 Pre-Reg r Specialty 00 l [facility] 2018-12-22 2018-12-22 Outpatient MHIE MHIE [id number] Memoria 09:45:00 09:45:00 01 danilo Hernandez 2018-12-22 2018-12-22 Outpatient Leonie [facility] [id number] 09:00:00 09:00:00 Nato Johnson 2018-12-15 2018-12-15 Outpatient [facility] [id number] Memoria 09:00:00 09:00:00 00 David 2015-09-09 2015-09-09 EC nullFlavo [facility] [id number] Memoria 17:38:00 20:23:00 Emergency r David 00 l [facility] 2015-09-09 2015-09-09 Outpatient Reji [facility] [id number] 12:38:00 15:23:00 Eli Griffin 00 Results This patient has no known results.
[2021-12-19] MEDS ORDERED: HYDROCODONE/APAP 5/325 MG TAB ONE ×2 (01:33→01:39)
[2021-12-19 02:44] LABS: Urine Blood 2+ (Negative); Urine Glucose Negative (Negative); Urine Protein Trace (Negative); Urine Specific Gravity 1.025 (1.005-1.030); Urine pH 5.5 (5.0-7.0)
--- NOTE | 2021-12-19 03:02 | ER ---
Nurse's Notes [facility] Name: Shilpa Samaniego Age: 89 yrs Sex: Female : 1930 Arrival Date: 12/19/2021 Time: 00:50 Bed 4 Private MD: Diagnosis: Closed head injury, forehead hematoma, facial hematoma, UTI Presentation: 12/19 01:02 Chief complaint: Patient states: fell while walking [place] [address] of home pt denies LOC kl reports takes [place]. Care prior to arrival: None. Mechanism of Injury: Fall same level fall. Trauma event details: Injury occurred in the [facility], Injury occurred: at home. Injury occurred: December 19, 2021 Injury occurred at: 12:00. 01:02 Acuity: LESA 3 kl 01:02 Method Of Arrival: Ambulatory 02:44 Coronavirus screen: Vaccine status: Patient reports being unvaccinated. Ebola Screen: kd3 No symptoms or risks identified at this time. Initial Sepsis Screen: Does the patient meet any 2 criteria? No. Patient's initial sepsis screen is negative. Does the patient have a suspected source of infection? No. Patient's initial sepsis screen is negative. Risk Assessment: Do you want to hurt yourself or someone else? Patient reports no desire to harm self or others. Onset of symptoms was December 19, 2021. Triage Assessment: 02:44 General: Appears in no apparent distress. EENT: No deficits noted. Neuro: No deficits kd3 noted. Cardiovascular: No deficits noted. Trauma Activation: Alert Physician: ED Physician; Name: ; Notified At: ; Arrived At: Physician: General Surgeon; Name: ; Notified At: ; Arrived At: Physician: Radiology; Name: ; Notified At: ; Arrived At: Physician: Respiratory; Name: ; Notified At: ; Arrived At: Physician: Lab; Name: ; Notified At: ; Arrived At: Historical: - Allergies: 01:06 Augmentin; kl 01:06 cefpodoxime; kl 01:06 Cefuroxime; kl 01:06 Ciprofloxacin; kl 01:06 Demerol; kl 01:06 Levofloxacin; kl 01:06 NSAIDS; kl 01:06 PENICILLINS; kl - PMHx: 01:06 Anxiety; Atrial Fib; COPD; DVT; LLE; hiatal hernia; Hyperlipidemia; Hypertension; kl Pacemaker; Rheumatoid Arthritis; - Code Status:: Full code. - Immunization history:: Adult Immunizations up to date. - Social history:: Smoking status: unknown. - Immunization history: Last tetanus immunization: unknown. Screenin:00 Abuse screen: Denies threats or abuse. Nutritional screening: No deficits noted. jb4 Tuberculosis screening: No symptoms or risk factors identified. 02:45 Fall Risk Fall in past 12 months (25 points). IV access (20 points). kd3 Primary Survey: 01:00 NO uncontrolled hemorrhage observed. A: The client is awake and alert. The airway is jb4 patent. Breathing/Chest: Spontaneous respiratory effort, equal unlabored respirations, breath sounds clear bilaterally, regular pattern, symmetrical chest rise and fall. Circulation: No external hemorrhage present. Regular and strong central pulse, skin warm/dry/normal color. Disability Pupils are equal, round, reactive to light and accommodation. Client is alert. Exposure/Environment: All clothing and personal items were removed. Forensic evidence collection is not deemed to be indicated at this time. Items placed in patient belonging bag. A warming method has been applied: A warm blanket has been provided to the patient. 02:44 Reassessment Alertness and Airway: Awake and alert. The airway is patent. Breathing: kd3 Spontaneous respiratory effort, equal unlabored respirations, breath sounds clear bilaterally, regular pattern with symmetrical chest rise and fall. Circulation: No external hemorrhage noted. Regular and strong central pulse, skin warm/dry/normal color. Disability: Pupils Pupils are equal, round, reactive to light and accomodation. Assessment: 01:03 General: Appears uncomfortable, well groomed, well developed, Behavior is calm, kl cooperative. Pain: Complains of pain in left eye Pain currently is 7 out of 10 on a pain scale. Neuro: No deficits noted. Level of Consciousness is awake, alert, obeys commands, Oriented to person, place, time, situation. EENT: Eyes hematoma to left eye. Cardiovascular: No deficits noted. Respiratory: No deficits noted. GI: No deficits noted. : No deficits noted. Derm: skin tear to right upper arm. Musculoskeletal: No deficits noted. Reports bilateral knee pain that is chronic. Injury Description: Head injury sustained to forehead and left eye. Nursing diagnosis: Alteration in comfort: actual. 02:00 Reassessment: Patient appears in no apparent distress at this time. Patient and/or jb4 family updated on plan of care and expected duration. Pain level reassessed. Patient is alert, oriented x 3, equal unlabored respirations, skin warm/dry/pink. 03:00 Reassessment: Patient appears in no apparent distress at this time. Patient and/or jb4 family updated on plan of care and expected duration. Pain level reassessed. Patient is alert, oriented x 3, equal unlabored respirations, skin warm/dry/pink. Vital Signs: 01:00 BP 139 / 60; Pulse 66; Resp 16; Pulse Ox 99% on R/A; jb4 03:00 BP 125 / 52; Pulse 64; Resp 16; Pulse Ox 96% on R/A; jb4 Mary Coma Score: 02:44 Eye Response: spontaneous(4). Verbal Response: oriented(5). Motor Response: obeys kd3 commands(6). Total: 15. 03:00 Eye Response: spontaneous(4). Verbal Response: oriented(5). Motor Response: obeys jb4 commands(6). Total: 15. Trauma Score (Adult): 02:44 Eye Response: spontaneous(1); Verbal Response: oriented(1); Motor Response: obeys kd3 commands(2); Systolic BP: > 89 mm Hg(4); Respiratory Rate: 10 to 29 per min(4); Mary Score: 15; Trauma Score: 12 03:00 Eye Response: spontaneous(1); Verbal Response: oriented(1); Motor Response: obeys jb4 commands(2); Systolic BP: > 89 mm Hg(4); Respiratory Rate: 10 to 29 per min(4); Wadsworth Score: 15; Trauma Score: 12 ED Course: 00:50 Patient arrived in ED. ja2 00:51 Alex Ferguson MD is Attending Physician. sp3 01:00 Patient has correct armband on for positive identification. Bed in low position. Call jb4 light in reach. Side rails up X 1. Patient maintains SpO2 saturation greater than 95% on room air. 01:00 Patient maintains SpO2 saturation greater than 95% on room air. Thermoregulation: warm jb4 blanket given to patient. 01:01 Kely Johnson, SABI is Primary Nurse. kd3 01:03 Triage completed. kl 01:37 XRAY Chest (1 view) In Process Unspecified. EDMS 02:18 Head C Spine Mpr Wo Con In Process Unspecified. EDMS 02:18 CT Facial Bones W/O Con In Process Unspecified. EDMS 02:44 No provider procedures requiring assistance completed. kd3 02:46 Arm band placed on right wrist. kd3 03:10 Patient did not have IV access during this emergency room visit. jb4 Administered Medications: 01:41 Drug: HYDROcodone-acetaminophen 5 mg-325 mg 1 tabs Route: PO; 02:43 Follow up: Response: No adverse reaction; Pain is decreased kd3 01:41 Drug: HYDROcodone-acetaminophen 5 mg-325 mg 1 tabs Route: PO; kl 02:43 Follow up: Response: No adverse reaction; Pain is decreased kd3 Medication: 02:46 VIS not applicable for this client. kd3 Output: 02:44 Urine: 500ml (Voided); Total: 500ml. kd3 Outcome: 03:01 Discharge ordered by . sp3 03:09 Discharged to home via wheelchair, with family. jb4 03:09 Condition: stable 03:09 Discharge instructions given to patient, Instructed on discharge instructions, follow up and referral plans. medication usage, Demonstrated understanding of instructions, follow-up care, medications, Prescriptions given X 1. 03:10 Patient's length of stay was not longer than 2 hours. jb4 03:10 Patient left the ED. jb4 Signatures: Dispatcher [employer] Belkys Grimes RN RN kl Bryson, James, RN RN jb4 Alex Ferguson MD MD sp3 Alexander, Jessica ja2 Doucette, Kyli, RN RN kd3
--- NOTE | 2021-12-19 03:02 | EDPHYS ---
Physician Documentation [facility] Name: Shilpa Samaniego Age: 89 yrs Sex: Female : 1930 Arrival Date: 12/19/2021 Time: 00:50 Bed 4 Private MD: ED Physician Alex Ferguson HPI: 12/19 01:21 This 89 yrs old Female presents to ER via Ambulatory with complaints of Fall Injury. sp3 01:21 89-year-old female with a history of atrial fibrillation on Eliquis, COPD, prior DVT, sp3 hyperlipidemia, hypertension presents with mechanical ground-level fall just prior to arrival with injuries abdominally to the head and face as well as mild injury to the right upper extremity. Patient denies any episodes syncope or post episode loss of consciousness. She also denies at any time during the entire process chest pain, neck pain, shortness of breath, abdominal pain, nausea, vomiting, diarrhea, focal neurological deficit including paresthesias or focal weakness, rash, known sick contacts, fever, URI symptoms, any other aspect of ROS at this time.. Historical: - Allergies: 01:06 Augmentin; kl 01:06 cefpodoxime; kl 01:06 Cefuroxime; kl 01:06 Ciprofloxacin; kl 01:06 Demerol; kl 01:06 Levofloxacin; kl 01:06 NSAIDS; kl 01:06 PENICILLINS; kl - PMHx: 01:06 Anxiety; Atrial Fib; COPD; DVT; LLE; hiatal hernia; Hyperlipidemia; Hypertension; kl Pacemaker; Rheumatoid Arthritis; - Code Status:: Full code. - Immunization history:: Adult Immunizations up to date. - Social history:: Smoking status: unknown. - Immunization history: Last tetanus immunization: unknown. ROS: 01:22 Constitutional: Negative for fever, chills, and weight loss, ENT: Negative for injury, sp3 pain, and discharge, Neck: Negative for injury, pain, and swelling, Cardiovascular: Negative for chest pain, palpitations, and edema, Respiratory: Negative for shortness of breath, cough, wheezing, and pleuritic chest pain, Abdomen/GI: Negative for abdominal pain, nausea, vomiting, diarrhea, and constipation, Back: Negative for injury and pain, Skin: Negative for injury, rash, and discoloration, Psych: Negative for depression, anxiety, suicide ideation, homicidal ideation, and hallucinations, Allergy/Immunology: Negative for hives, rash, and allergies, Endocrine: Negative for neck swelling, polydipsia, polyuria, polyphagia, and marked weight changes, Hematologic/Lymphatic: Negative for swollen nodes, abnormal bleeding, and unusual bruising. 01:22 All other systems are negative. Exam: 01:23 Constitutional: This is a well developed, well nourished patient who is awake, alert, sp3 and in no acute distress. ENT: Nares patent. No nasal discharge, no septal abnormalities noted. External auditory canals are clear. Oropharynx with no redness, swelling, or masses, exudates, or evidence of obstruction, uvula midline. Mucous membranes moist. Neck: Trachea midline, no thyromegaly or masses palpated, and no cervical lymphadenopathy. Supple, full range of motion without nuchal rigidity, or vertebral point tenderness. No Meningismus. Chest/axilla: Normal chest wall appearance and motion. Nontender with no deformity. No lesions are appreciated. Cardiovascular: Regular rate and rhythm with a normal S1 and S2. No gallops, murmurs, or rubs. Normal PMI, no JVD. No pulse deficits. Respiratory: Lungs have equal breath sounds bilaterally, clear to auscultation and percussion. No rales, rhonchi or wheezes noted. No increased work of breathing, no retractions or nasal flaring. Back: No spinal tenderness. No costovertebral tenderness. Full range of motion. Skin: Warm, dry with normal turgor. Normal color with no rashes, no lesions, and no evidence of cellulitis. Neuro: Awake and alert, GCS 15, oriented to person, place, time, and situation. Cranial nerves II-XII grossly intact. Motor strength 5/5 in all extremities. Sensory grossly intact. Cerebellar exam normal. Normal gait. Psych: Awake, alert, with orientation to person, place and time. Behavior, mood, and affect are within normal limits. 01:23 Head/face: Patient with large hematoma on the left forehead extending down to the periorbital area as well as mild abrasions there. Patient also has abrasions to the right shoulder and upper lateral extremity as well as trouble 2 cm laceration that does not require repair. Eyes are normal with no anterior chamber bleeding or hyphema. Neurological exam is otherwise normal. Patient has mild headache in the area of the hematoma but denies generalized headache.. Vital Signs: 01:00 BP 139 / 60; Pulse 66; Resp 16; Pulse Ox 99% on R/A; jb4 03:00 BP 125 / 52; Pulse 64; Resp 16; Pulse Ox 96% on R/A; jb4 [place] Coma Score: 02:44 Eye Response: spontaneous(4). Verbal Response: oriented(5). Motor Response: obeys kd3 commands(6). Total: 15. 03:00 Eye Response: spontaneous(4). Verbal Response: oriented(5). Motor Response: obeys jb4 commands(6). Total: 15. Trauma Score (Adult): 02:44 Eye Response: spontaneous(1); Verbal Response: oriented(1); Motor Response: obeys kd3 commands(2); Systolic BP: > 89 mm Hg(4); Respiratory Rate: 10 to 29 per min(4); [place] Score: 15; Trauma Score: 12 03:00 Eye Response: spontaneous(1); Verbal Response: oriented(1); Motor Response: obeys jb4 commands(2); Systolic BP: > 89 mm Hg(4); Respiratory Rate: 10 to 29 per min(4); [place] Score: 15; Trauma Score: 12 MDM: 01:01 Patient medically screened. [facility] 01:24 Data reviewed: vital signs, nurses notes. ED course: 89-year-old with mechanical sp3 ground-level fall with injuries prominently on the face and head. Will obtain CT scan of the head, facial bones, C-spine given the fact that patient is on Eliquis. If radiology work-up is negative, will discharge patient home with general precautions follow-up with her primary care physician.. 03:01 ED course: Radiology negative; Urine shows UTI. Will d/c on abx. . 3 12/19 02:44 Order name: Urine Dipstick-Ancillary; Complete Time: 02:49 EDNJ 12/19 01:15 Order name: CT Head C Spine sp3 12/19 01:15 Order name: XRAY Chest (1 view) sp3 12/19 01:15 Order name: CT Facial Bones W/O Con 3 12/19 01:21 Order name: Head C Spine Mpr Wo Con EDMS 12/19 01:57 Order name: Urine Dipstick-Ancillary (obtain specimen); Complete Time: 02:43 sp3 Administered Medications: 01:41 Drug: HYDROcodone-acetaminophen 5 mg-325 mg 1 tabs Route: PO; kl 02:43 Follow up: Response: No adverse reaction; Pain is decreased kd3 01:41 Drug: HYDROcodone-acetaminophen 5 mg-325 mg 1 tabs Route: PO; kl 02:43 Follow up: Response: No adverse reaction; Pain is decreased kd3 Disposition Summary: 12/19/21 03:01 Discharge Ordered Location: Home sp3 Condition: Stable sp3 Diagnosis - Closed head injury, forehead hematoma, facial hematoma, UTI sp3 Followup: sp3 - With: Private Physician - When: Upon discharge from the Emergency Department - Reason: Continuance of care Discharge Instructions: - Discharge Summary Sheet sp3 - Head Injury, Adult sp3 - Hematoma sp3 - Acute Urinary Retention, Female sp3 Forms: - Medication Reconciliation Form sp3 - Thank You Letter sp3 - Antibiotic Education sp3 - Prescription Opioid Use sp3 Prescriptions: - Bactrim DS 800-160 mg Oral Tablet - take 1 tablet by ORAL route every 12 hours for 3 days; 6 tablet; Refills: 0, sp3 Product Selection Permitted Signatures: Dispatcher [employer] Belkys Grimes RN RN Mihai Lopes PA PA jmm Patel, Setul, MD MD sp3 Kely Johnson RN RN kd3
--- NOTE | 2021-12-19 10:32 | RAD REPORT ---
EXAM DESCRIPTION: CT - Facial Bones W/ Mpr - 12/19/2021 2:17 am CLINICAL HISTORY: 89 years Female trauma TECHNIQUE: Axial CT of the facial bones was performed without intravenous contrast with sagittal and coronal reformatted images. The CT study is performed according to ALARA (as low as reasonably achie vable) or ALARA/IMAGE GENTLY, with automatic adjustment of mA and/or kV according to patient size. Performed on: 12/19/2021 at 2:08 AM COMPARISON: None. FINDINGS: There is no evidence of acute facial bone fracture. The mandible is intact. The temporom andibular joints are preserved. The nasal bones are intact. The bony nasal septum deviated towards th e right and there is a small right sided nasal septal spur. The anterior maxillary spine is intact. Both globes are intact and are symmetric. The extraocular muscles and optic nerves are symmetric. T he intraconal fat is preserved. There is no evidence of intraorbital emphysema. There is left periorb ital and left frontal scalp soft tissue swelling and hematoma. There is no significant mucosal thickening of the paranasal sinuses. Mastoid air cells and middle ear cavities are clear. Submandibular glands and parotid glands are symmetric bilaterally. The visualized portions of the ora l cavity, oropharynx and nasopharynx are unremarkable. The parapharyngeal fat planes are preserved. T here are degenerative changes of the visualized cervical spine particularly involving the atlantoaxia l articulation. IMPRESSION: 1. No evidence of acute facial bone fracture. 2. Left periorbital and left frontal scalp soft tissue swelling and hematoma. 3. Degenerative changes of the visualized cervical spine particularly involving the atlantoaxial ar ticulation. Electronically signed by: Dolores Perkins DO 12/19/2021 2:46 AM CDT Due to temporary technical issues with the PACS/Fluency reporting system, reports are being signed by the in house radiologists without review as a courtesy to insure prompt reporting. The interpreting radiologist is fully responsible for the content of the report.
--- NOTE | 2021-12-19 10:38 | RAD REPORT ---
EXAM DESCRIPTION: CT - Head C Spine Mpr Wo Con - 12/19/2021 2:16 am CLINICAL HISTORY: 89 years Female trauma TECHNIQUE: Multiple axial CT images of the brain and cervical spine were performed followed by sagit leno and coronal reconstructed images. The CT study is performed according to ALARA (as low as reasona iva achievable) or ALARA/IMAGE GENTLY, with automatic adjustment of mA and/or kV according to patient size. Performed on: 12/19/2021 2:08 AM COMPARISON: Head CT performed on 08/09/2021. FINDINGS: CT HEAD: There is no evidence of mass, acute mass effect or midline shift. There are no acute extra-axial flui d collections. There is no evidence of acute intracranial hemorrhage. The cerebral sulci and ventricles are prominent consistent with mild cerebral volume loss. There are scattered areas of decreased attenuation within the subcortical and periventricular white m atter most likely due to mild chronic microangiopathy. There is no significant mucosal thickening of the paranasal sinuses. The mastoid air cells are clear. The orbital contents are grossly unremarkable. No acute osseous abnormalities are identified. There is left periorbital and left frontal soft tissue swelling and hematoma. CT CERVICAL SPINE: The cervical vertebrae are normal in height. There is straightening of the normal cervical lordosis. This may be related to muscle spasm or patient positioning. There is moderate disc space narrowing at C5-C6 and C6-C7. There is mild degenerative spurring at these levels as well as posteriorly at C3-C4 . Bone mineralization is normal. The atlanto-axial articulation is preserved and the odontoid proc ess is intact. There are degenerative changes involving the atlantoaxial articulation. There is normal alignment of the facet joints on the parasagittal images. There are mild to moderate degenerative changes of the facet joints. There is no evidence of acute fracture or subluxation. 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 There is multilevel bilateral neural foraminal stenosis secondary to uncovertebral joint and facet joint hypertrophy. The prevertebral and paraspinal soft tissues are unremarkable. The lung apices are clear. IMPRESSION: CT HEAD: 1. No evidence of acute intracranial pathology. 2. 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 3. Left periorbital and left frontal scalp soft tissue swelling and hematoma. CT CERVICAL SPINE: 1. No evidence of acute cervical spine injury. 2. Degenerative changes of the cervical spine as described above. 3. Straightening of the normal cervical lordosis which may be related to muscle spasm, degenerative changes or patient positioning. Electronically signed by: Dolores Perkins DO 12/19/2021 2:41 AM CDT Due to temporary technical issues with the PACS/Fluency reporting system, reports are being signed by the in house radiologists without review as a courtesy to insure prompt reporting. The interpreting radiologist is fully responsible for the content of the report.
--- NOTE | 2021-12-19 11:48 | RAD REPORT ---
EXAM DESCRIPTION: RAD - Chest Single View - 12/19/2021 1:35 am CLINICAL HISTORY: 89 years Female, TRAUMA COMPARISON: None. TECHNIQUE: Single portable x-ray view of the chest performed on 12/19/2021 at 1:22 AM FINDINGS: The lungs are well expanded and are grossly clear. There may be very mild bibasilar fibros is and/or atelectasis.. There is no evidence of a pneumothorax. The cardiac silhouette is grossly normal in size and configuration. The mediastinal contours are normal. No acute osseous abnormality is identified. There are chronic changes of the right shoulder. No acute soft tissue abnormalities are seen. 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 Free air: None IMPRESSION: 1. No evidence of acute intrathoracic disease. There may be mild bibasilar fibrosis an d/or atelectasis. 2. Left subclavian bipolar pacemaker. Electronically signed by: Dolores Perkins DO 12/19/2021 2:01 AM CDT Due to temporary technical issues with the PACS/Fluency reporting system, reports are being signed by the in house radiologists without review as a courtesy to insure prompt reporting. The interpreting radiologist is fully responsible for the content of the report.
[2021-12-20 15:25] VITALS: BP 125/52; O2SAT 96
== END 2021-12-19 03:10 | disposition home or self-care (01) ==
LOC: ER 00:46
DX: S00.83XA Contusion of other part of head, initial encounter (principal); I10 Essential (primary) hypertension; I48.91 Unspecified atrial fibrillation; Z79.01 Long term (current) use of anticoagulants; Z95.0 Presence of cardiac pacemaker; Z88.0 Allergy status to penicillin; Z88.1 Allergy status to other antibiotic agents; Z88.3 Allergy status to other anti-infective agents; Z88.5 Allergy status to narcotic agent; Z88.6 Allergy status to analgesic agent
CPT/HCPCS: 70450; 70486; 71045; 72125; 76377; 81003; 99284

== ENCOUNTER 2021-12-21 18:52 | Emergency (ER) | payer OTHER ==
--- OUTSIDE RECORDS SUMMARY | 2021-12-21 18:56 | XMS REPORT | Continuity of Care Document ---
:1930 Author Organization [facility] t Address [address] [place] [address] [address]. [address]ley [address] [place] [address] Care Team Providers Name Role Phone Tara Castro MD Primary Care Physician [phone] KATERINE SAMANO Attending Clinician Unavailable Katerine Hirsch Attending Clinician Liat Keene MD Attending Clinician LIAT KEENE Attending Clinician Unavailable Doctor Unassigned, [place] Attending Clinician Unavailable Brenda Dhillon MD Attending Clinician Tim Tellez Attending Clinician Liliam Marina MD Attending Clinician VISIT, NURSE UABLAS Attending Clinician Unavailable Nato Hadley Attending Clinician Eli Mendoza Attending Clinician KATERINE SAMANO Admitting Clinician Unavailable Payers Payer Name Policy Type Policy Number Effective Date Expiration Date Alex [id number] MEDICARE PART A [id number] 1997 \T\ B 00:00:00 [employer] INDEMNITY [id number] 2013 00:00:00 Problems Condition Condition Condition Status Onset Resolution Last Treating Co mments Source Name Details Category Date Date Treatment Clinician Date 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 05-18 Co llege apy of apy of 00:00: of varicose varicose 00 Medici n veins veins e Chronic Chronic Disease Active [facility] atrial atrial 04-10 [facility] fibrillati fibrillati 00:00: of on on 00 Medicin (HCCode) (HCCode) e Bleeding Bleeding Disease Active [facility] from from 04-10 [facility] varicose varicose 00:00: of vein vein 00 Medicin e 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 04-23 right hip right hip 00:00: [facility] 00 l BLOOD CLOT BLOOD Diagnosis Active 2015-09-09 Memoria THIGH CLOT THIGH 09-08 14:53:00 l Active 00:00: [place] 09/09/2015 00 [facility] No known No known Disease Unive rs active active ity of problems problems [facility] Atrial Atrial Problem Active 2019-01-26 Bj starla fibrillati fibrillati 22:20:48 l on on [place] (disorder) (disorder) Active Problem 01/26/2019 [facility] Blood clot Blood Problem Active 2015-09-12 M emoria (morpholog clot 00:32:37 l ic (morpholog [place] n abnormalit ic y) abnormalit y) Active Problem 09/12/2015 [facility] History of Past Illness Condition Condition Condition Status Onset Resolution Last Treating Co mments Source Name Details Category Date Date Treatment Clinician Date Discharge Discharge Problem 2015-09-12 2015-09-12 Memoria Diagnosis: Diagnosis: 09-08 00:32:37 00:32:37 l Lower Lower 05:00: [place] extremity extremity 00 pain, pain, right right 09/09/2015 09/12/2015 [facility] Allergies, Adverse Reactions, Alerts Allergy Allergy Status Severity Reaction(s) Onset Inactive Treating Comm ents Source Name Type Date Date Clinician Penicill Propensi Active Anaphylaxis U nivers in ty to 08-21 ity of adverse 00:00: [place] reaction 00 Medical s Branch PENICILL DRUG Active Anaphylaxis Uni vers IN INGREDI 08-21 ity of 00:00: [place] 00 Medical Branch Nsaids Propensi Active [facility] ty to 04-06 College adverse 00:00: of reaction 00 Medicin s to e drug Penicill Propensi Active [facility] ins ty to 04-06 College adverse 00:00: of reaction 00 Medicin s to e drug Amoclan Propensi Active [facility] ty to 04-06 College adverse 00:00: of reaction 00 Medicin s to e drug Cefpodox Propensi Active [facility] ricki ty to 04-06 [place] adverse 00:00: of reaction 00 Medicin s to e drug Ciproflo Propensi Active [facility] xacin ty to 04-06 [place] adverse 00:00: of reaction 00 Medicin s to e drug Demerol Propensi Active [facility] ty to 04-06 [place] adverse 00:00: of reaction 00 Medicin s to e drug Levoflox Propensi Active [facility] acin ty to 04-06 [place] adverse 00:00: of reaction 00 Medicin s to e drug Sulfa Propensi Active Hives 2018-03 Univers (Sulfona ty to 2-02 ity of mide adverse 00:00: [place] Antibiot reaction 00 Medica l ics) s Branch SULFA Drug Active Hives 2018-03 Univers (SULFONA Class 2-02 ity of MIDE 00:00: [place] ANTIBIOT 00 Medical ICS) Branch Sulfa Propensi Active Hives 2018-03 Univers (Sulfona [...] Augmenti Augmenti Active Alexandre jameson n n l [place] Family History Family Member Diagnosis Comments Start Date Stop Date Source Natural brother [facility] mother [facility] [place] Natural sister Stroke [facility] [place] Social History Social Habit Start Date Stop Date Quantity Comments Source History [facility] ge of Alcohol Std Medicine Drinks History [facility] ge of Alcohol Binge Medicine History [facility] University o f Alcohol Comment [place] Med ical [facility] Exposure to 2021-07-17 2021-07-27 Not sure [facility] [place]-CoV-2 00:00:00 15:04:00 [place] Medical (event) Branch Tobacco use and 2020-05-18 2020-05-18 Never used [facility] llege of exposure 00:00:00 00:00:00 Medicine History [facility] 2020-04-06 2020-04-06 1 [facility] ge of Alcohol Frequency 00:00:00 00:00:00 Medicin e Alcohol intake 2016-02-22 2016-02-22 [facility] 00:00:00 00:00:00 non-drinker of alcohol (finding) Sex [birth year] [facility] [place] 00:00:00 00:00:00 Smoking Status Start Date Stop Date Source Never smoker [facility] Social History 2018-12-22 13:24:14 2018-12-22 13:24:14 [facility] Medications Ordered Filled Start Stop Current Ordering Indication Dosage Frequency Signature Comments Components Source Medication Medication Date Date Medication? Clinician (SIG) Name Name Nitrofurant Yes [id number] 100mg Take 1 Univers oin&Nit. 5-07 capsule by ity o f Macrocryst 00:00: mouth 2 [place] 100 mg 00 (two) Medical capsule times Branch daily. clindamycin 2021- No [id number] 300mg Take 1 Univers 300 mg 5-07 05-15 capsule by ity of capsule 00:00: 04:59 mouth 4 [place] 00 :00 (four) Medical times Branch daily for 7 days. triamcinolo 2021- No [id number] 80mg Univers ne 05-08 ity of acetonide 22:30: 21:18 [place] (KENALOG) 00 :00 Medical injection Branch 80 mg triamcinolo 2021- No [id number] 80mg 80 mg, Univers ne 05-08 Intra-concepción ity of acetonide 22:30: 21:18 [place], [place] (KENALOG) 00 :00 ONCE, 1 Medical injection dose, On Branch 80 mg 05/08/21 at 1630, Routine methocarbam 2020-0 Yes [id number] 500mg Take 1 Univers oL 6-01 tablet [...] Indication s: acute pain methocarbam 2020-0 Yes [id number] 500mg Take 1 Univers oL 6-01 tablet by ity of (ROBAXIN) 00:00: mouth [place] 500 mg 00 every 6 Medical tablet (six) Branch hours as needed for Pain (scale 7-10) (MUSCLE SPASM). acetaminoph 0 Yes [id number] 1{tbl} Take 1 Un julienne en-codeine 6-01 tablet by ity of (TYLENOL-CO 00:00: mouth [place] DEINE #3) 00 every 6 Medical 300-30 mg (six) Branch tablet hours as needed for Pain (scale 7-10). Indication s: acute pain methocarbam 2020-0 Yes [id number] 500mg Take 1 Univers oL 6-01 tablet [...] Ba ylor MG TABS 1-15 by mouth. [place] 21:36: of 47 Medicin e metoprolol Yes 50mg Take 50 mg B aylor (TOPROL-XL) 1-15 by mouth. Col lege 50 MG XL 21:36: of tablet 47 Medicin e pantoprazol Yes 40mg Take 40 mg Ad e 1-15 by mouth. [place] (PROTONIX) 21:36: of 40 MG 47 Medicin tablet e Apixaban 5 Yes 5mg Take 5 mg Ba ylor MG TABS 1-15 by mouth. [place] 21:36: of 47 Medicin e metoprolol Yes 50mg Take 50 mg B [place] (TOPROL-XL) 1-15 by mouth. Col lege 50 MG XL 21:36: of tablet 47 Medicin e pantoprazol Yes 40mg Take 40 mg Ad e 1-15 by mouth. [place] (PROTONIX) 21:36: of 40 MG 47 Medicin tablet e nitrofurant Yes TAKE 1 [facility] or oin 1-05 CAPSULE BY [place] (MACRODANTI 00:00: MOUTH AT of N) 50 MG 00 BEDTIME Medicin capsule WITH FOOD e OR MILK nitrofurant Yes TAKE 1 [facility] or oin 1-05 CAPSULE BY [place] (MACRODANTI 00:00: MOUTH AT of N) 50 MG 00 BEDTIME Medicin capsule WITH FOOD e OR MILK ARNUITY 2019-03 Yes INHALE 1 [facility] ELLIPTA 100 2-22 PUFF EVERY Co llege MCG/ACT 00:00: 24 HOURS of AEPB 00 Medicin e ARNUITY 2019-03 Yes INHALE 1 Ad ELLIPTA 100 2-22 PUFF EVERY Co llege MCG/ACT 00:00: 24 HOURS of AEPB 00 Medicin e zolpidem 2019-03 Yes TAKE 1 Ad (AMBIEN) 5 2-21 TABLET BY Jose Alfredo ege MG tablet 00:00: MOUTH AT of 00 BEDTIME Medicin NEEDED e zolpidem 2019-03 Yes TAKE 1 [facility] (AMBIEN) 5 2-21 TABLET BY Jose Alfredo [...] 1 [facility] or ne 0-27 TABLET BY [place] (SYNTHROID) 00:00: MOUTH of 100 MCG 00 EVERY DAY Medicin tablet e levothyroxi 2019-03 Yes TAKE 1 [facility] or ne 0-27 TABLET BY [place] (SYNTHROID) 00:00: MOUTH of 100 MCG 00 EVERY DAY Medicin tablet e phenazopyri 0 Yes [id number] 200mg Take 1 Univers dine 200 mg 9-19 tablet by ity of tablet 00:00: mouth 3 [place] 00 (three) Medical times Branch daily. phenazopyri 2019-0 Yes [id number] 200mg Take 1 Univers dine 200 mg 9-19 tablet by ity of tablet 00:00: mouth 3 [place] 00 (three) Medical times Branch daily. phenazopyri 2019-0 Yes [id number] 200mg Take 1 Univers dine 200 mg 9-19 tablet by ity of tablet 00:00: mouth 3 [place] 00 (three) Medical times Branch daily. Estradiol 2018-03 Yes [id number] Apply 1 to Univers (VAGIFEM) 2-18 the vagina ity of 10 mcg 00:00: every [place] tablet 00 Thursday and Medical Branch in the evening. Estradiol 2018-03 Yes [id number] Apply 1 to Univers (VAGIFEM) 2-18 the vagina ity of 10 mcg 00:00: every [place] tablet 00 Thursday and Medical Branch in the evening. Estradiol 2018-03 Yes [id number] Apply 1 to Univers (VAGIFEM) 2-18 the vagina ity of 10 mcg 00:00: every [place] tablet 00 Thursday and Medical Branch in the evening. apixaban 2018-03 Yes 10mg Take 10 mg Uni vers (ELIQUIS) 5 1-19 by mouth 2 it y of mg tablet 14:37: (two) [place] 45 times Medical daily. Branch metoprolol 2018-03 Yes [...] by mouth ity of 14:37: at bedtime [place] 45 as needed Medical for Branch Insomnia. Levothyroxi 2018-03 Yes Take by Uni vers ne 100 mcg 1-19 mouth. ity of capsule 14:37: [place] [address] Medical Branch amitriptyli 2018-03 Yes 25mg Take 25 mg Univers ne 25 mg 1-19 by mouth ity of tablet 14:37: at [place] [address] bedtime. Medical Branch pantoprazol 2018-03 Yes 40mg Take 40 mg Univers e 40 mg EC 1-19 by mouth ity o f tablet 14:37: daily. [place] [address] Medical Branch azithromyci 2018-03 Yes 250mg Take 250 U nivers n 250 mg 1-19 mg by ity of tablet 14:37: mouth [place] 45 daily. Medical Take 500 Branch mg day [...] mg by ity of capsule 14:37: mouth. [place] 45 Medical Branch clindamycin 2018-03 Yes 300mg Take 300 U nivers 300 mg 1-19 mg by ity of capsule 14:37: mouth 4 [place] [address] (four) Medical times Branch daily. gemfibrozil 2018-03 Yes 600mg Take 600 U nivers 600 mg 1-19 mg by ity of tablet 14:37: mouth 2 [place] [address] (two) Medical times Branch daily before breakfast and dinner. triamcinolo 2018-03 Yes Apply to Un julienne ne 0.025 % -19 area(s) 2 ity of ointment 14:37: (two) [place] [address] times Medical daily. Branch apixaban 2018-03 Yes 10mg Take 10 mg Uni vers (ELIQUIS) 5 -19 by mouth 2 it y of mg tablet 14:37: (two) [place] [address] times Medical daily. Branch metoprolol 2018-03 Yes 50mg Take 50 mg U nivers succinate -19 by mouth ity of XL 50 mg 24 14:37: [place]. [place] [address] Medical Branch gabapentin 2018-03 Yes 300mg Take 300 Un julienne 300 mg 1-19 mg by ity of capsule 14:37: mouth 3 [place] [address] (three) Medical times Branch daily. zolpidem 5 2018-03 Yes 5mg Take 5 mg Un julienne mg tablet 19 by mouth ity of 14:37: at bedtime [place] [address] as needed Medical for Branch Insomnia. Levothyroxi 2018-03 Yes Take by Uni vers ne 100 mcg -19 mouth. ity of capsule 14:37: [place] [address] Medical Branch amitriptyli 2018-03 Yes 25mg Take 25 mg Univers ne 25 mg -19 by mouth ity of tablet 14:37: at [place] [address] bedtime. Medical Branch pantoprazol 2018-03 Yes 40mg Take 40 mg Univers e 40 mg EC -19 by mouth ity o f tablet 14:37: daily. [place] [address] Medical Branch azithromyci 2018-03 Yes 250mg Take 250 U nivers n 250 mg 1-19 mg by ity of tablet 14:37: mouth [place] [address] daily. Medical Take 500 Branch mg day [...] mg by ity of capsule 14:37: mouth. [place] [address] Medical Branch clindamycin 2018-03 Yes 300mg Take 300 U nivers 300 mg 1-19 mg by ity of capsule 14:37: mouth 4 [place] [address] (four) Medical times Branch daily. gemfibrozil 2018-03 Yes 600mg Take 600 U nivers 600 mg 1-19 mg by ity of tablet 14:37: mouth 2 [place] [address] (two) Medical times Branch daily before breakfast and dinner. triamcinolo 2018-03 Yes Apply to Un julienne ne 0.025 % 19 area(s) 2 ity of ointment 14:37: (two) [place] [address] times Medical daily. Branch apixaban 2018-03 Yes 10mg Take 10 mg Uni vers (ELIQUIS) 5 -19 by mouth 2 it y of mg tablet 14:37: (two) [place] [address] times Medical daily. Branch metoprolol 2018-03 Yes 50mg Take 50 mg U nivers succinate -19 by mouth ity of XL 50 mg 24 14:37: [place]. [place] [address] Medical Branch gabapentin 2018-03 Yes 300mg Take 300 Un julienne 300 mg 1-19 mg by ity of capsule 14:37: mouth 3 [place] [address] (three) Medical times Branch daily. zolpidem 5 2018-03 Yes 5mg Take 5 mg Un julienne mg tablet 19 by mouth ity of 14:37: at bedtime [place] [address] as needed Medical for Branch Insomnia. Levothyroxi 2018-03 Yes Take by Uni vers ne 100 mcg -19 mouth. ity of capsule 14:37: [place] [address] Medical Branch amitriptyli 2018-03 Yes 25mg Take 25 mg Univers ne 25 mg -19 by mouth ity of tablet 14:37: at [place] [address] bedtime. Medical Branch pantoprazol 2018-03 Yes 40mg Take 40 mg Univers e 40 mg EC -19 by mouth ity o f tablet 14:37: daily. [place] [address] Medical Branch azithromyci 2018-03 Yes 250mg Take 250 U nivers n 250 mg 1-19 mg by ity of tablet 14:37: mouth [place] [address] daily. Medical Take 500 Branch mg day [...] mg by ity of capsule 14:37: mouth. [place] 45 Medical Branch clindamycin 2018-03 Yes 300mg Take 300 U nivers 300 mg 1-19 mg by ity of capsule 14:37: mouth 4 [place] 45 (four) Medical times Branch daily. gemfibrozil 2018-03 Yes 600mg Take 600 U nivers 600 mg 1-19 mg by ity of tablet 14:37: mouth 2 [place] [address] (two) Medical times [place] daily before breakfast and dinner. triamcinolo 2018-03 Yes Apply to Un julienne ne 0.025 % 1-19 area(s) 2 ity of ointment 14:37: (two) [place] [address] times Medical daily. Branch mupirocin 2 2018-03 Yes [id number] Apply to Univers % ointment 1-19 area(s) 3 ity of 00:00: (three) [place] 00 times Medical daily. Branch mupirocin 2 2018-03 Yes [id number] Apply to Univers % ointment 1-19 area(s) 3 ity of 00:00: (three) [place] 00 times Medical daily. Branch mupirocin 2 2018-03 Yes [id number] Apply to Univers % ointment 1-19 area(s) 3 ity of 00:00: (three) [place] 00 times Medical daily. Branch Estradiol 2018-03 Yes 1 gm, TOP, Me moria 0.1 MG/ML 0-04 Bedtime, l Vaginal 16:17: use 3 David Cream 00 times a [Estrace] week, # 1 tube, 5 Refill(s), Pharmacy: [facility] #[id number] Estradiol 2018-03 Yes 1 gm, TOP, Me moria 0.1 MG/ML 0-04 Bedtime, l Vaginal 16:17: use 3 David Cream 00 times a [Estrace] week, # 1 tube, 5 Refill(s), Pharmacy: [id number] Estrogens, 2018-03 Yes 1 appl, Bj starla Conjugated 0-02 VAG, Q-M l (FPC) 0.625 14:52: and Th, # H ermann MG/ML 00 30 gm, 11 Vaginal Refill(s), Cream Pharmacy: [Premarin] [facility] #[id number] Estrogens, 2018-03 Yes 1 appl, Bj starla Conjugated 0-02 VAG, Q-M l (FPC) 0.625 14:52: and Th, # H ermann MG/ML 00 30 gm, 11 Vaginal Refill(s), Cream Pharmacy: [Premarin] [facility] #[id number] levothyroxi 2018-03 Yes 0 Memori [...] 50 0-02 Refill(s) l mg oral 13:25: [place] tablet 00 Furosemide 2018-03 Yes 0 Memoria 40 MG Oral 0-02 Refill(s) l Tablet 13:25: [place] 00 Amoxicillin 2018-03 Yes 0 Memori a 500 MG / 0-02 Refill(s) l Clavulanate 13:25: [place] n 125 MG Oral 00 Tablet levothyroxi 2018-03 Yes 0 Memori a ne 100 mcg 0-02 Refill(s) l (0.1 mg) 13:25: [place] oral tablet 00 nitrofurant 2018-03 Yes 0 Memori a oin 0-02 Refill(s) l macrocrysta 13:25: [place] n ls-monohydr 00 ate 100 mg oral capsule (Macrobid) zolpidem 2018-03 Yes 0 Memoria mg oral 0-02 Refill(s) l tablet 13:25: [place] 00 amitriptyli 2018-03 Yes 0 Memori a ne 25 mg 0-02 Refill(s) l oral tablet 13:25: [place] n 00 Metoprolol 2018-03 Yes 0 Memoria Tartrate 50 0-02 Refill(s) l mg oral 13:25: David tablet 00 Furosemide 2018-03 Yes 0 Memoria 40 MG Oral 0-02 Refill(s) l Tablet 13:25: [place] 00 Amoxicillin 2018-03 Yes 0 Memori a [...] Tablet 13:25: Refill(s) [place] n [Eliquis] 00 gabapentin 2018-03 Yes 0 Memoria 300 [...] tablet day. Take the morning of surgery metoprolol 2015-03 Yes 50mg Q.5D Take 50 mg M ethodi tartrate 2-[address] (LOPRESSOR) 16:40: (two) Hospi ta 50 MG 11 times a l tablet day. Take the morning of surgery warfarin 2015-03 Yes 5mg QD Take 5 Methodi (COUMADIN) 2-05 tablets (5 st 1 MG tablet 00:00: mg total) H ospita 00 by mouth l daily. warfarin 2015-03 Yes 5mg QD Take 5 [facility]i (COUMADIN) 2-05 tablets (5 st 1 MG tablet 00:00: mg total) H ospita 00 by mouth l daily. zolpidem 2015-03 Yes 10mg QD Take 10 mg Met hodi (AMBIEN) 10 03-[address] mg tablet 00:00: nightly. [facility]osp [facility] 00 Takes 1/2 l tablet of the 10mg zolpidem 2015-03 Yes 10mg QD Take 10 mg Met hodi (AMBIEN) 10 03-[address] mg tablet 00:00: nightly. [...] ta 00 (two) l times a day. famotidine 2015-03 Yes 20mg QD Take 20 [...] 00:00: every Hospita tablet 00 evening. l amitriptyli 2015-03 Yes 50mg QD Take 50 mg Methodi ne (ELAVIL) 0-[address] 50 MG 00:00: every Hospita tablet 00 evening. l ALPRAZolam 2015-03 Yes .25mg Take 0.25 M ethodi (XANAX) 0-[address] 0.25 MG 00:00: mouth as Hospit a tablet 00 needed. l Take the morning of surgery ALPRAZolam 2015-03 Yes .25mg Take 0.25 M ethodi (XANAX) 0-[address] 0.25 MG 00:00: mouth as Hospit a tablet 00 needed. l Take the morning of surgery levothyroxi Yes 100ug QD Take 100 M ethodi ne 8-[address] (SYNTHROID, 00:00: mouth Hospi ta LEVOTHROID) 00 nightly. l 100 MCG tablet levothyroxi Yes 100ug QD Take 100 M ethodi ne 8-[address] (SYNTHROID, 00:00: mouth Hospi ta LEVOTHROID) 00 nightly. l 100 MCG tablet Acetaminoph Yes 1 tab, PO, Memoria en 325 MG / 6-19 Q6H, # 20 l Hydrocodone 19:20: tab, 0 Herm payal Bitartrate 00 Refill(s) 5 MG Oral Tablet [[place] 5/325] Acetaminoph Yes 1 tab, PO, Memoria en 325 MG / 6-19 Q6H, # 20 l Hydrocodone 19:20: tab, 0 Herm payal Bitartrate 00 Refill(s) 5 MG Oral Tablet [[place] 5/325] Acetaminoph No Notes: Bj starla en 325 MG / 19 (Same as: l Hydrocodone 18:29: [place] Myriam nn Bitartrate 00 325/5) Do 5 MG Oral not exceed Tablet 4gm/day of acetaminop hen. Acetaminoph No Notes: Bj starla en 325 MG / 619 (Same as: l Hydrocodone 18:29: [place] Myriam nn Bitartrate 00 325/5) Do 5 MG Oral not exceed Tablet 4gm/day of acetaminop hen. Vital Signs Vital Name Observation Time Observation Value Comments Source Systolic blood 2021-07-27 20:02:00 156 mm[Hg] Nae groves [facility] Diastolic blood 2021-07-27 20:02:00 99 mm[Hg] Pj murray [facility] Heart rate 2021-07-27 20:02:00 89 /min [facility] [place] [facility] Body temperature 2021-07-27 20:02:00 36.56 [place] [facility] [place] [facility] Respiratory rate 2021-07-27 20:02:00 18 /min [facility] [place] [facility] Body height 2021-07-27 20:02:00 175.3 cm [facility] [place] [facility] Body weight 2021-07-27 20:02:00 86.183 kg [facility] [place] [facility] BMI 2021-07-27 20:02:00 28.06 kg/m2 [facility] [place] [facility] Oxygen saturation in 2021-07-27 20:02:00 96 /min University of Arterial blood by [facility] Pulse oximetry Branch Systolic blood 2021-05-08 19:56:00 156 mm[Hg] Univer sity of pressure [place] [facility] Diastolic blood 2021-05-08 19:56:00 59 mm[Hg] Unive rsity of [facility] Heart rate 2021-05-08 19:55:00 71 /min [facility] [place] [facility] Body height 2021-05-08 19:55:00 177.8 cm [facility] [place] [facility] Body weight 2021-05-08 19:55:00 89.359 kg [facility] [place] [facility] BMI 2021-05-08 19:55:00 28.27 kg/m2 [facility] [place] [facility] Oxygen saturation in 2021-05-08 19:55:00 96 /min University of Arterial blood by [facility] Pulse oximetry Branch Systolic blood 2020-05-18 15:26:00 143 mm[Hg] [facility] pressure Medicine Diastolic blood 2020-05-18 15:26:00 59 mm[Hg] [facility] pressure Medicine Heart rate 2020-05-18 15:26:00 66 /min [facility] ollege of Medicine Body height 2020-05-18 15:26:00 177.8 cm [facility] Body weight 2020-05-18 15:26:00 86.183 [facility] BMI 2020-05-18 15:26:00 27.26 kg/m2 [facility] Systolic blood 2020-05-18 15:26:00 143 mm[Hg] [facility] pressure Medicine Diastolic blood 2020-05-18 15:26:00 59 mm[Hg] [facility] pressure Medicine Heart rate 2020-05-18 15:26:00 66 /min [facility] C ollege of Medicine Body height 2020-05-18 15:26:00 177.8 cm [facility] C ollege of Medicine Body weight 2020-05-18 15:26:00 86.183 kg [facility] C ollege of Medicine BMI 2020-05-18 15:26:00 27.26 kg/m2 [facility] ollege of Medicine Systolic blood 2020-04-06 16:35:00 140 mm[Hg] [facility] pressure Medicine Diastolic blood 2020-04-06 16:35:00 78 mm[Hg] [facility] pressure Medicine Heart rate 2020-04-06 16:35:00 68 /min [facility] ollege of Medicine Body height 2020-04-06 16:35:00 177.8 cm [facility] ollege of Medicine Body weight 2020-04-06 16:35:00 86.183 kg [facility] ollege of Medicine BMI 2020-04-06 16:35:00 27.26 kg/m2 [facility] ollege of Medicine Systolic blood 2020-04-06 16:35:00 140 mm[Hg] [facility] pressure Medicine Diastolic blood 2020-04-06 16:35:00 78 mm[Hg] [facility] Medicine Heart rate 2020-04-06 16:35:00 68 /min [facility] ollege of Medicine Body height 2020-04-06 16:35:00 177.8 cm [facility] ollege of Medicine Body weight 2020-04-06 16:35:00 86.183 kg [facility] ollege of Medicine BMI 2020-04-06 16:35:00 27.26 kg/m2 [facility] C ollege of Medicine Height 2018-12-22 13:22:00 175.26 cm [facility] Weight 2018-12-22 13:[facility] 2018-12-22 13:22:00 Alexandre Lew Heart Rate 2015-09-09 20:21:00 [facility] [place] Systolic (mm Hg) 2015-09-09 20:21:00 Bj rial David Diastolic (mm Hg) 2015-09-09 20:21:00 Mem orial [place] Temperature Oral (F) 2015-09-09 20:21:00 98.1 F [facility] [place] Respitory Rate 2015-09-09 20:21:00 Michellejoselito Lintonann BMI Calculated 2015-09-09 17:44:00 Memori al [place] Weight 2015-09-09 17:44:00 [facility] Height 2015-09-09 17:44:00 177.8 cm [facility] Respitory Rate 2015-09-09 17:44:00 Memjoselito al [place] Heart Rate 2015-09-09 17:44:00 [facility] David Systolic (mm Hg) 2015-09-09 17:44:00 Bj rial [place] Diastolic (mm Hg) 2015-09-09 17:44:00 Mem orial [place] Temperature Oral (F) 2015-09-09 17:44:00 98.2 F [facility] [place] Procedures Procedure Date / Time Performing Clinician Source Performed DUPLEX VENOUS LEG LEFT - 2021-07-27 22:37:00 Katerine Samano [facility] BY VASCULAR LAB [facility] Branch URINALYSIS 2021-07-27 20:56:00 Katerine Samano [facility] CONSENT/REFUSAL FOR 2021-07-27 19:58:58 Doctor Unassigned, No [facility] DIAGNOSIS AND TREATMENT [facility] PATIENT QUESTIONNAIRE 2021-04-17 06:01:00 Doctor Unassigned, No [facility] Name [facility] [facility] Complex uroflowmetry 2019-01-10 17:20:00 Radha Hernandez (eg, [...] [code = INFLUENZA Hospital VACCINE] Future Scheduled 2021-11-20 HEPATITIS B VACCINES Met [...] INFLUENZA Hospital VACCINE] Future Scheduled COVID-19 Vaccine [facility] Test Evaluation [code = Medicine COVID-19 Vaccine Evaluation] Future Scheduled TETANUS SHOT (ADULT) [facility] Test [code = TETANUS SHOT Medicin e (ADULT)] Future Scheduled ZOSTER VACCINE (1 of [facility] Test 2) [code = ZOSTER Medicine VACCINE (1 of 2)] Future Scheduled MEDICARE AWV [facility] Jose Alfredo ege of Test (Initial) [code = Medicine MEDICARE AWV (Initial)] Future Scheduled FALL SCREEN [code = [facility] of Test FALL SCREEN] Medicine Future Scheduled OSTEOPOROSIS [facility] ege of Test SCREENING [code = Medicine OSTEOPOROSIS SCREENING] Future Scheduled PNEUMOVAX >=65 [facility] Co llege of Test (PPSV23) [code = Medicine PNEUMOVAX >=65 (PPSV23)] Future Scheduled FLU VACCINE > 6 [facility] ollege of Test MONTHS [code = FLU Medicine VACCINE > 6 MONTHS] Future Scheduled BMI FOLLOW UP PLAN [facility] of Test [code = BMI FOLLOW Medicine UP PLAN] Future Scheduled COMPRESSION STOCKING Ordered: [facility] Test 15-20MM [code = 05/18/2020 Medicine NOCPT] Future Scheduled COVID-[address] [facility] Test Evaluation [code = Medicine COVID-19 Vaccine Evaluation] Future Scheduled TETANUS SHOT (ADULT) [facility] Test [code = TETANUS SHOT Medicin e (ADULT)] Future Scheduled ZOSTER VACCINE (1 of [facility] Test 2) [code = ZOSTER Medicine VACCINE (1 of 2)] Future Scheduled MEDICARE AWV [facility] Jose Alfredo ege of Test (Initial) [code = Medicine MEDICARE AWV (Initial)] Future Scheduled FALL SCREEN [code = [facility] of Test FALL SCREEN] Medicine Future Scheduled OSTEOPOROSIS [facility] ege of Test SCREENING [code = Medicine OSTEOPOROSIS SCREENING] Future Scheduled FLU VACCINE > 6 [facility] C ollege of Test MONTHS [code = FLU Medicine VACCINE > 6 MONTHS] Future Scheduled BMI FOLLOW UP PLAN [facility] Test [code = BMI FOLLOW Medicine UP PLAN] Encounters Start End Encounter Admission Attending Care Care Encounter Source Date/Time Date/Time Type Type Clinicians Facility Department ID 2021-12-16 Outpatient STLMLC [facility] [id number] Common 10:00:01 [id number] [facility] 2021-04-17 Outpatient STLML[facility] [id number] Common 13:51:28 [id number] [facility] 2021-04-17 Outpatient STLMLC ST[facility] [id number] Common 13:36:39 [id number] [facility] 2021-04-17 Outpatient STLMLC STLC [id number] Common 12:17:59 [id number] [facility] 2021-04-17 Outpatient STLMLC STLMLC [id number] Common 12:13:03 [id number] [facility] 2021-04-17 Outpatient STLMLC STLC [id number] Common 12:11:32 [id number] [facility] 2021-07-27 2021-07-27 Emergency X AR, [facility] ERT [id number] Univers 15:12:00 18:41:00 KATERINE ity of [facility] 2021-07-27 2021-07-27 [facility] [id number] Univers 15:12:00 18:41:00 Katerine Luis SINGH [id number] ity of [place] [id number] [facility] 084 [place] 2021-05-08 2021-05-08 Office [facility] [id number] Univers 14:45:00 14:52:24 Visit Liat [facility] [id number] it y of [place] 4.2.7.2.686 [place] NICHO?BLEA [id number] Wi dic[address] MEDICAL OFFICE BUILDING 2021-05-08 2021-05-08 Outpatient R YECENIA [facility] [id number] Univers 14:45:00 14:52:24 [facility] 2021-04-17 2021-04-17 Orders Doctor BRUNO [id number] Univers 00:00:00 00:00:00 Only Unassigned, VAZQUEZ [id number] ity of [place] [facility] 4.2.7.2.686 [place] [id number] [facility] 009 [place] 2020-05-18 2020-05-18 Office BROOK Dhillon 1.2.840.114 [id number] 08:52:49 09:07:49 Visit Ramyar AMBULATOR [id number] Y 0.2.7.2.686 [id number] [facility] 2020-05-18 2020-05-18 Office BROOK Dhillon 1.2.840.114 [id number] [facility] 08:52:49 09:07:49 Visit Ramyar AMBULATOR 350.1.13.21 College Y 0.2.7.2.686 of [id number] [facility] 825 e 2020-04-06 2020-04-06 Office BROOK Dhillon 1.2.840.114 [id number] 07:22:23 16:13:31 Visit Ramyar AMBULATOR [id number] Y 0.2.7.2.686 [id number] 2020-04-06 2020-04-06 Office BROOK Dhillon 1.2.840.114 [id number] [facility] 07:22:23 16:13:31 Visit Ramyar AMBULATOR 350.1.13.21 College Y 0.2.7.2.686 of [id number] [facility] 825 e 2020-04-06 2020-04-06 Outpatient [facility] [id number] [facility] 07:22:11 16:11:44 Sonya e of Medicin e 2019-12-10 2019-12-10 Emergency [facility] 1.2.840.114 [id number] 12:56:00 14:28:00 Tim Singh [id number] [place] 4.2.7.2.686 [place] [id number] [id number] 2019-12-10 2019-12-10 Orders Doctor BRUNO 1.2.840.114 [id number] 00:00:00 00:00:00 Only Unassigned, VAZQUEZ 350.1.13.[address] [place] [facility] 4.2.7.2.686 [id number] 2019-10-21 2019-11-01 Office Laina [facility] 1.2.840.114 [id number] 10:06:35 12:32:49 Visit Liliamchung Singh 350.1.13.10 [place] 4.2.7.2.686 Professio [id number] [address] 2019-01-24 2019-01-24 Ambulatory nullFlavo [facility] [id number] Memoria 16:00:00 16:00:00 Pre-Reg r Urology 05 l Ava Miguel nn Time Share 2019-01-24 2019-01-24 Ambulatory nullFlavo [facility] [id number] Memoria 16:00:00 16:00:00 Pre-Reg r Urology 05 l Ava Miguel nn Time Share 2019-01-24 2019-01-24 [place] [id number] Memoria 15:40:00 15:40:00 Pre-Reg r Urology 04 l Ava Miguel nn Time Share 2019-01-24 2019-01-24 [place] [id number] Memoria 15:40:00 15:40:00 Pre-Reg r Urology 04 l Ava Myriam nn Time Share 2019-01-24 2019-01-24 Outpatient MHIE MHIE [id number] Memoria 10:00:00 10:00:00 05 danilo Hernandez 2019-01-24 2019-01-24 [facility] [id number] 10:00:00 10:00:00 NURSE UABLAS 2019-01-24 2019-01-24 Outpatient MHIE MHIE [id number] Memoria 09:40:00 09:40:00 04 danilo David 2019-01-24 2019-01-24 [facility] [id number] 09:40:00 09:40:00 Nato Johnson 2019-01-10 2019-01-11 [place] [id number] Memoria 15:00:00 04:59:59 r Urology 02 l Ava Rosalesa nn Time Share 2019-01-10 2019-01-11 [place] [id number] Memoria 15:00:00 04:59:59 r Urology 02 l Ava Rosalesa nn Time Share 2019-01-10 2019-01-10 [facility] [id number] 10:00:00 23:59:59 Nato S 2019-01-10 2019-01-10 Outpatient MHIE MHIE [id number] Memoria 10:00:00 10:00:00 03 danilo Hernandez 2019-01-10 2019-01-10 Outpatient MHIE MHIE [id number] Memoria 10:00:00 10:00:00 03 danilo Hernandez 2019-01-10 2019-01-10 Outpatient MHIE MHIE [id number] Memoria 10:00:00 10:00:00 02 danilo Hernandez 2018-12-22 2018-12-23 Outpatient nullFlavo [facility] Multi [id number] Memoria 14:45:00 04:59:59 r Specialty 01 l [facility] 2018-12-22 2018-12-23 Outpatient nullFlavo [facility] Multi 46 [id number] Memoria 14:45:00 04:59:59 r Specialty 01 l [facility] 2018-12-22 2018-12-22 Outpatient Leonie [facility] [id number] 09:45:00 23:59:59 Nato Johnson 2018-12-22 2018-12-22 Ambulatory nullFlavo MG Multi 46 [id number] Memoria 14:00:00 14:00:00 Pre-Reg r Specialty 00 l Clinic [facility] 2018-12-22 2018-12-22 Ambulatory nullFlavo MG Multi 46 [id number] Memoria 14:00:00 14:00:00 Pre-Reg r Specialty 00 l [facility] 2018-12-22 2018-12-22 Outpatient MHIE IE [id number] Memoria 09:45:00 09:45:00 01 [facility] 2018-12-22 2018-12-22 Outpatient Leonie [facility] [id number] 09:00:00 09:00:00 Nato Johnson 2018-12-15 2018-12-15 Outpatient MHIE IE [id number] Memoria 09:00:00 09:00:00 00 [facility] 2015-09-09 2015-09-09 EC nullFlavo [facility] [id number] Memoria 17:38:00 20:23:00 Emergency r David 00 [facility] 2015-09-09 2015-09-09 EC nullFlavo [facility] [id number] Memoria 17:38:00 20:23:00 Emergency r David 00 [facility] 2015-09-09 2015-09-09 Outpatient Reji [facility] [id number] 12:38:00 15:23:00 Eli Griffin 00 Results This patient has no known results.
[2021-12-21] MEDS ORDERED: DIAZEPAM 5 MG TABLET ONE (20:58)
--- NOTE | 2021-12-21 22:13 | RAD REPORT ---
EXAM DESCRIPTION: CT - Facial Bones W/ Mpr - 12/21/2021 9:44 pm CLINICAL HISTORY: Fall several days earlier, worsening facial pain and bruising COMPARISON: CT facial bone imaging December 19 TECHNIQUE: Axial 2 millimeter thick images of the facial bones were obtained with sagittal and coron al reconstruction imaging. All CT scans are performed using dose optimization technique as appropriate and may include automated exposure control or mA/KV adjustment according to patient size. FINDINGS: No facial bone fractures or acute facial bone findings. No new paranasal sinus finding. No globe or orbital content abnormality seen. Left frontal scalp and periorbital hematoma is not signif icantly different from prior imaging. Increased edema or bruising into the subcutaneous fatty tissues over the maxilla region. No air or foreign body in the soft tissues. IMPRESSION: Bruising or edema changes in the subcutaneous fat overlying the left maxilla have increa sed from December 19. Left periorbital hematoma and left frontal scalp hematoma changes are not clearly different. No new finding of the sinuses, facial bones or orbits.
--- NOTE | 2021-12-21 22:14 | RAD REPORT ---
EXAM DESCRIPTION: CT - Thorax Wo Con - 12/21/2021 9:45 pm CLINICAL HISTORY: Chest trauma, blunt COMPARISON: Chest For Pe Angio dated 02/04/2020 TECHNIQUE: Axial 5 mm thick images of the chest were obtained without IV contrast. All CT scans are performed using dose optimization technique as appropriate and may include automated exposure control or mA/KV adjustment according to patient size. FINDINGS: No pulmonary contusion or acute lung parenchymal process seen. No pleural thickening or pl eural effusion. No pneumothorax. No abnormal mediastinal or hilar masses or lymphadenopathy seen. No gross aortic or pulmonary artery finding suspected. Assessment is limited in the absence of IV contrast. No chest wall mass or abnormal axillary lymphadenopathy. No displaced rib fractures present. No nondisplaced rib fractures confirmed. IMPRESSION: Negative non-contrast CT chest examination for acute or emergent finding.
--- NOTE | 2021-12-21 22:19 | EDPHYS ---
Physician Documentation [facility] Name: Shilpa Samaniego Age: 89 yrs Sex: Female : 1930 Arrival Date: 12/21/2021 Time: 18:54 Bed 11 Private MD: Ángel Jane S; Gonzalez, Samantha ED Physician Eliezer Henson HPI: 12/21 22:04 This 89 yrs old Female presents to ER via Wheelchair with complaints of Facial Swelling snw - worsening, fell Wed. 22:04 Associated signs and symptoms: Pertinent positives: chest wall pain. Modifying factors: snw The patient symptoms are alleviated by nothing. It is unknown whether or not the patient has had similar symptoms in the past. The patient has been recently seen by a physician: The patient has been recently seen at the [facility] Emergency Department, this week, s/p trip and fall. Historical: - Allergies: 19:04 Augmentin; bm7 19:04 cefpodoxime; bm7 19:04 Cefuroxime; bm7 19:04 Ciprofloxacin; bm7 19:04 Demerol; bm7 19:04 Levofloxacin; bm7 19:04 NSAIDS; bm7 19:04 PENICILLINS; bm7 - Home Meds: 19:04 Unable to obtain [Active]; bm7 - PMHx: 19:04 Anxiety; Atrial Fib; COPD; hiatal hernia; Hypertension; Pacemaker; Rheumatoid bm7 Arthritis; Hyperlipidemia; DVT; LLE; - PSHx: 19:04 Hip; pacemaker; hernia; Hyst; bm7 - Immunization history:: Adult Immunizations up to date, Client reports receiving the 2nd dose of the Covid vaccine, Client reports receiving the 1st dose of the Covid vaccine. - Social history:: Smoking status: Patient denies any tobacco usage or history of. ROS: 22:01 Constitutional: Negative for fever, chills, and weight loss. snw 22:01 Eyes: Negative for injury, pain, redness, discharge, + edema and ecchymosis to bilateral periorbital areas s/p fall. ENT: Negative for injury, pain, and discharge, Neck: Negative for injury, pain, and swelling, Cardiovascular: Negative for chest pain, palpitations, and edema, Respiratory: Negative for shortness of breath, cough, wheezing, and pleuritic chest pain, Abdomen/GI: Negative for abdominal pain, nausea, vomiting, diarrhea, and constipation, Back: Negative for injury and pain, MS/Extremity: Negative for injury and deformity, Skin: Negative for injury, rash, and discoloration, Neuro: Negative for headache, weakness, numbness, tingling, and seizure. Exam: 20:53 Constitutional: This is a well developed, well nourished patient who is awake, alert, snw and in no acute distress. ENT: Nares patent. No nasal discharge, no septal abnormalities noted. Tympanic membranes are normal and external auditory canals are clear. Oropharynx with no redness, swelling, or masses, exudates, or evidence of obstruction, uvula midline. Mucous membranes moist. Neck: Trachea midline, no thyromegaly or masses palpated, and no cervical lymphadenopathy. Supple, full range of motion without nuchal rigidity, or vertebral point tenderness. No Meningismus. Respiratory: Lungs have equal breath sounds bilaterally, clear to auscultation and percussion. No rales, rhonchi or wheezes noted. No increased work of breathing, no retractions or nasal flaring. Abdomen/GI: Soft, non-tender, with normal bowel sounds. No distension or tympany. No guarding or rebound. No evidence of tenderness throughout. Back: No spinal tenderness. No costovertebral tenderness. Full range of motion. Skin: Warm, dry with normal turgor. Normal color with no rashes, no lesions, and no evidence of cellulitis. MS/ Extremity: Pulses equal, no cyanosis. Neurovascular intact. Full, normal range of motion. Neuro: Awake and alert, GCS 15, oriented to person, place, time, and situation. Cranial nerves II-XII grossly intact. Motor strength 5/5 in all extremities. Sensory grossly intact. Cerebellar exam normal. Normal gait. Psych: Awake, alert, with orientation to person, place and time. Behavior, mood, and affect are within normal limits. 20:53 Head/face: Noted is contusion, that is deep, of the right cheek, left cheek, left eye and left jaw. 20:53 Eyes: Periorbital structures: swelling, that is moderate, on the left supraorbital ridge, left upper eyelid and left lower eyelid, contusion, that is moderate, on the left side of forehead, Extraocular movements: no acute changes, Conjunctiva: normal. 20:53 Chest/axilla: Inspection: ecchymosis, that is mild, of the anterior aspect of left upper chest Palpation: tenderness, that is moderate, that is severe, of the anterior aspect of left upper chest. 20:53 Cardiovascular: Rate: normal, Rhythm: irregular, Heart sounds: normal. Vital Signs: 19:03 BP 130 / 63; Pulse 94; Resp 18; Temp 98.7(TE); Pulse Ox 97% on R/A; Weight 86.18 kg bm7 (R); Height 5 ft. 9 in. (175.26 cm); Pain 10/10; 20:15 BP 147 / 60; Pulse 84; Resp 14; Pulse Ox 96% on R/A; eh3 21:00 BP 136 / 61; Pulse 86; Resp 16; Pulse Ox 98% on R/A; eh3 22:00 BP 130 / 61; Pulse 84; Resp 16; Pulse Ox 98% on R/A; eh3 19:03 Body Mass Index 28.06 (86.18 kg, 175.26 cm) bm7 MDM: 20:29 Patient medically screened. snw 22:06 Data reviewed: vital signs, nurses notes. Data interpreted: Pulse oximetry: on room air snw is 96 %. Interpretation: acceptable. 22:17 Response to treatment: the patient's symptoms have mildly improved after treatment. snw Special discussion: Based on the history and exam findings, there is no indication for further emergent testing or inpatient evaluation. I discussed with the patient/guardian the need to see the primary care provider for further evaluation of the symptoms. 12/21 19:40 Order name: CT Facial Bones W/O Con snw 12/21 20:47 Order name: CT Chest Wo Con snw 12/21 22:14 Order name: CT; Complete Time: 22:16 EDMS 12/21 22:15 Order name: CT; Complete Time: 22:16 EDMS Administered Medications: 21:00 Drug: Valium (diazepam) 5 mg Route: PO; eh3 22:05 Follow up: Response: Anxiety decreased eh3 Disposition Summary: 12/21/21 22:18 Discharge Ordered Location: Home snw Condition: Stable snw Diagnosis - Encounter for evaluation of wound to face and chest snw Followup: snw - With: Lawson Floresa - When: 2 - 3 days - Reason: Recheck today's complaints, Continuance of care, Re-evaluation by your physician Followup: snw - With: Emergency Department - When: As needed - Reason: Worsening of condition Discharge Instructions: - Discharge Summary Sheet snw - Contusion snw - Chest Wall Pain snw - Facial or Scalp Contusion snw - Head Injury, Adult snw Forms: - Medication Reconciliation Form snw - Thank You Letter snw - Antibiotic Education snw - Prescription Opioid Use snw Prescriptions: - Tramadol 50 mg Oral Tablet - take 1 tablet by ORAL route every 8 hours as needed; 12 tablet; Refills: 0, snw Product Selection Permitted Signatures: Dispatcher [employer] EDMS Andreia Hebert, JENNIFER CORROSION CONTROL FITTER-Csnw Hannah Calderón, RN RN bm7 Katrin Merlos RN RN eh3
--- NOTE | 2021-12-21 22:19 | ER ---
Nurse's Notes [facility] Name: Shilpa Samaniego Age: 89 yrs Sex: Female : 1930 Arrival Date: 12/21/2021 Time: 18:54 Bed 11 Private MD: Ángel Jane S; Rona Flores Diagnosis: Encounter for evaluation of wound to face and chest Presentation: 12/21 19:03 Chief complaint: Patient states: I fell on Thursday night and I came in here to be bm7 seen but my face is hurting worse and getting worse. I also think that I am allergic to the Bactrim that they gave me because I am breaking out on my legs. Coronavirus screen: At this time, the client does not indicate any symptoms associated with coronavirus-19. Ebola Screen: No symptoms or risks identified at this time. Initial Sepsis Screen: Does the patient meet any 2 criteria? No. Patient's initial sepsis screen is negative. Does the patient have a suspected source of infection? No. Patient's initial sepsis screen is negative. Risk Assessment: Do you want to hurt yourself or someone else? Patient reports no desire to harm self or others. Onset of symptoms is unknown. 19:03 Method Of Arrival: Wheelchair bm7 19:03 Acuity: LESA 3 bm7 Triage Assessment: 19:04 General: Appears in no apparent distress. uncomfortable, Behavior is calm, cooperative, bm7 appropriate for age. Pain: Complains of pain in face. EENT: No deficits noted. No signs and/or symptoms were reported regarding the EENT system. Neuro: No deficits noted. Cardiovascular: No deficits noted. Respiratory: No deficits noted. GI: No deficits noted. No signs and/or symptoms were reported involving the gastrointestinal system. : No deficits noted. No signs and/or symptoms were reported regarding the genitourinary system. Derm: Bruising that is bright red, dark purple, on face. Musculoskeletal: Reports pain in face. Historical: - Allergies: 19:04 Augmentin; bm7 19:04 cefpodoxime; bm7 19:04 Cefuroxime; bm7 19:04 Ciprofloxacin; bm7 19:04 Demerol; bm7 19:04 Levofloxacin; bm7 19:04 NSAIDS; bm7 19:04 PENICILLINS; bm7 - Home Meds: 19:04 Unable to obtain [Active]; bm7 - PMHx: 19:04 Anxiety; Atrial Fib; COPD; hiatal hernia; Hypertension; Pacemaker; Rheumatoid bm7 Arthritis; Hyperlipidemia; DVT; LLE; - PSHx: 19:04 Hip; pacemaker; hernia; Hyst; bm7 - Immunization history:: Adult Immunizations up to date, Client reports receiving the 2nd dose of the Covid vaccine, Client reports receiving the 1st dose of the Covid vaccine. - Social history:: Smoking status: Patient denies any tobacco usage or history of. Screenin:15 Abuse screen: Denies threats or abuse. Denies injuries from another. Nutritional eh3 screening: No deficits noted. Tuberculosis screening: No symptoms or risk factors identified. Fall Risk Fall in past 12 months (25 points). Secondary diagnosis (15 points) Ambulatory Aid- Crutches/Cane/Walker (15 pts). Gait- Impaired (20 pts.). Total Garcia Fall Scale indicates High Risk Score (45 or more points). Fall prevention measures have been instituted. Side Rails Up X 2 Placed Close to Nursing Station Frequent Obs/Assessments Occuring Family Present and informed to notify staff if the need to leave the bedside As available patient and family educated on Fall Prevention Program and Strategies. Assessment: 20:32 General: Appears in no apparent distress. uncomfortable, Behavior is calm, cooperative, eh3 appropriate for age. Pain: Complains of pain in top of head, forehead, left ear, left cheek, left eye, left baptism, left side of the back of head and left occipital area Pain does not radiate. Pain currently is 9 out of 10 on a pain scale. Quality of pain is described as aching, sharp, throbbing, Pain began Thursday Is continuous, Alleviated by cold application, Aggravated by eating, increased activity, Noted to be grimacing. Neuro: Level of Consciousness is awake, alert, obeys commands, Oriented to person, place, time, situation. Cardiovascular: Capillary refill < 3 seconds Patient's skin is warm and dry. Respiratory: Airway is patent Respiratory effort is even, unlabored. GI: No signs and/or symptoms were reported involving the gastrointestinal system. : No signs and/or symptoms were reported regarding the genitourinary system. EENT: No signs and/or symptoms were reported regarding the EENT system. Derm: Bruising that is dark purple, left side of face, forehead. Smaller light purple bruises in left axillary area. Pt states she fell on the handle of her cane and is concerned ribs may be broken. Reports increased pain since 2-3 days ago. Musculoskeletal: Range of motion: intact in all extremities, Swelling present in face. 21:00 Reassessment: Patient and/or family updated on plan of care and expected duration. Pain eh3 level reassessed. Patient is alert, oriented x 3, equal unlabored respirations, skin warm/dry/pink. 22:00 Reassessment: Patient and/or family updated on plan of care and expected duration. Pain eh3 level reassessed. Patient is alert, oriented x 3, equal unlabored respirations, skin warm/dry/pink. 22:27 Reassessment: Patient states feeling better. Patient states symptoms have improved. tw5 Vital Signs: 19:03 BP 130 / 63; Pulse 94; Resp 18; Temp 98.7(TE); Pulse Ox 97% on R/A; Weight 86.18 kg bm7 (R); Height 5 ft. 9 in. (175.26 cm); Pain 10/10; 20:15 BP 147 / 60; Pulse 84; Resp 14; Pulse Ox 96% on R/A; eh3 21:00 BP 136 / 61; Pulse 86; Resp 16; Pulse Ox 98% on R/A; eh3 22:00 BP 130 / 61; Pulse 84; Resp 16; Pulse Ox 98% on R/A; eh3 19:03 Body Mass Index 28.06 (86.18 kg, 175.26 cm) bm7 ED Course: 18:54 Patient arrived in ED. as 18:54 Ángel Jane MD is Private Physician. as 18:54 Rona Flores is Private Physician. as 19:04 Triage completed. bm7 19:04 Arm band placed on right wrist. bm7 19:32 Andreia Hebert FNP-C is PHCP. snw 19:32 Eliezer Henson MD is Attending Physician. snw 20:13 Katrin Merlos, SABI is Primary Nurse. eh3 20:15 Patient has correct armband on for positive identification. Bed in low position. Call eh3 light in reach. Side rails up X2. Client placed on continuous cardiac and pulse oximetry monitoring. NIBP monitoring applied. groundwater monitoring technician on. Door closed. Noise minimized. Warm blanket given. 22:17 Rona Flores is Referral Physician. snw 22:27 No provider procedures requiring assistance completed. Patient did not have IV access tw5 during this emergency room visit. Administered Medications: 21:00 Drug: Valium (diazepam) 5 mg Route: PO; eh3 22:05 Follow up: Response: Anxiety decreased eh3 Medication: 20:15 VIS not applicable for this client. eh3 Outcome: 22:18 Discharge ordered by MD. snw 22:27 Discharged to home via wheelchair, with family. tw5 22:27 Condition: good 22:27 Discharge instructions given to patient, Instructed on discharge instructions, follow up and referral plans. Demonstrated understanding of instructions, follow-up care, medications, Prescriptions given X 1. 22:27 Patient left the ED. tw5 Signatures: Andreia Hebert, WHEEL SHOP SUPERVISOR-C WHEEL SHOP SUPERVISOR-Noa Salas Brittany, RN RN [id number] Sunita Jarrett tw5 Katirn Merlos, SABI RN 3
[2021-12-21 22:44] VITALS: TEMP 98.7
[2021-12-21 22:47] VITALS: O2SAT 98
[2021-12-21 22:48] VITALS: BP 130/61
== END 2021-12-21 22:27 | disposition home or self-care (01) ==
LOC: ER 18:52
DX: S09.93XA Unspecified injury of face, initial encounter (principal); W19.XXXA Unspecified fall, initial encounter; Y93.9 Activity, unspecified; Y92.9 Unspecified place or not applicable; I10 Essential (primary) hypertension; E78.5 Hyperlipidemia, unspecified; J44.9 Chronic obstructive pulmonary disease, unspecified; Z86.718 Personal history of other venous thrombosis and embolism; Z95.0 Presence of cardiac pacemaker; I48.91 Unspecified atrial fibrillation; Z88.0 Allergy status to penicillin; Z88.6 Allergy status to analgesic agent; Z88.8 Allergy status to other drugs, medicaments and biological substances; Z88.1 Allergy status to other antibiotic agents
CPT/HCPCS: 70486; 71250; 76377; 99284

== ENCOUNTER 2022-02-24 18:33 | Inpatient (IN) | payer OTHER ==
--- OUTSIDE RECORDS SUMMARY | 2022-02-24 18:39 | XMS REPORT | Continuity of Care Document ---
:1930 Author Organization [facility] t Address [address] [place] [address] Care Team Providers Name Role Phone Tara Castro MD Primary Care Physician [phone] WAYLON TELLEZ Attending Clinician Unavailable Yoni CENTER RECEPTIONIST, Teri Carcamo Attending Clinician Samantha PAC, K Katerina Attending Clinician Waylon Tellez MD Attending Clinician Radiology Attending Clinician Unavailable RADIOLOGY Attending Clinician Unavailable Tim Tellez Attending Clinician Unknown, Attending Attending Clinician Unavailable TIM RASHEED Attending Clinician Unavailable KATERINE SAMANO Attending Clinician Unavailable Katerine Hirsch Attending Clinician Liat Keene MD Attending Clinician LIAT KEENE Attending Clinician Unavailable Doctor Unassigned, [place] Attending Clinician Unavailable Brenda Dhillon MD Attending Clinician Liliam Marina MD Attending Clinician LILIAM MARINA Attending Clinician Unavailable VISIT, NURSE UATS Attending Clinician Unavailable Nato Hadley Attending Clinician Eli Mendoza Attending Clinician WAYLON TELLEZ Admitting Clinician Unavailable Waylon Tellez MD Admitting Clinician KATERINE SAMANO Admitting Clinician Unavailable Payers Payer Name Policy Type Policy Number Effective Date Expiration Date Alex mcmahon MEDICARE PART A [id number] 1997 \\T\\ B 00:00:00 ALEIDA TREVINOTY [id number] 2013 00:00:00 Problems Condition Condition Condition Status Onset Resolution Last Treating Co mments Source Name Details Category Date Date Treatment Clinician Date Elevated Elevated Disease Active 2021-03 Unive rs brain brain 2-04 [place] nat[place] c peptide c peptide 00 [facility] (BNP) (BNP) Branch level level Persistent Persistent Disease Active 2021-03 U nivers atrial atrial 2-04 [place] of fibrillati fibr[place] Medical [place] Essential Essential Disease Active 2021-03 Uni vers hypertensi hypertensi 2-04 it y of on on 00:00: [place] 00 Medical Branch Dyslipidem Dyslipidem Disease Active 2021-03 U nivers ia ia 2-04 ity of 00:00: [place] 00 Medical Branch Status Status Disease Active 2021-03 Univers post post 2-04 [place] of placement [place] 00:[place] of cardiac of cardiac 00 Me dical pacemaker pacemaker Bran ch ROQUE ROQUE Disease Active 2021-03 Univers (dyspnea (dyspnea 2-04 ity of on on 00:00: [place] exertion) exertion) 00 [facility] Branch Pulmonary Pulmonary Disease Active 2021-03 Uni vers embolism, embolism, 2-02 ity of other, other, 00:00: [place] unspecifie unspecifie 00 Me dical d d Branch chronicity chronicity , , unspecifie unspecifie d whether d whether acute cor acute cor pulmonale pulmonale present present S/P S/P Disease Active [facility] sclerother sclerother 2-26 Co llege apy of apy of 00:00: of varicose varicose 00 Medici n veins veins e Chronic Chronic Disease Active [facility] atrial atrial 1-19 College fibrillati fibrillati 00:00: of on on 00 Medicin (HCCode) (HCCode) e Bleeding Bleeding Disease Active [facility] from 04-10 [place] varicose varicose 00:00: of vein vein 00 Medicin e 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 04-23 right hip right hip 00:00: [facility] l BLOOD CLOT BLOOD Diagnosis Active 2015-09-09 [facility] THIGH CLOT THIGH 09-08 14:53:00 l Active 00:00: [place] 09/09/2015 00 [facility] Atrial Atrial Problem Active 2019-01-26 Bj starla fibrillati fibrillati 22:20:48 l on on [place] (disorder) (disorder) Active Problem 01/26/2019 [facility] Blood clot Blood Problem Active 2015-09-12 M emoria (morpholog clot 00:32:37 l ic (morpholog [place] n abnormalit ic y) abnormalit y) Active Problem 09/12/2015 [facility] No known No known Disease Unive rs active active ity of problems problems [facility] History of Past Illness Condition Condition Condition Status Onset Resolution Last Treating Co mments Source Name Details Category Date Date Treatment Clinician Date Discharge Discharge Problem 2015-09-12 2015-09-12 Memoria Diagnosis: Diagnosis: 09-08 00:32:37 00:32:37 l Lower Lower 05:00: [place] extremity extremity 00 pain, pain, right right 09/09/2015 09/12/2015 [facility] Allergies, Adverse Reactions, Alerts Allergy Allergy Status Severity Reaction(s) Onset Inactive Treating Comm ents Source Name Type Date Date Clinician Penicill Propensi Active Anaphylaxis U nivers in ty to 08-21 ity of adverse 00:00: [place] reaction 00 Medical s Branch PENICILL DRUG Active Anaphylaxis Uni vers IN INGREDI 08-21 ity of 00:00: [place] 00 Medical Branch Nsaids Propensi Active [facility] ty to 1-15 College adverse 00:00: of reaction 00 Medicin s to e drug Penicill Propensi Active [facility] ins ty to 1-15 College adverse 00:00: of reaction 00 Medicin s to e drug Amoclan Propensi Active [facility] ty to 1-15 College adverse 00:00: of reaction 00 Medicin s to e drug Cefpodox Propensi Active 0 [facility] ricki ty to 15 [place] adverse 00:00: of reaction 00 Medicin s to e drug Ciproflo Propensi Active 0 [facility] xacin ty to 04-06 [place] adverse 00:00: of reaction 00 Medicin s to e drug Demerol Propensi Active [facility] ty to 04-06 [place] adverse 00:00: of reaction 00 Medicin s to e drug Levoflox Propensi Active [facility] acin ty to 04-06 [place] adverse 00:00: of reaction 00 Medicin s to e drug CEFPODOX DRUG Active Unknown-Cmnt 0 Un julienne RICKI INGREDI 1-15 ity of 00:00: [place] 00 Medical Branch CIPROFLO DRUG Active Unknown-Cmnt 0 Un julienne XACIN INGREDI 1-15 ity of 00:00: [place] 00 Medical Branch MEPERIDI DRUG Active Unknown-Cmnt 0 Un julienne NE INGREDI 1-15 ity of 00:00: [place] 00 Medical Branch NSAIDS Drug Active Unknown-Cmnt 0 Univ ers (NON-GALO Class 1-15 ity of ROIDAL 00:00: [place] ANTI-INF 00 Medical LAMMATOR Branch Y DRUG) PENICILL Drug Active Unknown-Cmnt 0 Un julienne INS Class 1-15 ity of 00:00: [place] 00 Medical Branch Cefpodox Propensi Active Unknown - 2020-0 Uni vers ricki ty to See comments 1-15 ity of adverse 00:00: [place] reaction 00 Medical s Branch Ciproflo Propensi Active Unknown - 2020-0 Uni vers xacin ty to See comments 1-15 ity of adverse 00:00: [place] reaction 00 Medical s Branch Meperidi Propensi Active Unknown - 2020-0 Uni vers ne ty to See comments 1-15 ity of adverse 00:00: [place] reaction 00 Medical s Branch Nsaids Propensi Active Unknown - 2020-0 Unive rs (Non-Galo ty to See comments 1-15 it y of roidal adverse 00:00: [place] Anti-Inf reaction 00 Medica l lammator s Branch y Drug) Penicill Propensi Active Unknown - 2020-0 Uni vers ins ty to See comments 1-15 ity of adverse 00:00: [place] reaction 00 Medical s Branch Sulfa Propensi Active Hives 2018- Univers (Sulfona ty to 2-02 ity of mide adverse 00:00: [place] Antibiot reaction 00 Medica l ics) s Branch SULFA Drug Active Hives 2018-03 Univers (SULFONA Class 2-02 ity of MIDE 00:00: [place] ANTIBIOT 00 Medical ICS) Branch Sulfa Propensi Active Hives 2019- Univers (Sulfona ty to 2-02 ity of mide adverse 00:00: [place] Antibiot reaction 00 Medica l ics) s Branch Amoxicil Propensi Active Hives 2018-03 Univer s jordy ty to 04-17 ity of adverse 00:00: [place] reaction 00 Medical s Branch Levoflox Propensi Active Unknown - 2018-03 Muscle Uni vers acin ty to See comments - issues ity of adverse 00:00: [place] reaction 00 Medical s Branch AMOXICIL DRUG Active Hives 2018-03 Univers JORDY INGREDI 04-17 ity of 00:00: [place] 00 Medical Branch LEVOFLOX DRUG Active Unknown-Cmnt 2018-03 Un julienne ACIN INGREDI 04-17 ity of 00:00: [place] 00 Medical Branch Augmenti Augmenti Active Alexandre a n n l [place] Family History Family Member Diagnosis Comments Start Date Stop Date Source Natural brother [facility] father [facility] mother [facility] sister Stroke [facility] Social History Social Habit Start Date Stop Date Quantity Comments Source History [facility] ge of Alcohol Std Medicine Drinks History [facility] ge of Alcohol Binge Medicine History [facility] o f Alcohol Comment [place] Med ical Branch Exposure to 2022-02-11 2022-02-21 Not sure University of SARS-CoV-2 00:00:00 17:24:00 [place] Medical (event) Branch Tobacco use and 2022-01-23 2022-01-23 Smokeless tobacco Un iversity of exposure 00:00:00 00:00:00 non-user [place] [facility] History [facility] 2020-04-06 2020-04-06 1 [facility] ge of Alcohol Frequency 00:00:00 00:00:00 Medicin e Alcohol intake 2016-02-22 2016-02-22 Current [facility] 00:00:00 00:00:00 non-drinker of Hospital alcohol (finding) Sex Assigned At [birth year] [facility] 00:00:00 00:00:00 Hospital Smoking Status Start Date Stop Date Source Never smoked tobacco [facility] Social History 2018-12-22 13:24:14 2018-12-22 13:24:14 [facility] Medications Ordered Filled Start Stop Current Ordering Indication Dosage Frequency Signature Comments Components Source Medication Medication Date Date Medication? Clinician (SIG) Name Name apixaban 2021-03 Yes 5mg 5 mg, Univers (ELIQUIS) 2-05 Oral, BID, ity of tablet 5 mg 23:00: First dose [place] 00 (after Medical last Branch modificati on) on 02/24/22 at 1700, Until Discontinu ed, Routine
Indicatio ns: Non-Valvul ar Atrial Fibrillati on ondansetron 2021-03 4mg 4 mg, Univ ers (ZOFRAN) 4 2-05 12-05 Oral, ity of mg/5 mL 22:00: 21:09 ONCE, 1 [place] solution 4 00 :00 dose, On Medic al mg [facility] 02/24/22 at 1600, Routine apixaban 5 2021-03 Yes 5mg Take 5 mg Un julienne mg tablet 2-05 by mouth ity of 17:40: in the [place] [address] morning Medical and 5 mg Branch in the evening. gabapentin 2021-03 Yes 300mg Take 300 Un julienne 300 mg 2-05 mg by ity of capsule 17:40: mouth at [place] [address] bedtime. Medical Branch zolpidem 5 2021-03 Yes 5mg Take 5 mg Un julienne mg tablet 2-05 by mouth ity of 17:40: at bedtime [place] [address] as needed Medical for Branch Insomnia. Levothyroxi 2021-03 Yes Take by Uni vers ne 100 mcg 2-05 mouth. ity of capsule 17:40: [address] Branch amitriptyli 2021-03 Yes 25mg Take 25 mg Univers ne 25 mg 2-05 by mouth ity of tablet 17:40: at [place] [address] bedtime. Medical Branch pantoprazol 2021-03 Yes 40mg Take 40 mg Univers e 40 mg EC 2-05 by mouth ity o f tablet 17:40: daily. [place] 13 Medical Branch METOPROLOL 2021-03 Yes 50mg Take 50 mg U nivers TARTRATE 2-05 by mouth 2 ity o f ORAL 17:40: (two) [place] 13 times Medical daily. Branch furosemide 2021-03 Yes 20mg Take 20 mg U nivers (LASIX) 40 2-05 by mouth ity o f mg tablet 17:40: in the [place] 13 morning. Medical Take half Branch a tablet qday montelukast 2021-03 Yes 10mg Take 10 mg Univers 10 mg 2-05 by mouth ity of tablet 17:40: in the [place] 13 morning. Medical Branch KCL 20 mEq 2021-03 Yes 20meq Take 20 Uni vers tablet 2-05 mEq by ity of 17:40: mouth in [place] 13 the Medical morning. Branch fluticasone 2021-03 Yes 100ug Inhale 100 Univers furoate-dev 2-05 mcg daily. it y of anteroL 17:40: [place] 100-25 13 Medical mcg/dose Branch DsDv ondansetron 2021-03 No 4mg 4 mg, Slow Univers (ZOFRAN 2- 12-05 IV Push, ity of (PF)) 16:30: 15:41 ONCE, On [place] injection 4 00 :00 Mon Medical mg 02/24/22 at Branch 1030, For 1 dose
Do ses of ondansetro n 16 mg and above need to be administer ed via IV piggyback. For Dose >=24mg ECG monitoring is advisable.
fluticasone 2021-03 No Inhale. Un julienne /vilanterol 2-05 12-05 ity of (BREO 15:09: 00:00 [place] ELLIPTA 22 :00 Medical INHALE) Branch nitrofurant 2021-03- No 50mg Take 50 mg Univers oin 50 mg 2-05 12-05 by mouth ity o f capsule 15:09: 00:00 at [place] 22 :00 bedtime. Medical Branch gemfibroziL 2021-03 Yes 600mg Take 1 Uni vers 600 mg 2-05 tablet by ity of tablet 00:00: mouth 2 [place] 00 (two) Medical times Branch daily before breakfast and dinner. multivitami 2021-03 Yes 1{tbl} 1 tablet, Univers n tablet 1 2-04 Oral, ity of tablet 19:30: DAILY, [place] 00 First dose Medical on [facility] 02/23/22 at 1330, Until Discontinu ed, Routine traMADoL 2021-03 Yes 50mg 50 mg, Univers (ULTRAM) 204 Oral, ity of tablet 50 19:18: Q6HPRN, [place] mg 13 Starting Medical on [facility] 02/23/22 at 1318, Until Discontinu ed, Routine, Pain (scale 4-6), Pain (scale 7-10) fluticasone 2021-03- Yes 1{puff} 1 Puff, Univers furoate 04-2609 Inhalation ity o f (ARNUITY 15:00: 14:59 , DAILY, 5 [place] ELLIPTA) 00 :00 doses, Medical DsDv 1 Puff First dose Br anch on [place] 02/23/22 at 0900, Last dose on [facility] 02/27/22 at 0900, Routine gemfibroziL 2021-03 Yes 600mg 600 mg, Un julienne (LOPID) 04-25 Oral, ity of tablet 600 22:30: BIDAC, [place] mg 00 First dose Medical on [facility] 02/22/22 at 1630, Until Discontinu ed, Routine LORazepam 2021-03- No 1mg 1 mg, Slow U nivers (ATIVAN) 04-25 IV Push, ity of injection 1 16:30: 15:49 ONCE, 1 [place] mg 00 :00 dose, On Medical [facility] 02/22/22 at 1030, Routine iopamidol 2021-03- No [id number] 80mL 80 mL, U nivers (ISOVUE 04-25 Intravenou ity o f 370-500 mL) 16:00: 16:15 s, ONCE, 1 [place] injection 00 :00 dose, On Medica l 80 mL [facility] 02/22/22 at 1015, Routine pantoprazol 2021-03 Yes 40mg 40 mg, Univ ers e 203 Oral, ity of (PROTONIX) 15:00: DAILY, [place] EC tablet 00 First dose Medi roverto 40 mg on [facility] 02/22/22 at 0900, Until Discontinu ed, Routine montelukast 2021-03 Yes 10mg 10 mg, Univ ers (SINGULAIR) 2-03 Oral, ity of tablet 10 15:00: DAILY, [place] mg 00 First dose Medical on [facility] Branch 02/22/22 at 0900, Until Discontinu ed, Routine metoprolol 2021-03 Yes 50mg 50 mg, Unive rs tartrate 2-03 Oral, BID, ity o f (LOPRESSOR) 14:00: First dose [place] tablet 50 00 on [facility] Medical mg 02/22/22 at Branch 0800, Until Discontinu ed levothyroxi 2021-03 Yes 100ug 100 mcg, U nivers ne 2-03 Oral, ity of (SYNTHROID) 12:00: QAM-0600, [place] tablet 100 00 First dose Med ical mcg on [facility] Branch 02/22/22 at 0600, Until Discontinu ed furosemide 2021-03 Yes 20mg 20 mg, Unive rs (LASIX) 2-03 Slow IV ity of injection 04:30: Push, [place] 20 mg 00 Q12H, Medical First dose Branch on Thu02/21/22 at 2230, Until Discontinu ed, Routine benzonatate 2021-03 Yes 100mg 100 mg, Un julienne (TESSALON 2-03 Oral, Q8H, ity of PERLES) 04:00: [place] capsule 100 00 on Thu Medica l mg 02/21/22 at Branch 2200, Until Discontinu ed, Routine ALPRAZolam 2021-03 Yes .25mg 0.25 mg, Un julienne (XANAX) 2-03 Oral, ity of tablet 0.25 03:07: TIDPRN, [place] as mg 12 Starting Medical on Thu Branch 02/21/22 at 2107, Until Discontinu ed, Routine, Anxiety gabapentin 2021-03 Yes 300mg 300 mg, Uni vers (NEURONTIN) 2-03 Oral, QHS, it y of capsule 300 03:00: First dose [place] mg 00 on Thu Medical 02/21/22 at Branch 2100, Until Discontinu ed, Routine amitriptyli 2021-03 Yes 25mg 25 mg, Univ ers ne (ELAVIL) 2-03 Oral, QHS, it y of tablet 25 03:00: First dose [place] mg 00 on Thu Medical 02/21/22 at Branch 2100, Until Discontinu ed, Routine zolpidem 2021-03 Yes 5mg 5 mg, Univers (AMBIEN) 2-03 Oral, ity of tablet 5 mg 02:36: QHSPRN, [place] as 29 Starting Medical on Thu Branch 02/21/22 at 2036, Until Discontinu ed, Routine, Insomnia heparin 2021-03- No 5000U 5,000 Univers 1000 04-24 Units, IV ity of unit/mL 23:45: 00:11 Push, [place] injection 00 :00 ONCE, 1 Medical Soln 5,000 dose, On Branc h Units 02/21/22 at 1745, Routine heparin 2021-03- No 0U/h 0-3,050 Univer s 25,000 04-24 1205 Units/hr ity of Units/250 23:42: 20:58 (0-30.5 [place] mL 31 :40 mL/hr), IV Medical (Premixed Infusion, Branc h Bag) in TITRATE, 0.45 % NS Parameters in Admin. Instr., Starting on Thu02/21/22 at 1742
In itiate infusion at 18 units/kg/h r calculated as: 1,300 Units/hr (Maximum initial rate: 1,300 Units/hr, then adjust dose as needed per aPTT).&nbs p; CA UTION - If LMWH given in ER, AVOID bolus and start next dose/drip 12 hrs after ER dosage.&nb sp; M ust program rate using programmab le infusion pump.&nbsp ; Maribell ck with the ordering provider first prior to any administra tion should the patient be on existing/a dditional anticoagul ant therapy. Range, Dosing and Testing: &nbs p;DO NOT ADJUST INITIAL BOLUS OR INITIAL INFUSION RATE.&nbsp ; _ &am p;nbsp;FOR [facility], [facility], AND [facility] ONLY &nbs p; - aPTT < 35: & amp;nbsp;B olus 5000 units, increase rate 300 units/hr&n bsp; - aPTT 35-44:&nbs p; Jose tee 3000 units, increase rate 200 units/hr&n bsp; - aPTT 45-54:&nbs p; In crease rate 100 units/hr&n bsp; - aPTT 55-85:&nbs p; NO CHANGE&nbs p; - aPTT 86-95:&nbs p; De crease rate 100 units/hr&n bsp; - aPTT 96-120:&nb sp; H old 30 minutes, decrease rate 150 units/hr&n bsp; - aPTT > 120: Hold 60 minutes, decrease rate 200 units/hr&n bsp; Check aPTT 6 hours after initiation , then Q6H after every change, aPTT Q12H once therapeuti c levels are reached.&n bsp; &nbs p; __ &n bsp;FOR [facility] ONLY - aPTT < 40: & nbsp;Bolus 5000 units, increase rate 300 units/hr&n bsp; - aPTT 40-49:&nbs p; Jose tee 3000 units, increase rate 200 units/hr&n bsp; - aPTT 50-59:&nbs p; In crease rate 100 units/hr&n bsp; - aPTT 60-85:&nbs p; NO CHANGE&amp ;nbsp; - aPTT 86-95:&nbs p; De crease rate 100 units/hr&n bsp; - aPTT 96-120:&nb sp; H old 30 minutes, decrease rate 150 units/hr&n bsp; - aPTT > 120: Hold 60 minutes, decrease rate 200 units/hr&n bsp; Check aPTT 6 hours after initiation , then Q6H after every change, aPTT Q12H once therapeuti c levels are reached.<b r> tc 2021-03- No [id number] 5.4mCi 5.4 Unive rs 99m-albumin 2- 12 millicurie i ty of (DRAXIMAGE 22:00: 20:42 , Oral, [place] as MAA) 00 :00 ONCE, 1 Medical injection dose, On Branch 5.4 Fri millicurie 02/21/22 at 1600, Routine gabapentin 2021-03 Yes 300mg Take 300 Un julienne 300 mg 2-02 mg by ity of capsule 20:36: mouth at [place] [address] bedtime. Medical Branch zolpidem 5 2021-03 Yes 5mg Take 5 mg Un julienne mg tablet 2-02 by mouth ity of 20:36: at bedtime [place] [address] as needed Medical for Branch Insomnia. Levothyroxi 2021-03 Yes Take by Uni vers ne 100 mcg 2-02 mouth. ity of capsule 20:36: [place] [address] Medical Branch amitriptyli 2021-03 Yes 25mg Take 25 mg Univers ne 25 mg 2-02 by mouth ity of tablet 20:36: at [place] [address] bedtime. Medical Branch pantoprazol 2021-03 Yes 40mg Take 40 mg Univers e 40 mg EC 2-02 by mouth ity o f tablet 20:36: daily. [place] [address] Medical Branch METOPROLOL 2021-03 Yes 50mg Take 50 mg U nivers TARTRATE 2-02 by mouth 2 ity o f ORAL 20:36: (two) [place] [address] times Medical daily. Branch furosemide 2021-03 Yes 20mg Take 20 mg U nivers (LASIX) 40 2-02 by mouth ity o f mg tablet 20:36: in the [place] [address] morning. Medical Take half Branch a tablet qday montelukast 2021-03 Yes 10mg Take 10 mg Univers 10 mg 2-02 by mouth ity of tablet 20:36: in the [place] [address] morning. Medical Branch fluticasone 2021-03 Yes 100ug Inhale 100 Univers furoate-dev 2-02 mcg daily. it y of anteroL 20:36: [place] 100-25 48 Medical mcg/dose Branch DsDv gabapentin 2021-03 Yes 300mg Take 300 Un julienne 300 mg 2-02 mg by ity of capsule 20:36: mouth at [place] [address] bedtime. Medical Branch zolpidem 5 2021-03 Yes 5mg Take 5 mg Un julienne mg tablet 2-02 by mouth ity of 20:36: at bedtime [place] [address] as needed Medical for Branch Insomnia. Levothyroxi 2021-03 Yes Take by Uni vers ne 100 mcg 2-02 mouth. ity of capsule 20:36: [place] [address] Medical Branch amitriptyli 2021-03 Yes 25mg Take 25 mg Univers ne 25 mg 2-02 by mouth ity of tablet 20:36: at [place] [address] bedtime. Medical Branch pantoprazol 2021-03 Yes 40mg Take 40 mg Univers e 40 mg EC 2-02 by mouth ity o f tablet 20:36: daily. [place] [address] Medical Branch benzonatate 2021-03- No 100mg Take 100 Univers 100 mg 2-02 12-02 mg by ity of capsule 20:36: 00:00 mouth. [place] 48 :00 Medical Branch benzonatate 2021-03- No 100mg Take 100 Univers 100 mg 2-02 12-02 mg by ity of capsule 20:36: 00:00 mouth. [place] 48 :00 Medical Branch fluticasone 2021-03 Yes Inhale. Uni vers /vilanterol 2-02 ity of (BREO 20:32: [place] ELLIP 26 Medical INHALE) Branch KCL 20 mEq 2021-03 Yes 20meq Take 20 Uni vers tablet 2-02 mEq by ity of 20:32: mouth in [place] [address] the Medical morning. Branch nitrofurant 2021-03 Yes 50mg Take 50 mg Univers oin 50 mg 2-02 by mouth ity of capsule 20:32: at [place] [address] bedtime. Medical Branch albuterol 2021-03- No 2{puff} Inhale 2 Univers 90 2-02 12-02 Puffs ity of mcg/actuati 20:27: 00:00 every 6 [place] on inhaler 31 :00 (six) Medical hours as Branch needed for Wheezing or Shortness of Breath. albuterol 2021-03- No 2{puff} Inhale 2 Univers 90 04-24-02 Puffs ity of mcg/actuati 20:27: 00:00 every 6 [place] on inhaler 31 :00 (six) Medical hours as Branch needed for Wheezing or Shortness of Breath. apixaban 5 2021-03 Yes 5mg Take 5 mg Un julienne mg tablet 02 by mouth ity of 20:26: in the [place] 00 morning Medical and 5 mg Branch in the evening. apixaban 5 2021-03 Yes 5mg Take 5 mg Un julienne mg tablet -02 by mouth ity of 20:26: in the [place] 00 morning Medical and 5 mg Branch in the evening. gemfibrozil 2021-03- No 600mg Take 600 Univers 600 mg 04-24 mg by ity of tablet 20:22: 00:00 mouth 2 [place] 01 :00 (two) Medical times Branch daily before breakfast and dinner. gemfibrozil 2021-03- No 600mg Take 600 Univers 600 mg 04-24-02 mg by ity of tablet 20:22: 00:00 mouth 2 [place] 01 :00 (two) Medical times Branch daily before breakfast and dinner. triamcinolo 2021-03- No Apply to U nivers ne 0.025 % 04-24 area(s) 2 ity of ointment 20:20: 00:00 (two) [place] 12 :00 times Medical daily. Branch triamcinolo 2021-03- No Apply to U nivers ne 0.025 % 04-24 area(s) 2 ity of ointment 20:20: 00:00 (two) [place] 12 :00 times Medical daily. Branch clindamycin 2021-03- No 300mg Take 300 Univers 300 mg 04-24 12-02 mg by ity of capsule 20:19: 00:00 mouth 4 [place] 02 :00 (four) Medical times Branch daily. clindamycin 2021-03- No 300mg Take 300 Univers 300 mg 04-24 12-02 mg by ity of capsule 20:19: 00:00 mouth 4 [place] 02 :00 (four) Medical times Branch daily. metoprolol 2021-03 No 50mg Take 50 mg Univers succinate 04-24 by mouth ity o f XL 50 mg 24 20:16: 00:00 daily. [place] as hr tablet 28 :00 Medical Branch metoprolol 2021-03 No 50mg Take 50 mg Univers succinate 04-24 by mouth ity o f XL 50 mg 24 20:16: 00:00 daily. [place] as hr tablet 28 :00 Medical Branch azithromyci 2021-03 No 250mg Take 250 Univers n 250 mg 04-24 mg by ity of tablet 20:12: 00:00 mouth [place] 29 :00 daily. Medical Take 500 Branch mg day 1, then 250 mg days 2 to 5. azithromyci 2021-03 No 250mg Take 250 Univers n 250 mg 04-24 mg by ity of tablet 20:12: 00:00 mouth [place] 29 :00 daily. Medical Take 500 Branch mg day 1, then 250 mg days 2 to 5. Nitrofurant 2021-03- Yes [id number] 100mg Take 1 Univers oin&Nit. 1-03 11-09 capsule by ity of Macroc[place] 00:00: 05:59 [place] in [place] (MACROBID) 00 :00 the Medical 100 mg morning Branch capsule and 1 capsule in the evening. Do all this for 5 days. Nitrofurant Yes [id number] 100mg Take 1 Univers oin&Nit. 5-07 capsule by ity o f [place] 00:00: mouth 2 [place] 100 mg 00 (two) Medical capsule times Branch daily. Nitrofurant Yes [id number] 100mg Take 1 Univers oin&Nit. 5-07 capsule by ity o f [place] 00:00: mouth 2 [place] 100 mg 00 (two) Medical capsule times Branch daily. Nitrofurant 2021- No [id number] 100mg Take 1 Univers oin&Nit. 5-07 02-21 capsule by ity of Macrocryst 00:00: 00:00 mouth 2 [place] as 100 mg 00 :00 (two) Medical capsule times Branch daily. Nitrofurant 2021- No [id number] 100mg Take 1 Univers oin&Nit. 07-27 capsule by ity of Macrocryst 00:00: 00:00 mouth 2 [place] as 100 mg 00 :00 (two) Medical capsule times Branch daily. clindamycin 2021- No [id number] 300mg Take 1 [facility] 300 mg 07-2715 capsule by ity of capsule 00:00: 04:59 mouth 4 [place] 00 :00 (four) Medical times Branch daily for 7 days. triamcinolo 2021- No [id number] 80mg Univers ne 05-08 ity of acetonide 22:30: 21:18 [place] (KENALOG) 00 :00 Medical injection Branch 80 mg triamcinolo 2021- No [id number] 80mg 80 mg, Univers ne 05-08 Intra-[place] ity of acetonide 22:30: 21:18 jenna [place] (KENALOG) 00 :00 ONCE, 1 Medical injection dose, On Branch 80 mg 05/08/21 at 1630, Routine methocarbam Yes [id number] 500mg Take 1 Univers oL 6-01 tablet by ity of (ROBAXIN) 00:00: mouth [place] 500 mg 00 every 6 Medical tablet (six) Branch hours as needed for Pain (scale 7-10) (MUSCLE SPASM). acetaminoph Yes 4647 1{tbl} Take 1 Un julienne en-codeine 6-01 tablet by ity of (TYLENOL-CO 00:00: mouth [place] DEINE #3) 00 every 6 Medical 300-30 mg (six) Branch tablet hours as needed for Pain (scale 7-10). Indication s: acute pain methocarbam Yes [id number] 500mg Take 1 Univers oL 6-01 tablet by ity of (ROBAXIN) 00:00: mouth [place] 500 mg 00 every 6 Medical tablet (six) Branch hours as needed for Pain (scale 7-10) (MUSCLE SPASM). acetaminoph Yes 4647 1{tbl} Take 1 Un julienne en-codeine 6-01 tablet by ity of (TYLENOL-CO 00:00: mouth [place] DEINE #3) 00 every 6 Medical 300-30 mg (six) Branch tablet hours as needed for Pain (scale 7-10). Indication s: acute pain methocarbam 2021-0 Yes [id number] 500mg Take 1 [facility] oL 6-01 tablet [...] (scale 7-10). Indication s: acute pain methocarbam 202-0 Yes [id number] 500mg Take 1 [facility] oL 6-01 tablet [...] 7-10). Indication s: acute pain methocarbam 2020-0 2021- No [id number] 500mg Take 1 [facility] oL 6-01 12-02 tablet by ity of (ROBAXIN) 00:00: 00:00 mouth [place] 500 mg 00 :00 every 6 Medical tablet (six) Branch hours as needed for Pain (scale 7-10) (MUSCLE SPASM). acetaminoph 0 2021- No 4647 1{tbl} Take 1 U nivers en-codeine 6-01 12-02 tablet by ity of (TYLENOL-CO 00:00: 00:00 [place] DE[place] #3[place] 00 :00 every 6 Medical 300-30 mg (six) Branch tablet hours as needed for Pain (scale 7-10). Indication s: acute pain methocarbam 1-0 2021- No [id number] 500mg Take 1 [facility] oL 6-01 12-02 tablet by ity of (ROBAXIN) 00:00: 00:00 mouth [place] 500 mg 00 :00 every 6 Medical tablet (six) Branch hours as needed for Pain (scale 7-10) (MUSCLE SPASM). acetaminoph 2021- No 4647 1{tbl} Take 1 U nivers en-codeine 08-21 tablet by ity of (TYLENOL-CO 00:00: 00:00 mouth [place] DEINE #3[place] 00 :00 every 6 Medical 300-30 mg (six) Branch tablet hours as needed for Pain (scale 7-10). Indication s: acute pain Apixaban 5 0 Yes 5mg Take 5 mg [facility] MG TABS 1-15 by mouth. [place] 21:36: of 47 Medicin e metoprolol Yes 50mg Take 50 mg [facility] (TOPROL-XL) 1-15 by mouth. [facility] 50 MG XL 21:36: of tablet 47 Medicin e pantoprazol Yes 40mg Take 40 mg [facility] e 1-15 by mouth. [place] (PROTONIX) 21:36: of 40 MG 47 Medicin tablet e Apixaban 5 Yes 5mg Take 5 mg [facility] MG TABS 1-15 by mouth. [place] 21:36: of 47 Medicin e metoprolol Yes 50mg Take 50 mg [facility] (TOPROL-XL) 1-15 by mouth. [facility] 50 MG XL 21:36: of tablet 47 Medicin e pantoprazol Yes 40mg Take 40 mg Ad e 1-15 by mouth. [place] (PROTONIX) 21:36: of 40 MG 47 Medicin tablet e nitrofurant Yes TAKE 1 [facility] or oin 1-05 CAPSULE BY [place] (MACRODANTI 00:00: MOUTH AT of N) 50 MG 00 BEDTIME Medicin capsule WITH FOOD e OR MILK nitrofurant 0 Yes TAKE 1 [facility] or oin 1-05 CAPSULE BY [place] (MACRODANTI 00:00: MOUTH AT of N) 50 MG 00 BEDTIME Medicin capsule WITH FOOD e OR MILK ARNUITY 2019-03 Yes INHALE 1 Ad ELLIPTA 100 2-22 PUFF EVERY Co llege MCG/ACT 00:00: 24 HOURS of AEPB Medicin e ARNUITY 2019-03 Yes INHALE 1 Ad ELLIPTA 100 2-22 PUFF EVERY Co llege MCG/ACT 00:00: 24 HOURS of AEPB 00 Medicin e zolpidem 2019-03 Yes TAKE 1 [facility] (AMBIEN) 5 2-21 TABLET BY Jose [...] 1 [facility] or ne 0-27 TABLET BY [place] (SYNTHROID) 00:00: MOUTH of 100 MCG 00 EVERY DAY Medicin tablet e levothyroxi 2019-03 Yes TAKE 1 [facility] or ne 0-27 TABLET BY [place] (SYNTHROID) 00:00: MOUTH of 100 MCG 00 EVERY DAY Medicin tablet e phenazopyri Yes [id number] 200mg Take 1 Univers dine 200 mg 9-19 tablet by ity of tablet 00:00: mouth 3 [place] 00 (three) Medical times Branch daily. phenazopyri 2020-0 Yes [id number] 200mg Take 1 Univers dine 200 mg 9-19 tablet by ity of tablet 00:00: mouth 3 [place] 00 (three) Medical times Branch daily. phenazopyri 2020-0 Yes [id number] 200mg Take 1 [facility] dine 200 mg 9-19 tablet by ity of tablet 00:00: mouth 3 [place] 00 (three) Medical times Branch daily. phenazopyri 2020-0 Yes [id number] 200mg Take 1 Univers dine 200 mg 9-19 tablet by ity of tablet 00:00: mouth 3 [place] 00 (three) Medical times Branch daily. phenazopyri 2020-0 2021- No [id number] 200mg Take 1 [facility] dine 200 mg 9-19 12-02 tablet by it y of tablet 00:00: 00:00 mouth 3 [place] 00 :00 (three) Medical times Branch daily. phenazopyri 2020-0 2021- No [id number] 200mg Take 1 [facility] dine 200 mg 9-19 12- tablet by it y of tablet 00:00: 00:00 mouth 3 [place] 00 :00 (three) Medical times Branch daily. Estradiol 2018-03 Yes [id number] Apply 1 to Univers (VAGIFEM) 2-18 the vagina ity of 10 mcg 00:00: every [place] tablet 00 Thursday and Branch in the evening. Estradiol 2018-03 Yes [id number] Apply 1 to Univers (VAGIFEM) 2-18 the vagina ity of 10 mcg 00:00: every [place] tablet 00 Thursday and Branch in the evening. Estradiol 2018-03 Yes [id number] Apply 1 to Univers (VAGIFEM) 2-18 the vagina ity of 10 mcg 00:00: every [place] tablet 00 Thursday and Medical Branch in the evening. Estradiol 2018-03 Yes [id number] Apply 1 to Univers (VAGIFEM) 2-18 the vagina ity of 10 mcg 00:00: every [place] tablet 00 Thursday and Medical Branch in the evening. Estradiol 2018-03- No [id number] Apply 1 to Univers (VAGIFEM) 2-18 12-02 the vagina ity of 10 mcg 00:00: 00:00 every [place] tablet 00 :00 Thursday and Medical Branch in the evening. Estradiol 2018-03- No [id number] Apply 1 to Univers (VAGIFEM) 2-18 02-21 the vagina ity of 10 mcg 00:00: 00:00 every [place] tablet 00 :00 Thursday and Medical Branch in the evening. apixaban 2018-03 Yes 10mg Take 10 mg Uni vers (ELIQUIS) 5 1-19 by mouth 2 it y of mg tablet 14:37: (two) [place] [address] times Medical daily. Branch metoprolol 2018-03 Yes [...] by mouth ity of 14:37: at bedtime [place] [address] as needed Medical for Branch Insomnia. Levothyroxi 2018-03 Yes Take by Uni vers ne 100 mcg 1-19 mouth. ity of capsule 14:37: [place] [address] Medical Branch amitriptyli 2018-03 Yes 25mg Take 25 mg Univers ne 25 mg 1-19 by mouth ity of tablet 14:37: at [place] [address] bedtime. Medical Branch pantoprazol 2018-03 Yes 40mg Take 40 mg Univers e 40 mg EC 1-19 by mouth ity o f tablet 14:37: daily. [place] [address] Medical Branch azithromyci 2018-03 Yes 250mg Take 250 U nivers n 250 mg 1-19 mg by ity of tablet 14:37: mouth [place] [address] daily. Medical Take 500 Branch mg day [...] mg by ity of capsule 14:37: mouth. [place] [address] Medical Branch clindamycin 2018-03 Yes 300mg Take 300 U nivers 300 mg 1-19 mg by ity of capsule 14:37: mouth 4 [place] 45 (four) Medical times Branch daily. gemfibrozil 2018-03 Yes 600mg Take 600 U nivers 600 mg 1-19 mg by ity of tablet 14:37: mouth 2 [place] 45 (two) Medical times Branch daily before breakfast and dinner. triamcinolo 2018-03 Yes Apply to Un julienne ne 0.025 % 1-19 area(s) 2 ity of ointment 14:37: (two) [place] [address] times Medical daily. Branch apixaban 2018-03 Yes 10mg Take 10 mg Uni vers (ELIQUIS) 5 1-19 by mouth 2 it y of mg tablet 14:37: (two) [place] [address] times Medical daily. Branch metoprolol 2018-03 Yes 50mg Take 50 mg U nivers succinate 1-19 by mouth ity of XL 50 mg 24 14:37: [place]. [place] tablet 45 Medical Branch gabapentin 2018-03 Yes 300mg Take 300 Un julienne 300 mg 1-19 mg by ity of capsule 14:37: mouth 3 [place] [address] (three) Medical times Branch daily. zolpidem 5 2018-03 Yes 5mg Take 5 mg Un julienne mg tablet -19 by mouth ity of 14:37: at bedtime [place] [address] as needed Medical for Branch Insomnia. Levothyroxi 2018-03 Yes Take by Uni vers ne 100 mcg 1-19 mouth. ity of capsule 14:37: [place] [address] Medical Branch amitriptyli 2018-03 Yes 25mg Take 25 mg Univers ne 25 mg -19 by mouth ity of tablet 14:37: at [place] [address] bedtime. Medical Branch pantoprazol 2018-03 Yes 40mg Take 40 mg Univers e 40 mg EC 1-19 by mouth ity o f tablet 14:37: daily. [place] [address] Medical Branch azithromyci 2018-03 Yes 250mg Take 250 U nivers n 250 mg 1-19 mg by ity of tablet 14:37: mouth [place] [address] daily. Medical Take 500 Branch mg day 1, then 250 mg days 2 to 5. albuterol 2018-03 Yes 2{puff} Inhale 2 U nivers (VENTOLIN 1-19 Puffs ity of HFA) 90 14:37: every 6 [place] [facility] 45 (six) Medical on inhaler hours as Branc h needed for Wheezing or Shortness of Breath. benzonatate 2018-03 Yes 100mg Take 100 U nivers 100 mg 1-19 mg by ity of capsule 14:37: mouth. [place] [address] Medical Branch clindamycin 2018-03 Yes 300mg Take 300 U nivers 300 mg 1-19 mg by ity of capsule 14:37: mouth 4 [place] [address] (four) Medical times Branch daily. gemfibrozil 2018-03 Yes 600mg Take 600 U nivers 600 mg 1-19 mg by ity of tablet 14:37: mouth 2 [place] [address] (two) Medical times Branch daily before breakfast and dinner. triamcinolo 2018-03 Yes Apply to Un julienne ne 0.025 % -19 area(s) 2 ity of ointment 14:37: (two) [place] [address] times Medical daily. Branch apixaban 2018-03 Yes 10mg Take 10 mg Uni vers (ELIQUIS) 5 -19 by mouth 2 it y of mg tablet 14:37: (two) [place] [address] times Medical daily. Branch metoprolol 2018-03 Yes 50mg Take 50 mg U nivers succinate -19 by mouth ity of XL 50 mg 24 14:37: [place]. [place] [address] Medical Branch gabapentin 2018-03 Yes 300mg Take 300 Un julienne 300 mg 1-19 mg by ity of capsule 14:37: mouth 3 [place] [address] (three) Medical times Branch daily. zolpidem 5 2018-03 Yes 5mg Take 5 mg Un julienne mg tablet -19 by mouth ity of 14:37: at bedtime [place] [address] as needed Medical for Branch Insomnia. Levothyroxi 2018-03 Yes Take by Uni vers ne 100 mcg -19 mouth. ity of capsule 14:37: [place] [address] Medical Branch amitriptyli 2018-03 Yes 25mg Take 25 mg Univers ne 25 mg -19 by mouth ity of tablet 14:37: at [place] [address] bedtime. Medical Branch pantoprazol 2018-03 Yes 40mg Take 40 mg Univers e 40 mg EC -19 by mouth ity o f tablet 14:37: daily. [place] [address] Medical Branch azithromyci 2018-03 Yes 250mg Take 250 U nivers n 250 mg 1-19 mg by ity of tablet 14:37: mouth [place] [address] daily. Medical Take 500 Branch mg day 1, then 250 mg days 2 to 5. albuterol 2018-03 Yes 2{puff} Inhale 2 U nivers (VENTOLIN 1-19 Puffs ity of HFA) 90 14:37: every 6 [place] [facility] 45 (six) Medical on inhaler hours as Branc h needed for Wheezing or Shortness of Breath. benzonatate 2018-03 Yes 100mg Take 100 U nivers 100 mg 1-19 mg by ity of capsule 14:37: mouth. [place] [address] Medical Branch clindamycin 2018-03 Yes 300mg Take 300 U nivers 300 mg 1-19 mg by ity of capsule 14:37: mouth 4 [place] [address] (four) Medical times Branch daily. gemfibrozil 2018-03 Yes 600mg Take 600 U nivers 600 mg 1-19 mg by ity of tablet 14:37: mouth 2 [place] [address] (two) Medical times [place] daily before breakfast and dinner. triamcinolo 2018-03 Yes Apply to Un julienne ne 0.025 % 1-19 area(s) 2 ity of ointment 14:37: (two) [place] [address] times Medical daily. Branch apixaban 2018-03 Yes 10mg Take 10 mg Uni vers (ELIQUIS) 5 1-19 by mouth 2 it y of mg tablet 14:37: (two) [place] [address] times Medical daily. Branch metoprolol 2018-03 Yes 50mg Take 50 mg U nivers succinate 1-19 by mouth ity of XL 50 mg 24 14:37: [place]. [place] [facility] 45 Medical Branch gabapentin 2018-03 Yes 300mg Take 300 Un julienne 300 mg 1-19 mg by ity of capsule 14:37: mouth 3 [place] [address] (three) Medical times Branch daily. zolpidem 5 2018-03 Yes 5mg Take 5 mg Un julienne mg tablet 1-19 by mouth ity of 14:37: at bedtime [place] [address] as needed Medical for Branch Insomnia. Levothyroxi 2018-03 Yes Take by Uni vers ne 100 mcg 1-19 mouth. ity of capsule 14:37: [place] [address] Medical Branch amitriptyli 2018-03 Yes 25mg Take 25 mg Univers ne 25 mg -19 by mouth ity of tablet 14:37: at [place] [address] bedtime. Medical Branch pantoprazol 2018-03 Yes 40mg Take 40 mg Univers e 40 mg EC 1-19 by mouth ity o f tablet 14:37: daily. [place] [address] Medical Branch azithromyci 2018-03 Yes 250mg Take 250 U nivers n 250 mg 1-19 mg by ity of tablet 14:37: mouth [place] 45 daily. Medical Take 500 Branch mg day 1, then 250 mg days 2 to 5. albuterol 2018-03 Yes 2{puff} Inhale 2 U nivers (VENTOLIN 1-19 Puffs ity of HFA) 90 14:37: every 6 [facility] (six) Medical on inhaler hours as Branc h needed for Wheezing or Shortness of Breath. benzonatate 2018-03 Yes 100mg Take 100 U nivers 100 mg 1-19 mg by ity of capsule 14:37: mouth. [place] [address] Medical Branch clindamycin 2018-03 Yes 300mg Take 300 U nivers 300 mg 1-19 mg by ity of capsule 14:37: mouth 4 [place] 45 (four) Medical times [place] daily. gemfibrozil 2018-03 Yes 600mg Take 600 U nivers 600 mg 1-19 mg by ity of tablet 14:37: mouth 2 [place] 45 (two) Medical times [place] daily before breakfast and dinner. triamcinolo 2018-03 Yes Apply to Un julienne ne 0.025 % 1-19 area(s) 2 ity of ointment 14:37: (two) [place] [address] times Medical daily. Branch mupirocin 2 2018-03 Yes [id number] Apply to Univers % ointment 1-19 area(s) 3 ity of 00:00: (three) [place] 00 times Medical daily. Branch mupirocin 2 2018-03 Yes [id number] Apply to Univers % ointment 1-19 area(s) 3 ity of 00:00: (three) [place] 00 times Medical daily. Branch mupirocin 2 2018-03 Yes [id number] Apply to Univers % ointment 1-19 area(s) 3 ity of 00:00: (three) [place] 00 times Medical daily. Branch mupirocin 2 2018-03 Yes [id number] Apply to Univers % ointment 1-19 area(s) 3 ity of 00:00: (three) [place] 00 times Medical daily. Branch mupirocin 2 2018-03- No [id number] Apply to Univers % ointment 04-10 area(s) 3 ity of 00:00: 00:00 (three) [place] 00 :00 times Medical daily. [place] mupirocin 2 2018-03- No [id number] Apply to Univers % ointment 04-10 area(s) 3 ity of 00:00: 00:00 (three) [place] 00 :00 times Medical daily. [place] Estradiol 2018-03 Yes 1 gm, TOP, Me moria 0.1 MG/ML 0-04 Bedtime, l Vaginal 16:17: use 3 [place] Cream 00 times a [Estrace] week, # 1 tube, 5 Refill(s), Pharmacy: [facility] cy #[id number] Estradiol 2018-03 Yes 1 gm, TOP, Me moria 0.1 MG/ML 0-04 Bedtime, l Vaginal 16:17: use 3 [place] Cream 00 times a [Estrace] week, # 1 tube, 5 Refill(s), Pharmacy: [facility] cy #[id number] Estradiol 2018-03 Yes 1 gm, TOP, Me moria 0.1 MG/ML 0-04 Bedtime, l Vaginal 16:17: use 3 [place] Cream 00 times a [Estrace] week, # 1 tube, 5 Refill(s), Pharmacy: [facility] cy #[id number] Estradiol 2018-03 Yes 1 gm, TOP, Me moria 0.1 MG/ML 0-04 Bedtime, l Vaginal 16:17: use 3 [place] Cream 00 times a [Estrace] week, # 1 tube, 5 Refill(s), Pharmacy: [facility] cy #[id number] Estradiol 2018-03 Yes 1 gm, TOP, Me moria 0.1 MG/ML 0-04 Bedtime, l Vaginal 16:17: use 3 [place] Cream 00 times a [Estrace] week, # 1 tube, 5 Refill(s), Pharmacy: [facility] cy #[id number] Estradiol 2018-03 Yes 1 gm, TOP, Me moria 0.1 MG/ML 0-04 Bedtime, l Vaginal 16:17: use 3 [place] Cream 00 times a [Estrace] week, # 1 tube, 5 Refill(s), Pharmacy: [facility] cy #[id number] Estrogens, 2018-03 Yes 1 appl, Bj starla Conjugated 0-02 VAG, Q-M l (ASSISTED) 0.625 14:52: and Th, # H [place] MG/ML 00 30 gm, 11 Vaginal Refill(s), Cream Pharmacy: [Premarin] [facility] #[id number] Estrogens, 2018-03 Yes 1 appl, Bj starla Conjugated 0-02 VAG, Q-M l (ASSISTED) 0.625 14:52: and Th, # H [place] MG/ML 00 30 gm, 11 Vaginal Refill(s), Cream Pharmacy: [Premarin] [facility] #[id number] Estrogens, 2018-03 Yes 1 appl, Bj starla Conjugated 0-02 VAG, Q-M l (ASSISTED) 0.625 14:52: and Th, # H [place] MG/ML 00 30 gm, 11 Vaginal Refill(s), Cream Pharmacy: [Premarin] [facility] #[id number] Estrogens, 2018-03 Yes 1 appl, Bj starla Conjugated 0-02 VAG, Q-M l (ASSISTED) 0.625 14:52: and Th, # H [place] MG/ML 00 30 gm, 11 Vaginal Refill(s), Cream Pharmacy: [Premarin] [facility] cy #[id number] Estrogens, 2018-03 Yes 1 appl, Bj tsarla Conjugated 0-02 VAG, Q-M l (ASSISTED) 0.625 14:52: and Th, # H [place] MG/ML 00 30 gm, 11 Vaginal Refill(s), Cream Pharmacy: [Premarin] [facility] #[id number] Estrogens, 2018-03 Yes 1 appl, Bj starla Conjugated 0-02 VAG, Q-M l (ASSISTED) 0.625 14:52: and Th, # H [place] MG/ML 00 30 gm, 11 Vaginal Refill(s), Cream Pharmacy: [Premarin] [facility] cy #[id number] zolpidem 5 2018-03 Yes 0 Memoria mg oral 0-02 Refill(s) l tablet 13:25: [place] 00 Metoprolol 2018-03 Yes 0 Memoria Tartrate 50 0-02 Refill(s) l mg oral 13:25: [place] tablet 00 Furosemide 2018-03 Yes 0 Memoria 40 MG Oral 0-02 Refill(s) l Tablet 13:25: [place] 00 Amoxicillin 2018-03 Yes 0 Memori a 500 MG / 0-02 Refill(s) l Clavulanate 13:25: [place] n 125 MG Oral 00 Tablet amitriptyli 2018-03 Yes 0 Memori a ne 25 mg 0-02 Refill(s) l oral tablet 13:25: [place] n 00 gabapentin 2018-03 Yes 0 Memoria 300 MG Oral 0-02 Refill(s) l Capsule 13:25: [place] 00 apixaban 5 2018-03 Yes 5 mg, PO, Me moria MG Oral 0-02 Q12H, 0 l Tablet 13:25: Refill(s) [place] wen [Eliquis] 00 levothyroxi 2018-03 Yes 0 Memori a ne 100 mcg 0-02 Refill(s) l (0.1 mg) 13:25: [place] oral tablet 00 nitrofurant 2018-03 Yes 0 Memori a oin 0-02 Refill(s) l macrocrysta 13:25: [place] wen ls-monohydr 00 ate 100 mg oral capsule (Macrobid) zolpidem 2018-03 Yes 0 Memoria mg oral 0-02 Refill(s) l tablet 13:25: [place] 00 Metoprolol 2018-03 Yes 0 Memoria Tartrate 50 0-02 Refill(s) l mg oral 13:25: [place] tablet 00 Furosemide 2018-03 Yes 0 Memoria 40 MG Oral 0-02 Refill(s) l Tablet 13:25: Amoxicillin 2018-03 Yes 0 Memori a 500 [...] Tablet 13:25: Refill(s) [place] wen [Eliquis] 00 levothyroxi 2018-03 Yes 0 Memori a ne 100 mcg 0-02 Refill(s) l (0.1 mg) 13:25: [place] oral tablet 00 nitrofurant 2018-03 Yes 0 Memori a oin 0-02 Refill(s) l macrocrysta 13:25: [place] wen ls-monohydr 00 ate 100 mg oral capsule (Macrobid) zolpidem 2018-03 Yes 0 Memoria mg oral 0-02 Refill(s) l tablet 13:25: [place] Metoprolol 2018-03 Yes 0 Memoria Tartrate 50 [...] 0-02 Refill(s) l oral tablet 13:25: [place] wen 00 gabapentin 2018-03 Yes 0 Memoria 300 MG Oral 0-02 Refill(s) l Capsule 13:25: [place] apixaban 2018-03 Yes 5 mg, PO, Me moria MG Oral 0-02 Q12H, 0 l Tablet 13:25: Refill(s) [place] wen [Eliquis] 00 levothyroxi 2018-03 Yes 0 Memori a ne 100 mcg 0-02 Refill(s) l (0.1 mg) 13:25: [place] oral tablet 00 nitrofurant 2018-03 Yes 0 Memori a oin 0-02 Refill(s) l macrocrysta 13:25: [place] wen ls-monohydr 00 ate 100 mg oral capsule (Macrobid) zolpidem 2018-03 Yes 0 Memoria mg oral 0-02 Refill(s) l tablet 13:25: [place] levothyroxi 2018-03 Yes 0 Memori a ne [...] Oral 0-02 Refill(s) l Tablet 13:25: [place] Metoprolol 2018-03 Yes 0 Memoria Tartrate 50 0-02 Refill(s) l mg oral 13:25: [place] tablet 00 Amoxicillin 2018-03 Yes 0 Memori a 500 MG / 0-02 Refill(s) l Clavulanate 13:25: [place] n 125 MG Oral 00 Tablet amitriptyli 2018-03 Yes 0 Memori a ne 25 mg 0-02 Refill(s) l oral tablet 13:25: [place] n gabapentin 2018-03 Yes 0 Memoria 300 MG Oral 0-02 Refill(s) l Capsule 13:25: [place] apixaban 5 2018-03 Yes 5 mg, PO, Me moria MG Oral 0-02 Q12H, 0 l Tablet 13:25: Refill(s) [place] n [Eliquis] 00 Furosemide 2018-03 Yes 0 Memoria 40 MG Oral 0-02 Refill(s) l Tablet 13:25: [place] Amoxicillin 2018-03 Yes 0 Memori a 500 MG / 0-02 Refill(s) l Clavulanate 13:25: [place] n 125 MG Oral 00 Tablet amitriptyli 2018-03 Yes 0 Memori a ne 25 mg 0-02 Refill(s) l oral tablet 13:25: [place] n 00 gabapentin 2018-03 Yes 0 Memoria 300 MG Oral 0-02 Refill(s) l Capsule 13:25: [place] apixaban 5 2018-03 Yes 5 mg, PO, Me moria MG Oral 0-02 Q12H, 0 l Tablet 13:25: Refill(s) [place] n [Eliquis] 00 levothyroxi 2018-03 Yes 0 Memori a ne 100 mcg 0-02 Refill(s) l (0.1 mg) 13:25: [place] oral tablet 00 nitrofurant 2018-03 Yes 0 Memori a oin 0-02 Refill(s) l macrocrysta 13:25: [place] wen ls-monohydr 00 ate 100 mg oral capsule (Macrobid) zolpidem 5 2018-03 Yes 0 Memoria mg oral 0-02 Refill(s) l tablet 13:25: [place] Metoprolol 2018-03 Yes 0 Memoria Tartrate 50 0-02 Refill(s) l mg oral 13:25: [place] tablet 00 Furosemide 2018-03 Yes 0 Memoria 40 MG Oral 0-02 Refill(s) l Tablet 13:25: [place] 00 Amoxicillin 2018-03 Yes 0 Memori a 500 MG / 0-02 Refill(s) l Clavulanate 13:25: [place] n 125 MG Oral 00 Tablet amitriptyli 2018-03 Yes 0 Memori a ne 25 mg 0-02 Refill(s) l oral tablet 13:25: [place] n 00 gabapentin 2018-03 Yes 0 Memoria 300 MG Oral 0-02 Refill(s) l Capsule 13:25: [place] apixaban 2018-03 Yes 5 mg, PO, Me moria MG Oral 0-02 Q12H, 0 l Tablet 13:25: Refill(s) [place] n [Eliquis] 00 levothyroxi 2018-03 Yes 0 Memori a ne 100 mcg 0-02 Refill(s) l (0.1 mg) 13:25: [place] oral tablet 00 nitrofurant 2018-03 Yes 0 Memori a oin 0-02 Refill(s) l macrocrysta 13:25: [place] wen ls-monohydr 00 ate 100 mg oral capsule (Macrobid) metoprolol 2015-03 Yes 50mg Q.5D Take 50 [...] Bitartrate 00 Refill(s) 5 MG Oral Tablet [[place] 5/325] Acetaminoph Yes 1 tab, PO, Memoria en 325 MG / 09-08 Q6H, # 20 l Hydrocodone 19:20: tab, 0 Herm payal Bitartrate 00 Refill(s) 5 MG Oral Tablet [[place] 5/325] Acetaminoph Yes 1 tab, PO, Memoria en 325 MG / - Q6H, # 20 l Hydrocodone 19:20: tab, 0 Herm payal Bitartrate 00 Refill(s) 5 MG Oral Tablet [[place] 5/325] Acetaminoph Yes 1 tab, PO, Memoria en 325 MG / - Q6H, # 20 l Hydrocodone 19:20: tab, 0 Herm payal Bitartrate 00 Refill(s) 5 MG Oral Tablet [[place] 5/325] Acetaminoph Yes 1 tab, PO, Memoria en 325 MG / 6-19 Q6H, # 20 l Hydrocodone 19:20: tab, 0 Herm payal Bitartrate 00 Refill(s) 5 MG Oral Tablet [[place] 5/325] Acetaminoph Yes 1 tab, PO, Memoria en 325 MG / 6-19 Q6H, # 20 l Hydrocodone 19:20: tab, 0 Herm payal Bitartrate 00 Refill(s) 5 MG Oral Tablet [[place] 5/325] Acetaminoph No Notes: Bj starla en 325 MG / 19 (Same as: l Hydrocodone 18:29: [place] Myriam nn Bitartrate 00 325/5) Do 5 MG Oral not exceed Tablet 4gm/day of acetaminop hen. Acetaminoph No Notes: Bj starla en 325 MG / 6-19 (Same as: l Hydrocodone 18:29: [place] Myriam nn Bitartrate 00 325/5) Do 5 MG Oral not exceed Tablet 4gm/day of acetaminop hen. Acetaminoph No Notes: Jb starla en 325 MG / 6-19 (Same as: l Hydrocodone 18:29: [place] Myriam nn Bitartrate 00 325/5) Do 5 MG Oral not exceed Tablet 4gm/day of acetaminop hen. Acetaminoph No Notes: Bj starla en 325 MG / 6-19 (Same as: l Hydrocodone 18:29: [place] Myriam nn Bitartrate 00 325/5) Do 5 MG Oral not exceed Tablet 4gm/day of acetaminop hen. Acetaminoph No Notes: Bj starla en 325 MG / 6-19 (Same as: l Hydrocodone 18:29: [place] Myriam nn Bitartrate 00 325/5) Do 5 MG Oral not exceed Tablet 4gm/day of acetaminop hen. Acetaminoph No Notes: Bj starla en 325 MG / 6-19 (Same as: l Hydrocodone 18:29: [place] Myriam nn Bitartrate 00 325/5) Do 5 MG Oral not exceed Tablet 4gm/day of acetaminop hen. Vital Signs Vital Name Observation Time Observation Value Comments Source Body temperature 2022-02-24 17:00:00 35.72 [place] [facility] Systolic blood 2022-02-24 14:36:00 110 mm[Hg] Univer sity pressure [facility] Diastolic blood 2022-02-24 14:36:00 65 mm[Hg] [facility] Heart rate 2022-02-24 14:36:00 63 /min [facility] Respiratory rate 2022-02-24 14:36:00 20 /min [facility] Oxygen saturation in 2022-02-24 14:36:00 93 /min [facility] Arterial blood by [facility] Pulse oximetry Branch Body weight 2022-02-24 10:35:00 93.486 kg [facility] BMI 2022-02-24 10:35:00 29.57 kg/m2 [facility] Body height 2022-02-22 01:55:00 177.8 cm [facility] [place] [facility] Systolic blood 2022-01-23 19:57:00 165 mm[Hg] [facility] [place] [facility] Diastolic blood 2022-01-23 19:57:00 80 mm[Hg] [facility] [place] [facility] Heart rate 2022-01-23 19:56:00 94 /min [facility] Body temperature 2022-01-23 19:56:00 36.78 Gila [facility] [place] [facility] Respiratory rate 2022-01-23 19:56:00 24 /min [facility] [place] [facility] Body height 2022-01-23 19:56:00 175.3 cm [facility] Body weight 2022-01-23 19:56:00 87.816 kg [facility] BMI 2022-01-23 19:56:00 28.59 kg/m2 [facility] Oxygen saturation in 2022-01-23 19:56:00 96 /min [facility] of Arterial blood by [facility] Pulse oximetry Branch Systolic blood 2021-07-27 20:02:00 156 mm[Hg] [facility] [place] [facility] Diastolic blood 2021-07-27 20:02:00 99 mm[Hg] [facility] [place] [facility] Heart rate 2021-07-27 20:02:00 89 /min [facility] Body temperature 2021-07-27 20:02:00 36.56 Gila [facility] [place] [facility] Respiratory rate 2021-07-27 20:02:00 18 /min [facility] [place] [facility] Body height 2021-07-27 20:02:00 175.3 cm [facility] Body weight 2021-07-27 20:02:00 86.183 kg [facility] BMI 2021-07-27 20:02:00 28.06 kg/m2 [facility] Oxygen saturation in 2021-07-27 20:02:00 96 /min [facility] of Arterial blood by [facility] Pulse oximetry Branch Systolic blood 2021-05-08 19:56:00 156 mm[Hg] Univer sity of pressure [facility] Diastolic blood 2021-05-08 19:56:00 59 mm[Hg] Unive rsity of pressure [facility] Heart rate 2021-05-08 19:55:00 71 /min Universi [facility] of [facility] Body height 2021-05-08 19:55:00 177.8 cm Universi [facility] of [facility] Body weight 2021-05-08 19:55:00 89.359 kg Universi ty of [facility] BMI 2021-05-08 19:55:00 28.27 kg/m2 Universi ty [facility] Oxygen saturation in 2021-05-08 19:55:00 96 /min University Arterial blood by [facility] Pulse oximetry Branch Systolic blood 2020-05-18 15:26:00 143 mm[Hg] [facility] pressure Medicine Diastolic blood 2020-05-18 15:26:00 59 mm[Hg] [facility] Medicine Heart rate 2020-05-18 15:26:00 66 /min [facility] Body height 2020-05-18 15:26:00 177.8 cm [facility] Body weight 2020-05-18 15:26:00 86.183 kg [facility] BMI 2020-05-18 15:26:00 27.26 kg/m2 [facility] Systolic blood 2020-05-18 15:26:00 143 mm[Hg] [facility] pressure Medicine Diastolic blood 2020-05-18 15:26:00 59 mm[Hg] [facility] Medicine Heart rate 2020-05-18 15:26:00 66 /min [facility] Body height 2020-05-18 15:26:00 177.8 cm [facility] Body weight 2020-05-18 15:26:00 86.183 kg [facility] BMI 2020-05-18 15:26:00 27.26 kg/m2 [facility] Systolic blood 2020-04-06 16:35:00 140 mm[Hg] [facility] of pressure Medicine Diastolic blood 2020-04-06 16:35:00 78 mm[Hg] [facility] pressure Medicine Heart rate 2020-04-06 16:35:00 68 /min [facility] Body height 2020-04-06 16:35:00 177.8 cm [facility] Body weight 2020-04-06 16:35:00 [facility].183 [facility] BMI 2020-04-06 16:35:00 27.26 kg/m2 [facility] Systolic blood 2020-04-06 16:35:00 140 mm[Hg] [facility] Medicine Diastolic blood 2020-04-06 16:35:00 78 mm[Hg] [facility] Medicine Heart rate 2020-04-06 16:35:00 68 /min [facility] Body height 2020-04-06 16:35:00 177.8 cm [facility] Body weight 2020-04-06 16:35:00 86.183 [facility] BMI 2020-04-06 16:35:00 27.26 kg/m2 [facility] Height 2018-12-22 13:22:00 175.26 cm [facility] Weight 2018-12-22 13:22:00 [facility] BMI Calculated 2018-12-22 13:22:00 [facility] Heart Rate 2015-09-09 20:21:00 [facility] [place] Systolic (mm Hg) 2015-09-09 20:21:00 Bjamanda ozuna [place] Diastolic (mm Hg) 2015-09-09 20:21:00 Mem orial [facility] Temperature Oral (F) 2015-09-09 20:21:00 98.1 F [facility] Respitory Rate 2015-09-09 20:21:00 [facility] [place] BMI Calculated 2015-09-09 17:44:00 [facility] [place] Weight 2015-09-09 17:44:00 [facility] Height 2015-09-09 17:44:00 177.8 cm [facility] Respitory Rate 2015-09-09 17:44:00 Memori al [facility] Heart Rate 2015-09-09 17:44:00 [facility] Systolic (mm Hg) 2015-09-09 17:44:00 Bj riadanilo Hernandez Diastolic (mm Hg) 2015-09-09 17:44:00 Mem orial David Temperature Oral (F) 2015-09-09 17:44:00 98.2 F [facility] [place] Procedures Procedure Date / Time Performing Clinician Source Performed DUPLEX VENOUS LEGS 2022-02-24 15:15:00 James [facility] BILATERAL - BY VASCULAR Medical Branch LAB BASIC METABOLIC PANEL 2022-02-24 09:28:00 Dejan Rodriguez [facility] (NA, K, CL, CO2, Medical Branch GLUCOSE, BUN, CREATININE, CA) CBC WITH DIFF 2022-02-24 09:28:00 Dejan Rodriguez [facility] ACTIVATED PARTIAL 2022-02-24 09:28[facility] 2022-02-23 19:22:00 Michael [facility] TRANSTHORACIC ECHO (TTE) 2022-02-23 15:46:00 Martinez Ramirez [facility] ACTIVATED PARTIAL 2022-02-23 12:33:00 James [facility] MAGNESIUM 2022-02-23 06:41:00 Rosalinda [facility] TROPONIN I 2022-02-23 06:41:00 Rosalinda [facility] BASIC METABOLIC PANEL 2022-02-23 06:41:00 Rosalinda [facility] (NA, K, CL, CO2, [facility] Branch GLUCOSE, BUN, CREATININE, CA) CBC WITHOUT DIFF 2022-02-23 06:41:00 Rosalinda [facility] ACTIVATED PARTIAL 2022-02-23 06:41:00 James [facility] N-TERMINAL PRO-BNP 2022-02-23 06:41:00 Rosalinda [facility] ACTIVATED PARTIAL 2022-02-22 22:42:00 James [facility] CT CHEST PULMONARY 2022-02-22 16:05:00 Rosalinda [facility] ANGIOGRAM Medical Branch ACTIVATED PARTIAL 2022-02-22 14:40:00 [facility]22-02-22 06:28:00 Ashanti Singh [facility] ACTIVATED PARTIAL 2022-02-22 06:22:00 [facility] 2022-02-21 23:48:00 Ashanti Singh [facility] TROPONIN I 2022-02-21 23:48:00 Ashanti Singh [facility] COMP. METABOLIC PANEL 2022-02-21 23:48:00 Ashanti Singh [facility] ([id number]) [facility] CBC WITH DIFF 2022-02-21 23:48:00 Ashanti Singh [facility] PROTHROMBIN TIME / INR 2022-02-21 23:48:[address] [facility] ACTIVATED PARTIAL 2022-02-21 23:48:[address] [facility] N-TERMINAL PRO-BNP 2022-02-21 23:48:00 Ashanti Singh [facility] HB ECG ROUTINE & RHYTHM 2022-02-21 23:42:57 Ashanti Singh [facility] CONSENT/REFUSAL FOR 2022-02-21 23:14:32 Doctor Unassigned, No [facility] [place] [facility] AND TREATMENT Name [facility] NM LUNG PERFUSION ONLY 2022-02-21 21:53:06 Requisition, [facility] 2022-01-23 19:49:00 Belkys [facility] DUPLEX VENOUS LEG LEFT - 2021-07-27 22:37:00 Katerine Samano [facility] BY VASCULAR LAB [facility] URINALYSIS 2021-07-27 20:56:00 Katerine Samano [facility] CONSENT/REFUSAL FOR 2021-07-27 19:58:58 Doctor Unassigned, [facility] Name Medical Branch PATIENT QUESTIONNAIRE 2021-04-17 06:01:00 Doctor Unassigned, No [facility] Branch Complex uroflowmetry 2019-01-10 17:20:00 Radha Hernandez (eg, calibrated electronic equipment) Measurement of 2019-01-10 17:20:00 [facility] farooq post-voiding residual urine and/or bladder capacity by ultrasound, non-imaging Plan of Care Planned Activity Planned Date Details Comments Source Future Scheduled 2022-01-23 HEPATITIS B VACCINES [facility] Test 17:33:21 (1 of 3 - 3-dose Hospital series) [code = HEPATITIS B VACCINES (1 of 3 - 3-dose series)] Future Scheduled 2022-01-23 COVID-[address] Test 17:33:21 (#1) [code = Hospital COVID-19 VACCINE (#1)] Future Scheduled 2022-01-23 SHINGLES VACCINES (1 [facility] Test 17:33:21 of 2) [code = Hospital SHINGLES VACCINES (1 of 2)] Future Scheduled 2022-01-23 65+ PNEUMOCOCC[address] [facility] Test 17:33:21 VACCINE (1 - PCV) Hospital [code = 65+ PNEUMOCOCCAL VACCINE (1 - PCV)] Future Scheduled 2022-01-23 INFLUENZA VACCINE Method ist Test 17:33:21 [code = INFLUENZA Hospital VACCINE] Future Scheduled [...] INFLUENZA Hospital VACCINE] Future Scheduled COVID-19 Vaccine [facility] of Test Evaluation [code = Medicine COVID-19 Vaccine Evaluation] Future Scheduled TETANUS SHOT (ADULT) [facility] of Test [code = TETANUS SHOT Medicin e (ADULT)] Future Scheduled ZOSTER VACCINE (1 of [facility] of Test 2) [code = ZOSTER Medicine VACCINE (1 of 2)] Future Scheduled MEDICARE AWV [facility] ege of Test (Initial) [code = Medicine MEDICARE AWV (Initial)] Future Scheduled FALL SCREEN [code = [facility] of Test FALL SCREEN] Medicine Future Scheduled OSTEOPOROSIS [facility] ege of Test SCREENING [code = Medicine OSTEOPOROSIS SCREENING] Future Scheduled PNEUMOVAX >=65 [facility] llege of Test (PPSV23) [code = Medicine PNEUMOVAX >=65 (PPSV23)] Future Scheduled FLU VACCINE > 6 [facility] C ollege of Test MONTHS [code = FLU Medicine VACCINE > 6 MONTHS] Future Scheduled BMI FOLLOW UP PLAN [facility] Test [code = BMI FOLLOW Medicine UP PLAN] Future Scheduled COMPRESSION STOCKING Ordered: [facility] Test 15-20MM [code = 05/18/2020 Medicine NOCPT] Future Scheduled COVID-19 Vaccine [facility] Test Evaluation [code = Medicine COVID-19 Vaccine Evaluation] Future Scheduled TETANUS SHOT (ADULT) [facility] Test [code = TETANUS SHOT Medicin e (ADULT)] Future Scheduled ZOSTER VACCINE (1 of [facility] Test 2) [code = ZOSTER Medicine VACCINE (1 of 2)] Future Scheduled MEDICARE AWV [facility] Jose Alfredo ege of Test (Initial) [code = Medicine MEDICARE AWV (Initial)] Future Scheduled FALL SCREEN [code = [facility] Test FALL SCREEN] Medicine Future Scheduled OSTEOPOROSIS [facility] [place] Alfredo ege of Test SCREENING [code = Medicine OSTEOPOROSIS SCREENING] Future Scheduled FLU VACCINE > 6 [facility] ollege of Test MONTHS [code = FLU Medicine VACCINE > 6 MONTHS] Future Scheduled BMI FOLLOW UP PLAN [facility] Test [code = BMI FOLLOW Medicine UP PLAN] Encounters Start End Encounter Admission Attending Care Care Encounter Source Date/Time Date/Time Type Type Clinicians Facility Department ID 2021-12-16 Outpatient [facility]ML[facility] [id number] Common 10:00:01 [facility] 2021-04-17 Outpatient STLMLC [facility] [id number] Common 13:51:28 [id number] [facility] 2021-04-17 Outpatient STLMLC [facility] [id number] Common 13:36:39 [id number] [facility] 2021-04-17 Outpatient STLMLC [facility] [id number] Common 12:17:59 [id number] [facility] 2021-04-17 Outpatient STLMLC [facility] [id number] Common 12:13:03 [id number] [facility] 2021-04-17 Outpatient STLMLC [facility] [id number] Common 12:11:32 [id number] [facility] 2021-01-20 Emergency [facility] [id number] Univers 22:16:23 ity of [facility] 2021-01-18 Emergency [facility] [id number] Univers 18:26:25 ity of [facility] 2022-02-21 2022-02-24 Inpatient X ROSALINDA [facility] NEO [id number] Univers 17:14:00 17:35:00 WAYLON ity of [facility] 2022-02-21 2022-02-24 [facility] Teri Vallejo [facility] 1.2.840. 114 [id number] Univers 17:14:00 17:35:00 Encounter Ashanti Singh [id number] ity of Waylon Tellez MONSE 4.2.7.2.686 [facility] [id number] [facility] [address] 2022-02-21 2022-02-21 Hospital Radiology [facility] 1.2.840.114 [id number] Univers 15:30:00 17:13:00 Encounter SPECIALTY [id number] it[place] [id number] Nh umeralexei ALVAREZHeber 807 [facility] 2022-02-21 2022-02-21 Outpatient R RADIOLOGY [facility] [id number] Univers 12:55:43 15:29:00 ity of [facility] 2022-02-21 2022-02-21 Hospital Radiology [facility] 1.2.840.114 [id number] Univers 12:55:43 15:29:00 Encounter SPECIALTY [id number] ity [place] [id number] Nh umeralexei SALINAS 805 [facility] 2022-02-20 2022-02-20 Outpatient R RADIOLOGY [facility] [id number] Univers 00:00:00 00:00:00 ity of [facility] 2022-01-23 2022-01-23 Urgent Tim Rasheed [facility] 1.2.840.1 [id number] Univers 13:40:00 14:00:00 Care Unknown, Attending HEALTH [id number] ity of [place] 4.2.7.2.686 [place] NICHO?BLEA [id number] Nh kathy BERUMEN [address] MEDICAL OFFICE BUILDING 2022-01-23 2022-01-23 Outpatient R WILI [facility] [id number] Univers 13:40:00 13:40:00 TIM ity [facility] 2021-07-27 2021-07-27 [facility] [id number] Univers 15:12:00 18:41:00 FOLUSHO ity [facility] 2021-07-27 2021-07-27 Emergency [facility] 1.2.840.114 [id number] Univers 15:12:00 18:41:00 Folroccoo F [place] 350.1.13.10 ity [place] [id number] [facility] [address] 2021-05-08 2021-05-08 [facility] 1.2.840.114 [id number] Univers 14:01:56 23:59:00 Encounter Liat [facility] 350.1.13.10 ity of [place] 4.2.7.2.686 [place] NICHO?BLEA [id number] Nh kathy BERUMEN [address] MEDICAL OFFICE [facility] 2021-05-08 2021-05-08 [facility] [id number] Univers 14:45:00 14:52:24 LIAT ity [facility] 2021-05-08 2021-05-08 Office [facility] [id number] Univers 14:45:00 14:52:24 [facility] 350.1.13.10 it y of [place] 4.2.7.2.686 [place] as NICHO?BLEA [id number] Nh kathy BERUMEN [address] MEDICAL OFFICE [facility] 2021-05-08 2021-05-08 [facility] [id number] Univers 14:45:00 14:52:24 [facility] 2021-05-08 2021-05-08 Orders Doctor BRUNO 1.2.840.114 [id number] Univers 00:00:00 00:00:00 Only Unassigned, VAZQUEZ 350.1.13.10 ity of [place] [facility] 4.2.7.2.686 [place] [id number] [place] [address] Branch 2021-04-17 2021-04-17 Orders Doctor BRUNO 1.2.840.114 [id number] Univers 00:00:00 00:00:00 Only Unassigned, VAZQUEZ 350.1.13.10 ity of [place] [facility] 4.2.7.2.686 [place] [id number] [place] [address] Branch 2020-05-18 2020-05-18 Office BROOK Dhillon 1.2.840.114 [id number] 08:52:49 09:07:49 Visit Ramyar AMBULATOR 350.1.13.21 Y 0.2.7.2.686 [id number] [facility] 2020-05-18 2020-05-18 Office BROOK Dhillon 1.2.840.114 [id number] [facility] 08:52:49 09:07:49 Visit Ramyar AMBULATOR 350.1.13.21 College Y 0.2.7.2.686 of [id number] [facility] 825 2020-04-06 2020-04-06 Office BROOK Dhillon 1.2.840.114 [id number] 07:22:23 16:13:31 Visit Ramyar AMBULATOR 350.1.13.21 Y 0.2.7.2.686 [id number] [facility] 2020-04-06 2020-04-06 Office BROOK Dhillon 1.2.840.114 [id number] [facility] 07:22:23 16:13:31 Visit Ramyar AMBULATOR 350.1.13.21 College Y 0.2.7.2.686 of [id number] [facility] 825 2020-04-06 2020-04-06 Outpatient [facility] [id number] [facility] 07:22:11 16:11:44 Alyssia Medichunter vásquez 2019-12-10 2019-12-10 Emergency [facility] 1.2.840.114 [id number] [facility] 12:56:00 14:28:00 Tim Enmanuel [place] 350.1.13.10 i ty of [place] [id number] [address] 2019-12-10 2019-12-10 Emergency [facility] 1.2.840.114 [id number] 12:56:00 14:28:00 Tim Enmanuel [place] 350.1.13.10 [place] 4.2.7.2.686 [place] [id number] [facility] 2019-12-10 2019-12-10 Orders Doctor CARR 1.2.840.114 [id number] Univers 00:00:00 00:00:00 Only Unassigned, VAZQUEZ 350.1.13.10 ity of [place] [facility] 4.2.7.2.686 [place] as [id number] [address] 2019-12-10 2019-12-10 Orders Doctor CARR 1.2.840.114 [id number] 00:00:00 00:00:00 Only Unassigned, VAZQUEZ 350.1.13.10 [place] [facility] 4.2.7.2.686 [id number] [facility] 2019-10-21 2019-11-01 Office [facility] 1.2.840.114 [id number] [facility] 10:06:35 12:32:49 Visit Liliam [place] 350.1.13.10 ity of [place] Profess[place] [id number] Nh dical [address] 2019-10-21 2019-11-01 Office [facility] 1.2.840.114 [id number] 10:06:35 12:32:49 Visit Liliam [place] 350.1.13.10 [place] 4.2.7.2.686 Professio [id number] [address] 2019-10-21 2019-10-21 Outpatient R RHETT [facility] [id number] [facility] 10:30:00 10:30:00 LILIAM mathews [facility] 2019-08-25 2019-08-25 Outpatient R YECENIA, [facility] [id number] Univers 10:15:00 10:15:00 LIAT ity of [facility] 2019-08-16 2019-08-16 Orders Doctor CARR 1.2.840.114 [id number] Univers 00:00:00 00:00:00 Only Unassigned, VAZQEUZ 350.1.13.10 ity of [place] [facility] 4.2.7.2.686 [place] as [id number] [address] 2019-01-24 2019-01-24 Ambulatory nullFlavo [facility] [id number] Memoria 16:00:00 16:00:00 Pre-Reg r Urology 05 l Associates Myriam nn Time Share 2019-01-24 2019-01-24 Ambulatory nullFlavo [facility] [id number] Memoria 16:00:00 16:00:00 Pre-Reg r Urology 05 l Associates Myriam nn Time Share 2019-01-24 2019-01-24 Ambulatory nullFlavo [facility] [id number] Memoria 15:40:00 15:40:00 Pre-Reg r Urology 04 l Associates Myriam nn Time Share 2019-01-24 2019-01-24 Ambulatory nullFlavo [facility] [id number] Memoria 15:40:00 15:40:00 Pre-Reg r Urology 04 l Associates Myriam nn Time Share 2019-01-24 2019-01-24 Outpatient MHIE MHIE [id number] Memoria 10:00:00 10:00:00 05 danilo Hernandez 2019-01-24 2019-01-24 Outpatient VISIT, MG MG [id number] 10:00:00 10:00:00 NURSE UABLAS 2019-01-24 2019-01-24 Outpatient MHIE MHIE [id number] Memoria 09:40:00 09:40:00 04 danilo Hernandez 2019-01-24 2019-01-24 Outpatient Leonie, MHMG [facility] [id number] 09:40:00 09:40:00 Nato Johnson 2019-01-10 2019-01-11 Outpatient nullFlavo [facility] [id number] Memoria 15:00:00 04:59:59 r Urology 02 l Associates Myriam nn Time Share 2019-01-10 2019-01-11 Outpatient nullFlavo [facility] [id number] Memoria 15:00:00 04:59:59 r Urology 02 l [facility] Myriam nn Time Share 2019-01-10 2019-01-10 Outpatient LEONARD Hadley [facility] [id number] 10:00:00 23:59:59 Nato S 2019-01-10 2019-01-10 Outpatient MHIE MHIE [id number] Memoria 10:00:00 10:00:00 03 l [place] 2019-01-10 2019-01-10 Outpatient MHIE MHIE [id number] Memoria 10:00:00 10:00:00 03 l [place] 2019-01-10 2019-01-10 Outpatient MHIE MHIE [id number] Memoria 10:00:00 10:00:00 02 danilo [place] 2018-12-22 2018-12-23 Outpatient nullFlavo [facility] Multi 46 [id number] Memoria 14:45:00 04:59:59 r Specialty 01 [facility] 2018-12-22 2018-12-23 Outpatient nullFlavo [facility] Multi 46 [id number] Memoria 14:45:00 04:59:59 r Specialty 01 [facility] 2018-12-22 2018-12-22 Outpatient KELBY HadleyMG [facility] [id number] 09:45:00 23:59:59 Nato S 2018-12-22 2018-12-22 Ambulatory nullFlavo [facility] Multi 46 [id number] Memoria 14:00:00 14:00:00 Pre-Reg r Specialty 00 l [facility] 2018-12-22 2018-12-22 Ambulatory nullFlavo [facility] Multi 46 [id number] Memoria 14:00:00 14:00:00 Pre-Reg r Specialty 00 l [facility] 2018-12-22 2018-12-22 Outpatient MHIE MHIE [id number] Memoria 09:45:00 09:45:00 01 [facility] 2018-12-22 2018-12-22 Outpatient Leonie MG [id number] 09:00:00 09:00:00 Nato S 2018-12-15 2018-12-15 Outpatient MHIE MHIE [id number] Memoria 09:00:00 09:00:00 00 danilo Hernandez 2015-09-09 2015-09-09 EC nullFlavo [facility] [id number] Memoria 17:38:00 20:23:00 Emergency r [place] 00 l [facility] 2015-09-09 2015-09-09 [facility] [id number] Radha 17:38:00 20:23:00 Emergency r [place] 00 l [facility] 2015-09-09 2015-09-09 Outpatient Reji [facility] [id number] 12:38:00 15:23:00 Eli Griffin 00 Results Test Description Test Time Test Comments Results Result Comments Source Transthoracic echo (TTE) 2022-02-24 04:26:18 Test Item Value Reference Range Interpretation Comme nts Height (test code = 5140837957) in Weight (test code = 1036137642) lbs Systolic BP (test code = 0553014311) mmHg Diastolic BP (test code = 4908573156) mmHg Heart Rate (test code = 0265109249) bpm BSA (test code = 0038912043) 2.06 m2 Ao root diam (test code = 0434947045) 2.70 cm Aortic root (test code = 0626762957) 2.7 cm Ao root annulus (test code = 2.7 cm 2702534690) LVOT diameter (test code = 6315965947) 1.82 cm LVOT area (test code = 0231153931) 2.60 cm2 LVIDD (test code = 0016911471) 4.20 cm Left Ventricular End Diastolic Volume 77.9 mL by Teichholz Method (test code = 0032537) IVS (test code = 9837811958) 1.26 cm Interventricular Septum Diastolic 1.26 cm Thickness by 2D (test code = 7635464) LVPWD (test code = 7168597916) 1.27 cm PW (test code = 1732435840) 1.27 cm 0.6-1.1 EF(Teich) (test code = 3638554151) 60.70 % LVIDS (test code = 1538493886) 2.80 cm Left Ventricular End Systolic Volume 30.6 mL by Teichholz Method (test code = 4626946) FS (test code = 5893088621) 32 % EF - 2D (test code = 20345244) 60.70 % LA size (test code = 8673446992) 4.2 cm TR Peak Sharmin (test code = 6772897375) 251.4 cm/s Triscuspid Valve Regurgitation Peak mmHg Gradient (test code = 4359432675) LAV(MOD-sp4) (test code = 8441565150) 60.60 mL E wave decelartion time (test code = 0.19 s 5427945590) MV stenosis pressure 1/2 time (test 54.9 ms code = 7783587759) MV Peak E Sharmin (test code = 5149021470) 107.1 cm/s MV Peak A Sharmin (test code = 1997596397) 50.1 cm/s E/A ratio (test code = 8067270671) ratio MV Prop V (test code = 8676601156) 58.90 cm/s MV E/e' septal (test code = 10.7 cm/s [id number]) Tapse (test code = 7151583412) 1.22 cm LVOT stroke volume (test code = 49.20 cm3 5118826923) LVOT peak sharmin (test code = 0622934667) 99.0 cm/s LVOT mn grad (test code = 2306575180) mmHg AV LVOT peak gradient (test code = mmHg 7035333760) LVOT peak VTI (test code = 3506852861) 18.8 cm LV V1 mean (test code = 3365428324) 72.00 cm/s Aortic valve mean velocity (test code 114.2 cm/s = 4789747669) Ao peak sharmin (test code = 1020740474) 155.3 cm/s Ao VTI (test code = 7465426355) 32.3 cm AV area by cont VTI (test code = 1.5 cm2 0646301758) AV area peak sharmin (test code = 1.7 cm2 8718787532) Ao max PG (test code = 0950010201) 9.70 mm[Hg] AV peak gradient (test code = mmHg 9020063178) AV valve area (test code = 5274592863) 1.53 cm2 AV mean gradient (test code = mmHg 9221062743) Radiology Study observation (narrative) (test code = 39235-7) PARISH (test code = PARISH) ?Left?Ventricle: Left ventricle size is normal. Mildly increased wall thickness. Normal wall motion. Normal systolic function with a visually estimated EF of 55 - 60%. Diastolic dysfunction. Elevated left ventricular filling pre ssure. ?Right?Ventricle: Normal systolic function. 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 ?Left?Atrium: Left atrium is mildly dilated. ?Tricuspid?Valve: Mild transvalvular regurgitation. Right ventricular systolic pressure is 30-35 mmHg. ?RA pressure is 5-10 mmHg. ?Right?Atrium: Right atrium is mildly dilated. Left VentricleLeft ventricle size is normal. Mildly increased wall thickness. Normal wall motion. Normal systolic function with a visually estimated EF of 55 - 60%. Diastolic dysfunction. Elevated left ventricular filling pressure.Right VentricleRight ventricle size is normal. Normal systolic function. There is a pacemaker lead in the right ventricle.Left AtriumLeft atrium is mildly dilated.Right AtriumRight atrium is mildly dilated.IVC/SVCRA pressure is 5-10 mmHg.Mitral ValveMildly calcified leaflets. Mild mitral annular calcification. Trace transvalvular regurgitation.Tricuspid ValveTricuspid valve structure is grossly normal. Mild transvalvular regurgitation. Right ventricular systolic pressure is 30-35 mmHg. RA pressure is 5-10 mmHg.Aortic ValveAortic valve opens well. Mildly calcified cusps. Mild annular dilation.Pulmonic ValveNot well visualized.Ascending AortaNormal sized aortic root.PericardiumNo pericardial effusion.Study DetailsStudy quality was adequate. A complete echocardiogram was performed using 2D, color flow Doppler and spectral Doppler. [facility] [id number] 00:25:48 Test Item Value Reference Interpretation Comments Range TROPONIN I (test 0.013 ng/mL See_Comment [Automated code = 2299971535) message] The system which generated this result transmitted reference range : <=0.034. The reference range was not used to interpret this result as normal/abnormal . PARISH (test code = Reference (Normal) PARISH) Range (defined by the 99th percentile reference limit): <= 0.034 ng/mL Note: Cardiac troponin begins to rise 3-4 hours after the onset of ischemia. Repeat in 4-6 hours if the sample was drawn within 3-4 hours of the onset of the symptom and found normal. Diagnosis of myocardial injury is made with acute changes in cTn concentrations with at least one serial sample above the 99th percentile upper reference limit (URL), taken together with the patient's clinical presentation. Biotin has been reported to cause a negative bias, interpret results relative to patient's use of biotin. Lab Interpretation Normal (test code = 70915-2) [facility] Center[facility]AL [id number] 00:22:45 Test Item Value Reference Range Interpretation Comments NT-proBNP (test code 1640 pg/mL See_Comment H [Autom ated = 9800586381) message] The system which generated this result transmitted reference range : <=450. The reference range was not used to interpret this result as normal/abnormal . PARISH (test code = PARISH) Biotin has been reported to cause a negative bias, interpret results relative to patient's use of biotin. Lab Interpretation Abnormal (test code = 53383-4) [facility]2022-[facility]-03 00:16:24 Test Item Value Reference Range Interpretation Comments MAGNESIUM (test code = 2762783524) 1.9 mg/dL 1.7-2.4 Lab Interpretation (test code = Normal 84075-3) [facility] CenterCOMP. METABOLIC PANEL ([id number])2022-02-22 00:16:04 Test Item Value Reference Range Interpretation Comments NA (test code = 140 mmol/L 135-145 4784677104) K (test code = 4.3 mmol/L 3.5-5.0 9401605326) CL (test code = 103 mmol/L 98-108 0908731997) CO2 TOTAL (test code = 31 mmol/L 23-31 0650558613) AGAP (test code = 2-16 8907510651) BUN (test code = 29 mg/dL 7-23 H 3373621241) GLUCOSE (test code = 107 mg/dL 70-110 5027315629) CREATININE (test code = 0.99 mg/dL 0.50-1.04 4708970588) TOTAL BILI (test code = 0.6 mg/dL 0.1-1.9 5221523640) CALCIUM (test code = 9.5 mg/dL 8.6-10.6 0411102466) T PROTEIN (test code = 7.2 g/dL 6.3-8.2 8330989263) ALBUMIN (test code = 4.2 g/dL 3.5-5.0 9488668391) ALK PHOS (test code = 112 U/L 34-122 9685778113) ALTv (test code = 15 U/L 535 1742-6) AST(SGOT) (test code = 23 U/L 13-40 1059174836) eGFR (test code = mL/min/1.73m2 7563627390) PARISH (test code = PARISH) Association of Glomerular Filtration Rate (GFR) and Staging of Kidney Disease* + --+ --+ ------+| GFR (mL/min/1.73 m2) ?| With Kidney Damage ?| ?Without Kidney Damage+ --------+ --------+ +| ?>90 ?| ?Stage one ?| ? Normal ?+ ---+ ---+ -------+| ?60-89 ?| ?Stage two ?| ? Decreased GFR ? + --+ --+ ------+| ?30-59 ?| ?Stage three ?| ? Stage three ? + --+ --+ ------+| ?15-29 ?| ?Stage four ? | ? Stage four ?+ ---+ ---+ -------+| ?<15 (or dialysis) ? ?| ?Stage five ? | ? Stage five ?+ ---+ ---+ -------+ *Each stage assumes the associated GFR level has been in effect for at least three months. ?Stages 1 to 5, with or without kidney disease, indicate chronic kidney disease. Notes: Determination of stages one and two (with eGFR >59mL/min/1.73 m2) requires estimation of kidney damage for at least three months as defined by structural or functional abnormalities of the kidney, manifested by either:Pathological abnormalities or Markers of kidney damage (including abnormalities in the composition of the blood or urine or abnormalities in imaging tests). Lab Interpretation Abnormal (test code = 94137-7) [facility] CenterACTIV[facility] PARTIAL THRMPLAS [id number] 00:11:44 Test Item Value Reference Range Interpretation Comments APTT Patient (test See_Comment [Automat ed code = 3173-2) message] The system which generated this result transmitted reference range : 23 - 38 Seconds . The reference range was not used to interpr et this result as normal/abnormal . PARISH (test code = PARISH) The [facility] patient population mean normal value for aPTT is 30 seconds. Lab Interpretation Normal (test code = 31940-6) [facility] CenterProthrombin Time / [id number] 00:09:42 Test Item Value Reference Range Interpretation Comments PROTIME PATIENT (test See_Comment [Auto mated message] code = 5964-2) The system wh ich generated this result transmitted ref erence range: 12.0 - 1 4.7 Seconds. The re ference range was not u sed to interpret this result as normal/abnor mal. INR (test code = 6301-6) Nor mal INR <1.1; Warfarin Therap eutic range 2.0 to 3. 0 or 2.5 to 3.5, dep ending upon the indica tions. Lab Interpretation (test Normal code = 09702-3) [facility] WITH [id number] 00:08:47 Test Item Value Reference Range Interpretation Comments WBC (test code = See_Comment [Automated 2190-2) message] The sy stem which generated this result transmitted reference range : 4.30 - 11.10 10*3/?L. The reference range was not used to interpret this result as normal/abnormal . RBC (test code = See_Comment [Automated 769-8) message] The sy stem which generated this result transmitted reference range : 3.93 - 5.25 10*6/?L. The reference range was not used to interpret this result as normal/abnormal . HGB (test code = 11.2 g/dL 11.6-15.0 L 718-7) HCT (test code = 36.3 % 35.7-45.2 4544-3) MCV (test code = 91.7 fL 80.6-95.5 787-2) MCH (test code = 28.3 pg 25.9-32.8 785-6) MCHC (test code = 30.9 g/dL 31.6-35.1 L 786-4) RDW-SD (test code = 45.1 fL 39.0-49.9 36822-2) RDW-CV (test code = 13.2 % 12.0-15.5 788-0) PLT (test code = See_Comment [Automated 777-3) message] The sy stem which generated this result transmitted reference range : 166 - 358 10*3/ ?L. The reference r jose roberto was not used to interpret this result as normal/abnormal . MPV (test code = 9.2 fL 9.5-12.9 L 46989-1) NRBC/100 WBC (test See_Comment [Automat ed code = 7524328963) message] The system which generated this result transmitted reference range : 0.0 - 10.0 /100 WBCs. The refer ence range was not u sed to interpret th is result as normal/abnormal . NRBC x10^3 (test code See_Comment [Auto mated = 1830372135) message] The s ystem which generated this result transmitted reference range : 10*3/?L. The reference range was not used to interpret this result as normal/abnormal . GRAN MAT (NEUT) % 65.6 % (test code = 770-8) IMM GRAN % (test code 0.50 % = 0554980908) LYMPH % (test code = 20.1 % 736-9) MONO % (test code = 7.1 % 5905-5) EOS % (test code = 5.4 % 713-8) BASO % (test code = 1.3 % 706-2) GRAN MAT x10^3(ANC) 5.43 10*3/uL 1.88-7.09 (test code = 8960842796) IMM GRAN x10^3 (test 0.04 10*3/uL 0.00-0.06 code = 7763569888) LYMPH x10^3 (test code 1.67 10*3/uL 1.32-3.29 = 731-0) MONO x10^3 (test code 0.59 10*3/uL 0.33-0.92 = 742-7) EOS x10^3 (test code = 0.45 10*3/uL 0.03-0.39 H 711-2) BASO x10^3 (test code 0.11 10*3/uL 0.01-0.07 H = 704-7) Lab Interpretation Abnormal (test code = 82490-0) [facility] URINALYSIS W SPECIFIC [id number] 19:49:00 Test Item Value Reference Range Interpretation Comments POCT U SP GRAV (test code = 1.005 mg/dl 1.005-1.025 3255) POCT PH U (test code = 3254) 6 mg/dl 5-8 POCT U LEUK EST (test code = trace Negative - Negative 3263) POCT U NIT (test code = 3262) + Negative - Negative POCT U PROT (test code = neg Negative - Negative 3259) POCT U GLU (test code = 3256) neg Negative - Negative POCT U KETONE (test code = neg Negative - Negative 3258) POCT U UROBILI (test code = neg 0.2-1 3259) POCT U BILI (test code = neg Negative - Negative 326) POCT U BLD (test code = 3257) trace Negative - Negative POCT U COLOR (test code = yellow 3266) POCT U APPEAR (test code = clear 326) Lab Interpretation (test code Abnormal = 26869-6) [facility]"
[2022-02-24] MEDS ORDERED: ONDANSETRON 4 MG/2 ML VIAL ONE ×2 (19:58→20:02)
[2022-02-24 20:23] LABS: Absolute Lymphocytes (CBC) 1.1 K/uL (0.7-4.9); Hematocrit 40.3 % (36.0-45.0); Lymphocytes % 7.4 % (15.3-44.8); MCV 87.7 fL (80-100); MPV 7.5 fL (7.6-11.3); RBC Red Blood Cell Count 4.59 M/uL (3.86-4.86)
--- NOTE | 2022-02-24 20:35 | RAD REPORT ---
EXAM DESCRIPTION: Lenora Single View02/24/2022 8:20 pm CLINICAL HISTORY: Cough COMPARISON: December 2021 FINDINGS: The lungs appear clear of acute infiltrate. The heart is mildly enlarged. Pacemaker leads are in place. IMPRESSION: No acute abnormalities displayed
[2022-02-24 22:18] LABS: Albumin 3.5 g/dL (3.4-5.0); Bilirubin Total 0.6 mg/dL (0.2-1.0); Magnesium 1.6 mg/dL (1.8-2.4); Potassium 4.2 mmol/L (3.5-5.1); Protein, Total 8.1 g/dL (6.4-8.2); Thyroid Stimulating Hormone 2.05 uIU/mL (0.360-3.740); Troponin High Sensitivity 20.9 pg/mL (<58.9)
[2022-02-24 22:20] LABS: Urine Blood Negative (Negative); Urine Glucose Negative (Negative); Urine Protein Negative (Negative); Urine Specific Gravity 1.025 (1.005-1.030); Urine pH 5.5 (5.0-7.0)
[2022-02-24 22:57] LABS: Urine Bacteria <20 /HPF (<20); Urine Mucus Slight /HPF (None Seen)
--- NOTE | 2022-02-24 23:28 | EDPHYS ---
Physician Documentation [facility] Name: Shilpa Samaniego Age: 89 yrs Sex: Female : 1930 Arrival Date: 02/24/2022 Time: 18:35 Bed 2 Private MD: ED Physician Aldo Garcia HPI: 02/24 19:40 This 89 yrs old Female presents to ER via Wheelchair with complaints of Shortness Of rt Breath, Weakness. 19:40 Onset: The symptoms/episode began/occurred 1 week(s) ago. The patient's shortness of rt breath is aggravated by light activity. Associated signs and symptoms: Pertinent positives: weakness. She was recently admitted on a heparin drip at [place] for high probability VQ scan. They subsequently performed a CT scan that was negative for PE. The patient has been short of breath, there is suspect that CHF was the etiology. The patient was discharged today, was very weak, not able to walk at baseline, not able to care for ADLs. This prompted them to bring the patient back for further eval. She reports nausea but no other complaints. Symptoms are moderate in severity, no other aggravating alleviating factors. Historical: - Allergies: 18:47 Augmentin; jl7 18:47 cefpodoxime; jl7 18:47 Cefuroxime; jl7 18:47 Ciprofloxacin; jl7 18:47 Demerol; jl7 18:47 Levofloxacin; jl7 18:47 NSAIDS; jl7 18:47 PENICILLINS; jl7 - PMHx: 18:47 Anxiety; Atrial Fib; COPD; DVT; LLE; hiatal hernia; Hyperlipidemia; Hypertension; jl7 Pacemaker; Rheumatoid Arthritis; - PSHx: 18:47 hernia; hip; hyst; pacemaker; jl7 - Immunization history:: Client reports receiving the 2nd dose of the Covid vaccine. - Social history:: Smoking status: Patient denies any tobacco usage or history of. - Family history:: not pertinent. ROS: 19:40 Eyes: Negative for injury, pain, redness, and discharge, ENT: Negative for injury, rt pain, and discharge, Neck: Negative for injury, pain, and swelling, Cardiovascular: Negative for chest pain, palpitations, and edema. 19:40 Abdomen/GI: Negative for abdominal pain, nausea, vomiting, diarrhea, and constipation, MS/Extremity: Negative for injury and deformity, Skin: Negative for injury, rash, and discoloration, Neuro: Negative for headache, weakness, numbness, tingling, and seizure, Psych: Negative for depression, anxiety, suicide ideation, homicidal ideation, and hallucinations. 19:40 Constitutional: Positive for weakness, neg for fever. 19:40 Respiratory: Positive for shortness of breath, Negative for cough. 19:40 Abdomen/GI: Positive for nausea, Negative for vomiting. Exam: 19:40 Constitutional: This is a well developed, well nourished patient who is awake, alert, rt and in no acute distress. Head/Face: Normocephalic, atraumatic. Eyes: Pupils equal round and reactive to light, extra-ocular motions intact. Lids and lashes normal. Conjunctiva and sclera are non-icteric and not injected. Cornea within normal limits. Periorbital areas with no swelling, redness, or edema. Neck: Trachea midline, no thyromegaly or masses palpated, and no cervical lymphadenopathy. Supple, full range of motion without nuchal rigidity, or vertebral point tenderness. No Meningismus. Chest/axilla: Normal chest wall appearance and motion. Nontender with no deformity. No lesions are appreciated. Cardiovascular: Regular rate and rhythm with a normal S1 and S2. No gallops, murmurs, or rubs. Normal PMI, no JVD. No pulse deficits. Respiratory: Lungs have equal breath sounds bilaterally, clear to auscultation and percussion. No rales, rhonchi or wheezes noted. No increased work of breathing, no retractions or nasal flaring. Abdomen/GI: Soft, non-tender, with normal bowel sounds. No distension or tympany. No guarding or rebound. No evidence of tenderness throughout. Skin: Warm, dry with normal turgor. Normal color with no rashes, no lesions, and no evidence of cellulitis. MS/ Extremity: Pulses equal, no cyanosis. Neurovascular intact. Full, normal range of motion. Neuro: Awake and alert, GCS 15, oriented to person, place, time, and situation. Cranial nerves II-XII grossly intact. Motor strength 5/5 in all extremities. Sensory grossly intact. Cerebellar exam normal. Normal gait. Psych: Awake, alert, with orientation to person, place and time. Behavior, mood, and affect are within normal limits. 21:01 ECG was reviewed by the Attending Physician. rt Vital Signs: 18:45 BP 124 / 68; Pulse 94; Resp 19; Temp 98.3; Pulse Ox 89% on R/A; Weight 86.18 kg; Height jl7 5 ft. 9 in. (175.26 cm); 20:17 BP 133 / 52; Pulse 103; Resp 21 S; Pulse Ox 94% on R/A; as6 21:20 BP 132 / 59; Pulse 104; Resp 21 S; Pulse Ox 94% on R/A; ha1 22:20 BP 130 / 57; Pulse 106; Resp 22 S; Pulse Ox 95% on R/A; ha1 23:04 BP 130 / 57; Pulse 102; Resp 23 S; Pulse Ox 94% on R/A; as6 02/25 00:05 BP 128 / 51; Pulse 88; Resp 22 S; Pulse Ox 98% on R/A; ha1 01:29 BP 130 / 53; Pulse 85; Resp 22 S; Pulse Ox 95% on R/A; as6 02/24 18:45 Body Mass Index 28.06 (86.18 kg, 175.26 cm) jl7 MDM: 02/24 19:13 Patient medically screened. rt 23:33 Differential diagnosis: Anemia CHF exacerbation, Sepsis. Data reviewed: vital signs, rt nurses notes, lab test result(s), EKG, radiologic studies. ED course: She presents to the ED after being discharged from another hospital. The patient went from being able to walk to being unable to walk due to generalized weakness. There are no significant electrolyte abnormality save for mild hypomagnesemia, repleted in the ED. There is no safe ride of discharge at this time, will admit patient for further care, likely placement.. 02/24 19:25 Order name: CBC with Diff; Complete Time: 20:56 rt 02/24 19:25 Order name: CMP; Complete Time: 22:40 rt 02/24 19:25 Order name: Magnesium; Complete Time: 22:40 rt 02/24 19:25 Order name: TSH; Complete Time: 22:40 rt 02/24 19:25 Order name: UA MICROSCOPIC; Complete Time: 23:06 rt 02/24 19:25 Order name: Troponin High Sensitivity; Complete Time: 22:40 rt 02/24 19:25 Order name: EKG; Complete Time: 19:26 rt 02/24 19:25 Order name: EKG - Nurse/Tech; Complete Time: 21:00 rt 02/24 19:25 Order name: Chest Single View XRAY; Complete Time: 20:56 rt 02/24 19:25 Order name: BNP; Complete Time: 22:40 rt 02/24 22:21 Order name: Urine Dipstick-Ancillary; Complete Time: 22:40 EDMS 02/24 22:23 Order name: COVID-19/FLU A+B; Complete Time: 00:22 mw2 02/24 19:25 Order name: Urine Dipstick-Ancillary (obtain specimen); Complete Time: 22:31 rt EC:01 Rate is 115 beats/min. Rhythm is irregularly irregular, A fib. QRS Harrod is Normal. QRS rt interval is normal. QT interval is normal. No Q waves. Interpreted by me. Administered Medications: 20:10 Drug: Zofran (Ondansetron) 4 mg Route: IVP; Site: right antecubital; as6 02/25 01:34 Follow up: Response: No adverse reaction as6 02/24 23:48 Drug: Magnesium Sulfate 2 grams Route: IVPB; Infused Over: 2 hrs; Site: right as6 antecubital; 02/25 01:34 Follow up: Response: No adverse reaction; IV Status: Completed infusion; IV Intake: as6 100ml Disposition Summary: 02/24/22 23:27 Hospitalization Ordered Hospitalization Status: Observation rt Provider: Glenn Stone rt Location: Telemetry/MedSurg (observation) rt Condition: Stable rt Problem: new rt Symptoms: are unchanged rt Bed/Room Type: Standard rt Room Assignment: 408(02/25/22 01:27) mw Diagnosis - Hypomagnesemia rt - Muscle weakness (generalized) rt Forms: - Medication Reconciliation Form rt - SBAR form rt Signatures: Dispatcher [employer] Guillermina Lizama RN RN mw Leal, Jahala RN RN jl7 Betito Blanchard RN RN as6 Aldo Garcia MD MD rt Corrections: (The following items were deleted from the chart) 01:27 02/24 23:27 rt mw
--- NOTE | 2022-02-24 23:28 | ER ---
Nurse's Notes [facility] Name: Shilpa Samaniego Age: 89 yrs Sex: Female : 1930 Arrival Date: 02/24/2022 Time: 18:35 Bed 2 Private MD: Diagnosis: Hypomagnesemia;Muscle weakness (generalized) Presentation: 02/24 18:45 Chief complaint: Patient's son or daughter states: Just released [facility] and jl7 we didn't even get home and she is ill. Nausea and SOB. Coronavirus screen: Vaccine status: Patient reports receiving the 2nd dose of the covid vaccine. At this time, the client does not indicate any symptoms associated with coronavirus-19. Ebola Screen: No symptoms or risks identified at this time. Initial Sepsis Screen: Does the patient meet any 2 criteria? No. Patient's initial sepsis screen is negative. Does the patient have a suspected source of infection? No. Patient's initial sepsis screen is negative. Risk Assessment: Do you want to hurt yourself or someone else? Patient reports no desire to harm self or others. Onset of symptoms is unknown. 18:45 Method Of Arrival: Wheelchair jl7 18:45 Acuity: LESA 2 jl7 Triage Assessment: 18:47 General: Appears in no apparent distress. uncomfortable, ill, Behavior is cooperative, jl7 appropriate for age, anxious. Pain: Denies pain. Neuro: Level of Consciousness is awake, alert, obeys commands, Oriented to person, place, time, situation. Cardiovascular: Patient's skin is warm and dry. Respiratory: Reports shortness of breath Airway is patent Respiratory effort is even, unlabored, Respiratory pattern is regular, symmetrical, Onset: The symptoms/episode began/occurred at an unknown time. the patient has mild shortness of breath. Derm: Skin is dry, Skin is pale, Skin temperature is cool. Historical: - Allergies: 18:47 Augmentin; jl7 18:47 cefpodoxime; jl 18:47 Cefuroxime; 18:47 Ciprofloxacin; 18:47 Demerol; 18:47 Levofloxacin; 18:47 NSAIDS; jl7 18:47 PENICILLINS; jl7 - PMHx: 18:47 Anxiety; Atrial Fib; COPD; DVT; LLE; hiatal hernia; Hyperlipidemia; Hypertension; jl7 Pacemaker; Rheumatoid Arthritis; - PSHx: 18:47 hernia; hip; hyst; pacemaker; jl7 - Immunization history:: Client reports receiving the 2nd dose of the Covid vaccine. - Social history:: Smoking status: Patient denies any tobacco usage or history of. - Family history:: not pertinent. Screenin/06 01:34 Abuse screen: Denies threats or abuse. Denies injuries from another. Nutritional as6 screening: No deficits noted. Tuberculosis screening: No symptoms or risk factors identified. Fall Risk IV access (20 points). Gait- Weak (10 pts.). Total Garcia Fall Scale indicates Low Risk Score (25-44 pts). Side Rails Up X 2 Family Present and informed to notify staff if they need to leave bedside. Assessment: 02/24 19:20 General: Appears uncomfortable, Behavior is calm, cooperative. Pain: Denies pain. ha1 Neuro: Level of Consciousness is awake, alert, obeys commands, Oriented to person, place, time, situation. Cardiovascular: Capillary refill < 3 seconds Patient's skin is warm and dry. Rhythm is sinus tachycardia. Respiratory: Airway is patent Respiratory effort is even, unlabored, Respiratory pattern is regular, symmetrical, Breath sounds are clear bilaterally. GI: No signs and/or symptoms were reported involving the gastrointestinal system. Abdomen is flat, non-distended, Bowel sounds present X 4 quads. : No signs and/or symptoms were reported regarding the genitourinary system. EENT: No deficits noted. No signs and/or symptoms were reported regarding the EENT system. Derm: Skin is pink, warm \T\ dry. Musculoskeletal: Circulation, motion, and sensation intact. Reports weakness in generalized. 20:20 Reassessment: Patient and/or family updated on plan of care and expected duration. Pain ha1 level reassessed. Patient is alert, oriented x 3, equal unlabored respirations, skin warm/dry/pink. Patient denies pain at this time. 21:20 Reassessment: Patient and/or family updated on plan of care and expected duration. Pain ha1 level reassessed. Patient is alert, oriented x 3, equal unlabored respirations, skin warm/dry/pink. Patient denies pain at this time. 22:20 Reassessment: Patient and/or family updated on plan of care and expected duration. Pain ha1 level reassessed. Patient is alert, oriented x 3, equal unlabored respirations, skin warm/dry/pink. Patient denies pain at this time. 23:20 Reassessment: Patient and/or family updated on plan of care and expected duration. Pain ha1 level reassessed. Patient is alert, oriented x 3, equal unlabored respirations, skin warm/dry/pink. Patient denies pain at this time. Vital Signs: 18:45 BP 124 / 68; Pulse 94; Resp 19; Temp 98.3; Pulse Ox 89% on R/A; Weight 86.18 kg; Height jl7 5 ft. 9 in. (175.26 cm); 20:17 BP 133 / 52; Pulse 103; Resp 21 S; Pulse Ox 94% on R/A; as6 21:20 BP 132 / 59; Pulse 104; Resp 21 S; Pulse Ox 94% on R/A; ha1 22:20 BP 130 / 57; Pulse 106; Resp 22 S; Pulse Ox 95% on R/A; ha1 23:04 BP 130 / 57; Pulse 102; Resp 23 S; Pulse Ox 94% on R/A; as6 02/25 00:05 BP 128 / 51; Pulse 88; Resp 22 S; Pulse Ox 98% on R/A; ha1 01:29 BP 130 / 53; Pulse 85; Resp 22 S; Pulse Ox 95% on R/A; as6 02/24 18:45 Body Mass Index 28.06 (86.18 kg, 175.26 cm) jl7 ED Course: 02/24 18:35 Patient arrived in ED. as 18:47 Triage completed. jl7 18:47 Arm band placed on right wrist. jl7 18:49 Gagan Ro, SABI is Primary Nurse. jl7 18:54 Eliezer Henson MD is Attending Physician. kdr 19:09 Aldo Garcia MD is Attending Physician. rt 20:10 Inserted saline lock: 22 gauge in right antecubital area, using aseptic technique. as6 Blood collected. 20:10 BNP Sent. as6 20:10 Troponin High Sensitivity Sent. as6 20:10 TSH Sent. as6 20:10 CMP Sent. as6 20:10 Magnesium Sent. as6 20:10 CBC with Diff Sent. as6 20:22 Chest Single View XRAY In Process Unspecified. EDMS 22:31 UA MICROSCOPIC Sent. oe 23:27 Glenn Stone MD is Hospitalizing Provider. rt 23:40 COVID-19/FLU A+B Sent. ha1 02/25 01:35 Bed in low position. Call light in reach. Side rails up X2. Adult w/ patient. as6 01:35 No provider procedures requiring assistance completed. Patient admitted, IV remains in as6 place. Administered Medications: 02/24 20:10 Drug: Zofran (Ondansetron) 4 mg Route: IVP; Site: right antecubital; as6 02/25 01:34 Follow up: Response: No adverse reaction as6 02/24 23:48 Drug: Magnesium Sulfate 2 grams Route: IVPB; Infused Over: 2 hrs; Site: right as6 antecubital; 02/25 01:34 Follow up: Response: No adverse reaction; IV Status: Completed infusion; IV Intake: as6 100ml Medication: 01:35 VIS not applicable for this client. as6 Intake: 01:34 IV: 100ml; Total: 100ml. as6 Outcome: 02/24 23:27 Decision to Hospitalize by Provider. rt 02/25 01:35 Admitted to Tele accompanied by tech, family with patient, via stretcher, room 408, as6 with chart, Report called to Nirmal CELESTIN Condition: stable Instructed on the need for admit. 01:43 Patient left the ED. as6 Signatures: Dispatcher [employer] EDMS Eliezer Henson MD MD kdr Martinez, Amelia as Dave Esposito oe Gagan Ro RN RN jl7 Betito Blanchard RN RN as6 Nell Dolan RN RN ha1 Aldo Garcia MD MD rt
[2022-02-24] MEDS ORDERED: Magnesium Sulfate 2gm IVPB 2 G/50 ML BAG IV ONE (23:43)
[2022-02-25 00:19] LABS: SARS-COV-2 RT PCR NEGATIVE (NEGATIVE)
--- NOTE | 2022-02-25 01:40 | P.HP ---
Certification for Inpatient Patient admitted to: Observation With expected LOS: <2 Midnights Patient will require the following post-hospital care: None Practitioner: I am a practitioner with admitting privileges, knowledge of patient current condition, hospital course, and medical plan of care. Services: Services provided to patient in accordance with Admission requirements found in Title 42 Section 412.3 of the Code of Federal Regulations <Julius Castro - Last Filed: 02/25/22 01:36> Patient History Date of Service: 02/25/22 Reason for admission: Dyspnea, weakness, hypomagnesemia History of Present Illness: 89-year-old female with history of atrial fibrillation on chronic anticoagulation, COPD, hypertension, hyperlipidemia, RA presents to the emergency department for dyspnea, generalized weakness. Patient/family report that last week they had a VQ scan performed on outpatient basis which reportedly showed high probability for pulmonary embolism, they referred to local emergency department. Patient/family report that they were at [facility] for the last 3 days, initially patient was on a heparin drip but per family radiologist from [facility] and [place] reviewed the VQ scan and determined it unlikely that she had a pulmonary embolism especially as she has been compliant with her Eliquis. She was discharged from their facility after they had ruled out pulmonary embolism, patient was not hypoxic. Family reports it took 3 staff members to get her into the car and when they got to the house they are unable to get her into the home. Patient lives at home alone, next-door to her daughter before her recent hospitalization she was ambulatory occasionally using a walker or cane, this time she is unable to stand or walk without full assistance. She was evaluated here in the emergency department her labs were significant for creatinine of 1.42 GFR 35 magnesium 1.6 BNP 1971 white blood cell count 14.8 urinalysis negative for UTI chest x-ray without acute findings negative for flu/COVID. ED provider wishes to admit under observation for weakness, hypomagnesemia, dyspnea. - Past Medical/Surgical History Diabetic: No -: HTN -: Hypothyroidism -: Chronic pain -: GERD with hiatal hernia -: Anxiety -: Atrial fibrillation on chronic anti coagulation therapy -: Hypothyroidism -: Insomnia -: Right leg DVT -: CHFdiastolic -: Right Rotator surgery -: Hysterectomy -: Pacemaker -: hernia repair -: Bilateral knee surgery Psychosocial/ Personal History: Patient is a . She currently lives by herself. - Family History Sister -: Cancer Notes: Pt had another sister who had hx of CVA([place]) Brother -: Heart disease - Social History Alcohol use: No CD- Drugs: No Caffeine use: No Place of Residence: Home <Julius Castro - Last Filed: 02/25/22 01:36> Date of Service: 02/25/22 <Glenn Stone - Last Filed: 02/25/22 13:13> Allergies amoxicillin [From Augmentin] Allergy (Verified 01/31/20 01:02) Itching/Hives/Rash cefpodoxime Allergy (Verified 01/31/20 01:02) Itching/Hives/Rash cefuroxime Allergy (Verified 01/31/20 01:02) Itching/Hives/Rash ciprofloxacin Allergy (Verified 01/31/20 01:02) Itching/Hives/Rash clavulanic acid [From Augmentin] Allergy (Verified 01/31/20 01:02) Itching/Hives/Rash levofloxacin Allergy (Verified 01/31/20 01:02) Itching/Hives/Rash Penicillins Allergy (Verified 01/31/20 01:02) Itching/Hives/Rash sulfamethizole Adverse Reaction (Verified 01/31/20 01:02) Itching/Hives/Rash NSAIDS Allergy (Mild, Uncoded 01/31/19 17:11) Unknown Home Medications: Amitriptyline [Elavil*] 25 mg PO BEDTIME 08/18/15 Levothyroxine [Synthroid*] 100 mcg PO BEDTIME 08/18/15 Metoprolol Tartrate [Lopressor*] 50 mg PO BID 08/18/15 Gabapentin 300 mg PO DAILY 02/16/16 Zolpidem Tartrate 5 mg PO BEDTIME 02/16/16 Pantoprazole [Protonix Tab*] 40 mg PO DAILY 01/31/19 Apixaban [Eliquis] 5 mg PO BID 01/31/20 Furosemide 40 mg PO DAILY 01/31/20 L.acidoph,Paracasei, B.lactis [Probiotic] 1 each PO DAILY 01/31/20 Montelukast [Singulair*] 10 mg PO DAILY 01/31/20 Review of Systems 10-point ROS is otherwise unremarkable General: Weakness Respiratory: Shortness of Breath <Julius Castro - Last Filed: 02/25/22 01:36> Physical Examination - Physical Exam General: Alert, In no apparent distress, Oriented x3 HEENT: Atraumatic, PERRLA, Mucous membr. moist/pink, EOMI, Sclerae nonicteric Neck: Supple, 2+ carotid pulse no bruit, No LAD, Without JVD or thyroid abnormality Respiratory: Clear to auscultation bilaterally, Normal air movement Cardiovascular: Regular rate/rhythm, Normal S1 S2 Gastrointestinal: Normal bowel sounds, No tenderness Musculoskeletal: No tenderness Integumentary: No rashes Neurological: Normal gait, Normal speech, Normal strength at 5/5 x4 extr, Normal tone, Normal affect Lymphatics: No axilla or inguinal lymphadenopathy - Studies Laboratory Data (last 24 hrs) 02/24/22 21:43: Sodium 134 L, Potassium 4.2, BUN 36 H, Creatinine 1.42 H, Glucose 152 H, Magnesium 1.6 L, Total Bilirubin 0.6, AST 14 L, ALT 15, Alkaline Phosphatase 94 02/24/22 20:06: WBC 14.80 H, Hgb 13.3, Hct 40.3, Plt Count 329 <Julius Castro - Last Filed: 02/25/22 01:36> - Studies Laboratory Data (last 24 hrs) 02/24/22 21:43: Sodium 134 L, Potassium 4.2, BUN 36 H, Creatinine 1.42 H, Glucose 152 H, Magnesium 1.6 L, Total Bilirubin 0.6, AST 14 L, ALT 15, Alkaline Phosphatase 94 02/24/22 20:06: WBC 14.80 H, Hgb 13.3, Hct 40.3, Plt Count 329 <Glenn Stone - Last Filed: 02/25/22 13:13> Assessment and Plan - Plan Assessment: Weakness, deconditioning Dyspnea Hypomagnesemia Chronic diastolic congestive heart failure Atrial fibrillation on chronic anticoagulation therapy Hypertension Hyperlipidemia Plan: Weakness, deconditioning: PT consult in place, social service director consult in place for discharge planning Dyspnea: Patient reports symptoms have improved, daughter feels as if her mother is still short of breath, patient is not hypoxic. We will obtain records from [facility] hospitalization for clarification of radiology test performed/results. Continue Eliquis. Hypomagnesemia: Replaced in ED, protocol in place. Chronic diastolic congestive heart failure: Continue home medications, trend troponins. Atrial fibrillation on chronic anticoagulation therapy: Continue medications including Eliquis, metoprolol. Hypertension: Continue home meds Hyperlipidemia: Continue home meds DVT PPX: Continue Eliquis Code status: Full Discharge Plan: Home Plan to discharge in: 24 Hours - Advance Directives Does patient have a Living Will: Yes Does patient have a Durable POA for Healthcare: Yes - Code Status/Comfort Care Code Status Assessed: Yes (Full code) Critical Care: No Time Spent Managing Pts Care (In Minutes): 50 <Julius Castro - Last Filed: 02/25/22 01:36> Physician Review: Patient Assessed, Agree with Above Assessment and Plan <Glenn Stone - Last Filed: 02/25/22 13:13>
[2022-02-25] MEDS ORDERED: ACETAMINOPHEN 500 MG TAB PO PRN (01:50)
[2022-02-25] MEDS ORDERED: ONDANSETRON 4 MG/2 ML VIAL IV PRN (01:50)
[2022-02-25 02:00] VITALS: BMI 28.8
[2022-02-25 04:32] LABS: Absolute Lymphocytes (CBC) 1.6 K/uL (0.7-4.9); Hematocrit 35.6 % (36.0-45.0); Lymphocytes % 12.9 % (15.3-44.8); MCV 87.9 fL (80-100); MPV 7.4 fL (7.6-11.3); RBC Red Blood Cell Count 4.05 M/uL (3.86-4.86)
[2022-02-25 05:02] LABS: Magnesium 2.2 mg/dL (1.8-2.4); Potassium 3.9 mmol/L (3.5-5.1); Thyroid Stimulating Hormone 1.42 uIU/mL (0.360-3.740)
[2022-02-25] MEDS ORDERED: METOPROLOL TAR 25 MG TAB PO SCH ×2 (06:00)
[2022-02-25] MEDS: PANTOPRAZOLE 40MG TABLET PO SCH (06:09)
[2022-02-25] MEDS: LEVOTHYROXINE SOD 0.1 MG TAB PO SCH (06:09)
--- NOTE | 2022-02-25 08:36 | EKG ---
Test Date: 2022-02-24 Test Time: 20:53:30 Change Room Attendant: TRIP MEASUREMENT RESULTS: Intervals: Rate: 115 MI: QRSD: 76 QT: 332 QTc: 459 [place]: P: MI: QRS: 62 T: 22 INTERPRETIVE STATEMENTS: Atrial fibrillation with rapid ventricular response Nonspecific ST abnormality Abnormal ECG Compared to ECG 08/21/2020 00:50:56 ST (T wave) deviation now present Sinus rhythm no longer present Sinus arrhythmia no longer present Electronically Signed On 02-25-22 08:34:33 TASTE TESTER by Ángel Jane
[2022-02-25] MEDS: FUROSEMIDE 40 MG TABLET PO SCH (08:42)
[2022-02-25] MEDS: HYDROCODONE/APAP 5/325 MG TAB PO PRN ×3 (08:42→21:52)
[2022-02-25] MEDS: APIXABAN 5 MG TABLET PO SCH ×2 (08:45→20:41)
--- NOTE | 2022-02-25 16:58 | CON ---
Date of Consultation: 02/25/2022 Reason For Consultation: Shortness of breath and weakness. History Of Present Illness: Ms. Samaniego is 89 years old. Has a history of hypertension, paroxysmal atrial fibrillation, chronic diastolic congestive heart failure, hypothyroidism, gastroesophageal ref lux disease, and COPD. Came in with shortness of breath and weakness, although her chest x-ray was n ormal. She had a creatinine of 1.43 and her BNP was 1073. She has complained of recent falling. Th ere was a question about a pulmonary embolus at [facility]. Records are pending. Dr. Stone is trying to g et them. She denied any chest pain. Denied any syncope. Denied any nausea, vomiting, diaphoresis, PND, orthopnea, pedal edema, or palpitation. Past Medical History: As stated above. Allergies: SHE IS ALLERGIC TO MULTIPLE ANTIBIOTICS. Review of Systems: Negative. Social History: Negative. Family History: Negative. Medications: At home include metoprolol, Eliquis, Lasix, Synthroid, Singulair, and Protonix. Physical Examination: General: She was alert and oriented x3, but appeared weak. Vital Signs: Stable, afebrile. HEENT: Negative. Neck: Supple with no bruit. Chest: Clear. Cardiac: Revealed a regular rhythm and rate with S4 gallops. No murmurs or rubs. Abdomen: Benign. Extremities: Revealed no clubbing, cyanosis, or edema. Diagnostic Data: As stated earlier. Impression And Plan: Mrs. Samaniego may be exhibiting some failure to thrive kind of symptoms. She is 89. There is certainly nothing cardiac going on at this point. Her BNP is slightly elevated probab ly secondary to her renal insufficiency. Her chest x-ray is negative. She is on metoprolol, Eliquis , Lasix, Synthroid, Singulair, and Protonix. I will continue the present regimen, maybe gently hydra te her, get a Physical Therapy consult, consider correction facility before she goes home by her self. The case was discussed with her and her son and Dr. Stone. I will continue to follow her. MANUELITO/MODL Voice ID: [id number] Report ID: [id number]
[2022-02-25] MEDS: METOPROLOL TAR 50 MG TAB PO SCH (18:27)
[2022-02-25] MEDS: GABAPENTIN 300 MG CAP PO SCH (20:41)
[2022-02-25] MEDS: ZOLPIDEM TARTRATE 5 MG TABLET PO PRN (20:41)
[2022-02-26 04:50] LABS: Absolute Lymphocytes (CBC) 1.7 K/uL (0.7-4.9); Hematocrit 32.9 % (36.0-45.0); Lymphocytes % 19.4 % (15.3-44.8); MCV 86.9 fL (80-100); MPV 7.4 fL (7.6-11.3); RBC Red Blood Cell Count 3.78 M/uL (3.86-4.86)
[2022-02-26 05:01] LABS: Magnesium 2.1 mg/dL (1.8-2.4); Potassium 4.3 mmol/L (3.5-5.1)
[2022-02-26] MEDS: METOPROLOL TAR 50 MG TAB PO SCH ×2 (05:32→17:13)
[2022-02-26] MEDS: LEVOTHYROXINE SOD 0.1 MG TAB PO SCH (05:32)
[2022-02-26] MEDS: PANTOPRAZOLE 40MG TABLET PO SCH (05:32)
[2022-02-26] MEDS: HYDROCODONE/APAP 5/325 MG TAB PO PRN ×3 (05:51→20:11)
[2022-02-26] MEDS: APIXABAN 5 MG TABLET PO SCH ×2 (08:09→20:11)
[2022-02-26] MEDS: FUROSEMIDE 40 MG TABLET PO SCH (08:09)
[2022-02-26] MEDS ORDERED: HYDROCORTISONE 1 % CREAM 30GM TOP PRN (09:07)
[2022-02-26] MEDS ORDERED: Ringers Lactate 500 ML IV SCH (14:00)
--- NOTE | 2022-02-26 15:08 | P.PN ---
Subjective Date of Service: 02/26/22 Chief Complaint: Dyspnea, weakness, hypomagnesemia No acute events overnight. She reports continued generalized weakness. She denies any chest pain, shortness of breath, or palpitations. Review of Systems 10-point ROS is otherwise unremarkable General: Weakness (generalized) Physical Examination - Vital Signs Temperature: 97 F Blood Pressure: 103/55 Pulse: 77 Respirations: 18 Pulse Ox (%): 99 - Physical Exam General: Alert, In no apparent distress, Oriented x3 HEENT: Atraumatic, Mucous membr. moist/pink, EOMI, Sclerae nonicteric Neck: JVD not distended Respiratory: Clear to auscultation bilaterally, Normal air movement Cardiovascular: No edema, Regular rate/rhythm, Normal S1 S2, No gallops, No rubs, No murmurs Gastrointestinal: Normal bowel sounds, Soft and benign, Non-distended, No tenderness, No rebound, No guarding Musculoskeletal: No clubbing Integumentary: No rashes Neurological: Normal speech, Cranial nerves 3-12 intact, Normal affect Assessment And Plan - Plan # KDIGO Stage I Acute Kidney Injury - Creatinine = 1.42 -> 1.43 -> 1.58 (baseline creatinine ~ 1.0-1.1) - Urinalysis = unremarkable - IV fluids with 500 mL of Lactated Ringers' - Hold home furosemide for now - Monitor creatinine and urine output - If worsening, obtain renal ultrasound - Renally dose medications # Deconditioning # Dyspnea (resolved) - Reports that her shortness of breath/dyspnea have completely resolved - She requests placement for possible PT for "several days" prior to being discharged home - Consulted PT/OT - Case management consulted - recommendations appreciated - Requested records from [facility] # Chronic Atrial Fibrillation Her [id number] = 5 (CHF=1, HTN=1, Age>75=2, Sex=1), which warrants anticoagulation. - For rate control: - Continue home metoprolol - For anticoagulation: - Continue home apixaban # Chronic Compensated Diastolic Congestive Heart Failure - Does not appear to be in acute exacerbation - Hold home furosemide given that she appears to be hypovolemic on exam # Hypertension - Continue home metoprolol # Hypothyroidism - Continue home levothyroxine Glenn Stone M.D.
[2022-02-26] MEDS ORDERED: NA CHLORIDE 0.9% 1,000 ML IV SCH (16:00)
[2022-02-26 16:23] VITALS: O2SAT 98
[2022-02-26] MEDS ORDERED: BISACODYL E.C. 5 MG TAB PO ONE (19:20)
[2022-02-26] MEDS: GABAPENTIN 300 MG CAP PO SCH (20:11)
[2022-02-26] MEDS: ZOLPIDEM TARTRATE 5 MG TABLET PO PRN (21:03)
[2022-02-27 00:26] VITALS: TEMP 97.1
[2022-02-27] MEDS: LEVOTHYROXINE SOD 0.1 MG TAB PO SCH (05:37)
[2022-02-27] MEDS: PANTOPRAZOLE 40MG TABLET PO SCH (05:37)
[2022-02-27] MEDS: METOPROLOL TAR 50 MG TAB PO SCH (05:38)
[2022-02-27 06:00] LABS: Potassium 4.2 mmol/L (3.5-5.1)
[2022-02-27] MEDS: APIXABAN 5 MG TABLET PO SCH (08:11)
[2022-02-27 08:19] VITALS: BP 140/60
--- NOTE | 2022-02-27 08:59 | P.DS ---
Admission Date: 02/25/22 Discharge Date: 02/27/22 Disposition: ROUTINE DISCHARGE Discharge Condition: GOOD Reason for Admission: Dyspnea, weakness, hypomagnesemia Hospital Course: DIAGNOSES: # KDIGO Stage I Acute Kidney Injury # Deconditioning # Dyspnea (resolved) # Chronic Atrial Fibrillation # Chronic Compensated Diastolic Congestive Heart Failure # Hypertension # Hypothyroidism HOSPITAL COURSE: Ms. Shilpa Samaniego is a pleasant 89 year old female with a past medical history significant for chronic atrial fibrillation, chronic diastolic congestive heart failure, hypertension, and hypothyroidism who was admitted to the [facility] on 02/25/2022 for generalized weakness. She was admitted to the Medicine service. Upon further evaluation, she was found to have an acute kidney injury. She was treated with IV lactated Ringer's, and demonstrated significant improvement in her renal function. Additionally, her primary concern was deconditioning. She was evaluated by PT/OT and did well. She was cleared to be discharged home from their standpoint. I offered her home health for continued PT/OT services due to her generalized deconditioning; however, her and her son declined home health services. On 02/27/2022, she was seen on morning rounds and deemed medically stable for discharge. She was discharged with instructions to schedule follow-up appoi ntments with her PCP (Dr. Daley), with Cardiology (Dr. Jane), and with Nephrology (Dr. Lewis). She and her son were given the opportunity to ask questions and reported no further questions. Furthermore, all questions were answered to the best of my ability. A copy of this discharge summary will be sent to the above providers to facilitate continuity of care. Today, I personally spent 25 minutes on her case, of which greater than 50% of the time was spent in patient education, counseling, and coordination of care as described above. - Physical Exam General: Alert, In no apparent distress, Oriented x3 HEENT: Atraumatic, Mucous membr. moist/pink, EOMI, Sclerae nonicteric Neck: JVD not distended Respiratory: Clear to auscultation bilaterally, Normal air movement Cardiovascular: No edema, Regular rate/rhythm, Normal S1 S2, No gallops, No rubs, No murmurs Gastrointestinal: Normal bowel sounds, Soft and benign, Non-distended, No tenderness, No rebound, No guarding Musculoskeletal: No clubbing Integumentary: No rashes Neurological: Normal speech, Cranial nerves 3-12 intact, Normal affect Vital Signs/Physical Exam: Temp Pulse Resp BP Pulse Ox 97.1 F 80 18 140/60 97 02/27/22 08:00 02/27/22 08:00 02/27/22 08:00 02/27/22 08:00 02/27/22 08:00 Laboratory Data at Discharge: WBC 8.50 K/uL (4.3-10.9) 02/26/22 04:08 Hgb 10.8 g/dL (12.0-15.0) L 02/26/22 04:08 Hct 32.9 % (36.0-45.0) L 02/26/22 04:08 Plt Count 248 K/uL (152-406) 02/26/22 04:08 Sodium 136 mmol/L (136-145) D 02/27/22 05:23 Potassium 4.2 mmol/L (3.5-5.1) 02/27/22 05:23 BUN 41 mg/dL (7-18) H 02/27/22 05:23 Creatinine 1.35 mg/dL (0.55-1.3) H 02/27/22 05:23 Glucose 133 mg/dL (74-106) H 02/27/22 05:23 Magnesium 2.1 mg/dL (1.8-2.4) 02/26/22 04:08 Total Bilirubin 0.6 mg/dL (0.2-1.0) 02/24/22 21:43 AST 14 U/L (15-37) L 02/24/22 21:43 ALT 15 U/L (12-78) 02/24/22 21:43 Alkaline Phosphatase 94 U/L (45-117) 02/24/22 21:43 Home Medications: Amitriptyline [Elavil*] 25 mg PO BEDTIME 08/18/15 Levothyroxine [Synthroid*] 100 mcg PO BEDTIME 08/18/15 Metoprolol Tartrate [Lopressor*] 50 mg PO BID 08/18/15 Gabapentin 300 mg PO DAILY 02/16/16 Zolpidem Tartrate 5 mg PO BEDTIME 02/16/16 Pantoprazole [Protonix Tab*] 40 mg PO DAILY 01/31/19 Apixaban [Eliquis] 5 mg PO BID 01/31/20 Furosemide 40 mg PO DAILY 01/31/20 L.acidoph,Paracasei, B.lactis [Probiotic] 1 each PO DAILY 01/31/20 Montelukast [Singulair*] 10 mg PO DAILY 01/31/20 Diet: Renal Activity: Fall precautions Followup: Juan Manuel Lewis [ACTIVE - CAN ADMIT] - Ángel Jane MD [Primary Care Provider] - Brant Daley MD [ACTIVE - CAN ADMIT] - Time spent managing pt's care (in minutes): 25
== END 2022-02-27 09:38 | disposition home or self-care (01) | DRG 683 ==
LOC: ER 18:33 → ERHOLD 02-25 01:29 → OBSVTOIN 02-25 01:29 → 4TH 02-25 01:35
PROVIDERS: ADMIT Internal Medicine; ATTEND Internal Medicine
DX: N17.9 Acute kidney failure, unspecified (principal); I48.19 Other persistent atrial fibrillation; I50.32 Chronic diastolic (congestive) heart failure; I11.0 Hypertensive heart disease with heart failure; E03.9 Hypothyroidism, unspecified; J44.9 Chronic obstructive pulmonary disease, unspecified; E83.42 Hypomagnesemia; R53.1 Weakness; E78.5 Hyperlipidemia, unspecified; K21.9 Gastro-esophageal reflux disease without esophagitis; M06.9 Rheumatoid arthritis, unspecified; K44.9 Diaphragmatic hernia without obstruction or gangrene; G89.29 Other chronic pain; F41.9 Anxiety disorder, unspecified; G47.00 Insomnia, unspecified; R62.7 Adult failure to thrive; Z68.28 Body mass index [BMI] 28.0-28.9, adult; Z95.0 Presence of cardiac pacemaker; Z86.718 Personal history of other venous thrombosis and embolism; Z91.81 History of falling; Z79.01 Long term (current) use of anticoagulants; Z79.899 Other long term (current) drug therapy; Z88.0 Allergy status to penicillin; Z88.1 Allergy status to other antibiotic agents; Z88.2 Allergy status to sulfonamides; Z88.3 Allergy status to other anti-infective agents; Z90.710 Acquired absence of both cervix and uterus; Z80.9 Family history of malignant neoplasm, unspecified; Z82.3 Family history of stroke; Z82.49 Family history of ischemic heart disease and other diseases of the circulatory system
CPT/HCPCS: 0240U; 36415; 71045; 80048; 80053; 81003; 81015; 83735; 83880; 84439; 84443; 84484; 85025; 93005; 96365; 96366; 96375; 97116; 97161; 97530; 99285; J2405; J3475; J7030; J7120